=== PATIENT | female | born 2000 | race African-American/Black ===

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

== ENCOUNTER 2019-01-26 18:22 | Emergency (ER) | payer OTHER ==
[2019-01-26 18:29] VITALS: TEMP 99.4
[2019-01-26] MEDS ORDERED: SODIUM CHLORIDE 0.9% 1,000 ML IV STA (18:58)
[2019-01-26] MEDS ORDERED: ONDANSETRON 4 MG/2 ML VIAL IVP STA (18:58)
[2019-01-26 19:37] LABS: Basophils % (A) 0 %; Eosinophils # (A) 0.1 k/uL (0-0.7); Eosinophils % (A) 2 %; HCT 45.2 % (34.0-46.0); HGB 14.9 gm/dL (11.4-16.0); Lymphocytes # (A) 1.8 k/uL (1.0-4.8); Lymphocytes % (A) 27 %; MCH 31.1 pg (25.0-35.0); MCHC 32.9 g/dL (31.0-37.0); MCV 94.6 fL (80.0-100.0); Mean Platelet Volume 7.1; Monocytes # (A) 0.2 k/uL (0-1.0); Monocytes % (A) 3 %; Neutrophils # (A) 4.6 k/uL (1.3-7.7); Neutrophils % (A) 67 %; Platelet Count 275 k/uL (150-450); RBC 4.78 m/uL (3.80-5.40); RDW 14.1 % (11.5-15.5); WBC 6.8 k/uL (4.0-11.0)
[2019-01-26 19:40] LABS: Appearance,Urine Clear (Clear); Bilirubin,Urine Negative (Negative); Blood,Urine Trace (Negative); Color,Urine Yellow; Glucose,Urine (UA) Negative (Negative); Ketones,Urine Negative (Negative); Leukocyte Esterase,Urine Negative (Negative); Mucus,Urine Rare /hpf; Nitrite,Urine Negative (Negative); Protein,Urine 1+ (Negative); RBC,Urine 1 /hpf (0-5); Specific Gravity,Urine 1.022 (1.001-1.035); Squamous Epithelial Cell,Urine 7 /hpf (0-4); Urobilinogen,Urine <2.0 mg/dL (<2.0); WBC,Urine 1 /hpf (0-5)
[2019-01-26 19:47] LABS: ALT 25 U/L (9-52); AST 24 U/L (14-36); Albumin 5.2 g/dL (3.5-5.0); Alkaline Phosphatase 70 U/L (38-126); Amylase 76 U/L (30-110); Anion Gap 12 mmol/L; Blood Urea Nitrogen 13 mg/dL (7-17); Calcium 10.8 mg/dL (8.4-10.2); Carbon Dioxide 22 mmol/L (22-30); Chloride 105 mmol/L (98-107); Glucose 92 mg/dL (74-99); Lipase 35 U/L (23-300); Potassium 3.8 mmol/L (3.5-5.1); Sodium 139 mmol/L (137-145); Total Bilirubin 1.7 mg/dL (0.2-1.3); Total Protein 8.4 g/dL (6.3-8.2)
--- NOTE | 2019-01-26 20:00 | US ---
EXAMINATION TYPE: US gallbladder DATE OF EXAM: 01/26/2019 COMPARISON: NONE CLINICAL HISTORY: Pain. Pain and vomiting x 2 months. EXAM MEASUREMENTS: Liver Length: 13.5 cm Gallbladder Wall: 0.2 cm CBD: 0.4 cm Right Kidney: 9.9 x 4.6 x 5.4 cm Pancreas: wnl Liver: wnl Gallbladder: wnl Evidence for sonographic Marquez's sign: No CBD: wnl Right Kidney: wnl IMPRESSION: Negative exam. No gallstones or dilated ducts.
[2019-01-26] MEDS ORDERED: KETOROLAC 30 MG/ML 1 ML VIAL IVP STA (20:07)
--- NOTE | 2019-01-26 20:33 | CT ---
EXAMINATION TYPE: CT abdomen pelvis w con DATE OF EXAM: 01/26/2019 COMPARISON: 09/24/2009 HISTORY: Abdominal pain and vomiting. CT DLP: 316.2 mGycm Automated exposure control for dose reduction was used. TECHNIQUE: Helical acquisition of images was performed from the lung bases through the pelvis. CONTRAST: Performed without Oral Contrast and with IV Contrast, patient injected with 100ml mL of Isovue 300. FINDINGS: Lung bases are clear. There is no pleural effusion. Heart size is normal. There is no pericardial eff usion. Liver spleen pancreas gallbladder appear normal. Bile ducts are not dilated. There is no adren al mass. Kidneys show satisfactory contrast opacification. There is no hydronephrosis. Bladder disten ds smoothly. Uterus is anteverted. There is no free fluid in the pelvis. There is no inguinal hernia. There is no ascites. There is no sign of free air. Appendix is not seen. There is no sign of a thickened appendix . There is no evidence of mesenteric edema. The bony structures appear normal. Exam is limited by mot ion. IMPRESSION: NEGATIVE CT SCAN ABDOMEN AND PELVIS.
--- NOTE | 2019-01-26 21:10 | ED ---
Abdominal Pain HPI - General Chief Complaint: Abdominal Pain Stated Complaint: abd pain, weight loss Time Seen by Provider: 01/26/19 18:30 Source: patient, family Mode of arrival: ambulatory Limitations: no limitations - History of Present Illness Initial Comments: Patient is a 18-year-old female who presents to the emergency department with complaint of nausea and vomiting. The symptoms have been going on for the past several months. She also has associated abdominal discomfort. She has been seen by a GI specialist. She had an EGD and colonoscopy performed. There were no acute findings. The GI surgeon is sending her for a CT of her abdomen and pelvis and a gallbaldder ultrasound on . She does have an appointment with them on February 01. She is not being currently treated with any medications. She became significantly worse today which made her come to the emergency room. She admits that it is a cramping sensation located in the periumbilical region and up to the right upper quadrant. Pain is made worse with food intake. She has had anorexia over the past several months and it has caused her to lose a significant amount of weight. She denies hematemesis. Denies any constipation, diarrhea, melanotic stools or hematochezia. No family history of Crohn's or colitis. She denies any fevers or chills. No chest pain or shortness of breath. Denies any abnormal vaginal bleeding or discharge. There are no other alleviating, precipitating or modifying factors - Related Data Home Medications Medication Instructions Recorded Confirmed Ibuprofen [Motrin Ib] 400 mg PO Q6H PRN 01/26/19 01/26/19 Previous Rx's Medication Instructions Recorded Ondansetron Odt [Zofran Odt] 4 mg PO Q8HR PRN #10 tab 01/26/19 Allergies Allergy/AdvReac Type Severity Reaction Status Date / Time No Known Allergies Allergy Verified 01/26/19 19:39 Review of Systems ROS Statement: Those systems with pertinent positive or pertinent negative responses have been documented in the HPI. ROS Other: All systems not noted in ROS Statement are negative. Past Medical History Past Medical History: No Reported History Additional Past Medical History / Comment(s): CHANGE IN BOWEL HABITS. LOSING WEIGHT. NO APPETITE. N/V History of Any Multi-Drug Resistant Organisms: MRSA Date of last positivie culture/infection: 2010 MDRO Source:: left leg Past Surgical History: Breast Surgery Additional Past Surgical History / Comment(s): LT BREAST LUMPECTOMY-BENIGN Past Anesthesia/Blood Transfusion Reactions: No Reported Reaction Past Psychological History: No Psychological Hx Reported Smoking Status: Never smoker Past Alcohol Use History: None Reported Past Drug Use History: None Reported - Past Family History Brother(s) Family Medical History: Cancer General Exam Limitations: no limitations General appearance: alert, in no apparent distress Head exam: Present: atraumatic, normocephalic, normal inspection Eye exam: Present: normal appearance, PERRL, EOMI. Absent: scleral icterus, con junctival injection, periorbital swelling ENT exam: Present: normal exam, mucous membranes moist Neck exam: Present: normal inspection. Absent: tenderness, meningismus, lymphadenopathy Respiratory exam: Present: normal lung sounds bilaterally. Absent: respiratory distress, wheezes, rales, rhonchi, stridor Cardiovascular Exam: Present: regular rate, normal rhythm, normal heart sounds. Absent: systolic murmur, diastolic murmur, rubs, gallop, clicks GI/Abdominal exam: Present: soft, tenderness, normal bowel sounds, other (The patient has mild tenderness to palpation of the right upper quadrant.). Absent: distended, guarding, rebound, rigid Extremities exam: Present: normal inspection, full ROM, normal capillary refill. Absent: tenderness, pedal edema, joint swelling, calf tenderness Back exam: Present: normal inspection Neurological exam: Present: alert, oriented X3, CN II-XII intact Psychiatric exam: Present: normal affect, normal mood Skin exam: Present: warm, dry, intact, normal color. Absent: rash Course Vital Signs 01/26/19 01/26/19 18:26 21:00 Temperature 99.4 F Pulse Rate 111 H 94 Respiratory 18 16 Rate Blood Pressure 149/94 128/78 O2 Sat by Pulse 98 Oximetry Medical Decision Making - Medical Decision Making The patient was placed into room 19. We did obtain IV access. She was given 4 mg of Zofran. She was also given 15 mg of Toradol. I did recommend laboratory studies. I also recommended an ultrasound the patient's gallbladder. I did discuss performing a CT of the patient's abdomen and pelvis with the patient and her family at bedside. They did opt for the CAT scan. I did inform them of the radiation exposure risks. They did understanding continued to agree with performing the CT. Upon return of the results I did discuss them with patient. I did discuss diagnosis, differential diagnosis treatment options. At this time the patient will be discharged home with a prescription for Zofran. She is to take the medications as directed. She is to follow-up with her GI doctor at her scheduled appointment on february. If the patient has any new or worsening symptoms, she should return to the emergency room. The patient agreed and was discharged home in stable condition. - Differential Diagnosis gastroenteritis, anorexia, biliary dyskinesia, yester paresis - Lab Data Result diagrams: 01/26/19 17:24 01/26/19 17:24 Lab Results 01/26/19 01/26/19 01/26/19 Range/Units 17:24 17:24 17:24 WBC 6.8 (4.0-11.0) k/uL RBC 4.78 (3.80-5.40) m/uL Hgb 14.9 (11.4-16.0) gm/dL Hct 45.2 (34.0-46.0) % MCV 94.6 (80.0-100.0) fL MCH 31.1 (25.0-35.0) pg MCHC 32.9 (31.0-37.0) g/dL RDW 14.1 (11.5-15.5) % Plt Count 275 (150-450) k/uL Neutrophils % 67 % Lymphocytes % 27 % Monocytes % 3 % Eosinophils % 2 % Basophils % 0 % Neutrophils # 4.6 (1.3-7.7) k/uL Lymphocytes # 1.8 (1.0-4.8) k/uL Monocytes # 0.2 (0-1.0) k/uL Eosinophils # 0.1 (0-0.7) k/uL Basophils # 0.0 (0-0.2) k/uL Sodium 139 (137-145) mmol/L Potassium 3.8 (3.5-5.1) mmol/L Chloride 105 (98-107) mmol/L Carbon Dioxide 22 (22-30) mmol/L Anion Gap 12 mmol/L BUN 13 (7-17) mg/dL Creatinine 0.64 (0.52-1.04) mg/dL Est GFR (CKD-EPI)AfAm >90 (>60 ml/min/1.73 sqM) Est GFR (CKD-EPI)NonAf >90 (>60 ml/min/1.73 sqM) Glucose 92 (74-99) mg/dL Calcium 10.8 H (8.4-10.2) mg/dL Total Bilirubin 1.7 H (0.2-1.3) mg/dL AST 24 (14-36) U/L ALT 25 (9-52) U/L Alkaline Phosphatase 70 (38-126) U/L Total Protein 8.4 H (6.3-8.2) g/dL Albumin 5.2 H (3.5-5.0) g/dL Amylase 76 (30-110) U/L Lipase 35 (23-300) U/L TSH 1.410 (0.465-4.680) mIU/L Urine Color Urine Appearance (Clear) Urine pH (5.0-8.0) Ur Specific Rawlings (1.001-1.035) Urine Protein (Negative) Urine Glucose (UA) (Negative) Urine Ketones (Negative) Urine Blood (Negative) Urine Nitrite (Negative) Urine Bilirubin (Negative) Urine Urobilinogen (<2.0) mg/dL Ur Leukocyte Esterase (Negative) Urine RBC (0-5) /hpf Urine WBC (0-5) /hpf Ur Squamous Epith Cells (0-4) /hpf Urine Mucus (None) /hpf Urine HCG, Qual Not Detected (Not Detectd) 01/26/19 Range/Units 17:24 WBC (4.0-11.0) k/uL RBC (3.80-5.40) m/uL Hgb (11.4-16.0) gm/dL Hct (34.0-46.0) % MCV (80.0-100.0) fL MCH (25.0-35.0) pg MCHC (31.0-37.0) g/dL RDW (11.5-15.5) % Plt Count (150-450) k/uL Neutrophils % % Lymphocytes % % Monocytes % % Eosinophils % % Basophils % % Neutrophils # (1.3-7.7) k/uL Lymphocytes # (1.0-4.8) k/uL Monocytes # (0-1.0) k/uL Eosinophils # (0-0.7) k/uL Basophils # (0-0.2) k/uL Sodium (137-145) mmol/L Potassium (3.5-5.1) mmol/L Chloride (98-107) mmol/L Carbon Dioxide (22-30) mmol/L Anion Gap mmol/L BUN (7-17) mg/dL Creatinine (0.52-1.04) mg/dL Est GFR (CKD-EPI)AfAm (>60 ml/min/1.73 sqM) Est GFR (CKD-EPI)NonAf (>60 ml/min/1.73 sqM) Glucose (74-99) mg/dL Calcium (8.4-10.2) mg/dL Total Bilirubin (0.2-1.3) mg/dL AST (14-36) U/L ALT (9-52) U/L Alkaline Phosphatase (38-126) U/L Total Protein (6.3-8.2) g/dL Albumin (3.5-5.0) g/dL Amylase (30-110) U/L Lipase (23-300) U/L TSH (0.465-4.680) mIU/L Urine Color Yellow Urine Appearance Clear (Clear) Urine pH 6.0 (5.0-8.0) Ur Specific Rawlings 1.022 (1.001-1.035) Urine Protein 1+ H (Negative) Urine Glucose (UA) Negative (Negative) Urine Ketones Negative (Negative) Urine Blood Trace H (Negative) Urine Nitrite Negative (Negative) Urine Bilirubin Negative (Negative) Urine Urobilinogen <2.0 (<2.0) mg/dL Ur Leukocyte Esterase Negative (Negative) Urine RBC 1 (0-5) /hpf Urine WBC 1 (0-5) /hpf Ur Squamous Epith Cells 7 H (0-4) /hpf Urine Mucus Rare H (None) /hpf Urine HCG, Qual (Not Detectd) - Radiology Data Radiology results: report reviewed CT abdomen and pelvis demonstrates no acute findings. Ultrasound of the patient 's gallbladder demonstrates no acute findings Disposition Clinical Impression: Vomiting, Abdominal pain Disposition: HOME SELF-CARE Condition: Good Instructions (If sedation given, give patient instructions): Abdominal Pain (ED) Additional Instructions: Please follow-up with your GI specialist for further evaluation. Keep your appointment for February 01. If you have any new or worsening symptoms please return to the emergency room. Prescriptions: Ondansetron Odt [Zofran Odt] 4 mg PO Q8HR PRN #10 tab PRN Reason: Nausea Is patient prescribed a controlled substance at d/c from ED?: No Referrals: None,Stated [Primary Care Provider] - 1-2 days Time of Disposition: 21:10
[2019-01-26 22:06] VITALS: BP 128/78; PULSE 94; RESP 16
== END 2019-01-26 21:45 | disposition home or self-care (01) ==
LOC: EC 18:22
DX: R10.11 Right upper quadrant pain (principal); R10.13 Epigastric pain; R11.2 Nausea with vomiting, unspecified; Z86.14 Personal history of Methicillin resistant Staphylococcus aureus infection
CPT/HCPCS: 36415; 80053; 84443; 82150; 83690; 85025; 81001; 81025; 76705; 74177; 99284; 96374; 96375; 96361 ×2; J2405; J1885; Q9967

== ENCOUNTER 2019-09-11 13:47 | Inpatient (IN) | payer OTHER ==
[2019-09-11] MEDS ORDERED: KETOROLAC 30 MG/ML 1 ML VIAL IVP STA (14:15)
[2019-09-11] MEDS ORDERED: PANTOPRAZOLE 40 MG/10 ML VIAL IVP STA (14:15)
[2019-09-11] MEDS ORDERED: SODIUM CHLORIDE 0.9% 1,000 ML IV STA (14:15)
[2019-09-11 14:48] LABS: Basophils % (A) 1 %; Eosinophils # (A) 0.1 k/uL (0-0.7); Eosinophils % (A) 2 %; HCT 40.5 % (34.0-46.0); HGB 13.7 gm/dL (11.4-16.0); Lymphocytes # (A) 1.5 k/uL (1.0-4.8); Lymphocytes % (A) 27 %; MCH 32.5 pg (25.0-35.0); MCHC 33.8 g/dL (31.0-37.0); MCV 96.1 fL (80.0-100.0); Mean Platelet Volume 6.3; Monocytes # (A) 0.2 k/uL (0-1.0); Monocytes % (A) 4 %; Neutrophils # (A) 3.6 k/uL (1.3-7.7); Neutrophils % (A) 64 %; Platelet Count 267 k/uL (150-450); RBC 4.22 m/uL (3.80-5.40); RDW 12.2 % (11.5-15.5); WBC 5.6 k/uL (4.0-11.0)
[2019-09-11 14:53] LABS: Appearance,Urine Clear (Clear); Bilirubin,Urine Negative (Negative); Blood,Urine Negative (Negative); Color,Urine Yellow; Glucose,Urine (UA) Negative (Negative); Ketones,Urine Negative (Negative); Leukocyte Esterase,Urine Negative (Negative); Nitrite,Urine Negative (Negative); Protein,Urine Negative (Negative); Specific Gravity,Urine 1.012 (1.001-1.035); Urobilinogen,Urine <2.0 mg/dL (<2.0)
[2019-09-11 15:11] LABS: ALT 23 U/L (9-52); AST 38 U/L (14-36); African American GFR (CKD) >90 (>60 ml/min/1.73 sqM); Albumin 4.8 g/dL (3.5-5.0); Alkaline Phosphatase 66 U/L (38-126); Amylase 236 U/L (30-110); Anion Gap 10 mmol/L; Blood Urea Nitrogen 12 mg/dL (7-17); Calcium 9.7 mg/dL (8.4-10.2); Carbon Dioxide 27 mmol/L (22-30); Chloride 101 mmol/L (98-107); Glucose 98 mg/dL (74-99); Potassium 3.4 mmol/L (3.5-5.1); Sodium 138 mmol/L (137-145); Total Bilirubin 1.1 mg/dL (0.2-1.3); Total Protein 8.1 g/dL (6.3-8.2)
--- NOTE | 2019-09-11 15:25 | XR ---
EXAMINATION TYPE: XR KUB DATE OF EXAM: 09/11/2019 COMPARISON: 08/07/2018 HISTORY: Abdominal pain TECHNIQUE: 2 views upright FINDINGS: There is a thoracolumbar levoscoliosis. Bowel gas pattern is normal. There is no sign of in testinal obstruction or pneumoperitoneum. Fecal pattern is normal. Lung bases are clear. There are no pathologic calcifications over the kidneys. IMPRESSION: Nonacute abdomen. No change.
--- NOTE | 2019-09-11 16:28 | ED ---
Abdominal Pain HPI - General Source: patient Mode of arrival: ambulatory Limitations: no limitations <Poly Tomas - Last Filed: 09/11/19 17:05> <Marisel Bolaños - Last Filed: 09/14/19 01:40> - General Chief Complaint: Abdominal Pain Stated Complaint: Abd pain Time Seen by Provider: 09/11/19 13:54 - History of Present Illness Initial Comments: Patient is a 18-year-old female presenting to emergency permit complaints of severe abdominal pain that started today. Patient states 3 days ago she did vomit a small amount of blood and has been nauseous since. Patient states abdominal pain just started today and she is still nauseous. Patient has had no more vomiting episodes. Patient denies fever, chills, diarrhea, chest pain, shortness of breath. Patient states she has a history of "stomach issues" but that she's never vomited blood. Patient does admit to drinking occasionally, her last alcoholic beverages were about a week ago. Patient denies any other drug use. Patient states she has not taken anything for her pain today. Patient denies urinary complaints or vaginal discharge. Patient has no other complaints at this time. Upon arrival to the ER, vital signs are stable, afebrile. (Poly Tomas) - Related Data Home Medications Medication Instructions Recorded Confirmed No Known Home Medications 09/11/19 09/11/19 Allergies Allergy/AdvReac Type Severity Reaction Status Date / Time No Known Allergies Allergy Verified 09/11/19 17:17 Review of Systems ROS Other: All systems not noted in ROS Statement are negative. <Poly Tomas - Last Filed: 09/11/19 17:05> ROS Other: All systems not noted in ROS Statement are negative. <Marisel Bolaños - Last Filed: 09/14/19 01:40> ROS Statement: Those systems with pertinent positive or pertinent negative responses have been documented in the HPI. Past Medical History Past Medical History: No Reported History Additional Past Medical History / Comment(s): CHANGE IN BOWEL HABITS. LOSING WEIGHT. NO APPETITE. N/V History of Any Multi-Drug Resistant Organisms: MRSA Date of last positivie culture/infection: 2010 MDRO Source:: left leg Past Surgical History: Breast Surgery Additional Past Surgical History / Comment(s): LT BREAST LUMPECTOMY-BENIGN Past Anesthesia/Blood Transfusion Reactions: No Reported Reaction Past Psychological History: No Psychological Hx Reported Smoking Status: Never smoker Past Alcohol Use History: Occasional Past Drug Use History: None Reported - Past Family History Brother(s) Family Medical History: Cancer <Poly Tomas - Last Filed: 09/11/19 17:05> General Exam Limitations: no limitations <Poly Tomas - Last Filed: 09/11/19 17:05> - General Exam Comments Initial Comments: GENERAL: Well-appearing, well-nourished and in no acute distress, but does appear uncomfortable. HEAD: Atraumatic, normocephalic. EYES: Pupils equal round and reactive to light, extraocular movements intact, sclera anicteric, conjunctiva are normal. ENT: TMs normal, nares patent, oropharynx clear without exudates. Moist mucous membranes. NECK: Normal range of motion, supple without lymphadenopathy or JVD. LUNGS: Breath sounds clear to auscultation bilaterally and equal. No wheezes rales or rhonchi. HEART: Regular rate and rhythm without murmurs, rubs or gallops. ABDOMEN: Tenderness to palpation epigastric, left and right upper quadrant. Some generalized lower abdominal tenderness. Soft, normoactive bowel sounds. No guarding, no rebound. No masses appreciated. : Deferred EXTREMITIES: Normal range of motion, no pitting or edema. No clubbing or cyanosis. NEUROLOGICAL: Normal speech, normal gait. PSYCH: Normal mood, normal affect. SKIN: Warm, Dry, normal turgor, no rashes or lesions noted. (Poly Tomas) Course Vital Signs 09/11/19 09/11/19 09/11/19 13:50 15:30 18:15 Temperature 98 F 98.4 F Pulse Rate 90 70 81 Respiratory 18 16 18 Rate Blood Pressure 151/97 129/93 157/99 O2 Sat by Pulse 100 100 99 Oximetry Medical Decision Making - Lab Data Result diagrams: 09/11/19 14:23 09/11/19 14:23 <Poly Tomas - Last Filed: 09/11/19 17:05> - Lab Data Result diagrams: 09/13/19 07:13 09/13/19 07:13 <Marisel Bolaños - Last Filed: 09/14/19 01:40> - Medical Decision Making Patient is a 18-year-old female presenting with upper abdominal pain that started today. Patient did have an episode of hematemesis 3 days ago. Patient has been nausea did since then. No more episodes of vomiting. Vital signs are stable upon arrival, afebrile. Patient has epigastric as well as left and right-sided upper abdominal pain. Lab work reveals pancreatitis with lipase at almost 2000. UA is normal. KUB and abdominal ultrasound is also normal. Patient was given fluids, Zofran, Toradol with only minor relief of symptoms. Patient does admit to being occasional drinker however the last drink was p artially one week ago. Given patient's first onset of pancreatitis and intractable pain, patient will be admitted. Patient will continue with pain medicines and fluids and will consult GI. Patient accepted by Dr. Merrill. Case discussed with Dr. Bolaños who agrees with plan of care. (Poly Tomas) I was available for consultation in the emergency department. The history and physical exam were done by the midlevel provider. I was consulted for this patients care. I reviewed the case with the midlevel provider and based on their presentation of the patient, I agree with the assessment, medical decision making and plan of care as documented. Chart was dictated using [employer] dictation software. Attempts were made to correct any dictation errors however some typographical errors may persist. (Marisel Bolaños) - Lab Data Lab Results 09/11/19 09/11/19 09/11/19 Range/Units 14:23 14:23 14:23 WBC 5.6 (4.0-11.0) k/uL RBC 4.22 (3.80-5.40) m/uL Hgb 13.7 (11.4-16.0) gm/dL Hct 40.5 (34.0-46.0) % MCV 96.1 (80.0-100.0) fL MCH 32.5 (25.0-35.0) pg MCHC 33.8 (31.0-37.0) g/dL RDW 12.2 (11.5-15.5) % Plt Count 267 (150-450) k/uL Neutrophils % 64 % Lymphocytes % 27 % Monocytes % 4 % Eosinophils % 2 % Basophils % 1 % Neutrophils # 3.6 (1.3-7.7) k/uL Lymphocytes # 1.5 (1.0-4.8) k/uL Monocytes # 0.2 (0-1.0) k/uL Eosinophils # 0.1 (0-0.7) k/uL Basophils # 0.0 (0-0.2) k/uL Sodium 138 (137-145) mmol/L Potassium 3.4 L (3.5-5.1) mmol/L Chloride 101 (98-107) mmol/L Carbon Dioxide 27 (22-30) mmol/L Anion Gap 10 mmol/L BUN 12 (7-17) mg/dL Creatinine 0.68 (0.52-1.04) mg/dL Est GFR (CKD-EPI)AfAm >90 (>60 ml/min/1.73 sqM) Est GFR (CKD-EPI)NonAf >90 (>60 ml/min/1.73 sqM) Glucose 98 (74-99) mg/dL Calcium 9.7 (8.4-10.2) mg/dL Total Bilirubin 1.1 (0.2-1.3) mg/dL AST 38 H (14-36) U/L ALT 23 (9-52) U/L Alkaline Phosphatase 66 (38-126) U/L Total Protein 8.1 (6.3-8.2) g/dL Albumin 4.8 (3.5-5.0) g/dL Amylase 236 H (30-110) U/L Lipase 1915 H (23-300) U/L Urine Color Yellow Urine Appearance Clear (Clear) Urine pH 7.0 (5.0-8.0) Ur Specific Bob White 1.012 (1.001-1.035) Urine Protein Negative (Negative) Urine Glucose (UA) Negative (Negative) Urine Ketones Negative (Negative) Urine Blood Negative (Negative) Urine Nitrite Negative (Negative) Urine Bilirubin Negative (Negative) Urine Urobilinogen <2.0 (<2.0) mg/dL Ur Leukocyte Esterase Negative (Negative) Urine HCG, Qual (Not Detectd) Urine Opiates Screen (NotDetected) Ur Oxycodone Screen (NotDetected) Urine Methadone Screen (NotDetected) Ur Propoxyphene Screen (NotDetected) Ur Barbiturates Screen (NotDetected) U Tricyclic Antidepress (NotDetected) Ur Phencyclidine Scrn (NotDetected) Ur Amphetamines Screen (NotDetected) U Methamphetamines Scrn (NotDetected) U Benzodiazepines Scrn (NotDetected) Urine Cocaine Screen (NotDetected) U Marijuana (THC) Screen (NotDetected) 09/11/19 09/11/19 Range/Units 14:23 14:23 WBC (4.0-11.0) k/uL RBC (3.80-5.40) m/uL Hgb (11.4-16.0) gm/dL Hct (34.0-46.0) % MCV (80.0-100.0) fL MCH (25.0-35.0) pg MCHC (31.0-37.0) g/dL RDW (11.5-15.5) % Plt Count (150-450) k/uL Neutrophils % % Lymphocytes % % Monocytes % % Eosinophils % % Basophils % % Neutrophils # (1.3-7.7) k/uL Lymphocytes # (1.0-4.8) k/uL Monocytes # (0-1.0) k/uL Eosinophils # (0-0.7) k/uL Basophils # (0-0.2) k/uL Sodium (137-145) mmol/L Potassium (3.5-5.1) mmol/L Chloride (98-107) mmol/L Carbon Dioxide (22-30) mmol/L Anion Gap mmol/L BUN (7-17) mg/dL Creatinine (0.52-1.04) mg/dL Est GFR (CKD-EPI)AfAm (>60 ml/min/1.73 sqM) Est GFR (CKD-EPI)NonAf (>60 ml/min/1.73 sqM) Glucose (74-99) mg/dL Calcium (8.4-10.2) mg/dL Total Bilirubin (0.2-1.3) mg/dL AST (14-36) U/L ALT (9-52) U/L Alkaline Phosphatase (38-126) U/L Total Protein (6.3-8.2) g/dL Albumin (3.5-5.0) g/dL Amylase (30-110) U/L Lipase (23-300) U/L Urine Color Urine Appearance (Clear) Urine pH (5.0-8.0) Ur Specific Bob White (1.001-1.035) Urine Protein (Negative) Urine Glucose (UA) (Negative) Urine Ketones (Negative) Urine Blood (Negative) Urine Nitrite (Negative) Urine Bilirubin (Negative) Urine Urobilinogen (<2.0) mg/dL Ur Leukocyte Esterase (Negative) Urine HCG, Qual Not Detected (Not Detectd) Urine Opiates Screen Not Detected (NotDetected) Ur Oxycodone Screen Not Detected (NotDetected) Urine Methadone Screen Not Detected (NotDetected) Ur Propoxyphene Screen Not Detected (NotDetected) Ur Barbiturates Screen Not Detected (NotDetected) U Tricyclic Antidepress Not Detected (NotDetected) Ur Phencyclidine Scrn Not Detected (NotDetected) Ur Amphetamines Screen Not Detected (NotDetected) U Methamphetamines Scrn Not Detected (NotDetected) U Benzodiazepines Scrn Not Detected (NotDetected) Urine Cocaine Screen Detected H (NotDetected) U Marijuana (THC) Screen Detected H (NotDetected) Disposition Decision Date: 09/11/19 Decision Time: 17:08 <Poly Tomas - Last Filed: 09/11/19 17:05> <Marisel Bolaños - Last Filed: 09/14/19 01:40> Clinical Impression: Pancreatitis Disposition: ADMITTED IP TO THIS [facility] Condition: Stable
--- NOTE | 2019-09-11 16:48 | US ---
EXAMINATION TYPE: US abdomen limited DATE OF EXAM: 09/11/2019 COMPARISON: CT & US 2019 CLINICAL HISTORY: RUQ, pancreatitis. EXAM MEASUREMENTS: Liver Length: 14.5 cm Gallbladder Wall: 0.2 cm CBD: 0.3 cm Right Kidney: 9.6 x 4.7 x 6.2 cm Pancreas: visualized portions wnl Liver: wnl Gallbladder: No stones seen Evidence for sonographic Marquez's sign: No CBD: wnl Right Kidney: No hydronephrosis or masses seen IMPRESSION: Normal right upper quadrant abdominal sonogram. No gallstones or dilated ducts.
[2019-09-11] MEDS ORDERED: ACETAMINOPHEN TAB 325 MG TAB PO PRN (17:00)
[2019-09-11] MEDS ORDERED: NALOXONE 0.4 MG/ML 1 ML VIAL IV PRN (17:00)
[2019-09-11] MEDS: SODIUM CHLORIDE 0.9% 1,000 ML IV SCH (17:51)
[2019-09-11] MEDS: MORPHINE SULFATE 4 MG/ML SYRINGE IV PRN ×2 (17:53→22:30)
[2019-09-11 18:45] VITALS: BMI 23.1
[2019-09-11] MEDS: traMADol 50 MG TAB PO PRN (20:22)
--- NOTE | 2019-09-11 21:55 | P.HPIM ---
History of Present Illness H&P Date: 09/11/19 Chief Complaint: Abdominal pain Patient is a 18-year-old female without significant past medical history except for possible IBS and also history of left breast lumpectomy-benign came to ER with complaints of severe abdominal pain worsening for the past 1 week. Abdominal pain is mainly in the epigastric region. Denied any radiation to the back. Patient didn't Patient felt nauseous and had an episode of blood in the vomit 2 days ago. Patient has been having decreased appetite and losing weight recently. Patient has been having stomach issues with diarrhea and constipation but no history of vomiting. Denied any complaints of chest pain or shortness of breath. No fever no chills. No dysuria or hematuria. No recent illnesses. No recent travel. Patient does drink occasionally. Denied any drug use. Lipase level 1915 and amylase 236 KUB x-ray showed no acute abdomen. US ABDOMEN SHOWED NORMAL RIGHT UPPER QUADRANT SONOGRAM. NO GALLSTONES OR DILATED DUCTS. Review of Systems Constitutional: Patient denies any fever or chills . No generalized weakness or weight loss. Abdomen: Does have abdominal pain. Episode of vomiting and nausea. No diarrhea.. Cardiovascular: Patient denies any chest pain or short of breath no palpitations. Respiratory: patient denied any cough is from production. No shortness of b reath Neurologic: Patient denied any numbness or tingling headache. Musculoskeletal: Patient denies any complaints of joint swelling or deformity. Skin: Negative Psychiatric: Negative Endocrine: No heat or cold intolerance. No recent weight gain. Genitourinary: No dysuria or hematuria. All other 14 point ROS negative except the above Past Medical History Past Medical History: No Reported History Additional Past Medical History / Comment(s): CHANGE IN BOWEL HABITS fluctuated from constipation to loose ? IBS. LOSING WEIGHT. NO APPETITE. N/V History of Any Multi-Drug Resistant Organisms: MRSA Date of last positivie culture/infection: 2010 MDRO Source:: left leg Past Surgical History: Breast Surgery Additional Past Surgical History / Comment(s): LT BREAST LUMPECTOMY-BENIGN Past Anesthesia/Blood Transfusion Reactions: No Reported Reaction Past Psychological History: No Psychological Hx Reported Smoking Status: Never smoker Past Alcohol Use History: Occasional Past Drug Use History: None Reported - Past Family History Brother(s) Family Medical History: Cancer Father Additional Family Medical History / Comment(s): heart and kidney failure. dad on dialysis. HTN Mother Additional Family Medical History / Comment(s): HTN Medications and Allergies Home Medications Medication Instructions Recorded Confirmed Type No Known Home Medications 09/11/19 09/11/19 History Allergies Allergy/AdvReac Type Severity Reaction Status Date / Time No Known Allergies Allergy Verified 09/11/19 17:17 Physical Exam Vitals: Vital Signs Temp Pulse Pulse Resp BP BP Pulse Ox 09/11/19 19:05 98.4 F 74 18 161/103 100 09/11/19 18:15 81 18 157/99 99 09/11/19 15:30 98.4 F 70 16 129/93 100 09/11/19 13:50 98 F 90 18 151/97 100 Intake and Output 09/11/19 09/11/19 09/11/19 06:59 14:59 22:59 Other: Weight 60.328 kg PHYSICAL EXAMINATION: Patient is lying in the bed comfortably, no acute distress, awake alert and oriented.. HEENT: Normocephalic. Neck is supple. Pupils reactive. Nostrils clear. Oral cavity is moist. Ears reveal no drainage. Neck reveals no JVD, carotid bruits, or thyromegaly. CHEST EXAMINATION: Trachea is central. Symmetrical expansion. Lung mckenna clear to auscultation and percussion. CARDIAC: Normal S1, S2 with no gallops. No murmurs ABDOMEN: Soft. Mild Epigastric tenderness. Bowel sounds normal. No organome alvin. No abdominal bruits. Extremities: reveal no edema. No clubbing or cyanosis Neurologically awake, alert, oriented x3 with well-coordinated movements. No focal deficits noted Skin: No rash or skin lesions. Psychiatric: Coperative. Nonsuicidal Musculoskeletal: No joint swelling or deformity. Normal range of motion. Results CBC & Chem 7: 09/11/19 14:23 09/11/19 14:23 Labs: Abnormal Lab Results - Last 24 Hours (Table) 09/11/19 Range/Units 14:23 Potassium 3.4 L (3.5-5.1) mmol/L AST 38 H (14-36) U/L Amylase 236 H (30-110) U/L Lipase 1915 H (23-300) U/L Thrombosis Risk Factor Assmnt - DVT/VTE Prophylaxis DVT/VTE Prophylaxis: Pharmacologic Prophylaxis ordered - Choose All That Apply Each Factor Represents 1 point: Hx of IBD Other Risk Factors: No Other congenital or acquired thrombophilia - If yes, enter type in comment: No Thrombosis Risk Factor Assessment Total Risk Factor Score: 1 Thrombosis Risk Factor Assessment Level: Low Risk Assessment and Plan Assessment: Acute pancreatitis with elevated lipase and amylase level. No history of alcoho abuse. No gallstones noted in the abdominal sonogram. Lipid panel was ordered. Patient is having abdominal symptoms including diarrhea or constipation for about a year and also complains of weight loss. Gastroenterology service was consulted for further evaluation. Plan: Patient will be continued on IV hydration and pain management with morphine. Follow-up lipase level tomorrow. Exact etiology for acute peritonitis is not definitive at this time. Follow-up for triglyceride level. Gastroenterology was consulted. Further recommendations based on the clinical course. Time with Patient: Greater than 30
[2019-09-11] MEDS ORDERED: POTASSIUM CHLORIDE 20 MEQ in WATER FOR INJECTION 1 100ML.BAG IVPB STA (21:58)
[2019-09-11] MEDS: ONDANSETRON 4 MG/2 ML VIAL IVP PRN (22:28)
[2019-09-11 22:42] LABS: Cocaine Screen,Urine Detected (NotDetected); Opiate Screen,Urine Not Detected (NotDetected); Phencyclidine Screen,Urine Not Detected (NotDetected); Urn Cannabinoid Scrn Detected (NotDetected)
[2019-09-11 22:43] LABS: Amphetamine Screen,Urine Not Detected (NotDetected); Barbiturate Screen,Urine Not Detected (NotDetected); Benzodiazepines Screen,Urine Not Detected (NotDetected); Methadone Screen, Urine Not Detected (NotDetected); Oxycodone Screen, Urine Not Detected (NotDetected); Tricyclic Antidepressant,Urine Not Detected (NotDetected)
[2019-09-12] MEDS: traMADol 50 MG TAB PO PRN ×2 (03:06→09:31)
[2019-09-12] MEDS: ONDANSETRON 4 MG/2 ML VIAL IVP PRN (07:03)
[2019-09-12] MEDS: MORPHINE SULFATE 4 MG/ML SYRINGE IV PRN ×4 (07:06→20:54)
[2019-09-12] MEDS: SODIUM CHLORIDE 0.9% 1,000 ML IV SCH (07:08)
[2019-09-12] MEDS: FAMOTIDINE 20 MG TAB PO SCH ×2 (08:23→20:03)
[2019-09-12] MEDS ORDERED: diphenhydrAMINE 25 MG CAP PO STA (10:12)
[2019-09-12] MEDS: LACTATED RINGERS 1,000 ML IV SCH ×2 (11:58→20:02)
--- NOTE | 2019-09-12 12:02 | P.CONS ---
History of Present Illness - Reason for Consult Consult date: 09/12/19 Pancreatitis Requesting physician: Ganga Merrill - Chief Complaint Abdominal pain - History of Present Illness 18-year-old female with no significant past medical history who presented to the hospital due to worsening abdominal pain over the past week. She reports abd ominal pain in the epigastric region above her belly button described as both sharp and aching in quality. The pain was constant prior to presentation and is currently waxing and waning in intensity. She reports associated nausea and multiple episodes of emesis and did notice some blood streaking with some of her emesis. No prior episodes of similar pain. She denies any sick contacts, herbal supplementations, new medications or other inciting events. No family history of pancreatic disease. She reports occasional use of Motrin approximately 1 200 mg Motrin 3 times per week. She denies any regular use of alcohol or binge drinking. On presentation to the hospital she was found to have a markedly elevated lipase at 1913 with an amylase of 236, WBC 5.6, hemoglobin 13.7, platelet count 267,000, total bilirubin 1.1, alkaline phosphatase 66, AST 38 and ALT 23 with an ultrasound of the abdomen which was normal. Currently she is seen lying in bed reporting some improvement in the pain and tolerating liquid diet. No further nausea or vomiting reported. Review of Systems REVIEW OF SYSTEMS: CONSTITUTIONAL: Denies any fevers, chills, weight change or fatigue. CARDIOVASCULAR: Denies any chest pain, palpitations high or low blood pressures RESPIRATORY: Denies any shortness of breath, hemoptysis or cough. GENITOURINARY: No dysuria or hematuria. MUSCULOSKELETAL: No weakness reported. SKIN: Denies any new rashes or lesions, jaundice or pallor. PSYCHIATRIC: Denies any depression or anxiety. NEUROLOGY: Denies headache, denies any new focal deficits. EARS/NOSE/THROAT: No recent hearing change, congestion, nasal discharge or sore throat. EYES: No pain in eyes, discharge or change in vision. GASTROINTESTINAL: As per HPI. Past Medical History Past Medical History: No Reported History Additional Past Medical History / Comment(s): CHANGE IN BOWEL HABITS fluctuated from constipation to loose ? IBS. LOSING WEIGHT. NO APPETITE. N/V History of Any Multi-Drug Resistant Organisms: MRSA Year Discovered:: 2010 MDRO Source:: left leg Past Surgical History: Breast Surgery Additional Past Surgical History / Comment(s): LT BREAST LUMPECTOMY-BENIGN Past Anesthesia/Blood Transfusion Reactions: No Reported Reaction Past Psychological History: No Psychological Hx Reported Smoking Status: Never smoker Past Alcohol Use History: Occasional Past Drug Use History: None Reported - Past Family History Brother(s) Family Medical History: Cancer Father Additional Family Medical History / Comment(s): heart and kidney failure. dad on dialysis. HTN Mother Additional Family Medical History / Comment(s): HTN Medications and Allergies Home Medications Medication Instructions Recorded Confirmed Type No Known Home Medications 09/11/19 09/11/19 History Allergies Allergy/AdvReac Type Severity Reaction Status Date / Time No Known Allergies Allergy Verified 09/11/19 17:17 Physical Exam Vitals: Vital Signs Temp Pulse Pulse Resp BP BP BP 09/12/19 08:25 98.7 F 76 18 136/77 09/12/19 00:40 97.9 F 72 18 134/93 09/11/19 19:05 98.4 F 74 18 161/103 09/11/19 18:15 81 18 157/99 09/11/19 15:30 98.4 F 70 16 129/93 09/11/19 13:50 98 F 90 18 151/97 Pulse Ox 09/12/19 08:25 97 09/12/19 00:40 100 09/11/19 19:05 100 09/11/19 18:15 99 09/11/19 15:30 100 09/11/19 13:50 100 Intake and Output 09/11/19 09/12/19 09/12/19 22:59 06:59 14:59 Intake Total 250 1600 Balance 250 1600 Intake: Intake, IV Titration 1100 Amount Potassium Chloride 20 meq 100 In Water For Injection 1 100ml.bag @ 50 mls/hr IVPB ONCE STA Rx#: [id number] Sodium Chloride 0.9% 1, 1000 000 ml @ 75 mls/hr IV . [id number] [facility] Rx#:[id number] Oral 250 500 Other: # Voids 1 2 On physical examination, patient appears comfortable in no apparent distress. HEAD: Normocephalic, atraumatic. EYES: No scleral icterus. No conjunctival injection. MOUTH: No lesions, tongue midline. NECK: Trachea midline, no gross abnormalities. CHEST: Clear to auscultation with no wheezing or rhonchi appreciated. HEART: Regular rate and rhythm. ABDOMEN: Soft, mildly tender to palpation. Bowel sounds are positive. No organomegaly. No guarding or rigidity. EXTREMITIES: No pedal edema. SKIN: No rashes, no jaundice. NEUROLOGIC: Alert and oriented x3. No focal deficits. Results CBC & Chem 7: 09/11/19 14:23 09/12/19 06:55 Labs: Abnormal Lab Results - Last 24 Hours (Table) 09/11/19 09/11/19 09/12/19 Range/Units 14:23 14:23 06:55 Potassium 3.4 L (3.5-5.1) mmol/L AST 38 H (14-36) U/L HDL Cholesterol 99 H (40-60) mg/dL Amylase 236 H (30-110) U/L Lipase 1915 H 1986 H (23-300) U/L Urine Cocaine Screen Detected H (NotDetected) U Marijuana (THC) Screen Detected H (NotDetected) US - abdomen: report reviewed (Ultrasound of the abdomen no gallstones or CBD dilation noted.) Assessment and Plan (1) Pancreatitis Narrative/Plan: 18-year-old female who presented due to abdominal pain, nausea and vomiting. Patient found to have markedly elevated lipase. Currently receiving treatment for acute uncomplicated pancreatitis. Denies any significant alcohol use and no evidence of gallstones on ultrasound of the abdomen with and normal CBD and biliary tree and liver enzymes significant for a total bili of 1.1, alkaline phosphatase 66, AST 38 and ALT 23. Current Visit: Yes Status: Acute Code(s): K85.90 - ACUTE PANCREATITIS WITHOUT NECROSIS OR INFECTION, UNSP SNOMED Code(s): 99935860 Plan: Supportive care Clear liquid diet We'll discontinue normal saline and start lactated Ringer at 125 mL/h Continue pain control Will order RAFAEL and IgG4 level Continue to monitor her symptomatically Ultrasound of the abdomen reviewed Thank you for allowing us to participate in the care of the patient we will continue to follow
--- NOTE | 2019-09-12 23:50 | P.PN ---
Subjective Progress Note Date: 09/12/19 Principal diagnosis: Acute pancreatitis Patient is a 18-year-old female without significant past medical history except for possible IBS and also history of left breast lumpectomy-benign came to ER with complaints of severe abdominal pain worsening for the past 1 week. Abdominal pain is mainly in the epigastric region. Denied any radiation to the back. Patient didn't Patient felt nauseous and had an episode of blood in the vomit 2 days ago. Patient has been having decreased appetite and losing weight recently. Patient has been having stomach issues with diarrhea and constipation but no history of vomiting. Denied any complaints of chest pain or shortness of breath. No fever no chills. No dysuria or hematuria. No recent illnesses. No recent travel. Patient does drink occasionally. Denied any drug use. Lipase level 1915 and amylase 236 KUB x-ray showed no acute abdomen. US ABDOMEN SHOWED NORMAL RIGHT UPPER QUADRANT SONOGRAM. NO GALLSTONES OR DILATED DUCTS. 09/12/2019 Patient is still having epigastric abdominal pain. Slightly improved compared to yesterday. Tolerating liquid diet. Otherwise lipase level is still elevated. UDS is positive for marijuana and cocaine. Triglyceride level is 85. RAFAEL and IgG4 level was ordered. Patient was seen by gastroenterology. Continue the current management at this time. Current on pain management with morphine. Patient has been afebrile. No nausea vomiting. No diarrhea. No chest pain or shortness of breath. Current medications reviewed. Objective - Vital Signs Vital signs: Vital Signs Temp 98 F 09/12/19 23:24 Pulse 80 09/12/19 23:24 Resp 18 09/12/19 23:24 BP 134/85 09/12/19 23:24 Pulse Ox 99 09/12/19 23:24 Intake & Output 09/12/19 09/12/19 09/13/19 06:59 18:59 06:59 Intake Total 1850 1520 1550 Balance 1850 1520 1550 Intake: Intake, IV Titration 1100 1000 Amount Lactated Ringers 1,000 ml 1000 @ 125 mls/hr IV .Q8H [facility] Rx#:[id number] Potassium Chloride 20 meq 100 In Water For Injection 1 100ml.bag @ 50 mls/hr IVPB ONCE STA Rx#: [id number] Sodium Chloride 0.9% 1, 1000 000 ml @ 75 mls/hr IV . [id number] [facility] Rx#:[id number] Oral 750 1520 550 Other: # Voids 2 1 3 - Exam PHYSICAL EXAMINATION: Patient is lying in the bed comfortably, no acute distress, awake alert and oriented.. HEENT: Normocephalic. Neck is supple. Pupils reactive. Nostrils clear. Oral cavity is moist. Ears reveal no drainage. Neck reveals no JVD, carotid bruits, or thyromegaly. CHEST EXAMINATION: Trachea is central. Symmetrical expansion. Lung mckenna clear to auscultation and percussion. CARDIAC: Normal S1, S2 with no gallops. No murmurs ABDOMEN: Soft. Mild epigastric tenderness. Bowel sounds normal. No organomegaly. No abdominal bruits. Extremities: reveal no edema. No clubbing or cyanosis Neurologically awake, alert, oriented x3 with well-coordinated movements. No focal deficits noted Skin: No rash or skin lesions. Psychiatric: Coperative. Nonsuicidal Musculoskeletal: No joint swelling or deformity. Normal range of motion. - Labs CBC & Chem 7: 09/11/19 14:23 09/12/19 06:55 Labs: Abnormal Lab Results - Last 24 Hours (Table) 09/12/19 Range/Units 06:55 HDL Cholesterol 99 H (40-60) mg/dL Lipase 1986 H (23-300) U/L Assessment and Plan Assessment: Acute pancreatitis with elevated lipase and amylase level. UDS positive for marijuana and cocaine. No history of alcoho abuse. No gallstones noted in the abdominal sonogram. Triglyceride level is not elevated at 85.. Patient is having abdominal symptoms including diarrhea or constipation for about a year and also complains of weight loss. Gastroenterology service was consulted for further evaluation. Plan: Patient will be continued on IV hydration and pain management with morphine. Acute pancreatitis could be related to cocaine and marijuana use.. G astroenterology is following.. Further recommendations based on the clinical course. Time with Patient: Greater than 30
[2019-09-13] MEDS: ONDANSETRON 4 MG/2 ML VIAL IVP PRN ×2 (00:45→14:24)
[2019-09-13] MEDS: MORPHINE SULFATE 4 MG/ML SYRINGE IV PRN ×4 (02:37→18:15)
[2019-09-13] MEDS: LACTATED RINGERS 1,000 ML IV SCH ×2 (03:24→09:15)
[2019-09-13 07:53] LABS: African American GFR (CKD) >90 (>60 ml/min/1.73 sqM); Blood Urea Nitrogen 3 mg/dL (7-17); Carbon Dioxide 24 mmol/L (22-30); Chloride 106 mmol/L (98-107); Glucose 87 mg/dL (74-99)
[2019-09-13 07:54] LABS: Basophils % (A) 1 %; Eosinophils # (A) 0.2 k/uL (0-0.7); Eosinophils % (A) 4 %; HCT 32.8 % (34.0-46.0); HGB 10.9 gm/dL (11.4-16.0); Lymphocytes # (A) 1.6 k/uL (1.0-4.8); Lymphocytes % (A) 38 %; MCH 32.8 pg (25.0-35.0); MCHC 33.4 g/dL (31.0-37.0); MCV 98.2 fL (80.0-100.0); Mean Platelet Volume 6.2; Monocytes # (A) 0.2 k/uL (0-1.0); Monocytes % (A) 5 %; Neutrophils % (A) 49 %; Platelet Count 207 k/uL (150-450); RBC 3.34 m/uL (3.80-5.40); RDW 12.2 % (11.5-15.5); WBC 4.2 k/uL (4.0-11.0)
[2019-09-13] MEDS: FAMOTIDINE 20 MG TAB PO SCH ×2 (08:02→21:50)
[2019-09-13 08:07] LABS: Anion Gap 8 mmol/L; Sodium 138 mmol/L (137-145)
[2019-09-13 08:08] LABS: Potassium 3.5 mmol/L (3.5-5.1)
[2019-09-13 12:41] LABS: IgG Subclass 4 51.8 mg/dL (3.0-175.0)
[2019-09-13 22:13] VITALS: RESP 16
--- NOTE | 2019-09-13 23:45 | P.PN ---
Subjective Progress Note Date: 09/13/19 Principal diagnosis: Acute pancreatitis Patient is a 18-year-old female without significant past medical history except for possible IBS and also history of left breast lumpectomy-benign came to ER with complaints of severe abdominal pain worsening for the past 1 week. Abdominal pain is mainly in the epigastric region. Denied any radiation to the back. Patient didn't Patient felt nauseous and had an episode of blood in the vomit 2 days ago. Patient has been having decreased appetite and losing weight recently. Patient has been having stomach issues with diarrhea and constipation but no history of vomiting. Denied any complaints of chest pain or shortness of breath. No fever no chills. No dysuria or hematuria. No recent illnesses. No recent travel. Patient does drink occasionally. Denied any drug use. Lipase level 1915 and amylase 236 KUB x-ray showed no acute abdomen. US ABDOMEN SHOWED NORMAL RIGHT UPPER QUADRANT SONOGRAM. NO GALLSTONES OR DILATED DUCTS. 09/12/2019 Patient is still having epigastric abdominal pain. Slightly improved compared to yesterday. Tolerating liquid diet. Otherwise lipase level is still elevated. UDS is positive for marijuana and cocaine. Triglyceride level is 85. RAFAEL and IgG4 level was ordered. Patient was seen by gastroenterology. Continue the current management at this time. Current on pain management with morphine. Patient has been afebrile. No nausea vomiting. No diarrhea. No chest pain or shortness of breath. 09/13/2019 Patient is able to tolerate liquid diet. Abdominal pain is improving. Advance diet to soft diet and follow closely. Patient has been afebrile. Laboratory data reviewed. Patient is still requiring morphine. Continue the current management and anticipate discharge in next 24 hours with morphine improvement. Denied any chest pain or shortness of breath. No nausea vomiting or diarrhea. Discussed with the family at bedside Current medications reviewed. Objective - Vital Signs Vital signs: Vital Signs Temp 98.1 F 09/13/19 08:10 Pulse 76 09/13/19 08:10 Resp 18 09/13/19 08:10 BP 153/93 09/13/19 08:10 Pulse Ox 98 09/13/19 08:10 Intake & Output 09/12/19 09/13/19 09/13/19 18:59 06:59 18:59 Intake Total 1520 3000 Balance 1520 3000 Intake: Intake, IV Titration 2000 Amount Lactated Ringers 1,000 ml 2000 @ 125 mls/hr IV .Q8H [facility] Rx#:[id number] Oral 1520 1000 Other: # Voids 1 2 1 - Exam PHYSICAL EXAMINATION: Patient is lying in the bed comfortably, no acute distress, awake alert and oriented.. HEENT: Normocephalic. Neck is supple. Pupils reactive. Nostrils clear. Oral cavity is moist. Ears reveal no drainage. Neck reveals no JVD, carotid bruits, or thyromegaly. CHEST EXAMINATION: Trachea is central. Symmetrical expansion. Lung mckenna clear to auscultation and percussion. CARDIAC: Normal S1, S2 with no gallops. No murmurs ABDOMEN: Soft. Mild epigastric tenderness. Bowel sounds normal. No organomegaly. No abdominal bruits. Extremities: reveal no edema. No clubbing or cyanosis Neurologically awake, alert, oriented x3 with well-coordinated movements. No focal deficits noted Skin: No rash or skin lesions. Psychiatric: Coperative. Nonsuicidal Musculoskeletal: No joint swelling or deformity. Normal range of motion. - Labs CBC & Chem 7: 09/13/19 07:13 09/13/19 07:13 Labs: Abnormal Lab Results - Last 24 Hours (Table) 09/13/19 09/13/19 Range/Units 07:13 07:13 RBC 3.34 L (3.80-5.40) m/uL Hgb 10.9 L (11.4-16.0) gm/dL Hct 32.8 L (34.0-46.0) % BUN 3 L (7-17) mg/dL Assessment and Plan Assessment: Acute pancreatitis with elevated lipase and amylase level. UDS positive for marijuana and cocaine. No history of alcoho abuse. No gallstones noted in the abdominal sonogram. Triglyceride level is not elevated at 85.. Patient is having abdominal symptoms including diarrhea or constipation for about a year and also complains of weight loss. Gastroenterology service was consulted for further evaluation. Plan: Patient will be continued on IV hydration and pain management with morphine. Acute pancreatitis could be related to cocaine and marijuana use.. Gastroenterology is following.. Further recommendations based on the clinical course. Time with Patient: Greater than 30
[2019-09-14] MEDS: MORPHINE SULFATE 4 MG/ML SYRINGE IV PRN ×2 (00:17→09:49)
[2019-09-14] MEDS: LACTATED RINGERS 1,000 ML IV SCH ×2 (00:17→09:47)
[2019-09-14] MEDS: ONDANSETRON 4 MG/2 ML VIAL IVP PRN (01:13)
[2019-09-14] MEDS: FAMOTIDINE 20 MG TAB PO SCH (09:46)
--- NOTE | 2019-09-14 11:22 | P.PN ---
Subjective Progress Note Date: 09/13/19 Principal diagnosis: Pancreatitis Patient seen lying in bed. Diet advance today and patient has tolerated. Abdominal pain improving. Objective - Vital Signs Vital signs: Vital Signs Temp 98.2 F 09/13/19 21:15 Pulse 61 09/13/19 21:15 Resp 16 09/13/19 21:15 BP 152/85 09/13/19 21:15 Pulse Ox 98 09/13/19 21:15 Intake & Output 09/13/19 09/13/19 09/14/19 06:59 18:59 06:59 Intake Total 3000 Balance 3000 Intake: Intake, IV Titration 2000 Amount Lactated Ringers 1,000 ml 2000 @ 125 mls/hr IV .Q8H [facility] Rx#:[id number] Oral 1000 Other: # Voids 2 3 1 - Exam On physical examination, patient appears comfortable in no apparent distress. HEAD: Normocephalic, atraumatic. EYES: No scleral icterus. No conjunctival injection. MOUTH: No lesions, tongue midline. NECK: Trachea midline, no gross abnormalities. CHEST: Clear to auscultation with no wheezing or rhonchi appreciated. HEART: Regular rate and rhythm. ABDOMEN: Soft, obese. Bowel sounds are positive. No organomegaly. No guarding or rigidity. EXTREMITIES: No pedal edema. SKIN: No rashes, no jaundice. NEUROLOGIC: Alert and oriented x3. No focal deficits. - Labs CBC & Chem 7: 09/13/19 07:13 09/13/19 07:13 Labs: Abnormal Lab Results - Last 24 Hours (Table) 09/13/19 09/13/19 Range/Units 07:13 07:13 RBC 3.34 L (3.80-5.40) m/uL Hgb 10.9 L (11.4-16.0) gm/dL Hct 32.8 L (34.0-46.0) % BUN 3 L (7-17) mg/dL Assessment and Plan (1) Pancreatitis Narrative/Plan: 18-year-old female who presented due to abdominal pain, nausea and vomiting. Patient found to have markedly elevated lipase. Currently receiving treatment for acute uncomplicated pancreatitis. Denies any significant alcohol use and no evidence of gallstones on ultrasound of the abdomen with and normal CBD and biliary tree and liver enzymes significant for a total bili of 1.1, alkaline phosphatase 66, AST 38 and ALT 23. Overall patient continues to improve and tolerate diet. Current Visit: Yes Status: Acute Code(s): K85.90 - ACUTE PANCREATITIS WITHOUT NECROSIS OR INFECTION, UNSP SNOMED Code(s): 92697209 Plan: Supportive care Okay for diet as tolerated Continue pain control Will order RAFAEL and IgG4 within normal limits Continue to monitor her symptomatically Ultrasound of the abdomen reviewed Okay for discharge from gastroenterology when medically stable Thank you for allowing us to participate in the care of the patient, the GI service will stand by, please call us back with any questions or concerns
[2019-09-14 12:55] VITALS: BP 127/77; PULSE 72; TEMP 98.4
[2019-09-14 15:16] LABS: Amphetamine Screen,Urine Not Detected (NotDetected); Barbiturate Screen,Urine Not Detected (NotDetected); Benzodiazepines Screen,Urine Not Detected (NotDetected); Cocaine Screen,Urine Not Detected (NotDetected); Methadone Screen, Urine Not Detected (NotDetected); Opiate Screen,Urine Detected (NotDetected); Oxycodone Screen, Urine Not Detected (NotDetected); Phencyclidine Screen,Urine Not Detected (NotDetected); Tricyclic Antidepressant,Urine Not Detected (NotDetected); Urn Cannabinoid Scrn Detected (NotDetected)
== END 2019-09-14 15:42 | disposition home or self-care (01) | DRG 440 ==
LOC: EC 13:47 → 6PED 17:13
PROVIDERS: ADMIT Internal Medicine; ATTEND Internal Medicine
DX: K85.90 Acute pancreatitis without necrosis or infection, unspecified (principal); K58.0 Irritable bowel syndrome with diarrhea; K59.00 Constipation, unspecified; Z82.49 Family history of ischemic heart disease and other diseases of the circulatory system; Z84.1 Family history of disorders of kidney and ureter
CPT/HCPCS: 36415; 74018; 76705; 80048; 80053; 80061; 80306; 81003; 81025; 82150; 82787; 83690; 84132; 85025; 86038; 96361; 96374; 96375; 99285

== ENCOUNTER 2019-12-10 15:47 | Inpatient (IN) | payer MEDICAID, OTHER ==
[2019-12-10] MEDS ORDERED: MAG HYDROX/AL HYDROX/SIMETH 30 ML CUP PO PRN (15:54)
[2019-12-10] MEDS ORDERED: MAGNESIUM HYDROXIDE 2,400 MG/10 ML CUP PO PRN (15:54)
[2019-12-10] MEDS ORDERED: LORazepam 1 MG TAB PO PRN (16:00)
[2019-12-11] MEDS: THIAMINE 100 MG TAB PO SCH (08:33)
[2019-12-11 09:24] LABS: Cholesterol 205 mg/dL (<200); Triglycerides 77 mg/dL (<150)
[2019-12-11 09:32] LABS: LDL Cholesterol,Calculated 80 mg/dL (0-99)
[2019-12-11 09:36] LABS: HDL Cholesterol 110 mg/dL (40-60)
--- NOTE | 2019-12-11 16:40 | P.CONS ---
History of Present Illness - Reason for Consult Consult date: 12/11/19 - Chief Complaint Calcium channel alayna overdose - History of Present Illness 18-year-old male patient who was admitted to ICU for a to a toxic he should and calcium channel alayna overdose; patient was monitored in ICU for 24 hours and was transferred to psych inpatient once evaluated by psychiatry; patient remains on oral thiamine; currently not taking any medications and regular basis Review of Systems REVIEW OF SYSTEMS: CONSTITUTIONAL: No fever, no malaise, no fatigue. HEENT: No recent visual problems or hearing problems. Denied any sore throat. CARDIOVASCULAR: No chest pain, orthopnea, PND, no palpitations, no syncope. PULMONARY: No shortness of breath, no cough, no hemoptysis. GASTROINTESTINAL: No diarrhea, no nausea, no vomiting, no abdominal pain. NEUROLOGICAL: No headaches, no weakness, no numbness. HEMATOLOGICAL: Denies any bleeding or petechiae. GENITOURINARY: Denies any burning micturition, frequency, or urgency. MUSCULOSKELETAL/RHEUMATOLOGICAL: Denies any joint pain, swelling, or any muscle pain. ENDOCRINE: Denies any polyuria or polydipsia. The rest of the 14-point review of systems is negative. Past Medical History Past Medical History: No Reported History Additional Past Medical History / Comment(s): CHANGE IN BOWEL HABITS fluctuated from constipation to loose ? IBS. LOSING WEIGHT. NO APPETITE. N/V History of Any Multi-Drug Resistant Organisms: MRSA Year Discovered:: 2010 MDRO Source:: left leg Past Surgical History: Breast Surgery Additional Past Surgical History / Comment(s): LT BREAST LUMPECTOMY-BENIGN Past Anesthesia/Blood Transfusion Reactions: No Reported Reaction Past Psychological History: No Psychological Hx Reported Smoking Status: Never smoker Past Alcohol Use History: Occasional Past Drug Use History: None Reported - Past Family History Brother(s) Family Medical History: Cancer Father Additional Family Medical History / Comment(s): heart and kidney failure. dad on dialysis. HTN Mother Additional Family Medical History / Comment(s): HTN Medications and Allergies Home Medications Medication Instructions Recorded Confirmed Type Thiamine [Vitamin B-1] 100 mg PO BID-W/MEALS #60 tab 12/10/19 Rx Allergies Allergy/AdvReac Type Severity Reaction Status Date / Time No Known Allergies Allergy Verified 12/10/19 16:41 Physical Exam Vitals: Vital Signs Temp Pulse Resp BP Pulse Ox 12/11/19 09:22 98.9 F 12/11/19 06:37 99.2 F 94 16 137/79 12/11/19 06:30 99.2 F 94 16 137/79 12/10/19 16:23 98.0 F 118 H 18 133/93 100 Intake and Output 12/10/19 12/11/19 12/11/19 22:59 06:59 14:59 Other: Weight 82 kg - Constitutional General appearance: Present: average body habitus, cooperative, no acute distress - EENT Eyes: Present: anicteric sclerae, EOMI, PERRLA, normal appearance ENT: Present: hearing grossly normal, normal oropharynx Ears: bilateral: normal - Neck Neck: Present: normal ROM. Absent: lymphadenopathy, rigidity, thyromegaly Carotids: negative: bruit present Thyroid: bilateral: normal size, negative: enlarged, nodule - Respiratory Respiratory: bilateral: CTA, negative: rales, rhonchi, wheezing - Cardiovascular Rhythm: regular Heart sounds: normal: S1, S2 Abnormal Heart Sounds: Absent: systolic murmur, diastolic murmur - Gastrointestinal General gastrointestinal: Present: normal bowel sounds, soft. Absent: distended, organomegaly, tenderness - Genitourinary Genitourinary Comment(s): deferred - Integumentary Integumentary: Present: normal turgor. Absent: jaundiced, rash, ulcer - Neurologic Neurologic: Present: CNII-XII intact. Absent: focal deficits - Musculoskeletal Musculoskeletal: Present: gait normal, strength equal bilaterally - Psychiatric Psychiatric: Present: A&O x's 3, appropriate affect, intact judgment & insight Results Labs: Abnormal Lab Results - Last 24 Hours (Table) 12/11/19 Range/Units 08:20 Cholesterol 205 H (<200) mg/dL HDL Cholesterol 110 H (40-60) mg/dL Assessment and Plan Assessment: 1. Calcium channel alayna overdose; clinically stable; no further treatment required 2. Acute pancreatitis; with elevated amylase and lipase; resolved 3. Substance abuse; urine drug screen was positive for marijuana and cocaine; your management 4. DVT prophylaxis; early ambulation
[2019-12-11 19:13] LABS: Hemoglobin A1C 5.2 % (4.0-6.0)
[2019-12-12 06:53] VITALS: RESP 18
[2019-12-12] MEDS: THIAMINE 100 MG TAB PO SCH (09:30)
--- NOTE | 2019-12-12 16:17 | P.PN ---
Progress Note - Text Progress Note Date: 12/12/19 Clinical Problems: Suicide attempt, alcohol intoxication, alcohol use disorder moderate, rule out depressive disorder Interim history: I reviewed the medical record and interviewed the patient. She was without complaint or concern of it than wishing to be discharge. She denied feeling depressed or having thoughts of or suicide. She attributed the suicide attempt to the use of alcohol and agrees with her boyfriend's observation that her behavior changes when she drinks. She denies alcohol withdrawal symptoms. Mental status exam: Presented as a casually groomed young Ethiopian female who was pleasant on approach. She made eye contact and attended to the interview. She had a bright facial expression. Her speech was spontaneous, logical and goal directed. Her thinking was abstract. She denied suicidal or homicidal ideation. She denied such psychotic symptoms as hallucinations, paranoia thought insertion, ideas reference etc. Assessment: She is much improved from admission has no signs or symptoms of alcohol withdrawal. Plan: Continue current treatment plan. She would benefit from outpatient mental health treatment.
[2019-12-13] MEDS: THIAMINE 100 MG TAB PO SCH (10:15)
--- NOTE | 2019-12-13 16:28 | PN ---
PROGRESS NOTE DATE OF SERVICE: 12/13/2019 CHIEF COMPLAINT: The patient was admitted in transfer from ICU, where she was admitted for an overdose of blood pressure medications in a suicide effort and a serum alcohol level of 358. INTERVAL HISTORY: The patient has been doing fair. She had a quiet evening last night. She has been attending groups. For most of the groups she appears to be fairly well engaged. On the other hand, she also can be observed as being withdrawn, having low energy, isolating, and being concrete in her thinking. She slept fairly well last night. Today she has been up. She comes out in the day area. She will interact with others. She has been responding to staff, making statements that the event that brought her to the hospital was completely out of the blue. She reports no significant feelings of depression or thoughts of suicide. It is noteworthy that when I asked her if she would have anticipated some event like this if we went back to December 04, she stated that she would not have predicted this in any way. The more we talked, she was able to acknowledge that she has had on and off problems with depression. She acknowledges that she has not had the best of insight as to issues about depression or that she might need some help in dealing with some of her emotions. She was able to acknowledge that one issue that may impact her is feeling that her mother can be over-controlling. We had a family meeting with the patient's mother, father and the patient. Both parents felt quite strongly that the patient should be able to be discharged as soon as possible. They believe that she would be stable at home and that there would be low likelihood of any similar event happening in the future. They also seemed to have at least some insight into the idea that an event like this is unpredictable and something that could occur. The family noted that one issue for the patient is that she tends to be impatient; she wants things happening right now. She gets frustrated when she cannot control basic things in her life. Between the patient and the family, they indicated that she likely drinks alcohol twice a week, possibly more, and that when she drinks she drinks a half a pint at a time. They noted that since she has been in the hospital and they have visited, they have not seen any indications that she may have thoughts of harm to self or others. In the family meeting the family was very supportive of the idea of her getting involved in individual therapy. The patient for her part said that she knew that she needed some individual therapy and possibly group therapy to help address some of her emotional issues. Stress issues the family was able to identify included that the patient has been regularly assisting her grandmother, who has been living in her own apartment. The grandmother has dementia and that has been a stressful situation for the patient to deal with the cognitive difficulties the grandmother has. The family noted that grandmother will be moving into the family home soon, as she is not able to take care of herself. An additional stress issue is father having heart problems and being on dialysis. A lot of support issues fall on the patient in regard to care for father. 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 Some of that seems to reflect what the patient experiences in her family, particularly with her grandmother. The family did indicate that there are no weapons in the house that could add to danger. Also, medications are secured. MENTAL STATUS EXAMINATION: The patient had some restlessness. She gave fair eye contact. She answered questions appropriately. Her thoughts were clear, coherent and goal-directed. Her affect showed some constriction. Her mood presented as superficially bright and positive, though also she had tearful periods and some appearance of anxiety throughout the family interview. She appeared to be moderately distressed. There was no indication of thought disorder. Cognition was clear. ASSESSMENT: I will continue the current diagnosis and treatment plan. The patient continues off psychotropic medications. I shared with the patient and family that I would defer discharge until at least tomorrow. The patient needs time to process some of the family issues. Patient for her part recognized that she can tend to close off feelings and may not be aware of struggles she is having. In addition, we had an extensive discussion regarding alcohol as a major risk for the patient. I indicated that twice a week drinking at a half a pint per time is a significant amount of alcohol, particularly given the stress issues the patient has been dealing with. Also the presentation of her coming in to the hospital with a blood alcohol level over 350 but not showing signs of significant intoxication is a serious concern regarding alcohol tolerance. This also suggests that she may drink at a more regular basis and more significant amount than she might realize. We also discussed alcohol issues in regard to her being a female and having low body weight. I discussed further that the CBD oil that she uses for IBS to increase appetite may be a significant risk as well regarding psychological issues and depression. I indicated that there are no valid studies that would support the use of CBD oil, particularly in the face of ongoing issues with anxiety, depression or stress. The patient has been followed by a tour bus driver, though that person is no longer available. The patient intends to get set up with another tour bus driver upon discharge. At this point I anticipate discharging the patient tomorrow. OPAL / IBRAHIMAN: [id number] /
[2019-12-14 07:13] VITALS: BP 117/65; PULSE 114; TEMP 98.8
[2019-12-14] MEDS: THIAMINE 100 MG TAB PO SCH (09:20)
--- NOTE | 2019-12-14 11:35 | DS ---
DISCHARGE SUMMARY DATE OF SERVICE: 12/14/2019 DATE OF ADMISSION: 12/10/2019 DATE OF DISCHARGE: 12/14/2019 ADMISSION AND DISCHARGE DIAGNOSES: 1. Alcohol withdrawal. 2. Alcohol intoxication. 3. Suicide attempt by overdose. 4. Rule out depressive disorder. HISTORY OF PRESENTING ILLNESS: The patient is a 18-year-old female. She has not had a prior psychiatric hospitalization. She has not been on any prescribed psychotropic medications. She has had problems with depression and stress issues. She ended up taking approximately 10 amlodipine pills and some Depakote which were her grandmother's medications. On admission, she had a blood alcohol level of 358. She stated that she has had episodes of binge drinking. She talked about emotional stress relating to family issues, which includes living at home with her parents with her father having medical problems, she watches over him. He has heart issues and is on dialysis. In addition, she spends several days in a week watching out for her grandmother who lives on her own and has dementia. 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 She acknowledges on and off problems with depression. She tended to minimize any significant alcohol use. She acknowledges some use of marijuana, though she was vague on specifics. She was admitted for further evaluation. PAST MEDICAL HISTORY, REVIEW OF SYSTEMS, AND PHYSICAL EXAM: .As per medical consultation of Dr. Johnson. COURSE OF HOSPITALIZATION: Patient was admitted for comprehensive medical, psychiatric and psychosocial evaluation. Will engage the patient in individual and group therapeutic activities. The patient was not started on any psychotropic medications. She tended to show fairly good mood throughout her time on the unit. She did show ups and downs in her mood. She could be fairly animated, interactive and at times talkative. She did have periods; however, where she would appear more withdrawn and down, she tended to minimize any problems she was having. On the other hand, she could acknowledge that there were likely family stress issues including in her relationship with her mother who she indicated could be quite controlling. She feels that in many ways her home situation is not supportive for her. It is noted that there were interactions on the unit between staff in the patient's mother and there were situations where the mother appeared to be quite demanding of staff. She was insistent on the patient being discharged. She apparently got into a disagreement with staff over the fact that she was not allowed to have a visit with her daughter on Friday, though there are no visiting hours on that day. It is noted that we had a family meeting on the day prior to discharge with the patient, her mother and father. I refer the reader to extensive notes of my progress note of 12/13/2019 for details. Two issues that came up included one that the patient probably drinks on a more regular basis than is acknowledged. She was able to say that she drinks twice a week half a pint at a time. Her parents were able to confirm that is at least the amount that she drinks. Along with that, the idea that she did not appear significantly intoxicated in spite of having the blood alcohol level of over 350 was a clear indication of high tolerance to alcohol. The other major issue that came up is that the patient had very limited insight about the situation of her overdose. She was not able to recognize any clear precipitants and she was not able to link it to things that had been going on over the last weeks or longer. One of the focuses in the family meeting was the danger of such an occurrence happening again, especially given that she showed little awareness about the situation. At the family meeting, both the parents and the patient were quite insistent on the idea that the patient was stable to return home. The parents believe they could provide good support for the patient to steer her clear of any such events in the future. Patient for her part indicated that she was focused on getting help and was accepting of getting involved in individual psychotherapy. She also said that she would do group therapy or any other recommended therapies as needed. She was able to engage in discharge planning. CONDITION AT DISCHARGE: Patient was stable. Her mood was improved. She denied any thoughts of harm to self or others. She showed some improvement in insight regarding her overdose. RECOMMENDATIONS AND FOLLOWUP: The patient is discharged home. No psychotropic medications are prescribed at this time. She is referred to professional counseling services. Please see discharge note for details of her followup appointment. MMODL / IJN: [id number] /
== END 2019-12-14 12:18 | disposition home or self-care (01) | DRG 881 ==
LOC: 3MHU 16:11
PROVIDERS: ADMIT Psychiatry & Neurology Psychiatry; ATTEND Psychiatry & Neurology Psychiatry
DX: F32.9 Major depressive disorder, single episode, unspecified (principal); K85.90 Acute pancreatitis without necrosis or infection, unspecified; F10.239 Alcohol dependence with withdrawal, unspecified; F10.229 Alcohol dependence with intoxication, unspecified; T46.1X1A Poisoning by calcium-channel blockers, accidental (unintentional), initial encounter; Y90.8 Blood alcohol level of 240 mg/100 ml or more; Z82.49 Family history of ischemic heart disease and other diseases of the circulatory system
CPT/HCPCS: 80061; 83036

== ENCOUNTER 2020-05-15 16:25 | Emergency (ER) | payer OTHER ==
[2020-05-15 16:33] VITALS: BP 126/67; PULSE 89; RESP 18; TEMP 98.1
[2020-05-15] MEDS ORDERED: KETOROLAC 60 MG/2 ML VIAL IM STA (16:59)
--- NOTE | 2020-05-15 17:03 | ED ---
ENT HPI - General Chief complaint: Dental/Oral Stated complaint: head numbness,headache,mouth infection Time Seen by Provider: 05/15/20 16:39 Source: patient Mode of arrival: ambulatory Limitations: no limitations - History of Present Illness Initial comments: Patient is a 19-year-old female presenting to the emergency Department with complaints of a lower lip irritation as well as a headache that has been going on for 4-5 weeks. Patient has braces and states they have been unable to contact her creative resource manager. She states there is an area of skin that has been getting caught underneath her braces and now has become a large area which is giving her pain and discomfort. She states the stress of this is been causing her to get a headache. She also feels like the pain as being referred to the right side of her face. Patient denies any recent fever or chills. He denies any nausea or vomiting. She has no further complaints at this time. Upon arrival to the ER, her vital signs are stable. - Related Data Previous Rx's Medication Instructions Recorded Amoxicillin 500 mg PO BID 5 Days #10 capsule 05/15/20 Allergies Allergy/AdvReac Type Severity Reaction Status Date / Time No Known Allergies Allergy Verified 05/15/20 16:33 Review of Systems ROS Statement: Those systems with pertinent positive or pertinent negative responses have been documented in the HPI. ROS Other: All systems not noted in ROS Statement are negative. Past Medical History Past Medical History: No Reported History Additional Past Medical History / Comment(s): CHANGE IN BOWEL HABITS fluctuated from constipation to loose ? IBS. LOSING WEIGHT. NO APPETITE. N/V History of Any Multi-Drug Resistant Organisms: MRSA Date of last positivie culture/infection: 2010 MDRO Source:: left leg Past Surgical History: Breast Surgery Additional Past Surgical History / Comment(s): LT BREAST LUMPECTOMY-BENIGN Past Anesthesia/Blood Transfusion Reactions: No Reported Reaction Past Psychological History: Depression Smoking Status: Never smoker Past Alcohol Use History: None Reported Past Drug Use History: None Reported - Past Family History Brother(s) Family Medical History: Cancer Father Additional Family Medical History / Comment(s): heart and kidney failure. dad on dialysis. HTN Mother Additional Family Medical History / Comment(s): HTN General Exam - General Exam Comments Initial Comments: GENERAL: Well-appearing, well-nourished and in no acute distress, but appears uncomfortable. HEAD: Atraumatic, normocephalic. EYES: Pupils equal round and reactive to light, extraocular movements intact, sclera anicteric, conjunctiva are normal. ENT: TMs normal, nares patent, oropharynx clear without exudates. Moist mucous membranes. Patient has an enlarged skin growth on the inside of her lower lip, right side. This does not appear to be an abscess. NECK: Normal range of motion, supple without lymphadenopathy or JVD. LUNGS: Breath sounds clear to auscultation bilaterally and equal. No wheezes rales or rhonchi. HEART: Regular rate and rhythm without murmurs, rubs or gallops. ABDOMEN: Soft, nontender, normoactive bowel sounds. No guarding, no rebound. No masses appreciated. : Deferred EXTREMITIES: Normal range of motion, no pitting or edema. No clubbing or cyanosis. NEUROLOGICAL: Cranial nerves II through XII grossly intact. Normal speech, normal gait. PSYCH: Normal mood, normal affect. SKIN: Warm, Dry, normal turgor, no rashes or lesions noted. Limitations: no limitations Course Vital Signs 05/15/20 16:28 Temperature 98.1 F Pulse Rate 89 Respiratory 18 Rate Blood Pressure 126/67 O2 Sat by Pulse 100 Oximetry Medical Decision Making - Medical Decision Making Patient is a 19-year-old female here for a small skin growth on the inside portion of her lower lip, right sided it is getting irritated by her braces. She states she has been unable to contact her creative resource manager. She states his pain has been going on for 4-5 weeks. It is been giving her a headache and also pain being referred to the right side of her face. Her exam does not show any other acute findings, her neuro exam is normal. I discussed with patient that she needs to follow up with her creative resource manager or an oral surgeon. I did give her a referral to her oral surgeon. I will also give her a shot of Toradol before discharge. The mother is here with the patient and was insistent on starting the patient antibiotics for possible abscess formation. I will start patient on amoxicillin for possible abscess. Patient patient's mother is in agreement with this plan of care. She is stable for discharge. Return parameters were discussed with them and they both verbalized understanding. Case discussed with Dr. Romo. Disposition Clinical Impression: Sore of lower lip, Headache Disposition: HOME SELF-CARE Condition: Stable Instructions (If sedation given, give patient instructions): Ibuprofen (By mouth) Additional Instructions: Please return to the Emergency Department if symptoms worsen or any other concerns. Follow-up with oral surgeon as discussed. Continue to try to contact creative resource manager. Take antibiotic as prescribed. Recommend Motrin or Aleve for discomfort. Prescriptions: Amoxicillin 500 mg PO BID 5 Days #10 capsule Is patient prescribed a controlled substance at d/c from ED?: No Referrals: Denia Escalante MD [Primary Care Provider] - 1-2 days Wong Bettencourt DDS [STAFF PHYSICIAN] - 1-2 days
== END 2020-05-15 17:21 | disposition home or self-care (01) ==
LOC: EC 16:25
DX: K13.0 Diseases of lips (principal); R51 Headache
CPT/HCPCS: 99283; 96372; J1885

== ENCOUNTER 2020-07-02 15:01 | Inpatient (IN) | payer OTHER ==
[2020-07-02] MEDS ORDERED: HYDROmorphone 0.5 MG/0.5 ML SYRINGE IVP STA (15:50)
[2020-07-02] MEDS ORDERED: SODIUM CHLORIDE 0.9% 2,000 ML IV STA (15:50)
[2020-07-02 16:33] LABS: Basophils % (A) 1 %; Eosinophils # (A) 0.1 k/uL (0-0.7); Eosinophils % (A) 1 %; HCT 44.7 % (34.0-46.0); HGB 14.4 gm/dL (11.4-16.0); Lymphocytes # (A) 1.2 k/uL (1.0-4.8); Lymphocytes % (A) 21 %; MCH 31.4 pg (25.0-35.0); MCHC 32.3 g/dL (31.0-37.0); MCV 97.3 fL (80.0-100.0); Mean Platelet Volume 7.8; Monocytes # (A) 0.2 k/uL (0-1.0); Monocytes % (A) 4 %; Neutrophils # (A) 3.9 k/uL (1.3-7.7); Neutrophils % (A) 71 %; Platelet Count 181 k/uL (150-450); RDW 12.9 % (11.5-15.5); WBC 5.5 k/uL (4.0-11.0)
[2020-07-02] MEDS ORDERED: ONDANSETRON 4 MG/2 ML VIAL IVP STA (16:35)
[2020-07-02 16:43] LABS: Appearance,Urine Cloudy (Clear); Bacteria,Urine Rare /hpf; Bilirubin,Urine 1+ (Negative); Blood,Urine Small (Negative); Color,Urine Yellow; Glucose,Urine (UA) Negative (Negative); Hyaline Casts,Urine 3 /lpf (0-2); Ketones,Urine 2+ (Negative); Leukocyte Esterase,Urine Negative (Negative); Mucus,Urine Many /hpf; Nitrite,Urine Negative (Negative); PH, Urine 6.5 (5.0-8.0); Protein,Urine 3+ (Negative); RBC,Urine 2 /hpf (0-5); Specific Gravity,Urine 1.033 (1.001-1.035); Squamous Epithelial Cell,Urine 10 /hpf (0-4); WBC,Urine 3 /hpf (0-5)
--- NOTE | 2020-07-02 16:48 | ED ---
General Adult HPI - General Chief complaint: Abdominal Pain Stated complaint: Chest Pain Time Seen by Provider: 07/02/20 15:22 Source: patient, RN notes reviewed Mode of arrival: ambulatory Limitations: no limitations - History of Present Illness Initial comments: 19-year-old female presents to the emergency room for multiple complaints. Patient's main complaint is upper abdominal pain. Patient reports that she has had epigastric abdominal pain for the past few days. Reports that today it worsened. Reports that this is associated with nausea and vomiting. Denies lower abdominal pain. Patient does have a history of pancreatitis. States this feels similar. States it radiates to her chest as it did previously.Patient has no other complaints at this time including shortness of breath, headache, or visual changes. - Related Data Previous Rx's Medication Instructions Recorded Amoxicillin 500 mg PO BID 5 Days #10 capsule 05/15/20 Allergies Allergy/AdvReac Type Severity Reaction Status Date / Time No Known Allergies Allergy Verified 07/02/20 15:12 Review of Systems ROS Statement: Those systems with pertinent positive or pertinent negative responses have been documented in the HPI. ROS Other: All systems not noted in ROS Statement are negative. Past Medical History Past Medical History: No Reported History Additional Past Medical History / Comment(s): CHANGE IN BOWEL HABITS IBS. LOSING WEIGHT. NO APPETITE. N/V History of Any Multi-Drug Resistant Organisms: MRSA Date of last positivie culture/infection: 2010 MDRO Source:: left leg Past Surgical History: Breast Surgery Additional Past Surgical History / Comment(s): LT BREAST LUMPECTOMY-BENIGN Past Anesthesia/Blood Transfusion Reactions: No Reported Reaction Past Psychological History: Depression Past Alcohol Use History: None Reported Past Drug Use History: None Reported - Past Family History Brother(s) Family Medical History: Cancer Father Additional Family Medical History / Comment(s): heart and kidney failure. dad on dialysis. HTN Mother Additional Family Medical History / Comment(s): HTN General Exam Limitations: no limitations General appearance: alert, in no apparent distress Head exam: Present: atraumatic, normocephalic, normal inspection Eye exam: Present: normal appearance, PERRL, EOMI. Absent: scleral icterus, conjunctival injection, periorbital swelling ENT exam: Present: normal exam, mucous membranes moist Neck exam: Present: normal inspection. Absent: tenderness, meningismus, lymphadenopathy Respiratory exam: Present: normal lung sounds bilaterally. Absent: respiratory distress, wheezes, rales, rhonchi, stridor Cardiovascular Exam: Present: regular rate, normal rhythm, normal heart sounds. Absent: systolic murmur, diastolic murmur, rubs, gallop, clicks GI/Abdominal exam: Present: soft, tenderness (Tenderness noted to generalized upper abdomen.), normal bowel sounds. Absent: distended, guarding, rebound, rigid Course Vital Signs 07/02/20 07/02/20 15:08 16:33 Temperature 97.4 F L Pulse Rate 117 H 109 H Respiratory 18 16 Rate Blood Pressure 158/114 154/109 O2 Sat by Pulse 98 97 Oximetry EKG Findings - EKG Comments: EKG Findings:: Sinus tachycardia, ventricular rate 115, WI interval 152, QTC 437 Medical Decision Making - Medical Decision Making Patient presents to the emergency room with upper abdominal pain and nausea vomiting. History of pancreatitis. Patient does admit to drinking at least half applied 3 times per week. Patient is tachycardic here in the emergency room. CBC unremarkable. However CMP does show mild transaminitis. Amylase and lipase are elevated. 2+ ketones in the urine, patient given fluids. Ultrasound pending. Patient will be nothing by mouth and started on fluids. She will see GI well in the hospital. - Lab Data Result diagrams: 07/02/20 16:14 07/02/20 16:14 Lab Results 07/02/20 07/02/20 07/02/20 Range/Units 16:14 16:14 16:14 WBC 5.5 (4.0-11.0) k/uL RBC 4.60 (3.80-5.40) m/uL Hgb 14.4 (11.4-16.0) gm/dL Hct 44.7 (34.0-46.0) % MCV 97.3 (80.0-100.0) fL MCH 31.4 (25.0-35.0) pg MCHC 32.3 (31.0-37.0) g/dL RDW 12.9 (11.5-15.5) % Plt Count 181 (150-450) k/uL Neutrophils % 71 % Lymphocytes % 21 % Monocytes % 4 % Eosinophils % 1 % Basophils % 1 % Neutrophils # 3.9 (1.3-7.7) k/uL Lymphocytes # 1.2 (1.0-4.8) k/uL Monocytes # 0.2 (0-1.0) k/uL Eosinophils # 0.1 (0-0.7) k/uL Basophils # 0.0 (0-0.2) k/uL Sodium (137-145) mmol/L Potassium (3.5-5.1) mmol/L Chloride (98-107) mmol/L Carbon Dioxide (22-30) mmol/L Anion Gap mmol/L BUN (7-17) mg/dL Creatinine (0.52-1.04) mg/dL Est GFR (CKD-EPI)AfAm (>60 ml/min/1.73 sqM) Est GFR (CKD-EPI)NonAf (>60 ml/min/1.73 sqM) Glucose (74-99) mg/dL Plasma Lactic Acid Abdoulaye (0.7-2.0) mmol/L Calcium (8.4-10.2) mg/dL Total Bilirubin (0.2-1.3) mg/dL AST (14-36) U/L ALT (4-34) U/L Alkaline Phosphatase (38-126) U/L Total Protein (6.3-8.2) g/dL Albumin (3.5-5.0) g/dL Amylase (30-110) U/L Lipase (23-300) U/L Urine Color Yellow Urine Appearance Cloudy H (Clear) Urine pH 6.5 (5.0-8.0) Ur Specific [place] 1.033 (1.001-1.035) Urine Protein 3+ H (Negative) Urine Glucose (UA) Negative (Negative) Urine Ketones 2+ H (Negative) Urine Blood Small H (Negative) Urine Nitrite Negative (Negative) Urine Bilirubin 1+ H (Negative) Urine Urobilinogen 3.0 (<2.0) mg/dL Ur Leukocyte Esterase Negative (Negative) Urine RBC 2 (0-5) /hpf Urine WBC 3 (0-5) /hpf Ur Squamous Epith Cells 10 H (0-4) /hpf Urine Bacteria Rare H (None) /hpf Hyaline Casts 3 H (0-2) /lpf Urine Mucus Many H (None) /hpf Urine HCG, Qual Not Detected (Not Detectd) 07/02/20 07/02/20 Range/Units 16:14 16:14 WBC (4.0-11.0) k/uL RBC (3.80-5.40) m/uL Hgb (11.4-16.0) gm/dL Hct (34.0-46.0) % MCV (80.0-100.0) fL MCH (25.0-35.0) pg MCHC (31.0-37.0) g/dL RDW (11.5-15.5) % Plt Count (150-450) k/uL Neutrophils % % Lymphocytes % % Monocytes % % Eosinophils % % Basophils % % Neutrophils # (1.3-7.7) k/uL Lymphocytes # (1.0-4.8) k/uL Monocytes # (0-1.0) k/uL Eosinophils # (0-0.7) k/uL Basophils # (0-0.2) k/uL Sodium 136 L (137-145) mmol/L Potassium 3.4 L (3.5-5.1) mmol/L Chloride 96 L (98-107) mmol/L Carbon Dioxide 27 (22-30) mmol/L Anion Gap 13 mmol/L BUN 14 (7-17) mg/dL Creatinine 0.59 (0.52-1.04) mg/dL Est GFR (CKD-EPI)AfAm >90 (>60 ml/min/1.73 sqM) Est GFR (CKD-EPI)NonAf >90 (>60 ml/min/1.73 sqM) Glucose 95 (74-99) mg/dL Plasma Lactic Acid Abdoulaye 1.3 (0.7-2.0) mmol/L Calcium 10.3 H (8.4-10.2) mg/dL Total Bilirubin 1.2 (0.2-1.3) mg/dL AST 76 H (14-36) U/L ALT 22 (4-34) U/L Alkaline Phosphatase 93 (38-126) U/L Total Protein 8.4 H (6.3-8.2) g/dL Albumin 5.3 H (3.5-5.0) g/dL Amylase 341 H* (30-110) U/L Lipase 3490 H (23-300) U/L Urine Color Urine Appearance (Clear) Urine pH (5.0-8.0) Ur Specific [place] (1.001-1.035) Urine Protein (Negative) Urine Glucose (UA) (Negative) Urine Ketones (Negative) Urine Blood (Negative) Urine Nitrite (Negative) Urine Bilirubin (Negative) Urine Urobilinogen (<2.0) mg/dL Ur Leukocyte Esterase (Negative) Urine RBC (0-5) /hpf Urine WBC (0-5) /hpf Ur Squamous Epith Cells (0-4) /hpf Urine Bacteria (None) /hpf Hyaline Casts (0-2) /lpf Urine Mucus (None) /hpf Urine HCG, Qual (Not Detectd) Disposition Clinical Impression: Abdominal pain, Pancreatitis Disposition: ADMITTED IP TO THIS HOSP Is patient prescribed a controlled substance at d/c from ED?: No Referrals: Denia Escalante MD [Primary Care Provider] - 1-2 days Time of Disposition: 17:25
[2020-07-02 16:49] LABS: ALT 22 U/L (4-34); AST 76 U/L (14-36); African American GFR (CKD) >90 (>60 ml/min/1.73 sqM); Albumin 5.3 g/dL (3.5-5.0); Alkaline Phosphatase 93 U/L (38-126); Anion Gap 13 mmol/L; Blood Urea Nitrogen 14 mg/dL (7-17); Calcium 10.3 mg/dL (8.4-10.2); Carbon Dioxide 27 mmol/L (22-30); Chloride 96 mmol/L (98-107); Glucose 95 mg/dL (74-99); Non-African American GFR(CKD) >90 (>60 ml/min/1.73 sqM); Potassium 3.4 mmol/L (3.5-5.1); Sodium 136 mmol/L (137-145); Total Bilirubin 1.2 mg/dL (0.2-1.3); Total Protein 8.4 g/dL (6.3-8.2)
[2020-07-02 17:02] LABS: Amylase 341 U/L (30-110)
--- NOTE | 2020-07-02 17:05 | XR ---
EXAMINATION TYPE: XR chest 2V DATE OF EXAM: 07/02/2020 COMPARISON: 03/17/2018 HISTORY: 19-year-old female with a pain TECHNIQUE: PA and lateral views FINDINGS: The cardiomediastinal silhouette, aorta, and pulmonary vasculature are within normal limits. Lungs an d pleural spaces are clear. S-shaped scoliosis. IMPRESSION: No acute cardiopulmonary process. S-shaped scoliosis.
[2020-07-02] MEDS ORDERED: NALOXONE 0.4 MG/ML 1 ML VIAL IV PRN (17:22)
--- NOTE | 2020-07-02 17:39 | US ---
EXAMINATION TYPE: US gallbladder DATE OF EXAM: 07/02/2020 COMPARISON: 09/11/2019 CLINICAL HISTORY: 19 year-old female with Pain. Vomiting. TECHNIQUE: Multiple sonographic images of the right upper quadrant are obtained. FINDINGS: EXAM MEASUREMENTS: Liver Length: 17.8 cm Gallbladder Wall: 0.2 cm CBD: 0.3 cm Right Kidney: 9.5 x 5.0 x 5.2 cm Pancreas: Main pancreatic duct = 1.8 mm. Liver: Echogenic. Coarse. Upper limits of normal in size. These changes appear somewhat new from 09/11/2019. Gallbladder: Mildly hydropic but without any abnormal wall thickening. No surrounding fluid or shado wing calculi. Evidence for sonographic Marquez's sign: neg CBD: wnl Right Kidney: No hydronephrosis. IMPRESSION: 1. Now echogenic and coarsened appearance to the liver with borderline hepatomegaly, new from 09/11/20 19. Correlate for possible hepatitis, fatty infiltration, or nonspecific hepatocellular disease. 2. The gallbladder is mildly hydropic but without any ancillary imaging findings of acute cholecystit is. Findings probably related to fasting state.
[2020-07-02] MEDS ORDERED: TEMAZEPAM 15 MG CAP PO PRN (18:16)
[2020-07-02] MEDS ORDERED: LORazepam 2 MG/ML INJ IV PRN ×3 (18:16)
[2020-07-02] MEDS ORDERED: THIAMINE 100 MG/ML 2 ML VIAL IM STA (18:16)
[2020-07-02] MEDS: KETOROLAC 15 MG/ML 1 ML VIAL IVP PRN ×2 (18:29→23:53)
[2020-07-02] MEDS: HYDROmorphone 0.5 MG/0.5 ML SYRINGE IVP PRN ×2 (19:31→22:29)
[2020-07-02] MEDS: SODIUM CHLORIDE 0.9% 1,000 ML IV SCH (19:32)
[2020-07-02 19:50] LABS: Amphetamine Screen,Urine Not Detected (NotDetected); Barbiturate Screen,Urine Not Detected (NotDetected); Benzodiazepines Screen,Urine Not Detected (NotDetected); Cocaine Screen,Urine Not Detected (NotDetected); Methadone Screen, Urine Not Detected (NotDetected); Opiate Screen,Urine Detected (NotDetected); Oxycodone Screen, Urine Not Detected (NotDetected); Phencyclidine Screen,Urine Not Detected (NotDetected); Tricyclic Antidepressant,Urine Not Detected (NotDetected); Urn Cannabinoid Scrn Detected (NotDetected)
[2020-07-02] MEDS: HEPARIN SODIUM,PORCINE 5,000 UNIT/ML 1 ML VIAL SQ SCH (22:29)
[2020-07-02] MEDS: PANTOPRAZOLE 40 MG/10 ML VIAL IVP SCH (22:29)
[2020-07-03] MEDS: HYDROmorphone 0.5 MG/0.5 ML SYRINGE IVP PRN ×6 (01:26→21:16)
[2020-07-03] MEDS: SODIUM CHLORIDE 0.9% 1,000 ML IV SCH ×3 (01:30→18:07)
--- NOTE | 2020-07-03 02:04 | HP ---
HISTORY AND PHYSICAL DATE OF SERVICE: 07/02/2020 CHIEF COMPLAINT: Abdominal pain. HISTORY OF PRESENT ILLNESS: This 19-year-old woman with a past medical history of multiple medical problems including IBS, history of MRSA, history of depression, being followed by Dr. Denia Escalante in the outpatient setting is complaining of significant abdominal pain. The pain was mostly situated in the left upper quadrant and mostly left lower quadrant and epigastrium also for the past few days. Patient also has some nausea, and vomiting also. The patient does have history of pancreatitis previously and the patient came to [facility] admitted for further evaluation. Patient apparently was binge drinking, according to her significant amount of alcohol has been taken. Sodium is 136, potassium 3.4, amylase of 341, lipase at 3490 and a gallbladder ultrasound showed mildly hydropic and coarsened appearance of the liver with hepatomegaly. No chest pain. No palpitations. No fever. PAST MEDICAL HISTORY: History of MRSA, history of IBS, history of depression. MEDICATIONS: Medications prior to admission include home medications are amoxicillin. ALLERGIES: Unknown. FAMILY HISTORY: History of cancer in the family, heart failure, history of chronic renal failure. SOCIAL HISTORY: The patient works as a [employer]. History of THC. No history of smoking. REVIEW OF SYSTEMS: ENT: No diminished hearing or diminished vision. CARDIOVASCULAR SYSTEM: No angina. RESPIRATORY SYSTEM: As mentioned earlier. GI: As mentioned earlier. : No dysuria. NERVOUS SYSTEM: No numbness or weakness. ALLERGY/IMMUNOLOGY: No asthma or hayfever. MUSCULOSKELETAL: As mentioned earlier. HEMATOLOGY: No history of anemia. ENDOCRINE: No history of diabetes mellitus or hypothyroidism. CONSTITUTIONAL: As mentioned earlier. DERMATOLOGY: Negative. RHEUMATOLOGY: Negative. PSYCHIATRY: As mentioned earlier. PHYSICAL EXAMINATION: The patient is alert and oriented x3. Pulse 117, blood pressure 158/114, respiration 18, temperature 97.4, pulse ox 98% on room air. HEENT: Conjunctivae normal. Oral mucosa moist. NECK: No jugular venous distention. No carotid bruit. No lymph node enlargement. CARDIOVASCULAR: S1, S2 muffled. No S3, no S4. RESPIRATORY: Breath sounds diminished at the bases. No rhonchi. No crackles. ABDOMEN: Soft. Mild diffuse tenderness in the epigastrium. No mass palpable. LEGS: No edema, no swelling. NERVOUS SYSTEM: Higher functions as mentioned earlier. Moves all 4 limbs. No focal motor or sensory deficits. LYMPHATICS: No lymphadenopathy of the neck, axillae or groin. SKIN: No ulcer, rash or bleeding. JOINTS: No active deforming arthropathy. LABS: Labs are at this time shows WBC 5.5, hemoglobin 14.4, sodium 136, potassium 3.4. Other labs are noted. ASSESSMENT: 1. Severe acute pancreatitis secondary to EtOH. 2. Possible alcoholic withdrawal syndrome. 3. Hyponatremia. 4. Hypokalemia. 5. Ketonuria. 6. History of irritable bowel syndrome. 7. History of methicillin-resistant Staphylococcus aureus. 8. History of left breast lumpectomy. 9. History of depression. 10.FULL CODE. RECOMMENDATIONS AND DISCUSSION: This 19-year-old woman who presented with multiple complex medical issues, we will monitor the patient closely. Continue the current medications and symptomatic treatment. Otherwise at this time I would recommend to monitor the amylase and lipase closely. I would also recommend a CT scan of the abdomen and pelvis to complete the workup. Otherwise, the most likely etiology of pancreatitis is alcohol induced, but otherwise we will also rule out gallbladder disease. I would recommend symptomatic treatment of the pain, CIWA protocol, repeat labs. Prognosis guarded because of multiple complex medical issues. Further recommendations to follow A copy of dictation forwarded to Dr. Denia Escalante, who is the primary physician. MMBENJIL / IBRAHIMAN: [id number] / MTDD
[2020-07-03] MEDS: ONDANSETRON 4 MG/2 ML VIAL IVP PRN ×3 (03:08→23:23)
[2020-07-03] MEDS: HEPARIN SODIUM,PORCINE 5,000 UNIT/ML 1 ML VIAL SQ SCH ×2 (06:55→21:17)
[2020-07-03] MEDS: PANTOPRAZOLE 40 MG/10 ML VIAL IVP SCH ×2 (06:55→21:16)
[2020-07-03] MEDS: KETOROLAC 15 MG/ML 1 ML VIAL IVP PRN ×3 (07:03→21:18)
[2020-07-03 11:07] VITALS: BMI 21.9
[2020-07-03] MEDS: THIAMINE 100 MG TAB PO SCH (11:16)
[2020-07-03] MEDS: MULTIVITAMINS, THERA 1 EACH TAB PO SCH (11:16)
[2020-07-03] MEDS: FOLIC ACID 1 MG TAB PO SCH (11:16)
[2020-07-03 12:00] LABS: Basophils # (A) 0.1 k/uL (0-0.2); Basophils % (A) 1 %; Eosinophils # (A) 0.2 k/uL (0-0.7); Eosinophils % (A) 4 %; HCT 38.9 % (34.0-46.0); HGB 12.4 gm/dL (11.4-16.0); Lymphocytes # (A) 1.3 k/uL (1.0-4.8); Lymphocytes % (A) 26 %; MCHC 31.8 g/dL (31.0-37.0); MCV 100.7 fL (80.0-100.0); Mean Platelet Volume 8.4; Monocytes # (A) 0.3 k/uL (0-1.0); Monocytes % (A) 5 %; Neutrophils # (A) 3.2 k/uL (1.3-7.7); Neutrophils % (A) 62 %; Platelet Count 142 k/uL (150-450); RBC 3.86 m/uL (3.80-5.40); RDW 12.8 % (11.5-15.5); WBC 5.2 k/uL (4.0-11.0)
[2020-07-03 12:12] LABS: ALT 19 U/L (4-34); AST 49 U/L (14-36); African American GFR (CKD) >90 (>60 ml/min/1.73 sqM); Albumin 4.5 g/dL (3.5-5.0); Alkaline Phosphatase 85 U/L (38-126); Amylase 209 U/L (30-110); Anion Gap 13 mmol/L; Blood Urea Nitrogen 5 mg/dL (7-17); Carbon Dioxide 22 mmol/L (22-30); Chloride 100 mmol/L (98-107); Cholesterol 199 mg/dL (<200); Glucose 81 mg/dL (74-99); Non-African American GFR(CKD) >90 (>60 ml/min/1.73 sqM); Potassium 3.2 mmol/L (3.5-5.1); Sodium 135 mmol/L (137-145); Total Bilirubin 1.4 mg/dL (0.2-1.3); Total Protein 7.4 g/dL (6.3-8.2); Triglycerides 130 mg/dL (<150)
[2020-07-03 12:19] LABS: LDL Cholesterol,Calculated 62 mg/dL (0-99)
[2020-07-03 12:21] LABS: HDL Cholesterol 111 mg/dL (40-60)
[2020-07-03] MEDS ORDERED: POTASSIUM CHLORIDE ER 20 MEQ TAB.ER PO STA (12:32)
--- NOTE | 2020-07-03 20:52 | P.PN ---
Subjective Progress Note Date: 07/03/20 Principal diagnosis: This is a 19-year-old female who was recently admitted with significant abdominal pain and is being closely monitored. Patient was also found to have elevated lipase and amylase levels with possible pancreatitis. Patient has been apparently binge drinking over the last few days. Patient is maintained on CIWA protocol. GI consulted and following. Lipase 1395 and amylase 209 level trending down and will trial clear liquid diet and advance as tolerated. Will repeat am labs. Potassium is low today and currently being replaced. Patient continues to have abdominal discomfort although states is improving. No reports of chest pain, shortness of breath, or palpitations. Patient is afebrile. No reports of nausea or vomiting. Objective - Vital Signs Vital signs: Vital Signs Temp 98.5 F 07/03/20 07:00 Pulse 85 07/03/20 07:00 Resp 18 07/03/20 07:00 BP 168/123 07/03/20 07:00 Pulse Ox 99 07/03/20 07:00 Intake & Output 07/02/20 07/03/20 07/03/20 18:59 06:59 18:59 Intake Total 1315 Balance 1315 Weight 59.874 kg 59.874 kg 59.874 kg Intake: Intake, IV Titration 1315 Amount Sodium Chloride 0.9% 1, 1315 000 ml @ 130 mls/hr IV . Q7H42M [facility] Rx#:[id number] Oral 0 Other: # Voids 1 - Exam Gen: This is a 19-year-old awake, alert and oriented 3, well-developed, well- nourished. Temp is 98.5F, pulse is 85, respirations are 18, blood pressure is 156/119 and awaiting a repeat, pulse ox is 99% on room air. HEENT: Head is atraumatic, normocephalic. Pupils equal, round. Sclerae is anicteric. NECK: Supple. No JVD. No lymphadenopathy. No thyromegaly. LUNGS: Clear to auscultation. No wheezes or rhonchi. No intercostal retractions. HEART: S1, S2 are muffled with no murmurs or gallops noted. ABDOMEN: Soft. Mild tenderness noted upon palpation. Bowel sounds are present. No masses. EXTREMITIES: No pedal edema. No calf tenderness. NEUROLOGICAL: Patient is awake, alert and oriented x3. Cranial nerves 2 through 12 are grossly intact. - Labs CBC & Chem 7: 07/03/20 11:24 07/03/20 11:24 Labs: Abnormal Lab Results - Last 24 Hours (Table) 07/02/20 07/02/20 07/02/20 Range/Units 16:14 16:14 16:14 MCV (80.0-100.0) fL Plt Count (150-450) k/uL Sodium 136 L (137-145) mmol/L Potassium 3.4 L (3.5-5.1) mmol/L Chloride 96 L (98-107) mmol/L BUN (7-17) mg/dL Creatinine (0.52-1.04) mg/dL Calcium 10.3 H (8.4-10.2) mg/dL Total Bilirubin (0.2-1.3) mg/dL AST 76 H (14-36) U/L Total Protein 8.4 H (6.3-8.2) g/dL Albumin 5.3 H (3.5-5.0) g/dL HDL Cholesterol (40-60) mg/dL Amylase 341 H* (30-110) U/L Lipase 3490 H (23-300) U/L Urine Appearance Cloudy H (Clear) Urine Protein 3+ H (Negative) Urine Ketones 2+ H (Negative) Urine Blood Small H (Negative) Urine Bilirubin 1+ H (Negative) Ur Squamous Epith Cells 10 H (0-4) /hpf Urine Bacteria Rare H (None) /hpf Hyaline Casts 3 H (0-2) /lpf Urine Mucus Many H (None) /hpf Urine Opiates Screen Detected H (NotDetected) U Marijuana (THC) Screen Detected H (NotDetected) 07/03/20 07/03/20 Range/Units 11:24 11:24 MCV 100.7 H (80.0-100.0) fL Plt Count 142 L (150-450) k/uL Sodium 135 L (137-145) mmol/L Potassium 3.2 L (3.5-5.1) mmol/L Chloride (98-107) mmol/L BUN 5 L (7-17) mg/dL Creatinine 0.42 L (0.52-1.04) mg/dL Calcium 8.0 L (8.4-10.2) mg/dL Total Bilirubin 1.4 H (0.2-1.3) mg/dL AST 49 H (14-36) U/L Total Protein (6.3-8.2) g/dL Albumin (3.5-5.0) g/dL HDL Cholesterol 111 H (40-60) mg/dL Amylase 209 H (30-110) U/L Lipase 1395 H (23-300) U/L Urine Appearance (Clear) Urine Protein (Negative) Urine Ketones (Negative) Urine Blood (Negative) Urine Bilirubin (Negative) Ur Squamous Epith Cells (0-4) /hpf Urine Bacteria (None) /hpf Hyaline Casts (0-2) /lpf Urine Mucus (None) /hpf Urine Opiates Screen (NotDetected) U Marijuana (THC) Screen (NotDetected) Assessment and Plan Assessment: Severe Acute pancreatitis secondary to EtOH Possible alcoholic withdrawal syndrome Hyponatremia Hypokalemia ketonuria history of irritable bowel syndrome History of MRSA History of left breast lumpectomy history of depression Full code Recommendations and discussion: Recommend continue current medications, management, and symptomatic treatment. GI following. Will repeat and monitor a.m. labs closely. Patient is maintained on CIWA protocol and will continue at this time. Patient will be initiated on clear liquid diet and monitor for tolerance and is to advance as tolerated. Further recommendations to follow. Possible discharge in 24-48 hours.
--- NOTE | 2020-07-04 00:32 | CONS ---
CONSULTATION DATE OF DICTATION: July 03, 2020 REASON FOR CONSULTATION: Acute recurrent pancreatitis. HISTORY OF PRESENT ILLNESS: The patient is a 19-year-old pleasant female admitted to the hospital because of acute onset of severe epigastric pain and left upper quadrant abdominal pain for the last 4 days duration. The pain continued to progressively get worse associated with nausea and vomiting, and hence came into the emergency room and subsequently was noted to have elevated amylase and lipase consistent with acute pancreatitis. She had a similar episode in September of 2019. She has history of heavy alcohol abuse and drinks about a fifth on a daily basis. This morning she is feeling somewhat better. Abdominal pain has slightly improved. PAST MEDICAL HISTORY: Significant for IBS, history of anxiety, depression, prior history of pancreatitis in September of 2019. MEDICATIONS AT HOME: Probiotic. ALLERGIES: None. SOCIAL HISTORY: Alcohol use as mentioned above. She drinks about a fifth a day. No smoking. PAST SURGICAL HISTORY: Left breast lumpectomy. FAMILY HISTORY: Brother had some kind of cancer. Father had end-stage renal disease on hemodialysis and mother had hypertension. REVIEW OF SYSTEMS: CARDIOPULMONARY: No chest pain. No shortness of breath. GENITOURINARY: No dysuria or hematuria. MUSCULOSKELETAL: Unremarkable. SKIN: Unremarkable. ENDOCRINE: Unremarkable. PSYCHIATRIC: History of anxiety, depression. NEUROLOGY: Unremarkable. ENT/VISION: Unremarkable. CONSTITUTIONAL: No recent weight loss. No fever, chills, night sweats. GI: As mentioned above. PHYSICAL EXAMINATION: She appears comfortable, in no apparent distress. VITAL SIGNS: Stable. Blood pressure 156/119, pulse rate 84, temperature 99.4. HEENT EXAMINATION: Unremarkable. Conjunctivae pink. Sclerae anicteric. Oral cavity, no lesions. NECK: No JVD or lymph node enlargement. CHEST: Clear to auscultation. HEART: Regular rate and rhythm. ABDOMEN: Soft. Mild tenderness in the epigastric area, in the right upper quadrant area and left upper quadrant area. Bowel sounds are positive. No organomegaly. EXTREMITIES: No pedal edema. NEURO: She is alert and oriented x3. No focal deficits. LABS: Labs from yesterday WBC 5.5, hemoglobin 14.4, platelets normal. Basic metabolic panel is within normal limits. BUN and creatinine have normal at 14 and 0.59. Sodium 134, potassium 3.4. Amylase 341, lipase 3490. Today amylase is down to 209 and lipase is down to 1395. AST 49, ALT is 19, T bilirubin 1.4, alkaline phosphatase is 85. She did have an ultrasound of the gallbladder done that showed evidence of fatty liver, no gallstones noted and normal CBD. IMPRESSION: 1. Acute recurrent pancreatitis, most likely related to alcohol abuse. She presents with abdominal pain associated with nausea, vomiting, and elevated amylase and lipase. Had a similar episode in September of 2019 and at that time was advised to quit drinking, which she has not done. Currently has moderate to heavy drinking for several years. She did have ultrasound of the gallbladder done that did not show any gallstones, but there was evidence of hepatic steatosis. 2. History of anxiety, depression. RECOMMENDATIONS: 1. Clear liquid diet. 2. Symptomatic and supportive care. 3. Aggressive IV hydration. 4. Abstinence from alcohol. 5. Repeat labs in the morning and will follow with you closely. Thank you for this consultation. MMODL / IJN: [id number] /
[2020-07-04] MEDS: SODIUM CHLORIDE 0.9% 1,000 ML IV SCH ×3 (01:31→16:53)
[2020-07-04] MEDS: HYDROmorphone 0.5 MG/0.5 ML SYRINGE IVP PRN ×5 (01:35→19:58)
[2020-07-04] MEDS: KETOROLAC 15 MG/ML 1 ML VIAL IVP PRN ×4 (04:18→22:29)
[2020-07-04] MEDS: HEPARIN SODIUM,PORCINE 5,000 UNIT/ML 1 ML VIAL SQ SCH ×2 (08:02→19:58)
[2020-07-04] MEDS: THIAMINE 100 MG TAB PO SCH (08:03)
[2020-07-04] MEDS: FOLIC ACID 1 MG TAB PO SCH (08:03)
[2020-07-04] MEDS: MULTIVITAMINS, THERA 1 EACH TAB PO SCH (08:03)
[2020-07-04] MEDS: PANTOPRAZOLE 40 MG/10 ML VIAL IVP SCH ×2 (08:03→19:59)
[2020-07-04 08:52] LABS: Basophils % (A) 1 %; Eosinophils # (A) 0.2 k/uL (0-0.7); Eosinophils % (A) 5 %; HCT 37.3 % (34.0-46.0); Lymphocytes # (A) 1.9 k/uL (1.0-4.8); Lymphocytes % (A) 50 %; MCH 32.1 pg (25.0-35.0); MCHC 32.1 g/dL (31.0-37.0); MCV 100.1 fL (80.0-100.0); Mean Platelet Volume 8.3; Monocytes # (A) 0.2 k/uL (0-1.0); Monocytes % (A) 4 %; Neutrophils # (A) 1.4 k/uL (1.3-7.7); Neutrophils % (A) 38 %; Platelet Count 147 k/uL (150-450); RBC 3.72 m/uL (3.80-5.40); RDW 12.7 % (11.5-15.5); WBC 3.8 k/uL (4.0-11.0)
[2020-07-04 09:18] LABS: ALT 24 U/L (4-34); AST 73 U/L (14-36); African American GFR (CKD) >90 (>60 ml/min/1.73 sqM); Albumin 3.9 g/dL (3.5-5.0); Alkaline Phosphatase 97 U/L (38-126); Amylase 97 U/L (30-110); Anion Gap 12 mmol/L; Blood Urea Nitrogen 2 mg/dL (7-17); Calcium 7.8 mg/dL (8.4-10.2); Carbon Dioxide 22 mmol/L (22-30); Chloride 102 mmol/L (98-107); Glucose 89 mg/dL (74-99); Non-African American GFR(CKD) >90 (>60 ml/min/1.73 sqM); Potassium 3.3 mmol/L (3.5-5.1); Sodium 136 mmol/L (137-145); Total Bilirubin 0.9 mg/dL (0.2-1.3); Total Protein 6.5 g/dL (6.3-8.2)
[2020-07-04] MEDS ORDERED: POTASSIUM CHLORIDE ER 20 MEQ TAB.ER PO STA (09:34)
[2020-07-04] MEDS: ONDANSETRON 4 MG/2 ML VIAL IVP PRN ×2 (12:33→22:29)
[2020-07-04 12:51] LABS: IgG Subclass 3 43.6 mg/dL (11.0-85.0); IgG Subclass 4 45.8 mg/dL (3.0-175.0)
--- NOTE | 2020-07-04 14:37 | P.PN ---
Subjective Progress Note Date: 07/04/20 Principal diagnosis: This is a 19-year-old female who was recently admitted with significant abdominal pain and is being closely monitored. Patient was also found to have elevated lipase and amylase levels with possible pancreatitis. Patient has been apparently binge drinking over the last few days. Patient is maintained on CIWA protocol. GI consulted and following. Lipase 1395 and amylase 209 level trending down and will trial clear liquid diet and advance as tolerated. Will repeat am labs. Potassium is low today and currently being replaced. Patient continues to have abdominal discomfort although states is improving. No reports of chest pain, shortness of breath, or palpitations. Patient is afebrile. No reports of nausea or vomiting. 07/04/2020 Patient is seen and evaluated and follow-up and continues to have some abdominal discomfort but states the pain medications have helped. Patient tolerated full liquids for breakfast and will advance slowly as tolerated. GI following recommending outpatient follow-up. Patient continues to be maintained on CIWA protocol and will be monitored closely for any signs of withdrawal. Patient had some increasing abdominal discomfort along with nausea and vomiting and will continue with diet at full liquids and monitor closely. Lipase is trending down and is currently 591 and amylase is 97. Potassium slightly low at 3.3 and will be replaced. Will repeat a.m. labs. Patient states she is passing gas although has not had any bowel movements at this time. Will continue to monitor closely. Review of systems: Constitutional: No reports of fatigue, fever, or chills Cardiovascular: No reports of chest pain or palpitations Respiratory: No reports of shortness of breath or cough GI: Reports intermittent nausea and vomiting, no reports of diarrhea : No reports of dysuria or retention Neurovascular: No reports of weakness or numbness All medications have been reviewed Objective - Vital Signs Vital signs: Vital Signs Temp 98.0 F 07/04/20 07:00 Pulse 75 07/04/20 07:00 Resp 18 07/04/20 07:00 BP 139/95 07/04/20 07:00 Pulse Ox 100 07/04/20 07:00 Intake & Output 07/03/20 07/04/20 07/04/20 18:59 06:59 18:59 Intake Total 1040 Balance 1040 Weight 59.874 kg Intake: IV 1040 Sodium Chloride 0.9% 1, 1040 000 ml @ 130 mls/hr IV . Q7H42M [facility] Rx#:[id number] Other: # Voids 3 1 - Exam Gen: This is a 19-year-old awake, alert and oriented 3, well-developed, well- nourished. Temp is 98.0F, pulse is 75, respirations are 18, blood pressure is 139/95, pulse ox is 100% on room air. HEENT: Head is atraumatic, normocephalic. Pupils equal, round. Sclerae is anicteric. NECK: Supple. No JVD. No lymphadenopathy. No thyromegaly. LUNGS: Clear to auscultation. No wheezes or rhonchi. No intercostal retractions. HEART: S1, S2 are muffled with no murmurs or gallops noted. ABDOMEN: Soft. Mild tenderness noted upon palpation in the left and right upper quadrant. Bowel sounds are present. No masses. EXTREMITIES: No pedal edema. No calf tenderness. NEUROLOGICAL: Patient is awake, alert and oriented x3. Cranial nerves 2 through 12 are grossly intact. - Labs CBC & Chem 7: 07/04/20 08:10 07/04/20 08:10 Labs: Abnormal Lab Results - Last 24 Hours (Table) 07/04/20 07/04/20 Range/Units 08:10 08:10 WBC 3.8 L (4.0-11.0) k/uL RBC 3.72 L (3.80-5.40) m/uL MCV 100.1 H (80.0-100.0) fL Plt Count 147 L (150-450) k/uL Sodium 136 L (137-145) mmol/L Potassium 3.3 L (3.5-5.1) mmol/L BUN 2 L (7-17) mg/dL Creatinine 0.40 L (0.52-1.04) mg/dL Calcium 7.8 L (8.4-10.2) mg/dL AST 73 H (14-36) U/L Lipase 591 H (23-300) U/L Assessment and Plan Assessment: Severe Acute pancreatitis secondary to EtOH Possible alcoholic withdrawal syndrome Hyponatremia Hypokalemia ketonuria history of irritable bowel syndrome History of MRSA History of left breast lumpectomy history of depression Full code Recommendations and discussion: Recommend continue current medications, management, and symptomatic treatment. GI following. Will repeat and monitor a.m. labs closely. Patient is maintained on CIWA protocol and will continue at this time. Will decrease diet to full liquids and monitor for tolerance and is to advance as tolerated as patient was having some intermittent nausea and vomiting. Further recommendations to follow. Possible discharge in 24-48 hours.
[2020-07-04 16:16] VITALS: RESP 16
--- NOTE | 2020-07-04 16:37 | P.PN ---
Subjective Progress Note Date: 07/04/20 Principal diagnosis: pancreatitis Patient seen and examined sitting up in bed. She appears comfortable and in no acute distress. She states no acute changes through the night. Still complaints of mild to moderate abdominal tenderness mostly in the left upper quadrant. She denies any nausea or vomiting. She denies any bowel movements since she has been admitted to the hospital, also not producing any flatus. She is tolerated a clear liquid diet, and has been upgraded to a regular diet for lunch. She is still requiring IV Dilaudid every 3 hours for her pain. Objective - Vital Signs Vital signs: Vital Signs Temp 98.5 F 07/04/20 00:40 Pulse 78 07/04/20 00:40 Resp 13 07/04/20 00:40 BP 149/105 07/04/20 00:40 Pulse Ox 100 07/04/20 00:40 Intake & Output 07/03/20 07/04/20 07/04/20 18:59 06:59 18:59 Weight 59.874 kg Other: # Voids 3 1 - Exam General appearance: The patient is alert, oriented, in no acute distress. HET: Head is normocephalic and atraumatic. Sclera is nonicteric. Neck: Supple without lymphadenopathy. Trachea midline. Heart: S1 S2. Regular rate and rhythm. Lungs: No crackles or wheezes are heard. Abdomen: Soft, mild epigastric and left upper quadrant tenderness, nondistended with bowel sounds. No guarding or rigidity. Extremities: Normal skin color and turgor. No cyanosis, rash, ulceration, cl ubbing, or edema. Radial and pedal pulses are 2/4 bilaterally. Neurological: No focal deficits. Alert and oriented 3. - Labs CBC & Chem 7: 07/04/20 08:10 07/03/20 11:24 Labs: Abnormal Lab Results - Last 24 Hours (Table) 07/03/20 07/03/20 07/04/20 Range/Units 11:24 11:24 08:10 WBC 3.8 L (4.0-11.0) k/uL RBC 3.72 L (3.80-5.40) m/uL MCV 100.7 H 100.1 H (80.0-100.0) fL Plt Count 142 L 147 L (150-450) k/uL Sodium 135 L (137-145) mmol/L Potassium 3.2 L (3.5-5.1) mmol/L BUN 5 L (7-17) mg/dL Creatinine 0.42 L (0.52-1.04) mg/dL Calcium 8.0 L (8.4-10.2) mg/dL Total Bilirubin 1.4 H (0.2-1.3) mg/dL AST 49 H (14-36) U/L HDL Cholesterol 111 H (40-60) mg/dL Amylase 209 H (30-110) U/L Lipase 1395 H (23-300) U/L Assessment and Plan Plan: Supportive care Continue with IV hydration Advance to regular diet 18 he had IgG labs pending Daily amylase, lipase, CMP Encourage patient to ambulate in hallways Judicial use of narcotics Thank you for this consultation allowing us to take part and plan of care your patient during her hospital stay The impression and plan of care has been dictated as directed. Dr. Pascual Parsons I performed a history and examination of this patient, discussed the same with the dictator. I agree with the dictator's note ,documented as a scribe. Any additional findings or plans will be noted.
[2020-07-04] MEDS ORDERED: PANTOPRAZOLE 40 MG TABLET PO SCH (21:00)
[2020-07-05] MEDS: HYDROmorphone 0.5 MG/0.5 ML SYRINGE IVP PRN ×2 (01:32→08:24)
[2020-07-05] MEDS: SODIUM CHLORIDE 0.9% 1,000 ML IV SCH ×2 (02:49→08:16)
[2020-07-05] MEDS: KETOROLAC 15 MG/ML 1 ML VIAL IVP PRN (04:45)
[2020-07-05 07:57] VITALS: BP 136/98; PULSE 74; TEMP 98.6
[2020-07-05] MEDS: THIAMINE 100 MG TAB PO SCH (08:17)
[2020-07-05] MEDS: HEPARIN SODIUM,PORCINE 5,000 UNIT/ML 1 ML VIAL SQ SCH ×2 (08:17→08:27)
[2020-07-05] MEDS: PANTOPRAZOLE 40 MG/10 ML VIAL IVP SCH (08:17)
[2020-07-05] MEDS: MULTIVITAMINS, THERA 1 EACH TAB PO SCH (08:17)
[2020-07-05] MEDS: FOLIC ACID 1 MG TAB PO SCH (08:17)
[2020-07-05 11:33] LABS: ALT 20 U/L (4-34); AST 49 U/L (14-36); African American GFR (CKD) >90 (>60 ml/min/1.73 sqM); Albumin 3.6 g/dL (3.5-5.0); Alkaline Phosphatase 80 U/L (38-126); Amylase 54 U/L (30-110); Anion Gap 7 mmol/L; Basophils % (A) 1 %; Blood Urea Nitrogen <2 mg/dL (7-17); Calcium 8.3 mg/dL (8.4-10.2); Carbon Dioxide 25 mmol/L (22-30); Chloride 103 mmol/L (98-107); Eosinophils # (A) 0.1 k/uL (0-0.7); Eosinophils % (A) 2 %; Glucose 99 mg/dL (74-99); HCT 41.6 % (34.0-46.0); HGB 13.3 gm/dL (11.4-16.0); Lymphocytes # (A) 1.4 k/uL (1.0-4.8); Lymphocytes % (A) 38 %; MCH 31.6 pg (25.0-35.0); MCV 98.6 fL (80.0-100.0); Mean Platelet Volume 8.4; Monocytes # (A) 0.2 k/uL (0-1.0); Monocytes % (A) 6 %; Neutrophils # (A) 1.9 k/uL (1.3-7.7); Neutrophils % (A) 51 %; Non-African American GFR(CKD) >90 (>60 ml/min/1.73 sqM); Platelet Count 157 k/uL (150-450); Potassium 3.5 mmol/L (3.5-5.1); RBC 4.21 m/uL (3.80-5.40); RDW 12.7 % (11.5-15.5); Sodium 135 mmol/L (137-145); Total Bilirubin 0.6 mg/dL (0.2-1.3); Total Protein 6.2 g/dL (6.3-8.2); WBC 3.6 k/uL (4.0-11.0)
--- NOTE | 2020-07-05 20:02 | PN ---
PROGRESS NOTE DATE OF DICTATION: 07/05/2020 Patient is a 19-year-old pleasant [place] female admitted to the hospital with acute recurrent pancreatitis. She is feeling much better today. She had a low-fat diet and mild epigastric pain, but overall she is feeling much better. PHYSICAL EXAMINATION: She appears comfortable. No apparent distress. Vital signs are stable. Blood pressure is 136/98, pulse rate 74, temperature 98.6. HEENT examination unremarkable. Conjunctivae pink. Sclerae anicteric. Oral cavity no lesions. NECK: No JVD or lymph node enlargement. CHEST: Clear to auscultation. HEART: Regular rate and rhythm. ABDOMEN: Soft. There is mild tenderness in the epigastric area. Bowel sounds are positive. No organomegaly. EXTREMITIES: No pedal edema. NEUROLOGIC: Alert and oriented x3. No focal deficits. LABS: Labs from today show WBC 3.6, hemoglobin 13.3, platelets normal. Basic metabolic panel is within normal limits. Amylase 54. Lipase is 468. IMPRESSION: 1. Acute recurrent pancreatitis, this being the second episode, most likely secondary to alcohol abuse. She is feeling much better. Lipase is down to 468. 2. History of alcohol abuse. RECOMMENDATIONS: 1. Continue with low-fat diet. 2. Pain medications as needed. 3. She can be discharged home today with outpatient followup in 2 weeks. 4. Abstinence from alcohol was discussed with the patient. Thank you for this consultation. OPAL / RANJAN: [id number] /
--- NOTE | 2020-07-06 08:42 | P.DS ---
Providers Date of admission: 07/02/20 17:32 Expected date of discharge: 07/05/20 Attending physician: Pato Johnson Consults: 07/02/20 17:22 Consult Physician Routine Consulting Provider: Rajeev Mchugh Consult Reason/Comments: pancreatitis Do you want consulting provider notified?: Yes Primary care physician: Denia Escalante [facility] Course: Final diagnosis Severe Acute pancreatitis secondary to EtOH Possible alcoholic withdrawal syndrome Hyponatremia Hypokalemia ketonuria history of irritable bowel syndrome History of MRSA History of left breast lumpectomy history of depression Full code Discharge disposition Patient is being discharged in a stable condition with guarded prognosis to home. Patient will follow-up with Dr. Escalante in the outpatient setting upon discharge. Patient will also follow-up with GI nurse practitioner Yudy Morales in 2-3 weeks. Total time taken is greater than 35 minutes. History of present illness This is a 19-year-old female who was recently admitted with significant abdominal pain and was being closely monitored. Patient was also found to have elevated lipase and amylase with possible pancreatitis. Patient was seen and ev aluated by GI recommending outpatient follow-up. Patient has also been binge drinking and has a known history of alcohol abuse and was maintained on CIWA protocol. Patient continued to have abdominal discomfort and was maintained on Protonix along with pain medications. Patient's diet was slowly advanced and tolerated and instructed to continue with a low fiber diet and advance slowly as tolerated over the next few days. Patient also instructed to continue to avoid alcohol intake. Patient's lipase and amylase levels improved and was provided a prescription for repeat BMP along with amylase and lipase to monitor electrolytes. Patient states she continues to have some mild abdominal discomfort although has improved since admission and patient would really like to go home today. Currently no reports of chest pain, shortness of breath, or palpitations. Patient is afebrile. No reports of nausea or vomiting and patient is tolerating diet. Patient will be discharged home today. On exam vital signs are stable. Temp is 98.6F, pulse is 74, respirations are 16, blood pressure is 136/98, oxygen saturation is 100% on room air. Cardio S1, S2 are muffled. Respiratory system shows diminished breath sounds at the bases with no wheezing or rhonchi noted. Abdomen is soft and nontender. Nervous system shows no focal deficits. Please refer to medication reconciliation sheet for a list of medications. Patient Condition at Discharge: Stable Plan - Discharge Summary Discharge Rx Participant: No New Discharge Prescriptions: New Folic Acid 1 mg PO DAILY@1200 30 Days #30 tab Multivitamins, Thera [Multivitamin (formulary)] 1 each PO DAILY@1200 30 Days #30 tab Pantoprazole Sodium [Protonix] 40 mg PO DAILY #30 tablet. Thiamine [Vitamin B-1] 100 mg PO DAILY@1200 30 Days #30 tab HYDROcodone/APAP 5-325MG [[place] 5-325] 1 tab PO Q6HR PRN 3 Days #12 tab PRN Reason: Pain Continue L.acidoph,Paracasei, B.lactis [Probiotic] 1 tab PO DAILY Discharge Medication List L.acidoph,Paracasei, B.lactis [Probiotic] 1 tab PO DAILY 07/02/20 [History] Folic Acid 1 mg PO DAILY@1200 30 Days #30 tab 07/04/20 [Rx] Multivitamins, Thera [Multivitamin (formulary)] 1 each PO DAILY@1200 30 Days #30 tab 07/04/20 [Rx] Pantoprazole Sodium [Protonix] 40 mg PO DAILY #30 tablet. 07/04/20 [Rx] Thiamine [Vitamin B-1] 100 mg PO DAILY@1200 30 Days #30 tab 07/04/20 [Rx] HYDROcodone/APAP 5-325MG [[place] 5-325] 1 tab PO Q6HR PRN 3 Days #12 tab 07/05/20 [Rx] Follow up Appointment(s)/Referral(s): Denia Escalante MD [Primary Care Provider] - 07/07/20 1:30 pm Yudy Morales NPC [Nurse Practitioner] - 07/26/20 2:00 pm (with Nurys) Ambulatory/Diagnostic Orders: Basic Metabolic Panel [LAB.AMB] Time Frame: 2 Days, Location: None Selected Lipase [LAB.AMB] Time Frame: 2 Days, Location: None Selected Patient Instructions/Handouts: Pancreatitis (DC), Abuse of Alcohol (DC) Activity/Diet/Wound Care/Special Instructions: If tolerates lunch Activity Limited until follow-up Continue current diet and advance slowly as tolerated Follow-up with primary care provider upon discharge Follow-up with GI in the outpatient setting in 2-3 weeks Continue to avoid alcohol intake Repeat labs in 2-3 days Discharge Disposition: HOME SELF-CARE
== END 2020-07-05 13:41 | disposition home or self-care (01) | DRG 439 ==
LOC: EC 15:01 → 4SSUR 17:32
PROVIDERS: ADMIT Hospitalist; ATTEND Hospitalist
DX: K85.20 Alcohol induced acute pancreatitis without necrosis or infection (principal); E87.1 Hypo-osmolality and hyponatremia; F10.239 Alcohol dependence with withdrawal, unspecified; K82.1 Hydrops of gallbladder; K86.0 Alcohol-induced chronic pancreatitis; R16.0 Hepatomegaly, not elsewhere classified; K76.0 Fatty (change of) liver, not elsewhere classified; E87.6 Hypokalemia; F32.9 Major depressive disorder, single episode, unspecified; F41.9 Anxiety disorder, unspecified; K58.9 Irritable bowel syndrome, unspecified; R82.4 Acetonuria; Z86.14 Personal history of Methicillin resistant Staphylococcus aureus infection; Z98.890 Other specified postprocedural states; Z80.9 Family history of malignant neoplasm, unspecified; Z82.49 Family history of ischemic heart disease and other diseases of the circulatory system; Z84.1 Family history of disorders of kidney and ureter
CPT/HCPCS: 36415; 71046; 76705; 80053; 80061; 80306; 81001; 81025; 82150; 82787; 83605; 83690; 85025; 86038; 93005; 96361; 96374; 96375; 96376; 99285

== ENCOUNTER 2020-11-11 10:24 | Observation (INO) | payer OTHER ==
[2020-11-11] MEDS ORDERED: KETOROLAC 15 MG/ML 1 ML VIAL IM STA (10:50)
[2020-11-11] MEDS ORDERED: KETOROLAC 15 MG/ML 1 ML VIAL IVP STA (10:52)
[2020-11-11] MEDS ORDERED: hydrALAZINE HCL 20 MG/ML 1 ML VIAL IVP STA ×2 (10:56→14:56)
--- NOTE | 2020-11-11 10:56 | ED ---
General Adult HPI - General Chief complaint: Chest Pain Stated complaint: facial & finger numbness/chest pain Time Seen by Provider: 11/11/20 10:30 Source: patient, RN notes reviewed, old records reviewed Mode of arrival: ambulatory Limitations: no limitations - History of Present Illness Initial comments: This is a 19-year-old female who presents emergency Department with chest pain that's on the right side of her chest that sharp in nature only last for a couple of seconds when it comes on and she states she can reproduce with certain movements. Patient denies any shortness of breath or difficulty breathing. Patient also complains of some numbness to the right side of her face and fingers however she states she can feel everything normally he just feels different like it's fallen asleep. Patient has no weakness. Patient states all the symptoms been ongoing for at least 2 days. Patient states she went to another hospital had CAT scans of her chest and lab work and she was told everything was fine she was given some Pepcid which she did not take. Patient has not followed up with her primary medical care doctor. Patient denies any fever chills or cough per patient denies any constant chest pain or pressure. Patient denies any shortness of breath. Patient states currently sitting or without moving she does not have any chest pain. - Related Data Home Medications Medication Instructions Recorded Confirmed Famotidine 20 mg PO DIRECTED 11/11/20 11/11/20 Allergies Allergy/AdvReac Type Severity Reaction Status Date / Time No Known Allergies Allergy Verified 11/11/20 12:34 Review of Systems ROS Statement: Those systems with pertinent positive or pertinent negative responses have been documented in the HPI. ROS Other: All systems not noted in ROS Statement are negative. Past Medical History Past Medical History: No Reported History Additional Past Medical History / Comment(s): CHANGE IN BOWEL HABITS IBS. LOSING WEIGHT. NO APPETITE. N/V History of Any Multi-Drug Resistant Organisms: MRSA Date of last positivie culture/infection: 2010 MDRO Source:: left leg Past Surgical History: Breast Surgery Additional Past Surgical History / Comment(s): LT BREAST LUMPECTOMY-BENIGN Past Anesthesia/Blood Transfusion Reactions: No Reported Reaction Past Psychological History: Depression Smoking Status: Never smoker Past Alcohol Use History: Heavy Past Drug Use History: Marijuana - Past Family History Brother(s) Family Medical History: Cancer Father Additional Family Medical History / Comment(s): heart and kidney failure. dad on dialysis. HTN Mother Additional Family Medical History / Comment(s): HTN General Exam - General Exam Comments Initial Comments: GENERAL: Patient is well-developed and well-nourished. Patient is nontoxic and well- hydrated and is in no acute distress. ENT: Neck is soft and supple. No significant lymphadenopathy is noted. Oropharynx is clear. Moist mucous membranes. Neck has full range of motion without eliciting any pain. EYES: The sclera were anicteric and conjunctiva were pink and moist. Extraocular movements were intact and pupils were equal round and reactive to light. Eyelids were unremarkable. PULMONARY: Unlabored respirations. Good breath sounds bilaterally. No audible rales rhonchi or wheezing was noted. CARDIOVASCULAR: There is a regular rate and rhythm without any murmurs gallops or rubs. ABDOMEN: Soft and nontender with normal bowel sounds. SKIN: Skin is clear with no lesions or rashes and otherwise unremarkable. NEUROLOGIC: Patient is alert and oriented x3. Cranial nerves II through XII are grossly int act. Motor and sensory are also intact. Normal speech, volume and content. Symmetrical smile. I cannot find any neurologic deficit. MUSCULOSKELETAL: Normal extremities with adequate strength and full range of motion. LYMPHATICS: No significant lymphadenopathy is noted PSYCHIATRIC: Normal psychiatric evaluation. Limitations: no limitations Course Vital Signs 11/11/20 11/11/20 11/11/20 10:28 10:44 11:15 Temperature 98.8 F 99.2 F Pulse Rate 118 H 112 H 113 H Respiratory 18 18 18 Rate Blood Pressure 155/99 148/112 143/111 O2 Sat by Pulse 96 98 99 Oximetry 11/11/20 11/11/20 11:30 12:22 Temperature Pulse Rate 101 H 114 H Respiratory 16 16 Rate Blood Pressure 137/83 138/90 O2 Sat by Pulse 98 99 Oximetry Medical Decision Making - Medical Decision Making EKG shows normal sinus rhythm at 90 bpm ME interval is 172 QRS is 104 QT interval 358 QTC is 457. Patient's EKG shows no ST segment elevation or depression. CTA of the chest shows no PE. I gave the patient hydralazine 10 mg to bring her blood pressure down and about her blood pressure down nicely. I spoke with Dr. Sr she agreed to admit the patient admitted the patient and consult cardiology and pulmonology. - Lab Data Result diagrams: 11/11/20 11:05 11/11/20 11:05 Lab Results 11/11/20 11/11/20 11/11/20 Range/Units 11:05 11:05 11:05 WBC 6.4 (4.0-11.0) k/uL RBC 3.74 L (3.80-5.40) m/uL Hgb 12.3 (11.4-16.0) gm/dL Hct 36.1 (34.0-46.0) % MCV 96.7 (80.0-100.0) fL MCH 33.0 (25.0-35.0) pg MCHC 34.1 (31.0-37.0) g/dL RDW 12.7 (11.5-15.5) % Plt Count 209 (150-450) k/uL MPV 7.2 Neutrophils % 60 % Lymphocytes % 30 % Monocytes % 5 % Eosinophils % 2 % Basophils % 1 % Neutrophils # 3.9 (1.3-7.7) k/uL Lymphocytes # 1.9 (1.0-4.8) k/uL Monocytes # 0.3 (0-1.0) k/uL Eosinophils # 0.1 (0-0.7) k/uL Basophils # 0.1 (0-0.2) k/uL PT 11.4 (9.0-12.0) sec INR 1.1 (<1.2) APTT 25.0 (22.0-30.0) sec D-Dimer 5.75 H (<0.60) mg/L FEU Sodium (137-145) mmol/L Potassium (3.5-5.1) mmol/L Chloride (98-107) mmol/L Carbon Dioxide (22-30) mmol/L Anion Gap mmol/L BUN (7-17) mg/dL Creatinine (0.52-1.04) mg/dL Est GFR (CKD-EPI)AfAm (>60 ml/min/1.73 sqM) Est GFR (CKD-EPI)NonAf (>60 ml/min/1.73 sqM) Glucose (74-99) mg/dL Calcium (8.4-10.2) mg/dL Magnesium (1.6-2.3) mg/dL Total Bilirubin (0.2-1.3) mg/dL AST (14-36) U/L ALT (4-34) U/L Alkaline Phosphatase (38-126) U/L Troponin I (0.000-0.034) ng/mL Total Protein (6.3-8.2) g/dL Albumin (3.5-5.0) g/dL Urine Opiates Screen Detected H (NotDetected) Ur Oxycodone Screen Not Detected (NotDetected) Urine Methadone Screen Not Detected (NotDetected) Ur Propoxyphene Screen Not Detected (NotDetected) Ur Barbiturates Screen Not Detected (NotDetected) U Tricyclic Antidepress Not Detected (NotDetected) Ur Phencyclidine Scrn Not Detected (NotDetected) Ur Amphetamines Screen Not Detected (NotDetected) U Methamphetamines Scrn Not Detected (NotDetected) U Benzodiazepines Scrn Not Detected (NotDetected) Urine Cocaine Screen Not Detected (NotDetected) U Marijuana (THC) Screen Detected H (NotDetected) 11/11/20 11/11/20 Range/Units 11:05 11:05 WBC (4.0-11.0) k/uL RBC (3.80-5.40) m/uL Hgb (11.4-16.0) gm/dL Hct (34.0-46.0) % MCV (80.0-100.0) fL MCH (25.0-35.0) pg MCHC (31.0-37.0) g/dL RDW (11.5-15.5) % Plt Count (150-450) k/uL MPV Neutrophils % % Lymphocytes % % Monocytes % % Eosinophils % % Basophils % % Neutrophils # (1.3-7.7) k/uL Lymphocytes # (1.0-4.8) k/uL Monocytes # (0-1.0) k/uL Eosinophils # (0-0.7) k/uL Basophils # (0-0.2) k/uL PT (9.0-12.0) sec INR (<1.2) APTT (22.0-30.0) sec D-Dimer (<0.60) mg/L FEU Sodium 138 (137-145) mmol/L Potassium 2.9 L (3.5-5.1) mmol/L Chloride 95 L (98-107) mmol/L Carbon Dioxide 34 H (22-30) mmol/L Anion Gap 9 mmol/L BUN 2 L (7-17) mg/dL Creatinine 0.54 (0.52-1.04) mg/dL Est GFR (CKD-EPI)AfAm >90 (>60 ml/min/1.73 sqM) Est GFR (CKD-EPI)NonAf >90 (>60 ml/min/1.73 sqM) Glucose 127 H (74-99) mg/dL Calcium 10.1 (8.4-10.2) mg/dL Magnesium 1.6 (1.6-2.3) mg/dL Total Bilirubin 0.7 (0.2-1.3) mg/dL AST 31 (14-36) U/L ALT 17 (4-34) U/L Alkaline Phosphatase 60 (38-126) U/L Troponin I <0.012 (0.000-0.034) ng/mL Total Protein 7.5 (6.3-8.2) g/dL Albumin 4.4 (3.5-5.0) g/dL Urine Opiates Screen (NotDetected) Ur Oxycodone Screen (NotDetected) Urine Methadone Screen (NotDetected) Ur Propoxyphene Screen (NotDetected) Ur Barbiturates Screen (NotDetected) U Tricyclic Antidepress (NotDetected) Ur Phencyclidine Scrn (NotDetected) Ur Amphetamines Screen (NotDetected) U Methamphetamines Scrn (NotDetected) U Benzodiazepines Scrn (NotDetected) Urine Cocaine Screen (NotDetected) U Marijuana (THC) Screen (NotDetected) Disposition Clinical Impression: Hypertensive urgency, Tachycardia, Chest pain Disposition: ADMITTED IP TO [facility] Referrals: Denia Escalante MD [Primary Care Provider] - 1-2 days Time of Disposition: 15:00
--- NOTE | 2020-11-11 11:17 | XR ---
EXAMINATION TYPE: XR chest 2V DATE OF EXAM: 11/11/2020 COMPARISON: NONE TECHNIQUE: PA and lateral views submitted. HISTORY: Chest pain FINDINGS: The lungs are clear and there is no pneumothorax, pleural effusion, or focal pneumonia. IMPRESSION: 1. No acute process.
[2020-11-11 11:20] LABS: Basophils # (A) 0.1 k/uL (0-0.2); Basophils % (A) 1 %; Eosinophils # (A) 0.1 k/uL (0-0.7); Eosinophils % (A) 2 %; HCT 36.1 % (34.0-46.0); HGB 12.3 gm/dL (11.4-16.0); Lymphocytes # (A) 1.9 k/uL (1.0-4.8); Lymphocytes % (A) 30 %; MCHC 34.1 g/dL (31.0-37.0); MCV 96.7 fL (80.0-100.0); Mean Platelet Volume 7.2; Monocytes # (A) 0.3 k/uL (0-1.0); Monocytes % (A) 5 %; Neutrophils # (A) 3.9 k/uL (1.3-7.7); Neutrophils % (A) 60 %; Platelet Count 209 k/uL (150-450); RBC 3.74 m/uL (3.80-5.40); RDW 12.7 % (11.5-15.5); WBC 6.4 k/uL (4.0-11.0)
[2020-11-11 11:38] LABS: ALT 17 U/L (4-34); AST 31 U/L (14-36); African American GFR (CKD) >90 (>60 ml/min/1.73 sqM); Albumin 4.4 g/dL (3.5-5.0); Alkaline Phosphatase 60 U/L (38-126); Anion Gap 9 mmol/L; Blood Urea Nitrogen 2 mg/dL (7-17); Calcium 10.1 mg/dL (8.4-10.2); Carbon Dioxide 34 mmol/L (22-30); Chloride 95 mmol/L (98-107); Glucose 127 mg/dL (74-99); Magnesium 1.6 mg/dL (1.6-2.3); Non-African American GFR(CKD) >90 (>60 ml/min/1.73 sqM); Potassium 2.9 mmol/L (3.5-5.1); Sodium 138 mmol/L (137-145); Total Bilirubin 0.7 mg/dL (0.2-1.3); Total Protein 7.5 g/dL (6.3-8.2)
[2020-11-11 11:39] LABS: Amphetamine Screen,Urine Not Detected (NotDetected); Barbiturate Screen,Urine Not Detected (NotDetected); Benzodiazepines Screen,Urine Not Detected (NotDetected); Cocaine Screen,Urine Not Detected (NotDetected); Methadone Screen, Urine Not Detected (NotDetected); Opiate Screen,Urine Detected (NotDetected); Oxycodone Screen, Urine Not Detected (NotDetected); Phencyclidine Screen,Urine Not Detected (NotDetected); Tricyclic Antidepressant,Urine Not Detected (NotDetected); Urn Cannabinoid Scrn Detected (NotDetected)
[2020-11-11 11:46] LABS: INR 1.1 (<1.2); Prothrombin Time 11.4 sec (9.0-12.0)
[2020-11-11 12:19] LABS: D-Dimer 5.75 mg/L FEU (<0.60)
[2020-11-11] MEDS ORDERED: ONDANSETRON 4 MG/2 ML VIAL IVP STA (13:35)
--- NOTE | 2020-11-11 14:25 | CT ---
EXAMINATION TYPE: CT chest angio for PE DATE OF EXAM: 11/11/2020 COMPARISON: None HISTORY: Shortness of breath and chest pain CT DLP: 219.7 mGycm Automated exposure control for dose reduction was used. CONTRAST: Performed with IV Contrast, patient injected with 100 mL of Isovue 370. There are 3-D post processed images. The lungs are clear of consolidation. There is no pleural effusion. There is no pericardial effusion. Heart size is normal. There is no mediastinal adenopathy. There is normal enhancement of the thoracic aorta. There is no aneurysm or dissection. There is mary ann l contrast opacification of the pulmonary arteries. There are no filling defects. There are no hilar masses. Thoracic spine is intact. There is no compression fracture. There is mild thoracic dextroscoliosis an d thoracolumbar levoscoliosis. IMPRESSION: No evidence of pulmonary embolism. Negative exam.
[2020-11-11] MEDS ORDERED: POTASSIUM CHLORIDE ER 20 MEQ TAB.ER PO STA ×2 (14:39→18:17)
[2020-11-11] MEDS ORDERED: NITROGLYCERIN SL TABS 0.4 MG TAB SUBLINGUAL PRN (15:00)
--- NOTE | 2020-11-11 19:06 | CT ---
EXAMINATION TYPE: CT brain wo con DATE OF EXAM: 11/11/2020 COMPARISON: 04/30/2016 HISTORY: Head tingling CT DLP: 1070.4 mGycm Automated exposure control for dose reduction was used. Ventricles have normal size. There is no mass effect nor midline shift. There is no sign of intracran ial hemorrhage. Calvarium is intact. There is no evidence of cerebral edema. The skull base is intact . There is normal aeration of the mastoid sinuses. Impression new graft normal unenhanced head CT scan. No change.
[2020-11-11] MEDS ORDERED: POTASSIUM CHLORIDE ER 20 MEQ TAB.ER PO SCH (21:00)
--- NOTE | 2020-11-11 22:08 | P.HPIM ---
History of Present Illness H&P Date: 11/11/20 Chief Complaint: Right side chest pain Ms. Tarango is a 19-year-old female with significant past medical history of IBS, MRSA, depression, alcohol abuse, who follows with Dr. Kofi Samuels, renal patient setting coming to the hospital with a chief complaint of chest pain. Patient states that she has right-sided chest pain that is sharp in nature which last for couple of seconds and that it is reproducible with certain movements. Patient denies having any difficulty in breathing, no cough. She denies having any fevers chills or rigors. Patient denies having any swelling of her lower extremities. She denies having any recent travel. No recent surgeries. She also states that she has some numbness on the right side of her face along with some tingling sensation in her fingers, she states that they feel like they are falling asleep. But on waking she feels better. 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 Patient was recently at [facility] and she had a CAT scan of the chest, she also had a CAT scan of the abdomen and pelvis for abdominal pain and was discharged home on Pepcid. Patient mentions about having history of alcohol usage in the past. She states that she drinks almost 1 pint and she has episodes of binge drinking. In the emergency patient had labs done showing an elevated D-dimer of 5.75 and hypokalemia with potassium of 2.9. Patient's UDS was positive for opiates and marijuana. She had troponins less than 0.012x3. Eventually patient had CT Karla of the chest that was negative for pulmonary embolism.So the patient was admitted to the hospital for further evaluation with pulmonary and cardiac consults. Review of Systems REVIEW OF SYSTEMS: CONSTITUTIONAL: No fever, no malaise, no fatigue. HEENT: No recent visual problems or hearing problems. Denied any sore throat. CARDIOVASCULAR: No chest pain, orthopnea, PND, no palpitations, no syncope. PULMONARY:no hemoptysis. GASTROINTESTINAL: No diarrhea, no nausea, no vomiting, no abdominal pain. NEUROLOGICAL: No headaches, no weakness, no numbness. HEMATOLOGICAL: Denies any bleeding or petechiae. GENITOURINARY: Denies any burning micturition, frequency, or urgency. MUSCULOSKELETAL/RHEUMATOLOGICAL: Denies any joint pain, swelling, or any muscle pain. ENDOCRINE: Denies any polyuria or polydipsia. The rest of the 14-point review of systems is negative. Past Medical History Past Medical History: No Reported History Additional Past Medical History / Comment(s): CHANGE IN BOWEL HABITS IBS. bloating symptoms. been following her own blood pressure and it has been high History of Any Multi-Drug Resistant Organisms: MRSA Date of last positivie culture/infection: 2010 MDRO Source:: left leg Past Surgical History: Breast Surgery Additional Past Surgical History / Comment(s): LT BREAST LUMPECTOMY-BENIGN Past Anesthesia/Blood Transfusion Reactions: No Reported Reaction Past Psychological History: Anxiety, Depression Additional Psychological History / Comment(s): past suicide attempt/ with pills 11/2018 Smoking Status: Never smoker Additional Past Alcohol Use History / Comment(s): binge drinking on weekends/ 11/04 pint Past Drug Use History: Marijuana - Past Family History Brother(s) Family Medical History: Cancer Father Family Medical History: Congestive Heart Failure (CHF), Diabetes Mellitus, Dialysis Additional Family Medical History / Comment(s): heart and kidney failure. dad on dialysis. HTN Mother Family Medical History: Diabetes Mellitus Additional Family Medical History / Comment(s): HTN Medications and Allergies Home Medications Medication Instructions Recorded Confirmed Type RX: Famotidine 20 mg PO DIRECTED 11/11/20 11/11/20 History Allergies Allergy/AdvReac Type Severity Reaction Status Date / Time No Known Allergies Allergy Verified 11/11/20 12:34 Physical Exam Vitals: Vital Signs Temp Pulse Pulse Resp BP BP Pulse Ox 11/11/20 17:36 132/91 11/11/20 15:46 98.6 F 101 H 155/93 98 11/11/20 15:00 100 18 139/86 99 11/11/20 12:22 114 H 16 138/90 99 11/11/20 11:30 101 H 16 137/83 98 11/11/20 11:15 113 H 18 143/111 99 11/11/20 10:44 99.2 F 112 H 18 148/112 98 11/11/20 10:28 98.8 F 118 H 18 155/99 96 Intake and Output 11/11/20 11/11/20 11/11/20 06:59 14:59 22:59 Other: Weight 58.967 kg 58.967 kg PHYSICAL EXAMINATION: GENERAL: The patient is alert and oriented X3, in any acute distress. Well developed, well nourished. HEENT: Pupils are round and equally reacting to light. EOMI. No scleral icterus. No conjunctival pallor. Normocephalic, atraumatic. No pharyngeal erythema. No thyromegaly. CARDIOVASCULAR: S1 and S2 present. No murmurs, rubs, or gallops. PULMONARY: Chest is clear to auscultation, no wheezing or crackles. ABDOMEN: Soft, nontender, nondistended, normoactive bowel sounds. No palpable organomegaly. MUSCULOSKELETAL: No joint swelling or deformity. EXTREMITIES: No cyanosis, clubbing, or pedal edema. NEUROLOGICAL: No facial droop, strength is 5 out of 5 in all 4 extremities. Normal reflexes. No focal neurological deficits. SKIN: No rash Results CBC & Chem 7: 11/11/20 11:05 11/11/20 11:05 Labs: Abnormal Lab Results - Last 24 Hours (Table) 11/11/20 11/11/20 11/11/20 Range/Units 11:05 11:05 11:05 RBC 3.74 L (3.80-5.40) m/uL D-Dimer 5.75 H (<0.60) mg/L FEU Potassium (3.5-5.1) mmol/L Chloride (98-107) mmol/L Carbon Dioxide (22-30) mmol/L BUN (7-17) mg/dL Glucose (74-99) mg/dL Urine Opiates Screen Detected H (NotDetected) U Marijuana (THC) Screen Detected H (NotDetected) 11/11/20 Range/Units 11:05 RBC (3.80-5.40) m/uL D-Dimer (<0.60) mg/L FEU Potassium 2.9 L (3.5-5.1) mmol/L Chloride 95 L (98-107) mmol/L Carbon Dioxide 34 H (22-30) mmol/L BUN 2 L (7-17) mg/dL Glucose 127 H (74-99) mg/dL Urine Opiates Screen (NotDetected) U Marijuana (THC) Screen (NotDetected) Thrombosis Risk Factor Assmnt - Choose All That Apply Any of the Below Risk Factors Present?: No Other Risk Factors: No Other congenital or acquired thrombophilia - If yes, enter type in comment: No Thrombosis Risk Factor Assessment Level: Very Low Risk Assessment and Plan Assessment: ASSESSMENT Right-sided chest pain-most likely musculoskeletal Hypokalemia Elevated D-dimer Right facial numbness and right extremity tingling History of pancreatitis History of alcohol use GERD Irritable bowel syndrome History of MRSA Past history of suicidal attempt Marijuana use PLAN: Patient had CT Karla of the chest that was negative for PE. As the patient complains of right-sided facial numbness and right extremity tingling, will obtain a CT of the head. Replace potassium. Consulted pulmonary and cardiology. As the patient has psychiatric history, psychiatric services have been consulted. Patient will be monitored and further recommendations to follow depending on the progress of the patient.
[2020-11-11] MEDS: MAGNESIUM SULFATE-D5W PMX 1 GM in DEXTROSE/WATER 1 100ML.BAG IVPB SCH (22:56)
[2020-11-12] MEDS: MAGNESIUM SULFATE-D5W PMX 1 GM in DEXTROSE/WATER 1 100ML.BAG IVPB SCH (01:02)
[2020-11-12 04:33] VITALS: RESP 17
[2020-11-12 04:35] VITALS: BP 150/98; PULSE 91; TEMP 97.6
[2020-11-12] MEDS ORDERED: PANTOPRAZOLE 40 MG TABLET PO SCH (07:30)
--- NOTE | 2020-11-12 22:21 | P.DS ---
Providers Date of admission: 11/11/20 15:00 Expected date of discharge: 11/12/20 Attending physician: Sridevi Gan Consults: 11/11/20 15:00 Consult Physician Urgent Consulting Provider: [facility] Consult Reason/Comments: Hypertensive urgency, chest pain Do you want consulting provider notified?: Yes Consult Physician Urgent Consulting Provider: Anna Hampton Consult Reason/Comments: Chest pain, elevated d-dimer Do you want consulting provider notified?: Yes 11/11/20 18:50 Consult Physician Routine Consulting Provider: Jack Ryder Consult Reason/Comments: depression Do you want consulting provider notified?: Yes Primary care physician: [facility] Course: Ms. Tarango is a 19-year-old female with significant past medical history of IBS, MRSA, depression, alcohol abuse, who follows with Dr. Kofi Escalante, renal patient setting coming to the hospital with a chief complaint of chest pain. Patient states that she has right-sided chest pain that is sharp in nature which last for couple of seconds and that it is reproducible with certain movements. Patient denies having any difficulty in breathing, no cough. She denies having any fevers chills or rigors. Patient denies having any swelling of her lower extremities. She denies having any recent travel. No recent surgeries. She also states that she has some numbness on the right side of her face along with some tingling sensation in her fingers, she states that they feel like they are falling asleep. But on waking she feels better. 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 Patient was recently at [facility] and she had a CAT scan of the chest, she also had a CAT scan of the abdomen and pelvis for abdominal pain and was discharged home on Pepcid. Patient mentions about having history of alcohol usage in the past. She states that she drinks almost 1 pint and she has episodes of binge drinking. In the emergency patient had labs done showing an elevated D-dimer of 5.75 and hypokalemia with potassium of 2.9. Patient's UDS was positive for opiates and marijuana. She had troponins less than 0.012x3. Eventually patient had CT Karla of the chest that was negative for pulmonary embolism.So the patient was admitted to the hospital for further evaluation with pulmonary and cardiac consults. Later that night patient left AGAINST MEDICAL ADVICE. DISCHARGE DIAGNOSIS Right-sided chest pain-most likely musculoskeletal Hypokalemia Elevated D-dimer Right facial numbness and right extremity tingling History of pancreatitis History of alcohol use GERD Irritable bowel syndrome History of MRSA Past history of suicidal attempt Marijuana use Patient Condition at Discharge: Serious Plan - Discharge Summary Discharge Rx Participant: Yes New Discharge Prescriptions: No Action Famotidine 20 mg PO DIRECTED Discharge Medication List Famotidine 20 mg PO DIRECTED 11/11/20 [History] Follow up Appointment(s)/Referral(s): Denia Escalante MD [Primary Care Provider] - 1-2 days Discharge Disposition: Left Against Medical Advice
== END 2020-11-12 05:00 | disposition left against medical advice (07) ==
LOC: EC 10:24 → 1SOBS 15:00
PROVIDERS: ADMIT Internal Medicine; ATTEND Internal Medicine
DX: I16.0 Hypertensive urgency (principal); R79.1 Abnormal coagulation profile; Z53.29 Procedure and treatment not carried out because of patient's decision for other reasons; F32.9 Major depressive disorder, single episode, unspecified; K58.9 Irritable bowel syndrome, unspecified; Z86.14 Personal history of Methicillin resistant Staphylococcus aureus infection; F10.10 Alcohol abuse, uncomplicated; E87.6 Hypokalemia; K21.9 Gastro-esophageal reflux disease without esophagitis; R20.0 Anesthesia of skin; R20.2 Paresthesia of skin; Z87.19 Personal history of other diseases of the digestive system; Z91.5 Personal history of self-harm; Z83.3 Family history of diabetes mellitus; F41.9 Anxiety disorder, unspecified; Z82.49 Family history of ischemic heart disease and other diseases of the circulatory system
CPT/HCPCS: 96365; 96366 ×2; 96375; 99285; 36415; 93005; 85379; 80053; 84443; 83735; 84484; 85025; 85610; 85730; 81025; 80306; 71046; 70450; 71275; G0378 ×2; J0360; J2405; J3475 ×2; J1885; Q9967

== ENCOUNTER 2021-04-23 14:22 | Emergency (ER) | payer OTHER ==
[2021-04-23] MEDS ORDERED: PANTOPRAZOLE 40 MG/10 ML VIAL IVP STA (16:49)
[2021-04-23] MEDS ORDERED: ONDANSETRON 4 MG/2 ML VIAL IVP STA (16:49)
[2021-04-23] MEDS ORDERED: MORPHINE SULFATE 4 MG/ML SYRINGE IV STA (16:49)
[2021-04-23] MEDS ORDERED: SODIUM CHLORIDE 0.9% 1,000 ML IV STA (16:49)
--- NOTE | 2021-04-23 16:52 | ED ---
Abdominal Pain HPI - General Chief Complaint: Abdominal Pain Stated Complaint: abdominal pain Time Seen by Provider: 04/23/21 16:33 Source: patient Mode of arrival: ambulatory Limitations: no limitations - History of Present Illness Initial Comments: 20-year-old female with history of pancreatitis presents to the emergency department with chief complaint of abdominal pain. States the pain started about 2 days ago in her periumbilical region and is radiating to the left side of the abdomen. States there is also some pain in the epigastric region as well. States this feels like her typical pancreatitis. Pain is not postprandial. States last time she drank alcohol was about 4 days ago. She also reports history of constipation and states her last bowel moment was about 7 days ago. She denies any nausea vomiting or diarrhea. Denies any hematuria, hematochezia or melena. Denies any fevers or chills. Denies concern for . Denies any vaginal or urinary symptoms. Denies abdominal surgical history. Patient reports she was discharged early this morning from another emergency department for the same chief complaint and they had a CT obtained which showed no acute findings. - Related Data Home Medications Medication Instructions Recorded Confirmed Famotidine 20 mg PO DIRECTED 11/11/20 11/11/20 Allergies Allergy/AdvReac Type Severity Reaction Status Date / Time No Known Allergies Allergy Verified 04/23/21 14:57 Review of Systems ROS Statement: Those systems with pertinent positive or pertinent negative responses have been documented in the HPI. ROS Other: All systems not noted in ROS Statement are negative. Past Medical History Past Medical History: No Reported History Additional Past Medical History / Comment(s): CHANGE IN BOWEL HABITS IBS. bloating symptoms. been following her own blood pressure and it has been high History of Any Multi-Drug Resistant Organisms: MRSA Date of last positivie culture/infection: 2010 MDRO Source:: left leg Past Surgical History: Breast Surgery Additional Past Surgical History / Comment(s): LT BREAST LUMPECTOMY-BENIGN Past Anesthesia/Blood Transfusion Reactions: No Reported Reaction Past Psychological History: Anxiety, Depression Smoking Status: Never smoker Past Alcohol Use History: Occasional Past Drug Use History: Marijuana - Past Family History Brother(s) Family Medical History: Cancer Father Family Medical History: Congestive Heart Failure (CHF), Diabetes Mellitus, Dialysis Additional Family Medical History / Comment(s): heart and kidney failure. dad on dialysis. HTN Mother Family Medical History: Diabetes Mellitus Additional Family Medical History / Comment(s): HTN General Exam Limitations: no limitations General appearance: alert, in no apparent distress Head exam: Present: atraumatic, normocephalic, normal inspection Eye exam: Present: normal appearance, PERRL, EOMI Pupils: Present: normal accommodation ENT exam: Present: normal exam, normal oropharynx, mucous membranes moist Neck exam: Present: normal inspection, full ROM. Absent: tenderness, lymphadenopathy Respiratory exam: Present: normal lung sounds bilaterally. Absent: respiratory distress, wheezes, rales, rhonchi, stridor Cardiovascular Exam: Present: regular rate, normal rhythm, normal heart sounds GI/Abdominal exam: Present: soft, tenderness (Periumbilical left upper quadrant epigastric tenderness), normal bowel sounds. Absent: distended, guarding Extremities exam: Present: normal inspection, full ROM, normal capillary refill. Absent: tenderness, pedal edema, joint swelling Back exam: Present: normal inspection, full ROM, CVA tenderness (L). Absent: tenderness, CVA tenderness (R) Neurological exam: Present: alert, oriented X3 Psychiatric exam: Present: normal affect, normal mood Skin exam: Present: warm, dry, intact, normal color Course Vital Signs 04/23/21 14:55 Temperature 98.7 F Pulse Rate 90 Respiratory 18 Rate Blood Pressure 142/97 O2 Sat by Pulse 98 Oximetry Medical Decision Making - Medical Decision Making 20-year-old female with history of pancreatitis presents to the emergency department with chief complaint of abdominal pain. On physical examination, epigastric and left-sided abdominal tenderness. CBC is unremarkable. CMP reveals mild elevation of lipase of 327. KUB shows no acute findings. Patient has not had a bowel movement about 6 days. We'll give magnesium citrate. Eyes are to be a high fiber diet. Advised to follow with the primary care physician. I did offer CT imaging, she declined. Return parameters were thoroughly discussed with patient and mother understanding ago. Case discussed with Dr. Santiago. - Lab Data Result diagrams: 04/23/21 16:52 04/23/21 16:52 Lab Results 04/23/21 04/23/21 04/23/21 Range/Units 16:52 16:52 16:52 WBC 4.6 (3.8-10.6) k/uL RBC 4.08 (3.80-5.40) m/uL Hgb 13.3 (11.4-16.0) gm/dL Hct 38.4 (34.0-46.0) % MCV 94.1 (80.0-100.0) fL MCH 32.6 (25.0-35.0) pg MCHC 34.6 (31.0-37.0) g/dL RDW 13.0 (11.5-15.5) % Plt Count 287 (150-450) k/uL MPV 7.2 Neutrophils % 64 % Lymphocytes % 28 % Monocytes % 5 % Eosinophils % 1 % Basophils % 0 % Neutrophils # 2.9 (1.3-7.7) k/uL Lymphocytes # 1.3 (1.0-4.8) k/uL Monocytes # 0.2 (0-1.0) k/uL Eosinophils # 0.1 (0-0.7) k/uL Basophils # 0.0 (0-0.2) k/uL Sodium (137-145) mmol/L Potassium (3.5-5.1) mmol/L Chloride (98-107) mmol/L Carbon Dioxide (22-30) mmol/L Anion Gap mmol/L BUN (7-17) mg/dL Creatinine (0.52-1.04) mg/dL Est GFR (CKD-EPI)AfAm (>60 ml/min/1.73 sqM) Est GFR (CKD-EPI)NonAf (>60 ml/min/1.73 sqM) Glucose (74-99) mg/dL Calcium (8.4-10.2) mg/dL Total Bilirubin (0.2-1.3) mg/dL AST (14-36) U/L ALT (4-34) U/L Alkaline Phosphatase (38-126) U/L Total Protein (6.3-8.2) g/dL Albumin (3.5-5.0) g/dL Amylase (30-110) U/L Lipase (23-300) U/L Urine Color Yellow Urine Appearance Clear (Clear) Urine pH 6.0 (5.0-8.0) Ur Specific [place] 1.021 (1.001-1.035) Urine Protein Negative (Negative) Urine Glucose (UA) Negative (Negative) Urine Ketones 2+ H (Negative) Urine Blood Negative (Negative) Urine Nitrite Negative (Negative) Urine Bilirubin Negative (Negative) Urine Urobilinogen 2.0 (<2.0) mg/dL Ur Leukocyte Esterase Negative (Negative) Urine HCG, Qual Not Detected (Not Detectd) 04/23/21 Range/Units 16:52 WBC (3.8-10.6) k/uL RBC (3.80-5.40) m/uL Hgb (11.4-16.0) gm/dL Hct (34.0-46.0) % MCV (80.0-100.0) fL MCH (25.0-35.0) pg MCHC (31.0-37.0) g/dL RDW (11.5-15.5) % Plt Count (150-450) k/uL MPV Neutrophils % % Lymphocytes % % Monocytes % % Eosinophils % % Basophils % % Neutrophils # (1.3-7.7) k/uL Lymphocytes # (1.0-4.8) k/uL Monocytes # (0-1.0) k/uL Eosinophils # (0-0.7) k/uL Basophils # (0-0.2) k/uL Sodium 136 L (137-145) mmol/L Potassium 3.5 (3.5-5.1) mmol/L Chloride 100 (98-107) mmol/L Carbon Dioxide 23 (22-30) mmol/L Anion Gap 13 mmol/L BUN 7 (7-17) mg/dL Creatinine 0.50 L (0.52-1.04) mg/dL Est GFR (CKD-EPI)AfAm >90 (>60 ml/min/1.73 sqM) Est GFR (CKD-EPI)NonAf >90 (>60 ml/min/1.73 sqM) Glucose 83 (74-99) mg/dL Calcium 9.9 (8.4-10.2) mg/dL Total Bilirubin 1.1 (0.2-1.3) mg/dL AST 37 H (14-36) U/L ALT 27 (4-34) U/L Alkaline Phosphatase 86 (38-126) U/L Total Protein 8.3 H (6.3-8.2) g/dL Albumin 5.2 H (3.5-5.0) g/dL Amylase 98 (30-110) U/L Lipase 327 H (23-300) U/L Urine Color Urine Appearance (Clear) Urine pH (5.0-8.0) Ur Specific [place] (1.001-1.035) Urine Protein (Negative) Urine Glucose (UA) (Negative) Urine Ketones (Negative) Urine Blood (Negative) Urine Nitrite (Negative) Urine Bilirubin (Negative) Urine Urobilinogen (<2.0) mg/dL Ur Leukocyte Esterase (Negative) Urine HCG, Qual (Not Detectd) Disposition Clinical Impression: Constipation, Abdominal pain Disposition: HOME SELF-CARE Condition: Stable Instructions (If sedation given, give patient instructions): Abdominal Pain (ED), Constipation (DC), High Fiber Diet (ED) Additional Instructions: Follow with her primary care physician. Return to emergency department if symptoms worsen. Is patient prescribed a controlled substance at d/c from ED?: No Referrals: Denia Escalante MD [Primary Care Provider] - 1-2 days Time of Disposition: 18:44
[2021-04-23 17:34] LABS: Basophils % (A) 0 %; Eosinophils # (A) 0.1 k/uL (0-0.7); Eosinophils % (A) 1 %; HCT 38.4 % (34.0-46.0); HGB 13.3 gm/dL (11.4-16.0); Lymphocytes # (A) 1.3 k/uL (1.0-4.8); Lymphocytes % (A) 28 %; MCH 32.6 pg (25.0-35.0); MCHC 34.6 g/dL (31.0-37.0); MCV 94.1 fL (80.0-100.0); Mean Platelet Volume 7.2; Monocytes # (A) 0.2 k/uL (0-1.0); Monocytes % (A) 5 %; Neutrophils # (A) 2.9 k/uL (1.3-7.7); Neutrophils % (A) 64 %; Platelet Count 287 k/uL (150-450); RBC 4.08 m/uL (3.80-5.40); WBC 4.6 k/uL (3.8-10.6)
[2021-04-23 17:37] LABS: Appearance,Urine Clear (Clear); Bilirubin,Urine Negative (Negative); Blood,Urine Negative (Negative); Color,Urine Yellow; Glucose,Urine (UA) Negative (Negative); Ketones,Urine 2+ (Negative); Leukocyte Esterase,Urine Negative (Negative); Nitrite,Urine Negative (Negative); Protein,Urine Negative (Negative); Specific Gravity,Urine 1.021 (1.001-1.035)
[2021-04-23 17:44] LABS: ALT 27 U/L (4-34); AST 37 U/L (14-36); African American GFR (CKD) >90 (>60 ml/min/1.73 sqM); Albumin 5.2 g/dL (3.5-5.0); Alkaline Phosphatase 86 U/L (38-126); Amylase 98 U/L (30-110); Anion Gap 13 mmol/L; Blood Urea Nitrogen 7 mg/dL (7-17); Calcium 9.9 mg/dL (8.4-10.2); Carbon Dioxide 23 mmol/L (22-30); Chloride 100 mmol/L (98-107); Glucose 83 mg/dL (74-99); Lipase 327 U/L (23-300); Non-African American GFR(CKD) >90 (>60 ml/min/1.73 sqM); Potassium 3.5 mmol/L (3.5-5.1); Sodium 136 mmol/L (137-145); Total Bilirubin 1.1 mg/dL (0.2-1.3); Total Protein 8.3 g/dL (6.3-8.2)
--- NOTE | 2021-04-23 18:03 | XR ---
EXAMINATION TYPE: XR KUB DATE OF EXAM: 04/23/2021 COMPARISON: 09/11/2019 HISTORY: Abdominal pain TECHNIQUE: Single view FINDINGS: There is no sign of intestinal obstruction or pneumoperitoneum. Fecal pattern is normal. Bisi ng bases are clear. There are no pathologic calcifications. IMPRESSION: Nonacute abdomen. Mild thoracolumbar levoscoliosis. No change.
[2021-04-23] MEDS ORDERED: MAGNESIUM CITRATE 296 ML BOTTLE PO ONE (18:41)
[2021-04-23 19:09] VITALS: BP 138/88; PULSE 82; RESP 16; TEMP 98.2
== END 2021-04-23 19:08 | disposition home or self-care (01) ==
LOC: EC 14:22
DX: K59.00 Constipation, unspecified (principal); R10.13 Epigastric pain; R10.33 Periumbilical pain; F32.9 Major depressive disorder, single episode, unspecified; F41.9 Anxiety disorder, unspecified; F12.90 Cannabis use, unspecified, uncomplicated; Z87.19 Personal history of other diseases of the digestive system
CPT/HCPCS: 36415; 80053; 82150; 83690; 85025; 81003; 81025; 74018; 99284; 96374; 96375 ×2; 96361; J2270; J2405; C9113

== ENCOUNTER 2021-06-02 15:41 | Emergency (ER) | payer OTHER ==
[2021-06-02 15:49] VITALS: TEMP 98
--- NOTE | 2021-06-02 16:34 | ED ---
General Adult HPI - General Chief complaint: Abdominal Pain Stated complaint: Abd Pain, Chest Pain Time Seen by Provider: 06/02/21 15:50 Source: patient Mode of arrival: ambulatory Limitations: no limitations - History of Present Illness Initial comments: 20-year-old female past nuchal history of pancreatitis, intermittent alcohol use who presents emergency department with reported epigastric pain. Patient states the pain started last night after she ate spicy foods. States she began having some epigastric pain which radiated to her back. She denies nausea or vomiting. She was taking Aleve for her pain without improvement. Admits to dark colored urine. Denies dysuria or hematuria. No abnormal vaginal bleeding or discharge. Normally gets a menstrual cycle every 2 months. Denies diarrhea, black or bloody stools. Admits to some constipation. States she hasn't had a bowel movement in over one week which usually happens to her. Denies concern for . No concern for sexually transmitted infections. She states she has not had any alcohol intake in a long time. Also admits some left-sided flank pain. No shortness of breath. No fevers or chills. Does not take any prescribed medications at this time. No other alleviating, Perceptin or modifying factors - Related Data Previous Rx's Medication Instructions Recorded HYDROcodone/APAP 5-325MG [[place] 5] 1 each PO Q6HR PRN #12 tab 06/02/21 Allergies Allergy/AdvReac Type Severity Reaction Status Date / Time No Known Allergies Allergy Verified 06/02/21 17:47 Review of Systems ROS Statement: Those systems with pertinent positive or pertinent negative responses have been documented in the HPI. ROS Other: All systems not noted in ROS Statement are negative. Past Medical History Past Medical History: No Reported History Additional Past Medical History / Comment(s): CHANGE IN BOWEL HABITS IBS. bloating symptoms. been following her own blood pressure and it has been high History of Any Multi-Drug Resistant Organisms: MRSA Date of last positivie culture/infection: 2010 MDRO Source:: left leg Past Surgical History: Breast Surgery Additional Past Surgical History / Comment(s): LT BREAST LUMPECTOMY-BENIGN Past Anesthesia/Blood Transfusion Reactions: No Reported Reaction Past Psychological History: Anxiety, Depression Smoking Status: Never smoker Past Alcohol Use History: Occasional Past Drug Use History: Marijuana - Past Family History Brother(s) Family Medical History: Cancer Father Family Medical History: Congestive Heart Failure (CHF), Diabetes Mellitus, Dialysis Additional Family Medical History / Comment(s): heart and kidney failure. dad on dialysis. HTN Mother Family Medical History: Diabetes Mellitus Additional Family Medical History / Comment(s): HTN General Exam Limitations: no limitations Course Vital Signs 06/02/21 06/02/21 06/02/21 15:46 18:19 19:00 Temperature 98.0 F Pulse Rate 89 78 71 Respiratory 19 20 22 Rate Blood Pressure 155/106 158/99 147/98 O2 Sat by Pulse 97 98 98 Oximetry 06/02/21 20:21 Temperature Pulse Rate 88 Respiratory 22 Rate Blood Pressure O2 Sat by Pulse 95 Oximetry Medical Decision Making - Medical Decision Making Upon arrival patient is placed into room 14. A thorough history and physical exam was performed. IV is established patient is given a liter bolus of normal saline. She is also given 40 mg Protonix and 4 mg of morphine. Laboratory studies are conducted. Results are reviewed and demonstrate a lipase of 715. KUB demonstrates a nonacute abdomen. Chest x-ray demonstrates no active cardiopulmonary disease. The patient is reevaluated and continues to have pain. She was given 1 mg of Dilaudid. Patient is an reevaluated again and has improvement in her pain. I did discuss diagnosis, differential and treatment options. At this time the patient will be discharged home with medications for pain control. Side effect profiles discuss with the patient. Instructed not to work or drive while taking the medications. She needs to follow-up with her primary care physician in 2-4 days. I recommended increased fluid intake. Return to the emergency room for any new or worsening symptoms. Patient was discharged home in stable condition - Lab Data Result diagrams: 06/02/21 16:29 06/02/21 16:29 Lab Results 06/02/21 06/02/21 06/02/21 Range/Units 16:29 16:29 16:29 WBC 5.3 (3.8-10.6) k/uL RBC 4.20 (3.80-5.40) m/uL Hgb 13.7 (11.4-16.0) gm/dL Hct 40.2 (34.0-46.0) % MCV 95.6 (80.0-100.0) fL MCH 32.6 (25.0-35.0) pg MCHC 34.1 (31.0-37.0) g/dL RDW 13.4 (11.5-15.5) % Plt Count 252 (150-450) k/uL MPV 7.9 Neutrophils % 74 % Lymphocytes % 20 % Monocytes % 4 % Eosinophils % 0 % Basophils % 0 % Neutrophils # 3.9 (1.3-7.7) k/uL Lymphocytes # 1.0 (1.0-4.8) k/uL Monocytes # 0.2 (0-1.0) k/uL Eosinophils # 0.0 (0-0.7) k/uL Basophils # 0.0 (0-0.2) k/uL Sodium (137-145) mmol/L Potassium (3.5-5.1) mmol/L Chloride (98-107) mmol/L Carbon Dioxide (22-30) mmol/L Anion Gap mmol/L BUN (7-17) mg/dL Creatinine (0.52-1.04) mg/dL Est GFR (CKD-EPI)AfAm (>60 ml/min/1.73 sqM) Est GFR (CKD-EPI)NonAf (>60 ml/min/1.73 sqM) Glucose (74-99) mg/dL Plasma Lactic Acid Abdoulaye (0.7-2.0) mmol/L Calcium (8.4-10.2) mg/dL Total Bilirubin (0.2-1.3) mg/dL AST (14-36) U/L ALT (4-34) U/L Alkaline Phosphatase (38-126) U/L Total Protein (6.3-8.2) g/dL Albumin (3.5-5.0) g/dL Amylase (30-110) U/L Lipase (23-300) U/L Urine Color Yellow Urine Appearance Clear (Clear) Urine pH 6.5 (5.0-8.0) Ur Specific [place] 1.017 (1.001-1.035) Urine Protein 1+ H (Negative) Urine Glucose (UA) Negative (Negative) Urine Ketones 2+ H (Negative) Urine Blood Negative (Negative) Urine Nitrite Negative (Negative) Urine Bilirubin Negative (Negative) Urine Urobilinogen <2.0 (<2.0) mg/dL Ur Leukocyte Esterase Negative (Negative) Urine RBC 2 (0-5) /hpf Urine WBC 1 (0-5) /hpf Ur Squamous Epith Cells <1 (0-4) /hpf Urine Mucus Rare H (None) /hpf Urine HCG, Qual Not Detected (Not Detectd) 06/02/21 06/02/21 Range/Units 16:29 16:29 WBC (3.8-10.6) k/uL RBC (3.80-5.40) m/uL Hgb (11.4-16.0) gm/dL Hct (34.0-46.0) % MCV (80.0-100.0) fL MCH (25.0-35.0) pg MCHC (31.0-37.0) g/dL RDW (11.5-15.5) % Plt Count (150-450) k/uL MPV Neutrophils % % Lymphocytes % % Monocytes % % Eosinophils % % Basophils % % Neutrophils # (1.3-7.7) k/uL Lymphocytes # (1.0-4.8) k/uL Monocytes # (0-1.0) k/uL Eosinophils # (0-0.7) k/uL Basophils # (0-0.2) k/uL Sodium 135 L (137-145) mmol/L Potassium 3.5 (3.5-5.1) mmol/L Chloride 94 L (98-107) mmol/L Carbon Dioxide 26 (22-30) mmol/L Anion Gap 15 mmol/L BUN 10 (7-17) mg/dL Creatinine 0.60 (0.52-1.04) mg/dL Est GFR (CKD-EPI)AfAm >90 (>60 ml/min/1.73 sqM) Est GFR (CKD-EPI)NonAf >90 (>60 ml/min/1.73 sqM) Glucose 115 H (74-99) mg/dL Plasma Lactic Acid Abdoulaye 0.9 (0.7-2.0) mmol/L Calcium 10.1 (8.4-10.2) mg/dL Total Bilirubin 1.9 H (0.2-1.3) mg/dL AST 37 H (14-36) U/L ALT 20 (4-34) U/L Alkaline Phosphatase 78 (38-126) U/L Total Protein 8.0 (6.3-8.2) g/dL Albumin 5.0 (3.5-5.0) g/dL Amylase 121 H (30-110) U/L Lipase 715 H (23-300) U/L Urine Color Urine Appearance (Clear) Urine pH (5.0-8.0) Ur Specific [place] (1.001-1.035) Urine Protein (Negative) Urine Glucose (UA) (Negative) Urine Ketones (Negative) Urine Blood (Negative) Urine Nitrite (Negative) Urine Bilirubin (Negative) Urine Urobilinogen (<2.0) mg/dL Ur Leukocyte Esterase (Negative) Urine RBC (0-5) /hpf Urine WBC (0-5) /hpf Ur Squamous Epith Cells (0-4) /hpf Urine Mucus (None) /hpf Urine HCG, Qual (Not Detectd) Disposition Clinical Impression: Pancreatitis, Abdominal pain Disposition: HOME SELF-CARE Condition: Stable Instructions (If sedation given, give patient instructions): Pancreatitis (ED) Additional Instructions: Increase fluid intake. Eat bland foods. Stay away from alcohol. Take the pain medications as directed. Return to the emergency room for any new or worsening symptoms Prescriptions: HYDROcodone/APAP 5-325MG [[place] 5] 1 each PO Q6HR PRN #12 tab PRN Reason: Pain Is patient prescribed a controlled substance at d/c from ED?: Yes When asked, does pt state using other controlled substances?: No If prescribed controlled substance>3 days was MAPS reviewed?: Prescribed <3 Days If opioid is for acute pain is fill amount 7 days or less?: Yes If Rx opioid, was Start Talking consent form obtained?: Yes Referrals: Denia Escalante MD [Primary Care Provider] - 1-2 days Time of Disposition: 19:48
[2021-06-02] MEDS: MORPHINE SULFATE 4 MG/ML SYRINGE IV STA (16:40)
[2021-06-02] MEDS: SODIUM CHLORIDE 0.9% 1,000 ML IV STA (16:41)
[2021-06-02] MEDS: PANTOPRAZOLE 40 MG/10 ML VIAL IVP STA (16:41)
[2021-06-02 16:45] LABS: Basophils % (A) 0 %; Eosinophils % (A) 0 %; HCT 40.2 % (34.0-46.0); HGB 13.7 gm/dL (11.4-16.0); Lymphocytes % (A) 20 %; MCH 32.6 pg (25.0-35.0); MCHC 34.1 g/dL (31.0-37.0); MCV 95.6 fL (80.0-100.0); Mean Platelet Volume 7.9; Monocytes # (A) 0.2 k/uL (0-1.0); Monocytes % (A) 4 %; Neutrophils # (A) 3.9 k/uL (1.3-7.7); Neutrophils % (A) 74 %; Platelet Count 252 k/uL (150-450); RDW 13.4 % (11.5-15.5); WBC 5.3 k/uL (3.8-10.6)
[2021-06-02 17:01] LABS: ALT 20 U/L (4-34); AST 37 U/L (14-36); African American GFR (CKD) >90 (>60 ml/min/1.73 sqM); Alkaline Phosphatase 78 U/L (38-126); Amylase 121 U/L (30-110); Anion Gap 15 mmol/L; Blood Urea Nitrogen 10 mg/dL (7-17); Calcium 10.1 mg/dL (8.4-10.2); Carbon Dioxide 26 mmol/L (22-30); Chloride 94 mmol/L (98-107); Glucose 115 mg/dL (74-99); Lipase 715 U/L (23-300); Non-African American GFR(CKD) >90 (>60 ml/min/1.73 sqM); Potassium 3.5 mmol/L (3.5-5.1); Sodium 135 mmol/L (137-145); Total Bilirubin 1.9 mg/dL (0.2-1.3)
[2021-06-02 18:00] LABS: Appearance,Urine Clear (Clear); Bilirubin,Urine Negative (Negative); Blood,Urine Negative (Negative); Color,Urine Yellow; Glucose,Urine (UA) Negative (Negative); Ketones,Urine 2+ (Negative); Leukocyte Esterase,Urine Negative (Negative); Mucus,Urine Rare /hpf; Nitrite,Urine Negative (Negative); PH, Urine 6.5 (5.0-8.0); Protein,Urine 1+ (Negative); RBC,Urine 2 /hpf (0-5); Specific Gravity,Urine 1.017 (1.001-1.035); Squamous Epithelial Cell,Urine <1 /hpf (0-4); Urobilinogen,Urine <2.0 mg/dL (<2.0); WBC,Urine 1 /hpf (0-5)
--- NOTE | 2021-06-02 19:05 | XR ---
EXAMINATION TYPE: XR chest 2V DATE OF EXAM: 06/02/2021 COMPARISON: 11/11/2020 HISTORY: Abdominal pain. Chest pain TECHNIQUE: FINDINGS: Heart and mediastinum are normal. Lungs are clear of infiltrate. There is mild thoracic dex troscoliosis. There is thoracolumbar levoscoliosis. There is no pleural effusion. IMPRESSION: No active cardiopulmonary disease. Scoliosis appears increased compared to old exam.
--- NOTE | 2021-06-02 19:06 | XR ---
EXAMINATION TYPE: XR KUB DATE OF EXAM: 06/02/2021 COMPARISON: 04/23/2021 HISTORY: Pain TECHNIQUE: 2 views upright FINDINGS: Bowel gas pattern is normal. There is no sign of intestinal obstruction or pneumoperitoneum . Fecal pattern is normal. There is thoracolumbar levoscoliosis. I see no definite calculi over the k idneys. There is no evidence of a mass. IMPRESSION: Nonacute abdomen. No adverse change.
[2021-06-02] MEDS: HYDROmorphone 1 MG/ML 1 ML SYRINGE IVP STA (19:11)
[2021-06-02 19:15] VITALS: BP 147/98; RESP 22
[2021-06-02 20:21] VITALS: PULSE 88
== END 2021-06-02 20:21 | disposition home or self-care (01) ==
LOC: EC 15:41
DX: K85.90 Acute pancreatitis without necrosis or infection, unspecified (principal); K59.00 Constipation, unspecified; R07.9 Chest pain, unspecified; F32.9 Major depressive disorder, single episode, unspecified; F41.9 Anxiety disorder, unspecified; F12.90 Cannabis use, unspecified, uncomplicated
CPT/HCPCS: 36415; 71046; 74018; 80053; 81001; 81025; 82150; 83605; 83690; 85025; 96361; 96374; 96375; 99285

== ENCOUNTER 2021-10-21 11:10 | Emergency (ER) | payer OTHER ==
[2021-10-21 11:52] VITALS: TEMP 97.4
[2021-10-21] MEDS ORDERED: ONDANSETRON ODT 4 MG TAB PO STA (12:43)
[2021-10-21] MEDS ORDERED: KETOROLAC 15 MG/ML 1 ML VIAL IM STA (12:43)
--- NOTE | 2021-10-21 12:53 | ED ---
General Adult HPI - General Chief complaint: Fall Stated complaint: Fall/facial injury Time Seen by Provider: 10/21/21 11:53 Source: patient, RN notes reviewed Mode of arrival: ambulatory - History of Present Illness Initial comments: 20-year-old female presents to the emergency department for evaluation of injuries sustained in a trip and fall yesterday. Patient complains of headache and nausea, pain and swelling to the left eye, neck and left shoulder discomfort, and left knee pain. Patient states these injuries were not significantly uncomfortable after they occurred yesterday, however however, upon awakening today she has significant discomfort and was very concerned with the assistance of her bruising around the left eye. Patient states she has not taken anything prior to arrival to treat her symptoms. States she is feeling slightly nauseous at this time. Does complain of a headache. Denied loss of consciousness at time of injury. Denies blurry vision, numbness, tingling, or weakness in the extremities; no chest pain, abdominal pain, back pain, or hip pain. - Related Data Home Medications Medication Instructions Recorded Confirmed FLUoxetine HCL [PROzac] 20 mg PO DAILY 10/21/21 10/21/21 Previous Rx's Medication Instructions Recorded Ibuprofen [Motrin] 600 mg PO Q8HR PRN #30 tab 10/21/21 Ondansetron Odt [Zofran Odt] 4 mg PO Q8HR PRN #10 tab 10/21/21 Allergies Allergy/AdvReac Type Severity Reaction Status Date / Time No Known Allergies Allergy Verified 10/21/21 11:52 Review of Systems ROS Statement: Those systems with pertinent positive or pertinent negative responses have been documented in the HPI. ROS Other: All systems not noted in ROS Statement are negative. Past Medical History Past Medical History: No Reported History Additional Past Medical History / Comment(s): CHANGE IN BOWEL HABITS IBS. bloating symptoms. been following her own blood pressure and it has been high History of Any Multi-Drug Resistant Organisms: MRSA Date of last positivie culture/infection: 2010 MDRO Source:: left leg Past Surgical History: Breast Surgery Additional Past Surgical History / Comment(s): LT BREAST LUMPECTOMY-BENIGN Past Anesthesia/Blood Transfusion Reactions: No Reported Reaction Past Psychological History: Anxiety, Depression Smoking Status: Never smoker Past Alcohol Use History: Occasional Past Drug Use History: Marijuana - Past Family History Brother(s) Family Medical History: Cancer Father Family Medical History: Congestive Heart Failure (CHF), Diabetes Mellitus, Dialysis Additional Family Medical History / Comment(s): heart and kidney failure. dad on dialysis. HTN Mother Family Medical History: Diabetes Mellitus Additional Family Medical History / Comment(s): HTN General Exam Limitations: no limitations General appearance: alert, in no apparent distress, other (Well-developed, well- nourished female in no acute distress. Initial temperature 97.4, pulse 74, respirations 18, blood pressure 127/88, pulse ox 98% on room air.) Head exam: Present: atraumatic, normocephalic Eye exam: Present: PERRL, EOMI, periorbital swelling (significant periorbital edema of the left eye), periorbital tenderness. Absent: normal appearance ENT exam: Present: normal exam, normal oropharynx, mucous membranes moist, TM's normal bilaterally Neck exam: Present: normal inspection, tenderness (Vertebral tenderness and paraspinal tenderness upon palpation of the cervical spine.). Absent: meningismus, lymphadenopathy Respiratory exam: Present: normal lung sounds bilaterally. Absent: respiratory distress, wheezes, rales, rhonchi, stridor Cardiovascular Exam: Present: regular rate, normal rhythm, normal heart sounds. Absent: systolic murmur, diastolic murmur, rubs, gallop, clicks GI/Abdominal exam: Present: soft, normal bowel sounds. Absent: distended, tenderness, guarding, rebound, rigid Left Knee exam: Present: tenderness, swelling (Mild left lateral knee pain and swelling), full knee extension. Absent: ecchymosis, deformity, crepitus, dislocation, pain/laxity with valgus, pain/laxity with varus Neurovascular tendon exam: Present: no vascular compromise. Absent: pulse deficit, abnormal cap refill, motor deficit, sensory deficit Neurological exam: Present: alert, oriented X3, CN II-XII intact Expanded Patient oriented to: Present: person, place, time Speech: Present: fluid speech Cranial nerves: EOM's Intact: Normal, Tongue Deviation: Normal, Facial Sensation: Normal Motor strength exam: RUE: 5, LUE: 5, RLE: 5, LLE: 5 Eye Response: (4) open spontaneously Motor Response: (6) obeys commands Verbal Response: (5) oriented Psychiatric exam: Present: normal affect, normal mood Skin exam: Present: warm, dry, intact. Absent: rash Course Vital Signs 10/21/21 11:48 Temperature 97.4 F L Pulse Rate 94 Respiratory 18 Rate Blood Pressure 127/88 O2 Sat by Pulse 98 Oximetry Medical Decision Making - Medical Decision Making This is a 20-year-old female who presents to the emergency department for evaluation of injuries sustained in a fall yesterday. Upon arrival, patient has obvious facial trauma including left periorbital swelling and contusion. She complains of ongoing headache and mild dizziness, though denies loss of consciousness at the time of injury. Patient has no focal neurological deficits. She does complain of cervical spine tenderness upon palpation therefore a CT of the brain, C-spine, and facial bones was obtained showing periorbital contusion with no fractures or intracranial process. In addition, patient complains of left shoulder and left knee pain. X-rays were obtained and are unremarkable. Patient was given Toradol for her discomfort with modest improvement. She will be discharged home to follow-up with her PCP for recheck. Was prescribed Motrin and Zofran. Encouraged to alternate ice and sore areas. Instructed to have someone stay with her for the next 24 hours. Discussed general concerns with head injuries therefore return parameters were discussed in detail. Patient verbalizes understanding and agrees with this plan. Work note was provided for today and tomorrow. This patient's care was discussed with my attending Dr. Santiago. - Radiology Data Radiology results: report reviewed, image reviewed X-ray of the left shoulder was obtained. Report was reviewed. Reviewed in its entirety. Impression per Dr. Marshall as no acute osseous pathology. X-ray of the left knee was obtained. Report was reviewed in its entirety. Impression per Dr. Marshall as no acute osseous pathology. Mild tricompartmental osteoarthritic changes. CT of the brain and C-spine was obtained. Report was reviewed in its entirety. Impression per Dr. Marshall is no acute intracranial process. Left periorbital edema. No evidence of cervical spine fracture. CT of the the facial bones was obtained. Report was reviewed in its entirety. Impression per Dr. Marshall is no evidence of acute fracture. Left periorbital edema. Paranasal sinus disease most common in the right maxillary sinus. Disposition Clinical Impression: Head injury, Periorbital contusion of left eye, Fall, Knee pain, left, Shoulder pain, left Disposition: HOME SELF-CARE Condition: Stable Instructions (If sedation given, give patient instructions): Head Injury (ED), Knee Pain (ED), Facial Contusion (ED) Additional Instructions: Rest. Take anti-inflammatory pain medication. May take Zofran if needed. Follow-up with your family doctor for a recheck in the next 1-2 days. Return to the emergency department with any new, worsening, or concerning symptoms as discussed. Prescriptions: Ibuprofen [Motrin] 600 mg PO Q8HR PRN #30 tab PRN Reason: Pain Ondansetron Odt [Zofran Odt] 4 mg PO Q8HR PRN #10 tab PRN Reason: Nausea Is patient prescribed a controlled substance at d/c from ED?: No Referrals: Abad Anne MD [Primary Care Provider] - 1-2 days Time of Disposition: 14:37
--- NOTE | 2021-10-21 13:50 | CT ---
EXAMINATION TYPE: CT facial bones wo con CT DLP: 747.9 mGycm, Automated exposure control for dose reduction was used. DATE OF EXAM: 10/21/2021 1:20 PM COMPARISON: None. CLINICAL INDICATION:Female, 20 years old with history of significant periorbital tenderness and edema ; PHH, headache, left orbital contusion, neck pain post fall TECHNIQUE: Multiple unenhanced axial CT images were obtained of the facial bones soft tissue and bone windows. Coronal, axial and sagittal reformatted images were also provided in soft tissue and bone windows and submitted for interpretation. FINDINGS: Mild left periorbital soft tissue edema/fat stranding. There is no evidence of fracture. Mu cosal thickening of the maxillary sinuses is present most pronounced on the right maxillary sinus. The orbital contents are unremarkable. The temporal-mandibular joints appear symmetric. IMPRESSION: 1. No evidence of acute fracture. 2. Left periorbital edema. 3. Paranasal sinus disease most some the right maxillary sinus.
--- NOTE | 2021-10-21 13:54 | CT ---
EXAMINATION TYPE: CT brain cspine wo con CT DLP: 16638 mGycm, Automated exposure control for dose reduction was used. DATE OF EXAM: 10/21/2021 1:20 PM COMPARISON: None.. CLINICAL INDICATION:Female, 20 years old with history of head trauma, c-spine tenderness s/p fall; PH H, headache, left orbital contusion, neck pain post fall TECHNIQUE: Brain: Multiple axial CT images of the brain were obtained without IV contrast. Cspine: Axial CT images from the skull base to the inferior aspect of T2 we obtained without intraven ous contrast. Coronal and sagittal reformatted images were also reviewed. FINDINGS: Brain: Extra-axial spaces: No abnormal extra-axial fluid collections. Ventricular system: Within normal limits Cerebral parenchyma: No acute intraparenchymal hemorrhage or mass effect. The gilbert-white junction is well differentiated. Cerebellum: Unremarkable. Mass effect: No evidence of midline shift. Intracranial vasculature: unremarkable Soft tissues: Mild left periorbital soft tissue edema/fat stranding. Calvarium/osseous structures: No depressed skull fracture. Paranasal sinuses and mastoid air cells: Right mucosal thickening of the maxillary sinus Visualized orbits: Orbital contents are intact. Cervical spine: Fracture: None. Osseous structures: Unremarkable Vertebral alignment: Within normal limits. Spinal canal/Neural Foramina: No evidence of significant spinal canal narrowing. No evidence of signi ficant neural foramina narrowing. Neck soft tissues: Prevertebral soft tissues are within normal limits. Other: The airway is patent. The lung apices are clear. IMPRESSION: 1. No acute intracranial process. 2. Left periorbital edema. 3. No evidence of cervical spine fracture. .
--- NOTE | 2021-10-21 13:56 | XR ---
EXAMINATION TYPE: XR shoulder complete LT DATE OF EXAM: 10/21/2021 1:24 PM INDICATION: Patient age:Female; 20 years old; Reason for study: shoulder pain s/p fall; PHH. COMPARISON:06/02/2021 TECHNIQUE: The left shoulder was examined in AP, internally rotated and axillary projections. FINDINGS: No evidence of acute osseous pathology, joint dislocation, or soft tissue swelling. The remaining por tions of the visualized chest are unremarkable. IMPRESSION: No acute osseous pathology.
--- NOTE | 2021-10-21 13:56 | XR ---
EXAMINATION TYPE: XR knee complete LT DATE OF EXAM: 10/21/2021 1:24 PM INDICATION: Patient age:Female; 20 years old; Reason for study: knee swelling s/p fall; PHH. COMPARISON: 03/09/2013 TECHNIQUE: The left knee was examined in 3 projections. FINDINGS: No evidence of any acute osseous pathology, joint space narrowing, soft tissue swelling, or joint effusion is noted. IMPRESSION: 1. No acute osseous pathology. 2. Mild tricompartmental osteoarthritic changes.
[2021-10-21 15:25] VITALS: BP 140/72; PULSE 78; RESP 16
== END 2021-10-21 15:23 | disposition home or self-care (01) ==
LOC: EC 11:10
DX: S00.12XA Contusion of left eyelid and periocular area, initial encounter (principal); S09.90XA Unspecified injury of head, initial encounter; M25.562 Pain in left knee; M25.512 Pain in left shoulder; F41.9 Anxiety disorder, unspecified; F32.A Depression, unspecified; F12.90 Cannabis use, unspecified, uncomplicated; W01.0XXA Fall on same level from slipping, tripping and stumbling without subsequent striking against object, initial encounter
CPT/HCPCS: 99284; 96372; 73030; 73562; 72125; 70486; 70450; J1885

== ENCOUNTER 2021-10-30 14:37 | Emergency (ER) | payer OTHER ==
[2021-10-30 15:27] VITALS: TEMP 99.1
[2021-10-30] MEDS ORDERED: ONDANSETRON 4 MG/2 ML VIAL IVP STA (17:38)
[2021-10-30] MEDS ORDERED: SODIUM CHLORIDE 0.9% 1,000 ML IV STA (17:38)
[2021-10-30] MEDS ORDERED: MORPHINE SULFATE 2 MG/ML SYRINGE IVP STA (17:38)
--- NOTE | 2021-10-30 17:55 | ED ---
Abdominal Pain HPI - General Chief Complaint: Abdominal Pain Stated Complaint: abd pain Time Seen by Provider: 10/30/21 17:25 Source: patient Mode of arrival: ambulatory - History of Present Illness Initial Comments: This 20-year-old female presents to the emergency department with abdominal pain that began this morning. Patient states last she was admitted to [facility] with pancreatitis. She states she was discharged Friday feeling well up until this morning when she woke up with this pain. She states she was discharged with tramadol for pain which has helped up until today. She states she took her tramadol at 6 AM, with little relief. She states the pain is in the upper middle of her stomach and radiates to her back. She states the pain is better leaning forward and worse lying backwards. She describes the pain as a dull ache. She states she did vomit once this morning. She states she has had pancreatitis 3-4 times in her past. Patient states she does drink alcohol but has not had a drink for at least one week. States she is constipated and hasn't had a bowel movement for a few days, but states she also has not been eating due to her pancreatitis. She denies shortness of breath, diarrhea, headache or chest pain. - Related Data Home Medications Medication Instructions Recorded Confirmed FLUoxetine HCL [PROzac] 20 mg PO DAILY 10/21/21 10/21/21 Previous Rx's Medication Instructions Recorded Ibuprofen [Motrin] 600 mg PO Q8HR PRN #30 tab 10/21/21 Ondansetron Odt [Zofran Odt] 4 mg PO Q8HR PRN #10 tab 10/21/21 Allergies Allergy/AdvReac Type Severity Reaction Status Date / Time No Known Allergies Allergy Verified 10/30/21 15:27 Review of Systems ROS Statement: Those systems with pertinent positive or pertinent negative responses have been documented in the HPI. ROS Other: All systems not noted in ROS Statement are negative. Past Medical History Past Medical History: No Reported History Additional Past Medical History / Comment(s): CHANGE IN BOWEL HABITS IBS. bloating symptoms. been following her own blood pressure and it has been high History of Any Multi-Drug Resistant Organisms: MRSA Date of last positivie culture/infection: 2010 MDRO Source:: left leg Past Surgical History: Breast Surgery Additional Past Surgical History / Comment(s): LT BREAST LUMPECTOMY-BENIGN Past Anesthesia/Blood Transfusion Reactions: No Reported Reaction Past Psychological History: Anxiety, Depression Smoking Status: Never smoker Past Alcohol Use History: Heavy Past Drug Use History: Marijuana - Past Family History Brother(s) Family Medical History: Cancer Father Family Medical History: Congestive Heart Failure (CHF), Diabetes Mellitus, Dialysis Additional Family Medical History / Comment(s): heart and kidney failure. dad on dialysis. HTN Mother Family Medical History: Diabetes Mellitus Additional Family Medical History / Comment(s): HTN General Exam General appearance: alert, in no apparent distress Head exam: Present: atraumatic, normocephalic, normal inspection Respiratory exam: Present: normal lung sounds bilaterally. Absent: respiratory distress, wheezes, rales, rhonchi, stridor Cardiovascular Exam: Present: regular rate, normal rhythm, normal heart sounds. Absent: systolic murmur, diastolic murmur, rubs, gallop, clicks GI/Abdominal exam: Present: soft, tenderness (Tender to palpation in epigastric region), normal bowel sounds. Absent: distended Neurological exam: Present: alert, oriented X3 Psychiatric exam: Present: normal affect, normal mood Skin exam: Present: warm, dry, intact, normal color. Absent: rash Course Vital Signs 10/30/21 15:23 Temperature 99.1 F Pulse Rate 101 H Respiratory 18 Rate Blood Pressure 144/104 O2 Sat by Pulse 99 Oximetry Medical Decision Making - Medical Decision Making This 20-year-old female presents to the emergency department with abdominal pain that began this morning. Patient states she was admitted to [facility] on and discharged on Friday with a diagnosis of pancreatitis. She states she has been taking tramadol for her pain which Gayle prescribed to her from [facility]. After her pain medication, fluids, antiemetics given today, patient states her pain has gotten better. Labs within normal limits. Patient being discharged home in stable condition. Given a bottle of magnesium citrate due to her feeling constipated due to her pain medication. Informed about clear liquid diet and slow intorduction to soft foods. Return precautions discussed. Informed to follow up with primary care provider or GI within next 48 hours. Work from [facility] from 10/25/2021 had an impression of acute pancreatitis. - Lab Data Result diagrams: 10/30/21 17:47 10/30/21 17:47 Lab Results 10/30/21 10/30/21 10/30/21 Range/Units 17:47 17:47 17:47 WBC 5.3 (3.8-10.6) k/uL RBC 3.84 (3.80-5.40) m/uL Hgb 12.4 (11.4-16.0) gm/dL Hct 37.8 (34.0-46.0) % MCV 98.4 (80.0-100.0) fL MCH 32.5 (25.0-35.0) pg MCHC 33.0 (31.0-37.0) g/dL RDW 14.1 (11.5-15.5) % Plt Count 224 (150-450) k/uL MPV 7.7 Neutrophils % 62 % Lymphocytes % 28 % Monocytes % 6 % Eosinophils % 2 % Basophils % 0 % Neutrophils # 3.2 (1.3-7.7) k/uL Lymphocytes # 1.5 (1.0-4.8) k/uL Monocytes # 0.3 (0-1.0) k/uL Eosinophils # 0.1 (0-0.7) k/uL Basophils # 0.0 (0-0.2) k/uL Sodium (137-145) mmol/L Potassium (3.5-5.1) mmol/L Chloride (98-107) mmol/L Carbon Dioxide (22-30) mmol/L Anion Gap mmol/L BUN (7-17) mg/dL Creatinine (0.52-1.04) mg/dL Est GFR (CKD-EPI)AfAm (>60 ml/min/1.73 sqM) Est GFR (CKD-EPI)NonAf (>60 ml/min/1.73 sqM) Glucose (74-99) mg/dL Plasma Lactic Acid Abdoulaye (0.7-2.0) mmol/L Calcium (8.4-10.2) mg/dL Total Bilirubin (0.2-1.3) mg/dL AST (14-36) U/L ALT (4-34) U/L Alkaline Phosphatase (38-126) U/L Total Protein (6.3-8.2) g/dL Albumin (3.5-5.0) g/dL Lipase (23-300) U/L Urine Color Yellow Urine Appearance Clear (Clear) Urine pH 7.0 (5.0-8.0) Ur Specific [place] 1.012 (1.001-1.035) Urine Protein Negative (Negative) Urine Glucose (UA) Negative (Negative) Urine Ketones Negative (Negative) Urine Blood Negative (Negative) Urine Nitrite Negative (Negative) Urine Bilirubin Negative (Negative) Urine Urobilinogen 4.0 (<2.0) mg/dL Ur Leukocyte Esterase Negative (Negative) Urine HCG, Qual Not Detected (Not Detectd) Serum Alcohol mg/dL 10/30/21 10/30/21 Range/Units 17:47 17:47 WBC (3.8-10.6) k/uL RBC (3.80-5.40) m/uL Hgb (11.4-16.0) gm/dL Hct (34.0-46.0) % MCV (80.0-100.0) fL MCH (25.0-35.0) pg MCHC (31.0-37.0) g/dL RDW (11.5-15.5) % Plt Count (150-450) k/uL MPV Neutrophils % % Lymphocytes % % Monocytes % % Eosinophils % % Basophils % % Neutrophils # (1.3-7.7) k/uL Lymphocytes # (1.0-4.8) k/uL Monocytes # (0-1.0) k/uL Eosinophils # (0-0.7) k/uL Basophils # (0-0.2) k/uL Sodium 135 L (137-145) mmol/L Potassium 5.3 H (3.5-5.1) mmol/L Chloride 98 (98-107) mmol/L Carbon Dioxide 24 (22-30) mmol/L Anion Gap 13 mmol/L BUN 6 L (7-17) mg/dL Creatinine 0.61 (0.52-1.04) mg/dL Est GFR (CKD-EPI)AfAm >90 (>60 ml/min/1.73 sqM) Est GFR (CKD-EPI)NonAf >90 (>60 ml/min/1.73 sqM) Glucose 123 H (74-99) mg/dL Plasma Lactic Acid Abdoulaye 1.1 (0.7-2.0) mmol/L Calcium 9.8 (8.4-10.2) mg/dL Total Bilirubin 1.4 H (0.2-1.3) mg/dL AST 50 H (14-36) U/L ALT 22 (4-34) U/L Alkaline Phosphatase 87 (38-126) U/L Total Protein 8.9 H (6.3-8.2) g/dL Albumin 5.0 (3.5-5.0) g/dL Lipase 79 (23-300) U/L Urine Color Urine Appearance (Clear) Urine pH (5.0-8.0) Ur Specific [place] (1.001-1.035) Urine Protein (Negative) Urine Glucose (UA) (Negative) Urine Ketones (Negative) Urine Blood (Negative) Urine Nitrite (Negative) Urine Bilirubin (Negative) Urine Urobilinogen (<2.0) mg/dL Ur Leukocyte Esterase (Negative) Urine HCG, Qual (Not Detectd) Serum Alcohol <10 mg/dL Disposition Clinical Impression: Abdominal pain Disposition: HOME SELF-CARE Condition: Stable Instructions (If sedation given, give patient instructions): Abdominal Pain (ED) Additional Instructions: Return to emergency department if symptoms worsen. Follow up with primary care provider in next 48 hours. Is patient prescribed a controlled substance at d/c from ED?: No Referrals: Aime Lopez DO [Primary Care Provider] - 1-2 days Time of Disposition: 19:28
[2021-10-30 18:06] LABS: Basophils % (A) 0 %; Eosinophils # (A) 0.1 k/uL (0-0.7); Eosinophils % (A) 2 %; HCT 37.8 % (34.0-46.0); HGB 12.4 gm/dL (11.4-16.0); Lymphocytes # (A) 1.5 k/uL (1.0-4.8); Lymphocytes % (A) 28 %; MCH 32.5 pg (25.0-35.0); MCV 98.4 fL (80.0-100.0); Mean Platelet Volume 7.7; Monocytes # (A) 0.3 k/uL (0-1.0); Monocytes % (A) 6 %; Neutrophils # (A) 3.2 k/uL (1.3-7.7); Neutrophils % (A) 62 %; Platelet Count 224 k/uL (150-450); RBC 3.84 m/uL (3.80-5.40); RDW 14.1 % (11.5-15.5); WBC 5.3 k/uL (3.8-10.6)
[2021-10-30 18:25] LABS: ALT 22 U/L (4-34); AST 50 U/L (14-36); African American GFR (CKD) >90 (>60 ml/min/1.73 sqM); Alcohol <10 mg/dL; Alkaline Phosphatase 87 U/L (38-126); Anion Gap 13 mmol/L; Blood Urea Nitrogen 6 mg/dL (7-17); Calcium 9.8 mg/dL (8.4-10.2); Carbon Dioxide 24 mmol/L (22-30); Chloride 98 mmol/L (98-107); Glucose 123 mg/dL (74-99); Lipase 79 U/L (23-300); Non-African American GFR(CKD) >90 (>60 ml/min/1.73 sqM); Sodium 135 mmol/L (137-145); Total Bilirubin 1.4 mg/dL (0.2-1.3); Total Protein 8.9 g/dL (6.3-8.2)
[2021-10-30 18:26] LABS: Appearance,Urine Clear (Clear); Bilirubin,Urine Negative (Negative); Blood,Urine Negative (Negative); Color,Urine Yellow; Glucose,Urine (UA) Negative (Negative); Ketones,Urine Negative (Negative); Leukocyte Esterase,Urine Negative (Negative); Nitrite,Urine Negative (Negative); Protein,Urine Negative (Negative); Specific Gravity,Urine 1.012 (1.001-1.035)
[2021-10-30 18:42] LABS: Potassium 5.3 mmol/L (3.5-5.1)
[2021-10-30] MEDS ORDERED: MAGNESIUM CITRATE 296 ML BOTTLE PO ONE (19:28)
[2021-10-30] MEDS ORDERED: ACET/COD 300 MG/30 MG STARTER PACK 6 TAB BTL PO STA (19:36)
[2021-10-30 19:44] VITALS: BP 156/92; PULSE 72; RESP 16
== END 2021-10-30 19:44 | disposition home or self-care (01) ==
LOC: EC 14:37
DX: R10.13 Epigastric pain (principal); F41.9 Anxiety disorder, unspecified; F32.A Depression, unspecified; F12.90 Cannabis use, unspecified, uncomplicated; Z79.899 Other long term (current) drug therapy
CPT/HCPCS: 36415; 80053; 83605; 83690; 85025; 81003; 81025; 99284; 96374; 96375; 96361 ×2; G0480; J2405; J2270; 80320

== ENCOUNTER 2022-04-15 23:00 | Inpatient (IN) | payer OTHER ==
[2022-04-16 00:03] LABS: Basophils % (A) 0 %; Eosinophils % (A) 0 %; HCT 44.9 % (34.0-46.0); HGB 14.5 gm/dL (11.4-16.0); Lymphocytes % (A) 9 %; MCH 31.7 pg (25.0-35.0); MCHC 32.4 g/dL (31.0-37.0); Mean Platelet Volume 7.8; Monocytes # (A) 0.3 k/uL (0-1.0); Monocytes % (A) 2 %; Neutrophils # (A) 10.5 k/uL (1.3-7.7); Neutrophils % (A) 88 %; Platelet Count 207 k/uL (150-450); RBC 4.58 m/uL (3.80-5.40); WBC 11.9 k/uL (3.8-10.6)
[2022-04-16] MEDS ORDERED: ONDANSETRON 4 MG/2 ML VIAL IVP STA ×2 (00:08→03:29)
[2022-04-16] MEDS ORDERED: SODIUM CHLORIDE 0.9% 1,000 ML IV STA ×3 (00:08→00:56)
[2022-04-16] MEDS ORDERED: MORPHINE SULFATE 4 MG/ML SYRINGE IVP STA (00:08)
[2022-04-16 00:13] LABS: ALT 139 U/L (4-34); AST 364 U/L (14-36); African American GFR (CKD) >90 (>60 ml/min/1.73 sqM); Albumin 4.9 g/dL (3.5-5.0); Alkaline Phosphatase 151 U/L (38-126); Amylase 52 U/L (30-110); Anion Gap 18 mmol/L; Blood Urea Nitrogen 25 mg/dL (7-17); Calcium 9.1 mg/dL (8.4-10.2); Carbon Dioxide 26 mmol/L (22-30); Chloride 87 mmol/L (98-107); Glucose 142 mg/dL (74-99); Lipase 131 U/L (23-300); Non-African American GFR(CKD) 89 (>60 ml/min/1.73 sqM); Potassium 4.2 mmol/L (3.5-5.1); Sodium 131 mmol/L (137-145); Total Bilirubin 2.1 mg/dL (0.2-1.3); Total Protein 8.2 g/dL (6.3-8.2)
[2022-04-16 00:42] LABS: Amorphous Sediment,Urine Rare /hpf; Appearance,Urine Cloudy (Clear); Bilirubin,Urine 1+ (Negative); Blood,Urine Moderate (Negative); Color,Urine Yellow; Glucose,Urine (UA) Trace (Negative); Hyaline Casts,Urine 127 /lpf (0-2); Ketones,Urine 1+ (Negative); Leukocyte Esterase,Urine Negative (Negative); Mucus,Urine Many /hpf; Nitrite,Urine Negative (Negative); PH, Urine 5.5 (5.0-8.0); Protein,Urine 3+ (Negative); RBC,Urine 7 /hpf (0-5); Specific Gravity,Urine 1.033 (1.001-1.035); Squamous Epithelial Cell,Urine 1 /hpf (0-4); WBC,Urine 2 /hpf (0-5)
[2022-04-16] MEDS ORDERED: LORazepam 2 MG/ML INJ IV STA (00:56)
--- NOTE | 2022-04-16 01:20 | ED ---
General Adult HPI - General Chief complaint: Abdominal Pain Stated complaint: Abdominal Pain, Nausea, Vomiting Time Seen by Provider: 04/15/22 23:42 Source: patient, RN notes reviewed Mode of arrival: ambulatory Limitations: no limitations - History of Present Illness Initial comments: 21-year-old female presents to the emergency department for evaluation of left- sided abdominal pain that radiates to the left flank times one week. Patient states her symptoms have worsened over the past 2-3 days and never now accompanied by nausea and vomiting. Also complains of epigastric discomfort. Has taken Tylenol and Motrin with no improvement. Denies fever, chills, headache, dizziness, chest pain, shortness of breath, diarrhea, dysuria, and hematuria. - Related Data Home Medications Medication Instructions Recorded Confirmed FLUoxetine HCL [PROzac] 20 mg PO DAILY 10/21/21 10/21/21 Previous Rx's Medication Instructions Recorded Ibuprofen [Motrin] 600 mg PO Q8HR PRN #30 tab 10/21/21 Ondansetron Odt [Zofran Odt] 4 mg PO Q8HR PRN #10 tab 10/21/21 Allergies Allergy/AdvReac Type Severity Reaction Status Date / Time No Known Allergies Allergy Verified 04/15/22 23:11 Review of Systems ROS Statement: Those systems with pertinent positive or pertinent negative responses have been documented in the HPI. ROS Other: All systems not noted in ROS Statement are negative. Past Medical History Past Medical History: No Reported History Additional Past Medical History / Comment(s): CHANGE IN BOWEL HABITS IBS. bloating symptoms. been following her own blood pressure and it has been high History of Any Multi-Drug Resistant Organisms: MRSA Date of last positivie culture/infection: 2010 MDRO Source:: left leg Past Surgical History: Breast Surgery Additional Past Surgical History / Comment(s): LT BREAST LUMPECTOMY-BENIGN Past Anesthesia/Blood Transfusion Reactions: No Reported Reaction Past Psychological History: Anxiety, Depression Smoking Status: Never smoker Past Alcohol Use History: Heavy Past Drug Use History: Marijuana - Past Family History Brother(s) Family Medical History: Cancer Father Family Medical History: Congestive Heart Failure (CHF), Diabetes Mellitus, Dialysis Additional Family Medical History / Comment(s): heart and kidney failure. dad on dialysis. HTN Mother Family Medical History: Diabetes Mellitus Additional Family Medical History / Comment(s): HTN General Exam Limitations: no limitations General appearance: alert, in no apparent distress (Well-developed, well- nourished female in no acute distress. Initial temperature 97.0, recheck 99.7, pulse 154, recheck 120, respirations 16, blood pressure 147/97, pulse ox 97% on room air.) Eye exam: Present: normal appearance. Absent: scleral icterus, conjunctival injection, periorbital swelling, periorbital tenderness ENT exam: Present: normal exam, normal oropharynx, mucous membranes moist Neck exam: Present: normal inspection, full ROM. Absent: tenderness, mening ismus, lymphadenopathy Respiratory exam: Present: normal lung sounds bilaterally. Absent: respiratory distress, wheezes, rales, rhonchi, stridor, chest wall tenderness Cardiovascular Exam: Present: regular rate, normal rhythm, normal heart sounds. Absent: systolic murmur, diastolic murmur, rubs, gallop, clicks GI/Abdominal exam: Present: soft, tenderness (Suprapubic and Left lower quadrant tenderness upon palpation), normal bowel sounds. Absent: distended, guarding, rebound, rigid Extremities exam: Present: normal inspection, normal capillary refill. Absent: pedal edema Back exam: Present: CVA tenderness (L) Neurological exam: Present: alert, oriented X3, normal gait Psychiatric exam: Present: flat affect Skin exam: Present: warm, dry, intact, normal color. Absent: rash Course Vital Signs 04/15/22 04/16/22 23:08 01:11 Temperature 97.0 F L Pulse Rate 154 H 115 H Respiratory 16 16 Rate Blood Pressure 147/97 136/90 O2 Sat by Pulse 97 98 Oximetry - Reevaluation(s) Reevaluation #1: 04/16/22 01:30 Upon reassessment, patient is resting somewhat more comfortably. Heart rate has improved. Continues to rate her pain a 7 out of 10 in the left side of the abdomen. I did discuss with her her elevated liver enzymes. States she has never been told that this problem before. She does endorse binge drinking on the weekends. States it is not uncommon for her to consume a pint of alcohol over the course of the 12 hour period usually once a week or once every other week. Patient states she did attend a wedding on Friday in which she consumed alcohol in excess of her usual. 04/16/22 02:45 Discussed laboratory findings and CT results with patient. Suggested hospital admission and patient is agreeable with this plan of care. Medical Decision Making - Medical Decision Making This is a pleasant 21-year-old female with a past medical history of anxiety, depression, and IBS who presents to the emergency department for evaluation of epigastric and left-sided abdominal pain 1 week. Upon exam, patient is dry he aving and appears moderately uncomfortable. She has nonlocalized left-sided abdominal tenderness upon palpation. She is notably tachycardic, but afebrile. Laboratory studies were obtained showing several abnormal labs including a slightly elevated white blood cell count (11.9), hyponatremia (sodium 131), hypomagnesemia (magnesium 1.2), BUN 25, total bili 2.1, AST 364, ALT 139, and alk phos 151. CT of the abdomen and pelvis was obtained showing a fatty liver and mildly dilated gallbladder concerning for cholecystitis. Patient was given IV fluids, pain medication, and antiemetic with minimal improvement. Magnesium was replaced. Patient will be admitted to the hospital with consult to GI and surgery. Attending: Lazaro. - Lab Data Result diagrams: 04/15/22 23:52 04/15/22 23:52 Lab Results 04/15/22 04/15/22 04/15/22 Range/Units 23:52 23:52 23:55 WBC 11.9 H (3.8-10.6) k/uL RBC 4.58 (3.80-5.40) m/uL Hgb 14.5 (11.4-16.0) gm/dL Hct 44.9 (34.0-46.0) % MCV 98.0 (80.0-100.0) fL MCH 31.7 (25.0-35.0) pg MCHC 32.4 (31.0-37.0) g/dL RDW 13.0 (11.5-15.5) % Plt Count 207 (150-450) k/uL MPV 7.8 Neutrophils % 88 % Lymphocytes % 9 % Monocytes % 2 % Eosinophils % 0 % Basophils % 0 % Neutrophils # 10.5 H (1.3-7.7) k/uL Lymphocytes # 1.0 (1.0-4.8) k/uL Monocytes # 0.3 (0-1.0) k/uL Eosinophils # 0.0 (0-0.7) k/uL Basophils # 0.0 (0-0.2) k/uL Sodium 131 L (137-145) mmol/L Potassium 4.2 (3.5-5.1) mmol/L Chloride 87 L (98-107) mmol/L Carbon Dioxide 26 (22-30) mmol/L Anion Gap 18 mmol/L BUN 25 H (7-17) mg/dL Creatinine 0.92 (0.52-1.04) mg/dL Est GFR (CKD-EPI)AfAm >90 (>60 ml/min/1.73 sqM) Est GFR (CKD-EPI)NonAf 89 (>60 ml/min/1.73 sqM) Glucose 142 H (74-99) mg/dL Calcium 9.1 (8.4-10.2) mg/dL Phosphorus (2.5-4.5) mg/dL Magnesium (1.6-2.3) mg/dL Total Bilirubin 2.1 H (0.2-1.3) mg/dL AST 364 H (14-36) U/L ALT 139 H (4-34) U/L Alkaline Phosphatase 151 H (38-126) U/L Total Protein 8.2 (6.3-8.2) g/dL Albumin 4.9 (3.5-5.0) g/dL Amylase 52 (30-110) U/L Lipase 131 (23-300) U/L Urine Color Yellow Urine Appearance Cloudy H (Clear) Urine pH 5.5 (5.0-8.0) Ur Specific [place] 1.033 (1.001-1.035) Urine Protein 3+ H (Negative) Urine Glucose (UA) Trace H (Negative) Urine Ketones 1+ H (Negative) Urine Blood Moderate H (Negative) Urine Nitrite Negative (Negative) Urine Bilirubin 1+ H (Negative) Urine Urobilinogen 2.0 (<2.0) mg/dL Ur Leukocyte Esterase Negative (Negative) Urine RBC 7 H (0-5) /hpf Urine WBC 2 (0-5) /hpf Ur Squamous Epith Cells 1 (0-4) /hpf Amorphous Sediment Rare H (None) /hpf Hyaline Casts 127 H (0-2) /lpf Urine Mucus Many H (None) /hpf Urine HCG, Qual (Not Detectd) Serum Alcohol mg/dL 04/15/22 04/16/22 Range/Units 23:55 00:56 WBC (3.8-10.6) k/uL RBC (3.80-5.40) m/uL Hgb (11.4-16.0) gm/dL Hct (34.0-46.0) % MCV (80.0-100.0) fL MCH (25.0-35.0) pg MCHC (31.0-37.0) g/dL RDW (11.5-15.5) % Plt Count (150-450) k/uL MPV Neutrophils % % Lymphocytes % % Monocytes % % Eosinophils % % Basophils % % Neutrophils # (1.3-7.7) k/uL Lymphocytes # (1.0-4.8) k/uL Monocytes # (0-1.0) k/uL Eosinophils # (0-0.7) k/uL Basophils # (0-0.2) k/uL Sodium (137-145) mmol/L Potassium (3.5-5.1) mmol/L Chloride (98-107) mmol/L Carbon Dioxide (22-30) mmol/L Anion Gap mmol/L BUN (7-17) mg/dL Creatinine (0.52-1.04) mg/dL Est GFR (CKD-EPI)AfAm (>60 ml/min/1.73 sqM) Est GFR (CKD-EPI)NonAf (>60 ml/min/1.73 sqM) Glucose (74-99) mg/dL Calcium (8.4-10.2) mg/dL Phosphorus 2.8 (2.5-4.5) mg/dL Magnesium 1.2 L (1.6-2.3) mg/dL Total Bilirubin (0.2-1.3) mg/dL AST (14-36) U/L ALT (4-34) U/L Alkaline Phosphatase (38-126) U/L Total Protein (6.3-8.2) g/dL Albumin (3.5-5.0) g/dL Amylase (30-110) U/L Lipase (23-300) U/L Urine Color Urine Appearance (Clear) Urine pH (5.0-8.0) Ur Specific [place] (1.001-1.035) Urine Protein (Negative) Urine Glucose (UA) (Negative) Urine Ketones (Negative) Urine Blood (Negative) Urine Nitrite (Negative) Urine Bilirubin (Negative) Urine Urobilinogen (<2.0) mg/dL Ur Leukocyte Esterase (Negative) Urine RBC (0-5) /hpf Urine WBC (0-5) /hpf Ur Squamous Epith Cells (0-4) /hpf Amorphous Sediment (None) /hpf Hyaline Casts (0-2) /lpf Urine Mucus (None) /hpf Urine HCG, Qual Not Detected (Not Detectd) Serum Alcohol <10 mg/dL - EKG Data EKG shows normal: sinus rhythm Rate: tachycardia EKG Comments: Initial EKG obtained at 2321 shows sinus tachycardia, possible atrial flutter, with right ventricular hypertrophy. Ventricular rate 140, SD interval 137, QRS duration 88, QT/QTc to 92/373. Interpretation abnormal ECG. - Radiology Data Radiology results: report reviewed, image reviewed CT of the abdomen and pelvis with contrast was obtained. Report was reviewed in its entirety. Impression per Dr. Pandey is normal appendix. Fatty liver. Mildly dilated gallbladder suspicious for cholecystitis. Disposition Clinical Impression: Abdominal pain, Elevated liver enzymes, Hypomagnesemia, Cholecystitis, Dehydration Disposition: ADMITTED IP TO THIS [facility] Condition: Serious Referrals: Flower Darby [Primary Care Provider] - 1-2 days Decision Date: 04/16/22 Decision Time: 02:55
[2022-04-16 01:55] LABS: Alcohol <10 mg/dL; Magnesium 1.2 mg/dL (1.6-2.3); Phosphorus 2.8 mg/dL (2.5-4.5)
--- NOTE | 2022-04-16 01:58 | CT ---
EXAMINATION TYPE: CT abdomen pelvis w con DATE OF EXAM: 04/16/2022 COMPARISON: 09/24/2009 HISTORY: LLQ pain CT DLP: 486.6 mGycm Automated exposure control for dose reduction was used. CONTRAST: Performed with IV Contrast, patient injected with 100 mL of Isovue 300. Images obtained from the diaphragm to the floor of the pelvis with IV contrast. Lung bases are clear. No pleural effusion. There is diffuse fatty infiltration of the liver. Heart si ze is normal. No pericardial effusion. Liver shows no focal defect. Gallbladder is large and measures 11 cm in length. The diameter is 4.5 c m. Spleen stomach pancreas appear intact. The bile ducts are not dilated. There is no adrenal mass. Kidneys show satisfactory contrast opacification. There is no hydronephrosi s. Ureters are not dilated. Bladder distends smoothly. Uterus is anteverted. No free fluid in the pel vis. No pelvic mass. Appendix is posterior in the pelvis appears normal. There is no mesenteric edema . No ascites or free air. No sign of a bowel obstruction. No evidence of a pelvic mass. The lumbar vertebra have normal spacing. There is a thoracolumbar levoscoliosis. Posterior elements a re intact. Bony pelvis is intact. The hip joints are intact. No fracture seen. IMPRESSION: Normal appendix. Fatty liver. Mildly dilated gallbladder suspicious for cholecystitis.
[2022-04-16] MEDS ORDERED: KETOROLAC 15 MG/ML 1 ML VIAL IVP STA (02:17)
[2022-04-16] MEDS ORDERED: HYDROmorphone 0.5 MG/0.5 ML SYRINGE IVP STA (03:29)
[2022-04-16] MEDS ORDERED: KETOROLAC 15 MG/ML 1 ML VIAL IVP PRN (04:01)
[2022-04-16] MEDS ORDERED: NALOXONE 0.4 MG/ML 1 ML VIAL IV PRN (04:01)
[2022-04-16] MEDS: MAGNESIUM SULFATE-D5W PMX 1 GM in DEXTROSE/WATER 1 100ML.BAG IVPB SCH ×4 (04:09→14:17)
[2022-04-16] MEDS: MORPHINE SULFATE 4 MG/ML SYRINGE IV PRN ×4 (04:19→20:35)
[2022-04-16] MEDS: SODIUM CHLORIDE 0.9% 1,000 ML IV SCH ×4 (08:19→22:20)
--- NOTE | 2022-04-16 09:28 | US ---
EXAMINATION TYPE: US gallbladder DATE OF EXAM: 04/16/2022 COMPARISON: CT 04/16/2022 CLINICAL HISTORY: elevated liver enzymes, abdominal pain. pain EXAM MEASUREMENTS: Liver Length: 18.1 cm Gallbladder Wall: .2 cm upper limits CBD: 0.5 cm Right Kidney: 10.0 x 4.5 x 5.0 cm Pancreas: wnl in the visualized portions Liver: Echotexture somewhat coarse. Gallbladder: 10.3 cm in length, appears hydropic, suspect some artifact is present, difficult to exc lude some tumefactive sludge Evidence for sonographic Marquez's sign: no CBD: wnl Right Kidney: wnl Visualized abdominal aorta is nonaneurysmal IMPRESSION: Findings suggest hepatic steatosis, gallbladder appears hydropic with possible sludge as described, consider HIDA scan
[2022-04-16 10:54] LABS: INR 1.2 (<1.2); Prothrombin Time 12.5 sec (9.0-12.0)
[2022-04-16 10:58] LABS: ALT 114 U/L (4-34); AST 252 U/L (14-36); African American GFR (CKD) >90 (>60 ml/min/1.73 sqM); Albumin 3.9 g/dL (3.5-5.0); Alkaline Phosphatase 121 U/L (38-126); Anion Gap 8 mmol/L; Blood Urea Nitrogen 18 mg/dL (7-17); Carbon Dioxide 29 mmol/L (22-30); Chloride 94 mmol/L (98-107); Glucose 105 mg/dL (74-99); Lipase 176 U/L (23-300); Magnesium 2.5 mg/dL (1.6-2.3); Non-African American GFR(CKD) >90 (>60 ml/min/1.73 sqM); Potassium 3.3 mmol/L (3.5-5.1); Sodium 131 mmol/L (137-145); Total Bilirubin 2.3 mg/dL (0.2-1.3); Total Protein 6.9 g/dL (6.3-8.2)
--- NOTE | 2022-04-16 11:11 | P.CONS ---
History of Present Illness - Reason for Consult Consult date: 04/16/22 abdominal pain, elevated LFTS Requesting physician: Pato Johnson - Chief Complaint Abdominal pain - History of Present Illness This pleasant 21-year-old female who presented to the emergency department with complaints of abdominal pain and nausea and vomiting. States the pain started about 3 days ago and has been constant. She states that it is sharp and it is aching. It is mostly in the mid upper and left lower abdomen. Admitting labs show WBC 11.9 hemoglobin 14.5 platelet count 207,000 total bilirubin 2.1 AST 364 ALT 139 alkaline phosphatase 151 amylase 52 lipase 131. She had a CT of the abdomen and pelvis that showed a normal appendix. Fatty liver. Mildly dilated gallbladder suspicious for cholecystitis. The bile ducts are not dilated. She denies any previous known liver disease. She does state that she drinks frequently likely every weekend heavy at times. Review of Systems REVIEW OF SYSTEMS: CARDIOPULMONARY: No chest pain or shortness of breath. Gastrointestinal: Abdominal pain that is sharp and achy in the mid abdomen and left lower quadrant. Associated with nausea and vomiting. No hematemesis, coffee-ground emesis. No rectal bleeding, or melena. GENITOURINARY: No dysuria or hematuria. MUSCULOSKELETAL: Reports normal range of motion., Joint pain. SKIN: No rashes. No jaundice. ENDOCRINE: No chills, fevers. No excessive weight gain or loss. No polydipsia or polyuria. PSYCHIATRIC: Unremarkable. NEUROLOGY: No change in mental status. Denies dizziness, headache. ENT: Vision unremarkable. CONSTITUTIONAL: No recent weight loss. No fever, chills, night sweats. Past Medical History Past Medical History: No Reported History Additional Past Medical History / Comment(s): CHANGE IN BOWEL HABITS IBS. bloating symptoms. been following her own blood pressure and it has been high History of Any Multi-Drug Resistant Organisms: MRSA Year Discovered:: 2010 MDRO Source:: left leg Past Surgical History: Breast Surgery Additional Past Surgical History / Comment(s): LT BREAST LUMPECTOMY-BENIGN Past Anesthesia/Blood Transfusion Reactions: No Reported Reaction Past Psychological History: Anxiety, Depression Smoking Status: Never smoker Past Alcohol Use History: Heavy Past Drug Use History: Marijuana - Past Family History Brother(s) Family Medical History: Cancer Father Family Medical History: Congestive Heart Failure (CHF), Diabetes Mellitus, Dialysis Additional Family Medical History / Comment(s): heart and kidney failure. dad on dialysis. HTN Mother Family Medical History: Diabetes Mellitus Additional Family Medical History / Comment(s): HTN Medications and Allergies Home Medications Medication Instructions Recorded Confirmed Type No Known Home Medications 04/16/22 04/16/22 History Allergies Allergy/AdvReac Type Severity Reaction Status Date / Time No Known Allergies Allergy Verified 04/16/22 08:19 Physical Exam Vitals: Vital Signs Temp Pulse Resp BP Pulse Ox 04/16/22 08:20 101 H 18 131/85 97 04/16/22 06:20 98 15 142/101 97 04/16/22 01:11 115 H 16 136/90 98 04/15/22 23:08 97.0 F L 154 H 16 147/97 97 Intake and Output 04/15/22 04/16/22 04/16/22 22:59 06:59 14:59 Other: Weight 58.967 kg General appearance: The patient is alert, oriented, appears in no acute distress. HET: Head is normocephalic and atraumatic. Conjunctiva pink. Sclera anicteric. Neck: Supple without lymphadenopathy. Trachea midline. Heart: S1 S2. Regular rate and rhythm. Lungs: Clear to auscultation. Abdomen: Soft, mid abdominal tenderness, and tenderness along the left upper and lower quadrant. Nondistended with bowel sounds. No guarding or rigidity. Skin: No rashes. No jaundice. Extremities: Normal skin color and turgor. No pedal edema. Neurological: No focal deficits. Alert and oriented x3. Results CBC & Chem 7: 04/15/22 23:52 04/16/22 10:19 Labs: Abnormal Lab Results - Last 24 Hours (Table) 04/15/22 04/15/22 04/15/22 Range/Units 23:52 23:52 23:55 WBC 11.9 H (3.8-10.6) k/uL Neutrophils # 10.5 H (1.3-7.7) k/uL Sodium 131 L (137-145) mmol/L Chloride 87 L (98-107) mmol/L BUN 25 H (7-17) mg/dL Glucose 142 H (74-99) mg/dL Magnesium (1.6-2.3) mg/dL Total Bilirubin 2.1 H (0.2-1.3) mg/dL AST 364 H (14-36) U/L ALT 139 H (4-34) U/L Alkaline Phosphatase 151 H (38-126) U/L Urine Appearance Cloudy H (Clear) Urine Protein 3+ H (Negative) Urine Glucose (UA) Trace H (Negative) Urine Ketones 1+ H (Negative) Urine Blood Moderate H (Negative) Urine Bilirubin 1+ H (Negative) Urine RBC 7 H (0-5) /hpf Amorphous Sediment Rare H (None) /hpf Hyaline Casts 127 H (0-2) /lpf Urine Mucus Many H (None) /hpf 04/16/22 Range/Units 00:56 WBC (3.8-10.6) k/uL Neutrophils # (1.3-7.7) k/uL Sodium (137-145) mmol/L Chloride (98-107) mmol/L BUN (7-17) mg/dL Glucose (74-99) mg/dL Magnesium 1.2 L (1.6-2.3) mg/dL Total Bilirubin (0.2-1.3) mg/dL AST (14-36) U/L ALT (4-34) U/L Alkaline Phosphatase (38-126) U/L Urine Appearance (Clear) Urine Protein (Negative) Urine Glucose (UA) (Negative) Urine Ketones (Negative) Urine Blood (Negative) Urine Bilirubin (Negative) Urine RBC (0-5) /hpf Amorphous Sediment (None) /hpf Hyaline Casts (0-2) /lpf Urine Mucus (None) /hpf Comments: CT abdomen and pelvis with contrast: Normal appendix. Fatty liver. Mildly dilated gallbladder suspicious for cholecystitis. Liver shows no focal defect. Spleen stomach pancreas appear intact. Bile ducts are not dilated. Ultrasound of the gallbladder: Findings suggest hepatic steatosis, gallbladder appears hydropic with possible sludge as described, consider HIDA scan. CBD within normal limits 0.5 cm Assessment and Plan (1) Elevated liver enzymes Narrative/Plan: 21-year-old -[place] female who presented to the emergency department with complaints of abdominal pain associated with nausea and vomiting. Patient started 3 days ag patient has elevated LFTs. Total bilirubin 2.1 AST 364 ALT [address] abdomen and pelvis shows possible cholecystitis, with liver coarse echotexture consistent with fatty liver or hepatocellular disease. Patient does state that she drinks heavily every weekend. She has been admitted in the past with intoxication and looking back at previous labs she's had elevation in her total bilirubin as well as AST and ALT. Gallbladder ultrasound was ordered but does not show any cholelithiasis or CBD dilation. Findings suggest hepatic steatosis, gallbladder appears hydropic with possible sludge as described consider HIDA scan. 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 The patient is tentatively scheduled for cholecystectomy with Dr. Salamanca tomorrow Current Visit: Yes Status: Acute Code(s): R74.8 - ABNORMAL LEVELS OF OTHER SERUM ENZYMES SNOMED Code(s): 108305673 (2) Liver disease Narrative/Plan: The patient has history of heavy alcohol consumption especially on the weekends, she's been admitted in the past for alcohol intoxication. She's had prior elevated LFTs. Likely has some underlying hepatocellular disease related to alcohol abuse. Current Visit: Yes Status: Acute Code(s): K76.9 - LIVER DISEASE, UNSPECIFIED SNOMED Code(s): 387444478 (3) Abdominal pain Current Visit: Yes Status: Acute Code(s): R10.9 - UNSPECIFIED ABDOMINAL PAIN SNOMED Code(s): 91183241 Plan: 1. Continue symptomatic and supportive care 2. IV zosyn ordered 3. Gallbladder ultrasound ordered and reviewed 4. MRCP ordered 5. Daily CBC, CMP 6. Patient may have clear liquid diet 7. Continue with recommendations from general surgery 8. Further recommendations to follow Thank you for this consultation, we will continue to follow. Dr. Pascual Parsons I agree with the dictator's note, documented as a scribe by Teresita Rico.
[2022-04-16] MEDS ORDERED: LORazepam 2 MG/ML INJ IV PRN (11:53)
--- NOTE | 2022-04-16 12:25 | P.HPIM ---
History of Present Illness 21-year-old the pleasant female came in with complaints of a left-sided abdominal pain along with nausea vomiting although patient does have significant tenderness in the right upper abdomen patient had a CT of the abdomen which show ed cholecystitis. Patient had an ultrasound is which showed gallbladder polyp and to biliary sludge. Patient does have leukocytosis doesn't have any fever. Patient does have positive Marquez's sign and exam. Patient likely is elevated and I'll liver enzymes are elevated as well with prior bilirubin of 2.1. Common bile duct is not dilated. Patient is hyponatremic patient is presently receiving IV fluids at this time. Liver enzymes are coming down. REVIEW OF SYSTEMS: CONSTITUTIONAL: No fever, no malaise, no fatigue. HEENT: No recent visual problems or hearing problems. Denied any sore throat. CARDIOVASCULAR: No chest pain, orthopnea, PND, no palpitations, no syncope. PULMONARY: No shortness of breath, no cough, no hemoptysis. GASTROINTESTINAL: As mentioned in HPI NEUROLOGICAL: No headaches, no weakness, no numbness. HEMATOLOGICAL: Denies any bleeding or petechiae. GENITOURINARY: Denies any burning micturition, frequency, or urgency. MUSCULOSKELETAL/RHEUMATOLOGICAL: Denies any joint pain, swelling, or any muscle pain. ENDOCRINE: Denies any polyuria or polydipsia. The rest of the 14-point review of systems is negative. PHYSICAL EXAMINATION: GENERAL: The patient is alert and oriented x3, not in any acute distress. Well developed, well nourished. HEENT: Pupils are round and equally reacting to light. EOMI. No scleral icterus. No conjunctival pallor. Normocephalic, atraumatic. No pharyngeal erythema. No thyromegaly. CARDIOVASCULAR: S1 and S2 present. No murmurs, rubs, or gallops. PULMONARY: Chest is clear to auscultation, no wheezing or crackles. ABDOMEN: Soft but patient does have significant right upper quadrant tenderness Marquez's sign is positive bowel sounds are present.. MUSCULOSKELETAL: No joint swelling or deformity. EXTREMITIES: No cyanosis, clubbing, or pedal edema. NEUROLOGICAL: Gross neurological examination did not reveal any focal deficits. SKIN: No rashes. Assessment and plan -Acute cholecystitis: Patient is presently on Zosyn because of elevated liver enzymes patient cannot undergo cystectomy today we will repeat liver enzymes tomorrow if they're coming down patient probably under will undergo cholecystectomy at that time unfortunately we do not have any GI services available to evaluate for ERCP. -Hyponatremia hypervolemic hyponatremia patient will be continued on IV fluids and repeat basic volley profile again tomorrow -Episodes of anxiety secondary to cholecystitis will the give her as needed Ativan. -Natriuretic hypokalemia: Potassium was replaced DVT prophylaxis: Early ambulation Past Medical History Past Medical History: No Reported History Additional Past Medical History / Comment(s): CHANGE IN BOWEL HABITS IBS. bloating symptoms. been following her own blood pressure and it has been high History of Any Multi-Drug Resistant Organisms: MRSA Date of last positivie culture/infection: 2010 MDRO Source:: left leg Past Surgical History: Breast Surgery Additional Past Surgical History / Comment(s): LT BREAST LUMPECTOMY-BENIGN Past Anesthesia/Blood Transfusion Reactions: No Reported Reaction Past Psychological History: Anxiety, Depression Smoking Status: Never smoker Past Alcohol Use History: Heavy Past Drug Use History: Marijuana - Past Family History Brother(s) Family Medical History: Cancer Father Family Medical History: Congestive Heart Failure (CHF), Diabetes Mellitus, Dialysis Additional Family Medical History / Comment(s): heart and kidney failure. dad on dialysis. HTN Mother Family Medical History: Diabetes Mellitus Additional Family Medical History / Comment(s): HTN Medications and Allergies Home Medications Medication Instructions Recorded Confirmed Type No Known Home Medications 04/16/22 04/16/22 History Allergies Allergy/AdvReac Type Severity Reaction Status Date / Time No Known Allergies Allergy Verified 04/16/22 08:19 Physical Exam Vitals: Vital Signs Temp Pulse Resp BP Pulse Ox 04/16/22 08:20 101 H 18 131/85 97 04/16/22 06:20 98 15 142/101 97 04/16/22 01:11 115 H 16 136/90 98 04/15/22 23:08 97.0 F L 154 H 16 147/97 97 Intake and Output 04/15/22 04/16/22 04/16/22 22:59 06:59 14:59 Other: Weight 58.967 kg Results CBC & Chem 7: 04/15/22 23:52 04/16/22 10:19 Labs: Abnormal Lab Results - Last 24 Hours (Table) 04/15/22 04/15/22 04/15/22 Range/Units 23:52 23:52 23:55 WBC 11.9 H (3.8-10.6) k/uL Neutrophils # 10.5 H (1.3-7.7) k/uL PT (9.0-12.0) sec INR (<1.2) Sodium 131 L (137-145) mmol/L Potassium (3.5-5.1) mmol/L Chloride 87 L (98-107) mmol/L BUN 25 H (7-17) mg/dL Glucose 142 H (74-99) mg/dL Calcium (8.4-10.2) mg/dL Magnesium (1.6-2.3) mg/dL Total Bilirubin 2.1 H (0.2-1.3) mg/dL AST 364 H (14-36) U/L ALT 139 H (4-34) U/L Alkaline Phosphatase 151 H (38-126) U/L Urine Appearance Cloudy H (Clear) Urine Protein 3+ H (Negative) Urine Glucose (UA) Trace H (Negative) Urine Ketones 1+ H (Negative) Urine Blood Moderate H (Negative) Urine Bilirubin 1+ H (Negative) Urine RBC 7 H (0-5) /hpf Amorphous Sediment Rare H (None) /hpf Hyaline Casts 127 H (0-2) /lpf Urine Mucus Many H (None) /hpf 04/16/22 04/16/22 04/16/22 Range/Units 00:56 10:19 10:19 WBC (3.8-10.6) k/uL Neutrophils # (1.3-7.7) k/uL PT 12.5 H (9.0-12.0) sec INR 1.2 H (<1.2) Sodium 131 L (137-145) mmol/L Potassium 3.3 L (3.5-5.1) mmol/L Chloride 94 L (98-107) mmol/L BUN 18 H (7-17) mg/dL Glucose 105 H (74-99) mg/dL Calcium 8.0 L (8.4-10.2) mg/dL Magnesium 1.2 L 2.5 H (1.6-2.3) mg/dL Total Bilirubin 2.3 H (0.2-1.3) mg/dL AST 252 H (14-36) U/L ALT 114 H (4-34) U/L Alkaline Phosphatase (38-126) U/L Urine Appearance (Clear) Urine Protein (Negative) Urine Glucose (UA) (Negative) Urine Ketones (Negative) Urine Blood (Negative) Urine Bilirubin (Negative) Urine RBC (0-5) /hpf Amorphous Sediment (None) /hpf Hyaline Casts (0-2) /lpf Urine Mucus (None) /hpf
[2022-04-16] MEDS: PIPERACILLIN-TAZOBACTAM 3.375 GM in SODIUM CHLORIDE 0.9% 100 ML IVPB SCH ×3 (12:32→21:43)
[2022-04-16] MEDS: PANTOPRAZOLE 40 MG/10 ML VIAL IVP SCH (12:32)
--- NOTE | 2022-04-16 13:13 | P.GSCN ---
History of Present Illness Consult date: 04/16/22 Reason for Consult: Cholecystitis History of present illness: This a 19-year-old female who is admitted hospital complaints of right upper quadrant pain. Patient was found have evidence of hydropic gallbladder with tumefactive sludge within it. Patient has a history of alcohol abuse. Past Medical History Past Medical History: No Reported History Additional Past Medical History / Comment(s): CHANGE IN BOWEL HABITS IBS. bloating symptoms. been following her own blood pressure and it has been high History of Any Multi-Drug Resistant Organisms: MRSA Year Discovered:: 2010 MDRO Source:: left leg Past Surgical History: Breast Surgery Additional Past Surgical History / Comment(s): LT BREAST LUMPECTOMY-BENIGN Past Anesthesia/Blood Transfusion Reactions: No Reported Reaction Past Psychological History: Anxiety, Depression Smoking Status: Never smoker Past Alcohol Use History: Heavy Past Drug Use History: Marijuana - Past Family History Brother(s) Family Medical History: Cancer Father Family Medical History: Congestive Heart Failure (CHF), Diabetes Mellitus, Dialysis Additional Family Medical History / Comment(s): heart and kidney failure. dad on dialysis. HTN Mother Family Medical History: Diabetes Mellitus Additional Family Medical History / Comment(s): HTN Medications and Allergies Home Medications Medication Instructions Recorded Confirmed Type No Known Home Medications 04/16/22 04/16/22 History Allergies Allergy/AdvReac Type Severity Reaction Status Date / Time No Known Allergies Allergy Verified 04/16/22 08:19 Surgical - Exam Vital Signs Temp Pulse Resp BP Pulse Ox 97.0 F L 154 H 16 147/97 97 04/15/22 23:08 04/15/22 23:08 04/15/22 23:08 04/15/22 23:08 04/15/22 23:08 - General well developed, well nourished, no distress - Eyes PERRL - ENT normal pinna - Neck no masses - Respiratory normal expansion - Cardiovascular Rhythm: regular - Abdomen Mild upper quadrant tenderness Abdomen: soft Results - Labs 04/15/22 23:52 04/16/22 10:19 Abnormal Lab Results - Last 24 Hours (Table) 04/15/22 04/15/22 04/15/22 Range/Units 23:52 23:52 23:55 WBC 11.9 H (3.8-10.6) k/uL Neutrophils # 10.5 H (1.3-7.7) k/uL PT (9.0-12.0) sec INR (<1.2) Sodium 131 L (137-145) mmol/L Potassium (3.5-5.1) mmol/L Chloride 87 L (98-107) mmol/L BUN 25 H (7-17) mg/dL Glucose 142 H (74-99) mg/dL Calcium (8.4-10.2) mg/dL Magnesium (1.6-2.3) mg/dL Total Bilirubin 2.1 H (0.2-1.3) mg/dL AST 364 H (14-36) U/L ALT 139 H (4-34) U/L Alkaline Phosphatase 151 H (38-126) U/L Urine Appearance Cloudy H (Clear) Urine Protein 3+ H (Negative) Urine Glucose (UA) Trace H (Negative) Urine Ketones 1+ H (Negative) Urine Blood Moderate H (Negative) Urine Bilirubin 1+ H (Negative) Urine RBC 7 H (0-5) /hpf Amorphous Sediment Rare H (None) /hpf Hyaline Casts 127 H (0-2) /lpf Urine Mucus Many H (None) /hpf 04/16/22 04/16/22 04/16/22 Range/Units 00:56 10:19 10:19 WBC (3.8-10.6) k/uL Neutrophils # (1.3-7.7) k/uL PT 12.5 H (9.0-12.0) sec INR 1.2 H (<1.2) Sodium 131 L (137-145) mmol/L Potassium 3.3 L (3.5-5.1) mmol/L Chloride 94 L (98-107) mmol/L BUN 18 H (7-17) mg/dL Glucose 105 H (74-99) mg/dL Calcium 8.0 L (8.4-10.2) mg/dL Magnesium 1.2 L 2.5 H (1.6-2.3) mg/dL Total Bilirubin 2.3 H (0.2-1.3) mg/dL AST 252 H (14-36) U/L ALT 114 H (4-34) U/L Alkaline Phosphatase (38-126) U/L Urine Appearance (Clear) Urine Protein (Negative) Urine Glucose (UA) (Negative) Urine Ketones (Negative) Urine Blood (Negative) Urine Bilirubin (Negative) Urine RBC (0-5) /hpf Amorphous Sediment (None) /hpf Hyaline Casts (0-2) /lpf Urine Mucus (None) /hpf Diabetes panel 04/15/22 04/16/22 Range/Units 23:52 10:19 Sodium 131 L 131 L (137-145) mmol/L Potassium 4.2 3.3 L (3.5-5.1) mmol/L Chloride 87 L 94 L (98-107) mmol/L Carbon Dioxide 26 29 (22-30) mmol/L BUN 25 H 18 H (7-17) mg/dL Creatinine 0.92 0.80 (0.52-1.04) mg/dL Glucose 142 H 105 H (74-99) mg/dL Calcium 9.1 8.0 L (8.4-10.2) mg/dL AST 364 H 252 H (14-36) U/L ALT 139 H 114 H (4-34) U/L Alkaline Phosphatase 151 H 121 (38-126) U/L Total Protein 8.2 6.9 (6.3-8.2) g/dL Albumin 4.9 3.9 (3.5-5.0) g/dL Calcium panel 04/15/22 04/16/22 04/16/22 Range/Units 23:52 00:56 10:19 Calcium 9.1 8.0 L (8.4-10.2) mg/dL Phosphorus 2.8 (2.5-4.5) mg/dL Albumin 4.9 3.9 (3.5-5.0) g/dL Pituitary panel 04/15/22 04/16/22 Range/Units 23:52 10:19 Sodium 131 L 131 L (137-145) mmol/L Potassium 4.2 3.3 L (3.5-5.1) mmol/L Chloride 87 L 94 L (98-107) mmol/L Carbon Dioxide 26 29 (22-30) mmol/L BUN 25 H 18 H (7-17) mg/dL Creatinine 0.92 0.80 (0.52-1.04) mg/dL Glucose 142 H 105 H (74-99) mg/dL Calcium 9.1 8.0 L (8.4-10.2) mg/dL Adrenal panel 04/15/22 04/16/22 Range/Units 23:52 10:19 Sodium 131 L 131 L (137-145) mmol/L Potassium 4.2 3.3 L (3.5-5.1) mmol/L Chloride 87 L 94 L (98-107) mmol/L Carbon Dioxide 26 29 (22-30) mmol/L BUN 25 H 18 H (7-17) mg/dL Creatinine 0.92 0.80 (0.52-1.04) mg/dL Glucose 142 H 105 H (74-99) mg/dL Calcium 9.1 8.0 L (8.4-10.2) mg/dL Total Bilirubin 2.1 H 2.3 H (0.2-1.3) mg/dL AST 364 H 252 H (14-36) U/L ALT 139 H 114 H (4-34) U/L Alkaline Phosphatase 151 H 121 (38-126) U/L Total Protein 8.2 6.9 (6.3-8.2) g/dL Albumin 4.9 3.9 (3.5-5.0) g/dL Assessment and Plan Assessment: Hydropic gallbladder with tumefactive sludge consistent with chronic cholecystitis. Patient will undergo MRCP to evaluate biliary docks for stone..
[2022-04-16] MEDS: POTASSIUM CHLORIDE 10 MEQ in WATER FOR INJECTION 1 100ML.BAG IVPB SCH ×4 (14:17→20:30)
[2022-04-16 18:44] LABS: Hepatitis A Antibody IgM Nonreactive (Nonreactive); Hepatitis B Core IgM Nonreactive (Nonreactive); Hepatitis B Surface Antigen Nonreactive (Nonreactive); Hepatitis C IgG Antibody Nonreactive (Nonreactive)
[2022-04-17] MEDS: PIPERACILLIN-TAZOBACTAM 3.375 GM in SODIUM CHLORIDE 0.9% 100 ML IVPB SCH ×3 (05:26→20:29)
[2022-04-17 07:15] LABS: ALT 83 U/L (4-34); AST 142 U/L (14-36); African American GFR (CKD) >90 (>60 ml/min/1.73 sqM); Albumin 3.9 g/dL (3.5-5.0); Albumin/Globulin Ratio 1.4; Alkaline Phosphatase 100 U/L (38-126); Anion Gap 11 mmol/L; Blood Urea Nitrogen 7 mg/dL (7-17); Calcium 8.3 mg/dL (8.4-10.2); Carbon Dioxide 23 mmol/L (22-30); Chloride 99 mmol/L (98-107); Globulin 2.7 g/dL; Glucose 66 mg/dL (74-99); Magnesium 2.3 mg/dL (1.6-2.3); Non-African American GFR(CKD) >90 (>60 ml/min/1.73 sqM); Potassium 3.8 mmol/L (3.5-5.1); Sodium 133 mmol/L (137-145); Total Bilirubin 1.8 mg/dL (0.2-1.3); Total Protein 6.6 g/dL (6.3-8.2)
[2022-04-17] MEDS: PANTOPRAZOLE 40 MG/10 ML VIAL IVP SCH (08:43)
[2022-04-17 10:01] LABS: Basophils # (A) 0.01 X 10*3/uL (0.00-0.10); Basophils % (A) 0.2 %; Eosinophils # (A) 0.07 X 10*3/uL (0.04-0.35); Eosinophils % (A) 1.4 %; HCT 35.2 % (37.2-46.3); HGB 11.6 g/dL (12.0-15.0); Immature Grans, Automated 0.4 %; Lymphocytes # (A) 1.25 X 10*3/uL (0.90-5.00); Lymphocytes % (A) 25.6 %; MCH 31.8 pg (27.0-32.0); MCV 96.4 fL (80.0-97.0); Mean Platelet Volume 10.8 fL (9.5-12.2); Monocytes % (A) 6.1 %; NRBC Per 100 WBC 0 /100 WBCS (0.0-0.0); Neutrophils # (A) 3.23 X 10*3/uL (1.80-7.70); Neutrophils % (A) 66.3 %; Platelet Count 113 X 10*3/uL (140-440); RBC 3.65 X 10*6/uL (4.10-5.20); RDW 13.3 % (11.5-14.5); WBC 4.88 X 10*3/uL (4.50-10.00)
[2022-04-17] MEDS: SODIUM CHLORIDE 0.9% 1,000 ML IV SCH ×2 (10:55→20:23)
--- NOTE | 2022-04-17 11:06 | P.PN ---
Subjective Progress Note Date: 04/17/22 Principal diagnosis: Abdominal pain, elevated LFTs This is a placenta 21-year-old female who was seen as a follow-up. She has a past history of alcohol intoxication, alcohol abuse and pancreatitis. She presented with complaints of epigastric and left lower quadrant pain. On a dmission she had a CT of the abdomen that showed a normal appendix. Fatty liver mildly dilated gallbladder suspicious for cholecystitis of the gallbladder also showed hepatic state ptosis, hydropic gallbladder with possible sludge. MRCP was ordered however currently pending patient going down for exam. LFTs are trending down. Today WBC improved to 4.8 from 11.9 total bilirubin 1.8 AST 142 ALT 83 alkaline phosphatase 100. The patient has been afebrile. States abdominal pain has improved. No nausea or vomiting. Apparently Gen. surgery has canceled the [facility]C P to proceed with cholecystectomy. Objective - Vital Signs Vital signs: Vital Signs Temp 98.6 F 04/17/22 07:32 Pulse 79 04/17/22 07:32 Resp 18 04/17/22 07:32 BP 144/94 04/17/22 07:32 Pulse Ox 97 04/17/22 07:32 FiO2 Intake & Output 04/16/22 04/17/22 04/17/22 18:59 06:59 18:59 Other: Voiding Method Toilet # Voids 2 - Exam General appearance: The patient is alert, oriented, appears in no acute distress. HET: Head is normocephalic and atraumatic. Conjunctiva pink. Sclera anicteric. Neck: Supple without lymphadenopathy. Abdomen: Soft, mild epigastric tenderness, nondistended with bowel sounds. No guarding or rigidity. Extremities: Normal skin color and turgor. No pedal edema Skin: No rashes, no jaundice Neurological: No focal deficits. Alert and oriented x 3. - Labs CBC & Chem 7: 04/17/22 06:17 04/17/22 06:17 Labs: Abnormal Lab Results - Last 24 Hours (Table) 04/16/22 04/17/22 04/17/22 Range/Units 10:19 06:17 06:17 RBC 3.65 L (4.10-5.20) X 10*6/uL Hgb 11.6 L (12.0-15.0) g/dL Hct 35.2 L (37.2-46.3) % Plt Count 113 L (140-440) X 10*3/uL Sodium 131 L 133 L (137-145) mmol/L Potassium 3.3 L (3.5-5.1) mmol/L Chloride 94 L (98-107) mmol/L BUN 18 H (7-17) mg/dL Glucose 105 H 66 L (74-99) mg/dL Calcium 8.0 L 8.3 L (8.4-10.2) mg/dL Magnesium 2.5 H (1.6-2.3) mg/dL Total Bilirubin 2.3 H 1.8 H (0.2-1.3) mg/dL AST 252 H 142 H (14-36) U/L ALT 114 H 83 H (4-34) U/L Assessment and Plan (1) Elevated liver enzymes Narrative/Plan: 21-year-old -[place] female who presented to the emergency department with complaints of abdominal pain associated with nausea and vomiting. Patient started 3 days ag patient has elevated LFTs. Total bilirubin 2.1 AST 364 ALT [address] abdomen and pelvis shows possible cholecystitis, with liver coarse echotexture consistent with fatty liver or hepatocellular disease. Patient does state that she drinks heavily every weekend. She has been admitted in the past with intoxication and looking back at previous labs she's had elevation in her total bilirubin as well as AST and ALT. Gallbladder ultrasound was ordered but does not show any cholelithiasis or CBD dilation. Findings suggest hepatic steatosis, gallbladder appears hydropic with possible sludge as described consider HIDA scan. 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 The patient is tentatively scheduled for cholecystectomy with Dr. Salamanca tomorrow Liver enzymes improving. MRCP ordered by gastroenterology to evaluate for possible choledocholithiasis. The MRCP has not yet been performed, it is sched uled to be completed today. It has been canceled by the general surgeon Dr. Salamanca to proceed with cholecystectomy. Current Visit: Yes Status: Acute Code(s): R74.8 - ABNORMAL LEVELS OF OTHER SERUM ENZYMES SNOMED Code(s): 780139090 (2) Liver disease Narrative/Plan: The patient has history of heavy alcohol consumption especially on the weekends, she's been admitted in the past for alcohol intoxication. She's had prior elevated LFTs. Likely has some underlying hepatocellular disease related to alcohol abuse. Current Visit: Yes Status: Acute Code(s): K76.9 - LIVER DISEASE, UNSPECIFIED SNOMED Code(s): 662311075 (3) Abdominal pain Narrative/Plan: Gen. surgery following patient. MRCP was canceled by general surgery they are proceeding with cholecystectomy today. Current Visit: Yes Status: Acute Code(s): R10.9 - UNSPECIFIED ABDOMINAL PAIN SNOMED Code(s): 46354252 Plan: 1. Continue symptomatic and supportive care 2. IV zosyn ordered 3. Gallbladder ultrasound ordered and reviewed 4. MRCP ordered by gastroenterology, canceled by general surgeon Dr. Salamanca 5. Daily CBC, CMP 6. NPO 7. Patient is scheduled to undergo cholecystectomy today with Dr. Salamanca 8. Protonix for GI prophylaxis Thank you for this consultation, we will continue to follow. Dr. Pascual Parsons I agree with the dictator's note, documented as a scribe by Teresita GONZALEZ .
[2022-04-17] MEDS ORDERED: ONDANSETRON 4 MG/2 ML VIAL IVP ONE (12:00)
[2022-04-17] MEDS ORDERED: LACTATED RINGERS 1,000 ML IV ONE (12:04)
[2022-04-17] MEDS ORDERED: LIDOCAINE 1% (10MG/ML) FOR IV START INTRADERMA PRN (12:05)
[2022-04-17] MEDS ORDERED: DEXTROSE 50% SYRINGE 50 ML IVP ONE (12:10)
[2022-04-17 12:11] LABS: Glucose,Whole Blood 65 mg/dL (75-99)
[2022-04-17 12:33] LABS: Glucose,Whole Blood 159 mg/dL (75-99)
[2022-04-17] MEDS ORDERED: HEPARIN SODIUM,PORCINE/PF 5,000 UNIT/0.5 ML SYRINGE SQ ONE (12:36)
[2022-04-17] MEDS ORDERED: ROCURONIUM 10 MG/ML (5 ML VIAL) IV ONE (12:55)
[2022-04-17] MEDS ORDERED: MIDAZOLAM 2 MG/2 ML VIAL ONE (12:55)
[2022-04-17] MEDS ORDERED: LIDOCAINE 2% INJ 20 MG/ML (2 ML VIAL) ONE (12:55)
[2022-04-17] MEDS ORDERED: GLYCOPYRROLATE 0.2 MG/ML 2 ML VIAL ONE (12:55)
[2022-04-17] MEDS ORDERED: HYDROmorphone (PF) 1 MG/ML ONE (12:55)
[2022-04-17] MEDS ORDERED: fentaNYL (PF) 50 MCG/ML 2 ML AMP ONE (12:55)
[2022-04-17] MEDS ORDERED: PROPOFOL 10 MG/ML 20 ML VIAL IV ONE (12:55)
[2022-04-17] MEDS ORDERED: SUCCINYLCHOLINE CHLORIDE 100 MG/5 ML SYR IV ONE (12:55)
[2022-04-17] MEDS ORDERED: NEOSTIGMINE 1 MG/ML 10 ML VIAL ONE (12:55)
[2022-04-17] MEDS ORDERED: KETOROLAC 15 MG/ML 1 ML VIAL ONE (12:55)
[2022-04-17] MEDS ORDERED: BUPIVACAIN-EPI 0.25%-1:200,000 30 ML VIAL SQ ONE ×2 (12:58→13:21)
--- NOTE | 2022-04-17 13:51 | P.OP ---
Date of Procedure: 04/17/22 Preoperative Diagnosis: Cholecystitis Postoperative Diagnosis: Cholecystitis Procedure(s) Performed: Laparoscopic cholecystectomy Anesthesia: NERY Surgeon: Juanpablo Salamanca Estimated Blood Loss (ml): 5 Pathology: other (Gallbladder) Condition: stable Disposition: PACU Description of Procedure: The patient was placed on the operating table. The patient received a general endotracheal tube anesthesia. The patients abdomen was prepped and draped in the usual sterile fashion. Through an infraumbilical stab incision, the fascia of the anterior abdominal wall was grasped with a pair of Kochers and then the Veress needle was placed in the peritoneal cavity. Position of the Veress needle was confirmed with positive drop test. The abdomen was then insufflated. After adequate insufflation, the 10 mm trocar was placed in the peritoneal cavity. Following this the laparoscope was placed in the peritoneal cavity. The patient was placed in the head-up, right side up position and then a 5 mm trocar was placed in the right lateral and right subcostal position under direct visualization. A 8 mm trocar was placed in the epigastric position. The gallbladder was grasped in the fundus and infundibulum. Traction on the gallbladder was placed in the lateral and the cephalad positions. The triangle of Calot was visualized.. The cystic duct was bluntly dissected until the union of the cystic duct and common bile duct was seen. A critical view of safety was achieved. The cystic duct was then divided and sealed with the Harmonic scissors. A PDS Endoloop was then placed throughout the cystic duct stump. The cystic artery divided and sealed with the Harmonic scissors. The gallbladder was then removed from the liver bed using Harmonic scissors. The gallbladder was then extracted through the epigastric port site. Operative field was checked for any bleeding spots and Harmonic scissors was used to coagulate the liver bed. The abdomen was irrigated. The trocars were removed. The skin was closed using interrupted 3-0 Vicryl suture. Dermabond dressing were applied. The patient tolerated the procedure well.
[2022-04-17] MEDS: ONDANSETRON 4 MG/2 ML VIAL IVP PRN (13:55)
[2022-04-17] MEDS: HYDROmorphone 0.5 MG/0.5 ML SYRINGE IVP PRN ×4 (14:12→14:41)
[2022-04-17 14:13] LABS: Glucose,Whole Blood 83 mg/dL (75-99)
[2022-04-17] MEDS ORDERED: hydrALAZINE HCL 20 MG/ML 1 ML VIAL IVP ONE (14:31)
[2022-04-17] MEDS: LACTATED RINGERS 1,000 ML IV SCH (16:50)
--- NOTE | 2022-04-17 19:26 | P.PN ---
Subjective Progress Note Date: 04/17/22 21-year-old the clara female came in with complaints of a left-sided abdominal pain along with nausea vomiting although patient does have significant tenderness in the right upper abdomen patient had a CT of the abdomen which showed cholecystitis. Patient had an ultrasound is which showed gallbladder p olyp and to biliary sludge. Patient does have leukocytosis doesn't have any fever. Patient does have positive Marquez's sign and exam. Patient likely is elevated and I'll liver enzymes are elevated as well with prior bilirubin of 2.1. Common bile duct is not dilated. Patient is hyponatremic patient is presently receiving IV fluids at this time. Liver enzymes are coming down. 04/17/2022 Patient evaluated today pending cholecystectomy with Dr. Salamanca. MRCP has been cancalled by surgery. She reports no BM for a few days prior to admission, she also has not had appetite and has decreased oral intake prior to admission. Labs today showing hgb 11.6, sodium 133, potassium 3.8, BUN 7, creat 0.61. Blood sugar has been running low today due to NPO status. Expected to improve postsurgical. Liver enzymes are improving. Hepatitis panel is negative. She is afebrile, heart rate 101, blood pressure 131/85, 97% room air. Patient continues on IV zosyn. Review of Systems Constitutional: Denied any fatigue denied any fever. Cardio vascular: denied any chest pain, palpitations Gastrointestinal: denied any nausea, vomiting, diarrhea, reports no BM, mild abdominal pain. Pulmonary: Denied any shortness of breath cough Neurologic denied any new focal deficits All inpatient medications were reviewed and appropriate changes in these medications as dictated in the interval history and assessment and plan. PHYSICAL EXAMINATION: GENERAL: The patient is alert and oriented x3, not in any acute distress. Well developed, well nourished. HEENT: Pupils are round and equally reacting to light. EOMI. No scleral icterus. No conjunctival pallor. Normocephalic, atraumatic. No pharyngeal erythema. No thyromegaly. CARDIOVASCULAR: S1 and S2 present. No murmurs, rubs, or gallops. PULMONARY: Chest is clear to auscultation, no wheezing or crackles. ABDOMEN: Soft but patient does have significant right upper quadrant tenderness Marquez's sign is positive bowel sounds are present.. MUSCULOSKELETAL: No joint swelling or deformity. EXTREMITIES: No cyanosis, clubbing, or pedal edema. NEUROLOGICAL: Gross neurological examination did not reveal any focal deficits. SKIN: No rashes. Assessment and plan -Acute cholecystitis: Liver enzymes are improving, MRCP has been cancelled by surgery and patient will under laproscopic cholecystectomy today, continues on IV zosyn empirically. -Hyponatremia hypervolemic hyponatremia patient will be continued on IV fluids, sodium has improved will repeat labs again tomorrow -Episodes of anxiety secondary to cholecystitis will the give her as needed Ativan. -Natriuretic hypokalemia: Potassium was replaced DVT prophylaxis: Early ambulation GI prophylaxis: Protonix Full Code Discharge expected in the next 24 hours The impression and plan of care has been dictated by Alia Bustamante, Nurse Practitioner as directed. Dr. Artis MD I have performed a history and physical examination and medical decision making of this patient, discussed the same with the dictator, and agree with the dictators assessment and plan as written, documented as a scribe. Based on total visit time, I have performed more than 50% of this visit. Objective - Vital Signs Vital signs: Vital Signs Temp 98.2 F 04/17/22 13:50 Pulse 88 04/17/22 15:05 Resp 16 04/17/22 15:05 BP 151/78 04/17/22 15:05 Pulse Ox 98 04/17/22 15:05 FiO2 Intake & Output 04/16/22 04/17/22 04/17/22 18:59 06:59 18:59 Intake Total 1000 Output Total 10 Balance 990 Intake: IV 1000 Output: Estimated Blood Loss 10 Other: Voiding Method Toilet # Voids 2 - Labs CBC & Chem 7: 04/17/22 06:17 04/17/22 06:17 Labs: Abnormal Lab Results - Last 24 Hours (Table) 04/17/22 04/17/22 04/17/22 Range/Units 06:17 06:17 12:10 RBC 3.65 L (4.10-5.20) X 10*6/uL Hgb 11.6 L (12.0-15.0) g/dL Hct 35.2 L (37.2-46.3) % Plt Count 113 L (140-440) X 10*3/uL Sodium 133 L (137-145) mmol/L Glucose 66 L (74-99) mg/dL POC Glucose (mg/dL) 65 L (75-99) mg/dL Calcium 8.3 L (8.4-10.2) mg/dL Total Bilirubin 1.8 H (0.2-1.3) mg/dL AST 142 H (14-36) U/L ALT 83 H (4-34) U/L // Range/Units 12:31 RBC (4.10-5.20) X 10*6/uL Hgb (12.0-15.0) g/dL Hct (37.2-46.3) % Plt Count (140-440) X 10*3/uL Sodium (137-145) mmol/L Glucose (74-99) mg/dL POC Glucose (mg/dL) 159 H (75-99) mg/dL Calcium (8.4-10.2) mg/dL Total Bilirubin (0.2-1.3) mg/dL AST (14-36) U/L ALT (4-34) U/L Assessment and Plan Time with Patient: Less than 30
[2022-04-17] MEDS: MORPHINE SULFATE 4 MG/ML SYRINGE IV PRN (20:23)
[2022-04-17] MEDS: HYDROmorphone 1 MG/ML 1 ML SYRINGE IVP PRN (23:13)
[2022-04-17 23:39] LABS: Basophils % (A) 0 %; Eosinophils # (A) 0.1 k/uL (0-0.7); Eosinophils % (A) 1 %; HCT 29.4 % (34.0-46.0); Lymphocytes # (A) 1.6 k/uL (1.0-4.8); Lymphocytes % (A) 24 %; MCH 33.5 pg (25.0-35.0); MCHC 33.4 g/dL (31.0-37.0); MCV 100.4 fL (80.0-100.0); Mean Platelet Volume 8.8; Monocytes # (A) 0.2 k/uL (0-1.0); Monocytes % (A) 2 %; Neutrophils # (A) 4.5 k/uL (1.3-7.7); Neutrophils % (A) 70 %; Platelet Count 111 k/uL (150-450); RBC 2.93 m/uL (3.80-5.40); RDW 13.8 % (11.5-15.5); WBC 6.4 k/uL (3.8-10.6)
[2022-04-17 23:48] LABS: INR 1.2 (<1.2); Prothrombin Time 12.5 sec (9.0-12.0)
[2022-04-17 23:55] LABS: African American GFR (CKD) >90 (>60 ml/min/1.73 sqM); Anion Gap 6 mmol/L; Blood Urea Nitrogen 5 mg/dL (7-17); Calcium 7.7 mg/dL (8.4-10.2); Carbon Dioxide 25 mmol/L (22-30); Chloride 98 mmol/L (98-107); Glucose 97 mg/dL (74-99); Non-African American GFR(CKD) >90 (>60 ml/min/1.73 sqM); Potassium 3.9 mmol/L (3.5-5.1); Sodium 129 mmol/L (137-145)
[2022-04-18 00:25] LABS: HGB 9.8 gm/dL (11.4-16.0)
[2022-04-18] MEDS: ONDANSETRON 4 MG/2 ML VIAL IVP PRN ×3 (02:01→20:10)
[2022-04-18] MEDS: HYDROmorphone 1 MG/ML 1 ML SYRINGE IVP PRN ×4 (02:38→13:05)
[2022-04-18] MEDS: SODIUM CHLORIDE 0.9% 1,000 ML IV SCH ×2 (05:30→14:55)
[2022-04-18] MEDS: PIPERACILLIN-TAZOBACTAM 3.375 GM in SODIUM CHLORIDE 0.9% 100 ML IVPB SCH ×3 (05:31→21:44)
[2022-04-18] MEDS: PANTOPRAZOLE 40 MG/10 ML VIAL IVP SCH (07:06)
[2022-04-18 09:41] LABS: African American GFR (CKD) 142.5 (60.0-200.0); Albumin 3.3 g/dL (3.8-4.9); Albumin/Globulin Ratio 1.65 (1.60-3.17); Anion Gap 12.7 mmol/L (10.00-18.00); BUN/Creat Ratio 8.86 Ratio (12.00-20.00); Blood Urea Nitrogen 6.2 mg/dL (9.0-27.0); Calcium 7.8 mg/dL (8.7-10.3); Carbon Dioxide 22.3 mmol/L (20.0-27.5); Potassium 3.4 mmol/L (3.5-5.5); Total Bilirubin 1.1 mg/dL (0.30-1.20); Total Protein 5.3 g/dL (6.2-8.2)
[2022-04-18 10:37] LABS: Basophils # (A) 0.02 X 10*3/uL (0.00-0.10); Basophils % (A) 0.3 %; Eosinophils # (A) 0.04 X 10*3/uL (0.04-0.35); Eosinophils % (A) 0.6 %; HCT 25.5 % (37.2-46.3); HGB 8.3 g/dL (12.0-15.0); Immature Grans, Automated 0.4 %; Lymphocytes # (A) 1.15 X 10*3/uL (0.90-5.00); MCH 31.9 pg (27.0-32.0); MCHC 32.5 g/dL (32.0-37.0); MCV 98.1 fL (80.0-97.0); Mean Platelet Volume 11.3 fL (9.5-12.2); Monocytes # (A) 0.31 X 10*3/uL (0.20-1.00); Monocytes % (A) 4.3 %; NRBC Per 100 WBC 0 /100 WBCS (0.0-0.0); Neutrophils # (A) 5.64 X 10*3/uL (1.80-7.70); Neutrophils % (A) 78.4 %; Platelet Count 99 X 10*3/uL (140-440); RDW 13.2 % (11.5-14.5); WBC 7.19 X 10*3/uL (4.50-10.00)
[2022-04-18] MEDS ORDERED: Potassium Replacement Protocol 1 EACH MISC MISCELLANE PRN (11:09)
[2022-04-18] MEDS: POTASSIUM CHLORIDE 10 MEQ in WATER FOR INJECTION 1 100ML.BAG IVPB SCH ×4 (12:00→17:37)
--- NOTE | 2022-04-18 12:52 | P.PN ---
Subjective Progress Note Date: 04/18/22 Principal diagnosis: Abdominal pain, elevated LFTs This is a pleasant 21-year-old female who was seen as a follow-up. She has a past history of alcohol intoxication, alcohol abuse and pancreatitis. She presented with complaints of epigastric and left lower quadrant pain. On a dmission she had a CT of the abdomen that showed a normal appendix. Fatty liver mildly dilated gallbladder suspicious for cholecystitis of the gallbladder also showed hepatic steatosis, hydropic gallbladder with possible sludge. Yesterday she underwent cholecystitis. She is postop day #1. She states she has quite a bit of surgical pain, states the pain is same as prior to her surgery. She den ies any nausea or vomiting. She is tolerating a clear liquid diet. She is afebrile. WBC 7 hemoglobin 8.3 hematocrit 25 MCV 98.1 platelet count 99,000 total bilirubin 1.1 AST 144 AST 69 alk phos 93. Labs are consistent alcohol liver disease. Objective - Vital Signs Vital signs: Vital Signs Temp 97.9 F 04/18/22 07:54 Pulse 102 H 04/18/22 08:00 Resp 20 04/18/22 08:00 BP 126/86 04/18/22 07:54 Pulse Ox 97 04/18/22 07:54 FiO2 Intake & Output 04/17/22 04/18/22 04/18/22 18:59 06:59 18:59 Intake Total 1000 Output Total 10 Balance 990 Intake: IV 1000 Output: Estimated Blood Loss 10 Other: Voiding Method Toilet Toilet # Voids 3 0 # Bowel Movements 0 - Exam General appearance: The patient is alert, oriented, appears in no acute distress. HET: Head is normocephalic and atraumatic. Conjunctiva pink. Sclera anicteric. Neck: Supple without lymphadenopathy. Abdomen: Soft, diffuse tenderness, dressings intact, abdominal binder in place, nondistended with bowel sounds. No guarding or rigidity. Extremities: Normal skin color and turgor. No pedal edema Skin: No rashes, no jaundice Neurological: No focal deficits. Alert and oriented x 3. - Labs CBC & Chem 7: 04/18/22 04:20 04/18/22 04:20 Labs: Abnormal Lab Results - Last 24 Hours (Table) 06/15/22 06/15/22 06/15/22 Range/Units 12:31 23:00 23:00 RBC 2.93 L (3.80-5.40) m/uL Hgb 9.8 L D (11.4-16.0) gm/dL Hct 29.4 L (34.0-46.0) % MCV 100.4 H (80.0-100.0) fL Plt Count 111 L (150-450) k/uL Plt Count Comment PT 12.5 H (9.0-12.0) sec INR 1.2 H (<1.2) Sodium (137-145) mmol/L Potassium (3.5-5.5) mmol/L BUN (7-17) mg/dL BUN/Creatinine Ratio (12.00-20.00) Ratio Glucose (70-110) mg/dL POC Glucose (mg/dL) 159 H (75-99) mg/dL Calcium (8.4-10.2) mg/dL AST (13-35) U/L ALT (8-44) U/L Total Protein (6.2-8.2) g/dL Albumin (3.8-4.9) g/dL 04/17/22 04/18/22 04/18/22 Range/Units 23:00 04:20 04:20 RBC 2.60 L (3.80-5.40) m/uL Hgb 8.3 L (11.4-16.0) gm/dL Hct 25.5 L (34.0-46.0) % MCV 98.1 H (80.0-100.0) fL Plt Count 99 L (150-450) k/uL Plt Count Comment DECREASED A PT (9.0-12.0) sec INR (<1.2) Sodium 129 L 131 L (137-145) mmol/L Potassium 3.4 L (3.5-5.5) mmol/L BUN 5 L 6.2 L (7-17) mg/dL BUN/Creatinine Ratio 8.86 L (12.00-20.00) Ratio Glucose 135 H (70-110) mg/dL POC Glucose (mg/dL) (75-99) mg/dL Calcium 7.7 L 7.8 L (8.4-10.2) mg/dL AST 144 H (13-35) U/L ALT 69 H (8-44) U/L Total Protein 5.3 L (6.2-8.2) g/dL Albumin 3.3 L (3.8-4.9) g/dL Assessment and Plan (1) Elevated liver enzymes Narrative/Plan: 21-year-old -[place] female who presented to the emergency department with complaints of abdominal pain associated with nausea and vomiting. Patient started 3 days ag patient has elevated LFTs. Total bilirubin 2.1 AST 364 ALT [address] abdomen and pelvis shows possible cholecystitis, with liver coarse echotexture consistent with fatty liver or hepatocellular disease. Patient does state that she drinks heavily every weekend. She has been admitted in the past with intoxication and looking back at previous labs she's had elevation in her total bilirubin as well as AST and ALT. Gallbladder ultrasound was ordered but does not show any cholelithiasis or CBD dilation. Findings suggest hepatic steatosis, gallbladder appears hydropic with possible sludge as described consider HIDA scan. 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 Patient is postop day #1 for laparoscopic cholecystectomy. Liver enzymes improving. Current Visit: Yes Status: Acute Code(s): R74.8 - ABNORMAL LEVELS OF OTHER SERUM ENZYMES SNOMED Code(s): 313374258 (2) Liver disease Narrative/Plan: The patient has history of heavy alcohol consumption especially on the weekends, she's been admitted in the past for alcohol intoxication. She's had prior elevated LFTs. Likely has some underlying hepatocellular disease related to alcohol abuse. Labs continue to be consistent pattern with alcoholic liver disease. Current Visit: Yes Status: Acute Code(s): K76.9 - LIVER DISEASE, UNSPECIFIED SNOMED Code(s): 435312622 (3) Abdominal pain Narrative/Plan: Gen. surgery following patient. MRCP was canceled by general surgery they are p roceeding with cholecystectomy today. Patient is postop day #1 for laparoscopic cholecystectomy. General surgery following. Current Visit: Yes Status: Acute Code(s): R10.9 - UNSPECIFIED ABDOMINAL PAIN SNOMED Code(s): 69112214 (4) Thrombocytopenia Current Visit: Yes Status: Acute Code(s): D69.6 - THROMBOCYTOPENIA, UNSPECIFIED SNOMED Code(s): 914087305 Plan: 1. Continue symptomatic and supportive care 2. Protonix 40 mg daily GI prophylaxis 3. Diet per recommendations from general surgeon 4. Continue with recommendations from general surgery 5. Daily CBC, CMP 6. Discussed importance with patient of alcohol abstinence, concerns for underlying liver disease related to heavy alcohol use. Thank you for this consultation we'll continue to follow. Dr. Pascual Parsons I agree with the dictator's note, documented as a scribe by Teresita Rico.
[2022-04-18] MEDS: LACTATED RINGERS 1,000 ML IV SCH (13:01)
--- NOTE | 2022-04-18 14:11 | P.PN ---
Subjective Progress Note Date: 04/18/22 CHIEF COMPLAINT: Cholecystitis HISTORY OF PRESENT ILLNESS: Patient is status post laparoscopic cholecystectomy. Patient had bleeding at 2 of her incision sites. She required a clotting medication to be applied to one of the incision sites as well as compression dressing and abdominal binder was placed. Patient did have a drop in her hemoglobin from 9.8-8.3. Her admitting hemoglobin was 11.6. Patient had been having vomiting. Also reports abdominal pain. Did have a low-grade temp of 99. She has been mildly tachycardic. WBC 7.19 hemoglobin 8.3 pleural to 99 INR is 1.2 sodium 129 up to 131 potassium 3.4 creatinine 0.7 total bilirubin normalized at 1.10 AST 144 ALT 69 PHYSICAL EXAM: VITAL SIGNS: Reviewed. GENERAL: Well-developed in no acute distress. HEENT: No sclera icterus. Extraocular movements grossly intact. Moist buccal mucosa. Head is atraumatic, normocephalic. ABDOMEN: Soft. Nondistended. Diffuse tenderness. Tenderness at incision sites. Patient does have a hematoma at the incision site in the epigastric area as well as a larger hematoma at the incision site on the right side of the abdomen. The bleeding has resolved. There is some blood clots noted in both incision sites. NEUROLOGIC: Alert and oriented. Cranial nerves II through XII grossly intact. ASSESSMENT: 1. Cholecystitis status post laparoscopic cholecystectomy 2. Heavy alcohol use 3. Elevated liver enzymes 4. Possible underlying liver disease due to alcohol cirrhosis. Followed by GI service 5. Hyponatremia 6. Hematoma at to the incision sites 7. Hypokalemia PLAN: -Continue to monitor hematomas for any further bleeding at incision sites. Continue dressings to the incision site. Continue abdominal binder -Continue pain medication as needed -Potassium being replaced -Continue IV fluids -Continue antibiotics -Continue antiemetics -add [place] for pain -Encourage patient to ambulate Physician Toggle Press Folder And Feeder note has been reviewed by physician. Signing provider agrees with the documented findings, assessment, and plan of care. Objective - Vital Signs Vital signs: Vital Signs Temp 97.9 F 04/18/22 07:54 Pulse 102 H 04/18/22 08:00 Resp 20 04/18/22 08:00 BP 126/86 04/18/22 07:54 Pulse Ox 97 04/18/22 07:54 FiO2 Intake & Output 06/04/18/22 04/18/22 18:59 06:59 18:59 Intake Total 1000 Output Total 10 Balance 990 Intake: IV 1000 Output: Estimated Blood Loss 10 Other: Voiding Method Toilet Toilet # Voids 3 0 # Bowel Movements 0 - Labs CBC & Chem 7: 04/18/22 04:20 04/18/22 04:20 Labs: Abnormal Lab Results - Last 24 Hours (Table) 04/17/22 04/17/22 04/17/22 Range/Units 23:00 23:00 23:00 RBC 2.93 L (3.80-5.40) m/uL Hgb 9.8 L D (11.4-16.0) gm/dL Hct 29.4 L (34.0-46.0) % MCV 100.4 H (80.0-100.0) fL Plt Count 111 L (150-450) k/uL Plt Count Comment PT 12.5 H (9.0-12.0) sec INR 1.2 H (<1.2) Sodium 129 L (137-145) mmol/L Potassium (3.5-5.5) mmol/L BUN 5 L (7-17) mg/dL BUN/Creatinine Ratio (12.00-20.00) Ratio Glucose (70-110) mg/dL Calcium 7.7 L (8.4-10.2) mg/dL AST (13-35) U/L ALT (8-44) U/L Total Protein (6.2-8.2) g/dL Albumin (3.8-4.9) g/dL 04/18/22 04/18/22 Range/Units 04:20 04:20 RBC 2.60 L (3.80-5.40) m/uL Hgb 8.3 L (11.4-16.0) gm/dL Hct 25.5 L (34.0-46.0) % MCV 98.1 H (80.0-100.0) fL Plt Count 99 L (150-450) k/uL Plt Count Comment DECREASED A PT (9.0-12.0) sec INR (<1.2) Sodium 131 L (137-145) mmol/L Potassium 3.4 L (3.5-5.5) mmol/L BUN 6.2 L (7-17) mg/dL BUN/Creatinine Ratio 8.86 L (12.00-20.00) Ratio Glucose 135 H (70-110) mg/dL Calcium 7.8 L (8.4-10.2) mg/dL AST 144 H (13-35) U/L ALT 69 H (8-44) U/L Total Protein 5.3 L (6.2-8.2) g/dL Albumin 3.3 L (3.8-4.9) g/dL
--- NOTE | 2022-04-18 15:32 | P.PN ---
Subjective Progress Note Date: 04/18/22 21-year-old the clara female came in with complaints of a left-sided abdominal pain along with nausea vomiting although patient does have significant tenderness in the right upper abdomen patient had a CT of the abdomen which showed cholecystitis. Patient had an ultrasound is which showed gallbladder p olyp and to biliary sludge. Patient does have leukocytosis doesn't have any fever. Patient does have positive Marquez's sign and exam. Patient likely is elevated and I'll liver enzymes are elevated as well with prior bilirubin of 2.1. Common bile duct is not dilated. Patient is hyponatremic patient is presently receiving IV fluids at this time. Liver enzymes are coming down. 04/17/2022 Patient evaluated today pending cholecystectomy with Dr. Salamanca. MRCP has been cancalled by surgery. She reports no BM for a few days prior to admission, she also has not had appetite and has decreased oral intake prior to admission. Labs today showing hgb 11.6, sodium 133, potassium 3.8, BUN 7, creat 0.61. Blood sugar has been running low today due to NPO status. Expected to improve postsurgical. Liver enzymes are improving. Hepatitis panel is negative. She is afebrile, heart rate 101, blood pressure 131/85, 97% room air. Patient continues on IV zosyn. 04/18/2022 Patient is evaluated today postop day #1 laparoscopic cholecystectomy. Early this morning patient had ambulated to bathroom without assistance also disconnecting her IV tubing and nurse reports bleeding at 2 of her right lower quadrant incision sites afterwards. She did require a clotting medication to be applied to the incision sites and a compression dressing and abdominal binder was placed. Hemoglobin had dropped down to 8.3. Patient does report abdominal pain and has had 2 episodes of emesis throughout the evening and one early this morning. She is a low-grade temp of 99. Additional labs today show white count 7.19, hemoglobin 8.3, hematocrit 25.5, MCV 98.1, platelet count 99 which is decreased, sodium 131, potassium 3.4, blood glucose 135, calcium 7.8, liver enzymes showing AST 44, ALT 69, alk phos 93. She is T-max 99.1 overnight, heart rate 102, blood pressure 126/86, 97% room air. She has been advanced to clear liquid diet. Review of Systems Constitutional: Denied any fatigue denied any fever. Cardio vascular: denied any chest pain, palpitations Gastrointestinal: denied any nausea, vomiting, diarrhea, reports no BM, mild abdominal pain. Pulmonary: Denied any shortness of breath cough Neurologic denied any new focal deficits All inpatient medications were reviewed and appropriate changes in these medications as dictated in the interval history and assessment and plan. PHYSICAL EXAMINATION: GENERAL: The patient is alert and oriented x3, not in any acute distress. Well developed, well nourished. HEENT: Pupils are round and equally reacting to light. EOMI. No scleral icterus. No conjunctival pallor. Normocephalic, atraumatic. No pharyngeal erythema. No thyromegaly. CARDIOVASCULAR: S1 and S2 present. No murmurs, rubs, or gallops. PULMONARY: Chest is clear to auscultation, no wheezing or crackles. ABDOMEN: Soft but patient does have significant right upper quadrant tenderness Marquez's sign is positive bowel sounds are present.. MUSCULOSKELETAL: No joint swelling or deformity. EXTREMITIES: No cyanosis, clubbing, or pedal edema. NEUROLOGICAL: Gross neurological examination did not reveal any focal deficits. SKIN: No rashes. Assessment and plan -Acute cholecystitis postop day 1 laparoscopic cholecystectomy she continues on IV zosyn. Elevated liver enzymes being followed by GI services possibly underlying alcoholic liver cirrhosis -Mild sinus tachycardia most likely from pain and infection, also patient has been NPO, continue to monitor -Hyponatremia hypovolemic sodium today 129 continues on IV fluids, also component of SIADH from pain -Episodes of anxiety, she is receiving ativan as needed -Natriuretic hypokalemia: Potassium was replaced -Heavy alcohol use -Hematoma at incision site has been reinforced will repeat CBC tomorrow DVT prophylaxis: Early ambulation GI prophylaxis: Protonix Full Code The impression and plan of care has been dictated by Alia Bustamante Nurse Practitioner as directed. Dr. Artis MD I have performed a history and physical examination and medical decision making of this patient, discussed the same with the dictator, and agree with the dictators assessment and plan as written, documented as a scribe. Based on total visit time, I have performed more than 50% of this visit. Objective - Vital Signs Vital signs: Vital Signs Temp 97.9 F 04/18/22 07:54 Pulse 102 H 04/18/22 08:00 Resp 20 04/18/22 08:00 BP 126/86 04/18/22 07:54 Pulse Ox 97 04/18/22 07:54 FiO2 Intake & Output 04/17/22 04/18/22 04/18/22 18:59 06:59 18:59 Intake Total 1000 Output Total 10 Balance 990 Intake: IV 1000 Output: Estimated Blood Loss 10 Other: Voiding Method Toilet Toilet # Voids 3 0 # Bowel Movements 0 - Labs CBC & Chem 7: 04/18/22 04:20 04/18/22 04:20 Labs: Abnormal Lab Results - Last 24 Hours (Table) 04/17/22 04/17/22 04/17/22 Range/Units 12:31 23:00 23:00 RBC 2.93 L (3.80-5.40) m/uL Hgb 9.8 L D (11.4-16.0) gm/dL Hct 29.4 L (34.0-46.0) % MCV 100.4 H (80.0-100.0) fL Plt Count 111 L (150-450) k/uL Plt Count Comment PT 12.5 H (9.0-12.0) sec INR 1.2 H (<1.2) Sodium (137-145) mmol/L Potassium (3.5-5.5) mmol/L BUN (7-17) mg/dL BUN/Creatinine Ratio (12.00-20.00) Ratio Glucose (70-110) mg/dL POC Glucose (mg/dL) 159 H (75-99) mg/dL Calcium (8.4-10.2) mg/dL AST (13-35) U/L ALT (8-44) U/L Total Protein (6.2-8.2) g/dL Albumin (3.8-4.9) g/dL 04/17/22 04/18/22 04/18/22 Range/Units 23:00 04:20 04:20 RBC 2.60 L (3.80-5.40) m/uL Hgb 8.3 L (11.4-16.0) gm/dL Hct 25.5 L (34.0-46.0) % MCV 98.1 H (80.0-100.0) fL Plt Count 99 L (150-450) k/uL Plt Count Comment DECREASED A PT (9.0-12.0) sec INR (<1.2) Sodium 129 L 131 L (137-145) mmol/L Potassium 3.4 L (3.5-5.5) mmol/L BUN 5 L 6.2 L (7-17) mg/dL BUN/Creatinine Ratio 8.86 L (12.00-20.00) Ratio Glucose 135 H (70-110) mg/dL POC Glucose (mg/dL) (75-99) mg/dL Calcium 7.7 L 7.8 L (8.4-10.2) mg/dL AST 144 H (13-35) U/L ALT 69 H (8-44) U/L Total Protein 5.3 L (6.2-8.2) g/dL Albumin 3.3 L (3.8-4.9) g/dL Assessment and Plan Time with Patient: Less than 30
[2022-04-18] MEDS: HYDROcodone/APAP 5-325MG 1 EACH TAB PO PRN (20:10)
[2022-04-19] MEDS: SODIUM CHLORIDE 0.9% 1,000 ML IV SCH ×3 (00:36→20:59)
[2022-04-19] MEDS: HYDROcodone/APAP 5-325MG 1 EACH TAB PO PRN ×5 (02:05→22:35)
[2022-04-19] MEDS: PIPERACILLIN-TAZOBACTAM 3.375 GM in SODIUM CHLORIDE 0.9% 100 ML IVPB SCH ×3 (06:23→21:01)
[2022-04-19] MEDS: PANTOPRAZOLE 40 MG/10 ML VIAL IVP SCH (09:04)
[2022-04-19 09:10] LABS: Basophils # (A) 0.02 X 10*3/uL (0.00-0.10); Basophils % (A) 0.4 %; Eosinophils # (A) 0.14 X 10*3/uL (0.04-0.35); Eosinophils % (A) 2.9 %; HCT 22.4 % (37.2-46.3); HGB 7.4 g/dL (12.0-15.0); Immature Grans, Automated 0.4 %; Lymphocytes % (A) 39.2 %; MCH 32.2 pg (27.0-32.0); MCV 97.4 fL (80.0-97.0); Monocytes # (A) 0.31 X 10*3/uL (0.20-1.00); Monocytes % (A) 6.4 %; NRBC Per 100 WBC 0 /100 WBCS (0.0-0.0); Neutrophils # (A) 2.46 X 10*3/uL (1.80-7.70); Neutrophils % (A) 50.7 %; Platelet Count 88 X 10*3/uL (140-440); RDW 12.9 % (11.5-14.5); WBC 4.85 X 10*3/uL (4.50-10.00)
[2022-04-19 09:16] LABS: Magnesium 1.8 mg/dL (1.5-2.4)
[2022-04-19] MEDS ORDERED: Magnesium Replacement Protocol 1 EACH MISC MISCELLANE PRN (09:18)
[2022-04-19 09:23] LABS: Anion Gap 11.6 mmol/L (10.00-18.00); BUN/Creat Ratio 3.17 Ratio (12.00-20.00); Blood Urea Nitrogen 1.9 mg/dL (9.0-27.0); Calcium 8.2 mg/dL (8.7-10.3); Carbon Dioxide 24.4 mmol/L (20.0-27.5); Non-African American GFR(CKD) 129.4 (60.0-200.0); Potassium 3.4 mmol/L (3.5-5.5)
[2022-04-19] MEDS ORDERED: POTASSIUM CHLORIDE ER 20 MEQ TAB.ER PO STA (09:55)
--- NOTE | 2022-04-19 10:00 | P.PN ---
Subjective Progress Note Date: 04/19/22 CHIEF COMPLAINT: Cholecystitis HISTORY OF PRESENT ILLNESS: Patient is status post laparoscopic cholecystectomy. Patient had hematoma was developed to incision sites. She's had no further bleeding at the incision sites. Her pain is better controlled. She is tolerating her clear liquid diet. She did have a low-grade temp 99.7. Some mild tachycardia and improved. She has been up and ambulating. She did have a bowel movement yesterday. WBC 4.85 hemoglobin is down from 8.3-7.4 platelets down from 99-88 sodium 135 potassium 3.4 creatinine 0.6 magnesium 1.8 Patient seen and examined with Dr. Salamanca PHYSICAL EXAM: VITAL SIGNS: Reviewed. GENERAL: Well-developed in no acute distress. HEENT: No sclera icterus. Extraocular movements grossly intact. Moist buccal mucosa. Head is atraumatic, normocephalic. ABDOMEN: Soft. Nondistended. Abdominal binder in place NEUROLOGIC: Alert and oriented. Cranial nerves II through XII grossly intact. ASSESSMENT: 1. Cholecystitis status post laparoscopic cholecystectomy 2. Heavy alcohol use 3. Elevated liver enzymes 4. Possible underlying liver disease due to alcohol cirrhosis. Followed by GI service 5. Hyponatremia improved 6. Hematoma at to the incision sites 7. Hypokalemia PLAN: -Patient can be discharge from surgical standpoint -Patient educated on the importance of alcohol cessation -Magnesium and potassium being replaced -Recommend follow-up CBC outpatient Physician Genetic Engineer note has been reviewed by physician. Signing provider agrees with the documented findings, assessment, and plan of care. Objective - Vital Signs Vital signs: Vital Signs Temp 98.8 F 04/19/22 08:00 Pulse 99 04/19/22 08:00 Resp 18 04/19/22 08:00 BP 114/71 04/19/22 08:00 Pulse Ox 100 04/19/22 08:00 FiO2 Intake & Output 04/18/22 04/19/22 04/19/22 18:59 06:59 18:59 Intake Total 591 Balance 591 Intake: Oral 591 Other: Voiding Method Toilet # Voids 3 4 - Labs CBC & Chem 7: 04/19/22 05:41 04/19/22 05:41 Labs: Abnormal Lab Results - Last 24 Hours (Table) 06/16/22 06/17/22 06/17/22 Range/Units 04:20 05:41 05:41 RBC 2.60 L 2.30 L (4.10-5.20) X 10*6/uL Hgb 8.3 L 7.4 L (12.0-15.0) g/dL Hct 25.5 L 22.4 L (37.2-46.3) % MCV 98.1 H 97.4 H (80.0-97.0) fL MCH 32.2 H (27.0-32.0) pg Plt Count 99 L 88 L (140-440) X 10*3/uL Plt Count Comment DECREASED A Potassium 3.4 L (3.5-5.5) mmol/L BUN 1.9 L (9.0-27.0) mg/dL BUN/Creatinine Ratio 3.17 L (12.00-20.00) Ratio Calcium 8.2 L (8.7-10.3) mg/dL
[2022-04-19] MEDS: MAGNESIUM SULFATE-D5W PMX 1 GM in DEXTROSE/WATER 1 100ML.BAG IVPB SCH ×2 (10:57→12:46)
[2022-04-19] MEDS: LACTATED RINGERS 1,000 ML IV SCH (12:48)
--- NOTE | 2022-04-19 13:04 | P.PN ---
Subjective Progress Note Date: 04/19/22 Principal diagnosis: Abdominal pain, elevated LFTs This is a pleasant 21-year-old female who was seen as a follow-up. She has a past history of alcohol intoxication, alcohol abuse and pancreatitis. She presented with complaints of epigastric and left lower quadrant pain. On a dmission she had a CT of the abdomen that showed a normal appendix. Fatty liver mildly dilated gallbladder suspicious for cholecystitis of the gallbladder also showed hepatic steatosis, hydropic gallbladder with possible sludge. She is postop day #2 for laparoscopic cholecystectomy. She states abdominal pain improved other than surgical discomfort. She has nausea but no vomiting. She is tolerating a clear liquid diet and will be advanced to low-fat diet. Patient apparently had significant bleeding from the incision site of the day of surgery. She did have a drop in her hemoglobin is 7.4. She is afebrile. She states she is not passing gas and no bowel movement. LFTs are currently pe nding. Objective - Vital Signs Vital signs: Vital Signs Temp 98.8 F 04/19/22 08:00 Pulse 99 04/19/22 08:00 Resp 18 04/19/22 08:00 BP 114/71 04/19/22 08:00 Pulse Ox 100 04/19/22 08:00 FiO2 Intake & Output 04/18/22 04/19/22 04/19/22 18:59 06:59 18:59 Intake Total 591 Balance 591 Intake: Oral 591 Other: Voiding Method Toilet # Voids 3 4 - Exam General appearance: The patient is alert, oriented, appears in no acute distress. HET: Head is normocephalic and atraumatic. Conjunctiva pink. Sclera anicteric. Neck: Supple without lymphadenopathy. Abdomen: Soft, diffuse tenderness, dressings intact, abdominal binder in place, nondistended with bowel sounds. No guarding or rigidity. Extremities: Normal skin color and turgor. No pedal edema Skin: No rashes, no jaundice Neurological: No focal deficits. Alert and oriented x 3. - Labs CBC & Chem 7: 04/19/22 05:41 04/19/22 05:41 Labs: Abnormal Lab Results - Last 24 Hours (Table) 04/18/22 04/19/22 04/19/22 Range/Units 04:20 05:41 05:41 RBC 2.60 L 2.30 L (4.10-5.20) X 10*6/uL Hgb 8.3 L 7.4 L (12.0-15.0) g/dL Hct 25.5 L 22.4 L (37.2-46.3) % MCV 98.1 H 97.4 H (80.0-97.0) fL MCH 32.2 H (27.0-32.0) pg Plt Count 99 L 88 L (140-440) X 10*3/uL Plt Count Comment DECREASED A Potassium 3.4 L (3.5-5.5) mmol/L BUN 1.9 L (9.0-27.0) mg/dL BUN/Creatinine Ratio 3.17 L (12.00-20.00) Ratio Calcium 8.2 L (8.7-10.3) mg/dL Assessment and Plan (1) Elevated liver enzymes Narrative/Plan: 21-year-old -[place] female who presented to the emergency department with complaints of abdominal pain associated with nausea and vomiting. Patient started 3 days ag patient has elevated LFTs. Total bilirubin 2.1 AST 364 ALT [address] abdomen and pelvis shows possible cholecystitis, with liver coarse echotexture consistent with fatty liver or hepatocellular disease. Patient does state that she drinks heavily every weekend. She has been admitted in the past with intoxication and looking back at previous labs she's had elevation in her total bilirubin as well as AST and ALT. Gallbladder ultrasound was ordered but does not show any cholelithiasis or CBD dilation. Findings suggest hepatic steatosis, gallbladder appears hydropic with possible sludge as described consider HIDA scan. 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 Patient is postop day #1 for laparoscopic cholecystectomy. Liver enzymes improving. Current Visit: Yes Status: Acute Code(s): R74.8 - ABNORMAL LEVELS OF OTHER SERUM ENZYMES SNOMED Code(s): 697006298 (2) Liver disease Narrative/Plan: The patient has history of heavy alcohol consumption especially on the weekends, she's been admitted in the past for alcohol intoxication. She's had prior elevated LFTs. Likely has some underlying hepatocellular disease related to a lcohol abuse. Labs continue to be consistent pattern with alcoholic liver disease. Current Visit: Yes Status: Acute Code(s): K76.9 - LIVER DISEASE, UNSPECIFIED SNOMED Code(s): 483781255 (3) Abdominal pain Narrative/Plan: Gen. surgery following patient. MRCP was canceled by general surgery they are proceeding with cholecystectomy today. Patient is postop day #1 for laparoscopic cholecystectomy. General surgery following. Current Visit: Yes Status: Acute Code(s): R10.9 - UNSPECIFIED ABDOMINAL PAIN SNOMED Code(s): 71896312 (4) Thrombocytopenia Current Visit: Yes Status: Acute Code(s): D69.6 - THROMBOCYTOPENIA, UNSPECIFIED SNOMED Code(s): 586240019 Plan: 1. Continue symptomatic and supportive care 2. Protonix 40 mg daily GI prophylaxis 3. Diet per recommendations from general surgeon 4. Continue with recommendations from general surgery 5. Daily CBC, CMP 6. Discussed importance with patient of alcohol abstinence, concerns for underlying liver disease related to heavy alcohol use. Thank you for this consultation, we will sign off at this time. Thank you for allowing us to participate in the care of the patient, the GI service will sign off, gastroenterology will not be available at the hospital this weekend and through next week. If further evaluation by gastroenterology is required the patient will need transfer as per the primary team's discretion. Dr. Pascual Parsons I agree with the dictator's note, documented as a scribe by Teresita Rico.
[2022-04-19] MEDS ORDERED: LACTULOSE 20 GM/30 ML CUP PO ONE (14:01)
--- NOTE | 2022-04-19 14:11 | P.PN ---
Subjective Progress Note Date: 04/19/22 21-year-old the clara female came in with complaints of a left-sided abdominal pain along with nausea vomiting although patient does have significant tenderness in the right upper abdomen patient had a CT of the abdomen which showed cholecystitis. Patient had an ultrasound is which showed gallbladder p olyp and to biliary sludge. Patient does have leukocytosis doesn't have any fever. Patient does have positive Marquez's sign and exam. Patient likely is elevated and I'll liver enzymes are elevated as well with prior bilirubin of 2.1. Common bile duct is not dilated. Patient is hyponatremic patient is presently receiving IV fluids at this time. Liver enzymes are coming down. 04/17/2022 Patient evaluated today pending cholecystectomy with Dr. Salamanca. MRCP has been cancalled by surgery. She reports no BM for a few days prior to admission, she also has not had appetite and has decreased oral intake prior to admission. Labs today showing hgb 11.6, sodium 133, potassium 3.8, BUN 7, creat 0.61. Blood sugar has been running low today due to NPO status. Expected to improve postsurgical. Liver enzymes are improving. Hepatitis panel is negative. She is afebrile, heart rate 101, blood pressure 131/85, 97% room air. Patient continues on IV zosyn. 04/18/2022 Patient is evaluated today postop day #1 laparoscopic cholecystectomy. Early this morning patient had ambulated to bathroom without assistance also disconnecting her IV tubing and nurse reports bleeding at 2 of her right lower quadrant incision sites afterwards. She did require a clotting medication to be applied to the incision sites and a compression dressing and abdominal binder was placed. Hemoglobin had dropped down to 8.3. Patient does report abdominal pain and has had 2 episodes of emesis throughout the evening and one early this morning. She is a low-grade temp of 99. Additional labs today show white count 7.19, hemoglobin 8.3, hematocrit 25.5, MCV 98.1, platelet count 99 which is decreased, sodium 131, potassium 3.4, blood glucose 135, calcium 7.8, liver enzymes showing AST 44, ALT 69, alk phos 93. She is T-max 99.1 overnight, heart rate 102, blood pressure 126/86, 97% room air. She has been advanced to clear liquid diet. 04/19/2022 Patient evaluated today sitting in bed with mom at the bedside. She has denied any further episodes of emesis however she is still nauseous. Patient has been on a clear liquid diet which has been advanced to low-fat. Should a bowel movement yesterday however none today and her bowel sounds are decreasing especially in the left lower quadrant. She is not passing much gas today. She is encouraged to increase her activity and will also order incentive spirometer and she did have low-grade fever T-max 99.7 throughout the night. Hemoglobin today 7.4 that has been no more episodes of bleeding from the right lower quadrant abdominal site. Platelet count is 88 today. Sodium 135, potassium 3.4, BUN 1.9, creatinine 0.6, calcium 8.2, magnesium 1.8. Blood pressure is 114/71. Patient will be monitored overnight with increase in diet and encouraged to ambulate. Review of Systems Constitutional: Denied any fatigue denied any fever. Cardio vascular: denied any chest pain, palpitations Gastrointestinal: denied any nausea, vomiting, diarrhea, reports no BM, mild abdominal pain. Pulmonary: Denied any shortness of breath cough Neurologic denied any new focal deficits All inpatient medications were reviewed and appropriate changes in these medications as dictated in the interval history and assessment and plan. PHYSICAL EXAMINATION: GENERAL: The patient is alert and oriented x3, not in any acute distress. Well developed, well nourished. HEENT: Pupils are round and equally reacting to light. EOMI. No scleral icterus. No conjunctival pallor. Normocephalic, atraumatic. No pharyngeal erythema. No thyromegaly. CARDIOVASCULAR: S1 and S2 present. No murmurs, rubs, or gallops. PULMONARY: Chest is clear to auscultation, no wheezing or crackles. ABDOMEN: distended abdomen with decreased bowel sounds LLQ. MUSCULOSKELETAL: No joint swelling or deformity. EXTREMITIES: No cyanosis, clubbing, or pedal edema. NEUROLOGICAL: Gross neurological examination did not reveal any focal deficits. SKIN: No rashes. Assessment and plan -Acute cholecystitis postop day 2 laparoscopic cholecystectomy she continues on IV zosyn. Elevated liver enzymes being followed by GI services possibly underlying alcoholic liver cirrhosis -Mild sinus tachycardia most likely from pain and infection, improved -Hyponatremia hypovolemic sodium is now 135 -Episodes of anxiety, she is receiving ativan as needed -Natriuretic hypokalemia: Potassium was replaced -Heavy alcohol use -Hematoma at incision site has been reinforced will repeat CBC tomorrow DVT prophylaxis: Early ambulation GI prophylaxis: Protonix Full Code Patient has been cleared by GI and surgical services. She has continued nausea and no BM today. Will give lactulose, and repeat CBC BMP in the morning. Encourage ambulation, encourage incentive spirometry. Discharge in the next 24 hours. The impression and plan of care has been dictated by Alia Bustamante, Nurse Practitioner as directed. Dr. Artis MD I have performed a history and physical examination and medical decision making of this patient, discussed the same with the dictator, and agree with the dictators assessment and plan as written, documented as a scribe. Based on total visit time, I have performed more than 50% of this visit. Objective - Vital Signs Vital signs: Vital Signs Temp 98.8 F 04/19/22 08:00 Pulse 99 04/19/22 08:00 Resp 18 04/19/22 08:00 BP 114/71 04/19/22 08:00 Pulse Ox 100 04/19/22 08:00 FiO2 Intake & Output 04/18/22 04/19/22 04/19/22 18:59 06:59 18:59 Intake Total 591 Balance 591 Intake: Oral 591 Other: Voiding Method Toilet # Voids 3 4 - Labs CBC & Chem 7: 04/19/22 05:41 04/19/22 05:41 Labs: Abnormal Lab Results - Last 24 Hours (Table) 04/19/22 04/19/22 Range/Units 05:41 05:41 RBC 2.30 L (4.10-5.20) X 10*6/uL Hgb 7.4 L (12.0-15.0) g/dL Hct 22.4 L (37.2-46.3) % MCV 97.4 H (80.0-97.0) fL MCH 32.2 H (27.0-32.0) pg Plt Count 88 L (140-440) X 10*3/uL Potassium 3.4 L (3.5-5.5) mmol/L BUN 1.9 L (9.0-27.0) mg/dL BUN/Creatinine Ratio 3.17 L (12.00-20.00) Ratio Calcium 8.2 L (8.7-10.3) mg/dL Assessment and Plan Time with Patient: Less than 30
[2022-04-19 14:47] LABS: Total Bilirubin 0.7 mg/dL (0.30-1.20)
--- NOTE | 2022-04-19 15:05 | CDI ---
Documentation Clarification Form Date: 04/19/2022 02:54:18 PM From: Sonali CollinsLUPILLO hercules, CCDS Admit Date: 04/16/2022 02:51:00 AM Patient Name: Jody Tarango Visit Number: [id number] Discharge Date: ATTENTION: The Clinical Documentation Specialists (CDI) and [facility] Coding Staff appreciate your assistance in clarifying documentation. Please respond to the clarification below the line at the bottom and electronically sign. The CDI & [facility] Coding staff will review the response and follow-up if needed. Please note: Queries are made part of the Legal Health Record. If you have any questions, please contact the author of this message via ITS. Dr. Juanpablo Salamanca: Hematoma(s) at the incision site is documented in the following Progress Notes: 04/18 and 04/19. Additional clarification is requested regarding the relationship, if any, that exists between the diagnosis and the procedure. Patients Admitting Diagnosis 04/16: Acute Cholecystitis. Post-Operative Diagnosis 04/17: Cholecystitis Procedure performed 04/17: Laparoscopic cholecystectomy History/Risk Factors per the 04/16 H/P: IBS, Hypertension, MRSA left leg 2011, Anxiety, Depression. Clinical Indicators: Presented to the ED on 04/16 with Abdominal Pain, Nausea, Vomiting. Admit with Abdominal Pain, Elevated Liver Enzymes, Hypomagnesemia, Cholecystitis, Dehydration LAB: 04/15 Hgb 14.5, Hct 44.9 04/17 Hgb 11.6, 9.8; Hct 35.2, 29.4 04/18 Hgb 8.3, Hct 25.5 04/19 Hgb 7.4, Hct 22.4 Treatment 04/16: IV Morphine 4 mg x1, IV Zofran 4 mg x1, IV Na Chl 1,000 mls @ 999 mls/hr q1H x2, IV Ativan 1 mg x1, IV Toradol 15 mg x1, IV Mag Sulfate 100 mls @ 100 mls/hr q1H. 04/18 Progress Note: Daily CBCs, monitoring for further bleeding at incision sites. What relationship, if any, exists between the diagnosis of [insert dx] and the procedure: [xx ] Hematoma at Incision Site(s) is a complication of surgical procedure [ ] Hematoma at Incision Site(s) is an expected outcome of the surgical procedure [ ] Hematoma at Incision Site(s) is related to patients co-morbid condition(s), please specify: and is not a complication of the procedure [ ] Other please specify: [ ] Unable to determine (Template Last Revised: January 2021) MTDD
--- NOTE | 2022-04-19 15:16 | CDI ---
Documentation Clarification Form Date: 04/19/2022 03:10:00 PM From: Sonali Collins CCS, CCDS Admit Date: 04/16/2022 02:51:00 AM Patient Name: Jody Tarango Visit Number: [id number] Discharge Date: ATTENTION: The Clinical Documentation Specialists (CDI) and [facility] Coding Staff appreciate your assistance in clarifying documentation. Please respond to the clarification below the line at the bottom and electronically sign. The CDI & [facility] Coding staff will review the response and follow-up if needed. Please note: Queries are made part of the Legal Health Record. If you have any questions, please contact the author of this message via ITS. Dr. Brigitte Wisdom: The patient is POD 2 status post Laparoscopic Cholecystectomy with the following Hemoglobin and Hematocrit values: LAB: 04/15 Hgb 14.5, Hct 44.9 04/17 Hgb 11.6, 9.8; Hct 35.2, 29.4 04/18 Hgb 8.3, Hct 25.5 04/19 Hgb 7.4, Hct 22.4 Patients Admitting Diagnosis 04/16: Acute Cholecystitis. Post-Operative Diagnosis 04/17: Cholecystitis Procedure performed 04/17: Laparoscopic cholecystectomy History/Risk Factors per the 04/16 H/P: IBS, Hypertension, MRSA left leg 2011, Anxiety, Depression. Clinical Indicators: Presented to the ED on 04/16 with Abdominal Pain, Nausea, Vomiting. Admit with Abdominal Pain, Elevated Liver Enzymes, Hypomagnesemia, Cholecystitis, Dehydration Treatment 04/16: IV Morphine 4 mg x1, IV Zofran 4 mg x1, IV Na Chl 1,000 mls @ 999 mls/hr q1H x2, IV Ativan 1 mg x1, IV Toradol 15 mg x1, IV Mag Sulfate 100 mls @ 100 mls/hr q1H. 04/18 Progress Note: Daily CBCs, monitoring for further bleeding at incision sites. Is there an additional diagnosis and/or clinical significance related to the above lab result/information: [ ] Acute blood loss anemia [ ] ABLA is a complication of the patient's procedure [ x ] ABLA is not a complication of the patient's procedure [ ] ABLA is related to the patient's co-morbid conditions, please specify: and is not a complication of the patient's procedure. [ ] Hemolytic anemia [ ] Drug induced anemia [ ] Anemia of chronic disease, please specify: [ ] Unable to determine [ ] Other, please specify (Template Last Revised: December 2020) MTDD
[2022-04-20] MEDS: HYDROcodone/APAP 5-325MG 1 EACH TAB PO PRN ×2 (05:47→10:44)
[2022-04-20] MEDS: PIPERACILLIN-TAZOBACTAM 3.375 GM in SODIUM CHLORIDE 0.9% 100 ML IVPB SCH ×2 (05:47→16:34)
[2022-04-20] MEDS: SODIUM CHLORIDE 0.9% 1,000 ML IV SCH (06:21)
[2022-04-20 07:42] VITALS: BP 117/64; PULSE 87; RESP 16; TEMP 98.6
[2022-04-20] MEDS: PANTOPRAZOLE 40 MG/10 ML VIAL IVP SCH (08:55)
[2022-04-20 11:50] LABS: African American GFR (CKD) 153.7 (60.0-200.0); Albumin 3.5 g/dL (3.8-4.9); Albumin/Globulin Ratio 1.71 (1.60-3.17); Anion Gap 8.8 mmol/L (10.00-18.00); BUN/Creat Ratio 2.75 Ratio (12.00-20.00); Blood Urea Nitrogen 1.5 mg/dL (9.0-27.0); Calcium 9.2 mg/dL (8.7-10.3); Magnesium 1.8 mg/dL (1.5-2.4); Non-African American GFR(CKD) 132.6 (60.0-200.0); Potassium 3.7 mmol/L (3.5-5.5); Total Bilirubin 0.4 mg/dL (0.30-1.20); Total Protein 5.5 g/dL (6.2-8.2)
[2022-04-20 12:23] LABS: Basophils # (A) 0.02 X 10*3/uL (0.00-0.10); Basophils % (A) 0.4 %; Eosinophils # (A) 0.09 X 10*3/uL (0.04-0.35); HCT 21.7 % (37.2-46.3); Immature Grans, Automated 0.9 %; Lymphocytes % (A) 42.5 %; MCH 31.7 pg (27.0-32.0); MCHC 32.3 g/dL (32.0-37.0); MCV 98.2 fL (80.0-97.0); Mean Platelet Volume 10.3 fL (9.5-12.2); Monocytes # (A) 0.33 X 10*3/uL (0.20-1.00); Monocytes % (A) 7.4 %; NRBC Per 100 WBC 0 /100 WBCS (0.0-0.0); Neutrophils # (A) 2.09 X 10*3/uL (1.80-7.70); Neutrophils % (A) 46.8 %; Platelet Count 123 X 10*3/uL (140-440); RBC 2.21 X 10*6/uL (4.10-5.20); RDW 13.4 % (11.5-14.5); WBC 4.47 X 10*3/uL (4.50-10.00)
--- NOTE | 2022-04-20 15:21 | P.DS ---
Providers Date of admission: 04/16/22 02:51 Attending physician: Pato Johnson Consults: 04/16/22 04:01 Consult Physician Routine Consulting Provider: Juanpablo Salamanca Consult Reason/Comments: Abdominal pain, acute Cholecystitis Do you want consulting provider notified?: Yes, Notify in am Consult Physician Routine Consulting Provider: Lesley Parsons Consult Reason/Comments: Abdominal pain, elevated liver enzymes Do you want consulting provider notified?: Yes, Notify in am Primary care physician: [facility] Course: Final Diagnosis -Acute cholecystitis postop day 3 laparoscopic cholecystectomy Elevated liver enzymes being followed by GI services possibly underlying alcoholic liver cirrhosis -Mild sinus tachycardia most likely from pain and infection, improved -Hyponatremia hypovolemic sodium is now 139 -Episodes of anxiety, she is receiving ativan as needed -Natriuretic hypokalemia: Potassium was replaced -Heavy alcohol use -Hematoma at incision site has been reinforced, no active bleeding, hgb stable at 7.0, managed by surgery -Anemia with hgb 7.0, she is macrocytic will recommend B12 and Folate studies outpatient' Full Code Discharge Diposition Patient is stable for discharge she has been cleared by surgery. She has bowel movements throughout the evening, and tolerated increase in diet today. She is afebrile. Abdomen is soft, tender at incision sites. She is wearing abdominal binder. Will recommend repeat CBC outpatient in 2 days. Follow up with primary care in 2-3 days and follow up with general surgery in 1 week. Hospital Course This is a 21-year-old female with history of heavy drinking, marijuana use, anxiety depression, left breast lumpectomy-benign, MRSA left leg in 2010 as well as change in bowel habits related to IBS and bloating symptoms. She presents to the hospital with concerns left-sided abdominal pain along with nausea and vomiting and has had tenderness in the right upper abdomen. Marquez sign is positive. Patient had a CT of the abdomen which showed cholecystitis and follow-up ultrasound showed polyp and biliary sludge. She does present WITH leukocytosis no fever. Liver enzymes are elevated AST 364, ALT 139, alk phos 15 1, total bilirubin 2.1. Amylase and lipase are within normal limits. Glucose is elevated at 142, she is hyponatremic at 131 and will be started on IV fluids and empiric antibiotic coverage with IV Zosyn. Consult has been placed to GI and surgical services. HIDA scan ordered and was discontinued as liver enzymes are trending down. Patient was taken for laparoscopic cholecystectomy on April [address] Salamanca. Postoperatively on the she developed bleeding at her right lower quadrant laparoscopic surgical site which needed to be reinforced and a clot dressing was applied. Her hemoglobin has dropped to 7 from 14.5 on admission. Has been stable the last 2 days. She does not require blood transfusion. No complaints of melena, no hematemesis with blood. She was started on clear liquid diet which she tolerated overnight however on April 19 she began vomiting after lunch on discharge was put on hold. She was given lactulose and had bowel movements of the evening and today she reports that her abdominal pain has improved, her nausea has subsided and she is tolerating full liquid diet. She will like to be discharged home today. Gallbladder pathology showing acalculous chronic cholecystitis. 04/20/2022 Today patient is evaluated with her mother at the bedside. She is on Prevacid for nausea vomiting she has had a bowel movement. She is using abdominal binder laparoscopic incision sites remain approximated with surrounding bruising. The RLQ incision site has what appears to be gauze which is mixed with blood clot form the incision site. This was asked to be evaluated by general surgery prior to discharge. She has positive bowel sounds. Her labs today show a white count of 4.47, hemoglobin 7.0, MCV 98.2, she is macrocytic we would recommend a vitamin B12 and folate level follow up outpatient. She may have underlying deficiency. Her platelet count has improved and is now 123. Her sodium was 139, potassium 3.7, BUN 1.5, creatinine 0.6. Cholecystectomy in the . Calcium is 9.2, magnesium 1.8, total bili 0.40, AST 39, ALT 41, alk phos 91, total protein 5.5. Hepatitis panels nonreactive. She has remained afebrile, heart rate 87, blood pressure 117/64, 100% room air. Patient is at the bedside, all questions were answered. She denies chest pain, shortness of breath, denies nausea or vomiting. Denies dizziness lightheadedness. Her lungs are clear, S1 2 auscultated, bowel sounds are normoactive. Focal neurological exam is negative. Please see medication reconciliation for a list of current medication. Thank you for allowing us to participate in the care of this patient. The impression and plan of care has been dictated by Alia Bustamante, Nurse Practitioner as directed. Dr. Artis MD I have performed a history and physical examination and medical decision making of this patient, discussed the same with the dictator, and agree with the dictators assessment and plan as written, documented as a scribe. Based on total visit time, I have performed more than 50% of this visit. Patient Condition at Discharge: Fair Plan - Discharge Summary Discharge Rx Participant: No New Discharge Prescriptions: New Pantoprazole Sodium [Protonix] 40 mg PO DAILY #30 tab Ondansetron [Zofran] 4 mg PO Q8HR PRN #6 tab PRN Reason: Nausea HYDROcodone/APAP 5-325MG [[place] 5-325] 1 tab PO Q6HR PRN 3 Days #12 tab PRN Reason: Pain Discharge Medication List HYDROcodone/APAP 5-325MG [[place] 5-325] 1 tab PO Q6HR PRN 3 Days #12 tab 04/19/22 [Rx] Ondansetron [Zofran] 4 mg PO Q8HR PRN #6 tab 04/19/22 [Rx] Pantoprazole Sodium [Protonix] 40 mg PO DAILY #30 tab 04/19/22 [Rx] Follow up Appointment(s)/Referral(s): Lesley Parsons MD [STAFF PHYSICIAN] - 1 Week [facility] [Primary Care Provider] - 1-2 days Juanpablo Salamanca MD [STAFF PHYSICIAN] - 1 Week Ambulatory/Diagnostic Orders: Complete Blood Count w/diff [LAB.AMB] Time Frame: 2 Days, Location: None Selected Comprehensive Metabolic Panel [LAB.AMB] Time Frame: 2 Days, Location: None Selected Patient Instructions/Handouts: Low Fat Diet (DC), At-Risk Alcohol Use (DC) Activity/Diet/Wound Care/Special Instructions: No driving while taking [place] No lifting over 10 pounds Shower daily. No soaking or tub baths for 2 weeks Very light activity until you are reevaluated at your follow up appointment with your surgeon Continue with total Alcohol Abstinence Repeat CBC and CMP outpatient in 2-3 days Discharge/Stand Alone Forms: AA Meetings Day, Outpatient Counseling, Inp Substance Abuse Facilities, Work/School Release / Restrict, Personal [place] Discharge Disposition: HOME SELF-CARE
--- NOTE | 2022-04-20 16:17 | P.PN ---
Subjective Progress Note Date: 04/20/22 CHIEF COMPLAINT: Cholecystitis HISTORY OF PRESENT ILLNESS: The patient is a 21-year-old status post ch olecystectomy. Patient reports that she has heavy alcohol use. She reports abdominal pain is improved. She is tolerating liquids. ROS: No reports of nausea and vomiting. No bowel movements. No fevers or chills. No new chest pain. No productive sputum PHYSICAL EXAM: VITAL SIGNS: Reviewed CONSTITUTIONAL: Well developed and in no acute distress. EYES: Conjuctivae without sclera icterus. Extraocular movements grossly intact. HEAD, EARS, NOSE, THROAT: Moist buccal mucosa. Head is atraumatic, normocephalic. Hears conversational speech. No nasal drainage. RESPIRATORY: Non-labored respirations and equal bilateral excursions. CARDIOVASCULAR: Palpable 2+ radial pulses. ABDOMEN: Bruising along the abdomen. Binder present. No active bleeding from incisions. MUSCULOSKELETAL: No gross deformity of the lower extremities noted. No clubbing. No cyanosis. SKIN: Good skin turgor. Well perfused. NEUROLOGIC: Cranial nerves II through XII grossly intact. No focal or lateralizing signs. PSYCH: Appropriate affect. Alert and oriented to person, place and time. CLINICAL LABS: Reviewed. Hemoglobin 7.0 with anemia. WBC 4.45. Platelets increased 88-123. LFTs trending downward, normal ASSESSMENT: 1. Cholecystitis status post cholecystectomy 2. Acute blood loss anemia following cholecystectomy 3. History of alcohol abuse disorder. PLAN: 1. Clinically, no signs of bleeding. 2. May advance diet 3. May shower 4. Stable for discharge from surgical standpoint when medically stable. Objective - Vital Signs Vital signs: Vital Signs Temp 98.6 F 04/20/22 07:42 Pulse 87 04/20/22 07:42 Resp 16 04/20/22 09:07 BP 117/64 04/20/22 07:42 Pulse Ox 100 04/20/22 07:42 FiO2 Intake & Output 04/19/22 04/20/22 04/20/22 18:59 06:59 18:59 Intake Total 1064 480 Balance 1064 480 Intake: Oral 1064 480 Other: Voiding Method Toilet Toilet # Voids 2 - Labs CBC & Chem 7: 04/20/22 06:51 04/20/22 06:51 Labs: Abnormal Lab Results - Last 24 Hours (Table) 04/19/22 Range/Units 05:41 AST 69 H (13-35) U/L ALT 50 H (8-44) U/L
[2022-04-20] MEDS: LACTATED RINGERS 1,000 ML IV SCH (16:34)
== END 2022-04-20 15:57 | disposition home or self-care (01) | DRG 418 ==
LOC: EC 23:00 → 3SCARD 04-16 02:51 → 5NMEDONC 04-16 11:58 → 6NMEDSUR 04-16 13:54
PROVIDERS: ADMIT Hospitalist; ATTEND Hospitalist
PROC: 0FT44ZZ Resection of Gallbladder, Percutaneous Endoscopic Approach (ICD-10-PCS; principal; 2022-04-17 12:25)
DX: K81.2 Acute cholecystitis with chronic cholecystitis (principal); D62 Acute posthemorrhagic anemia; E22.2 Syndrome of inappropriate secretion of antidiuretic hormone; K82.1 Hydrops of gallbladder; L76.22 Postprocedural hemorrhage of skin and subcutaneous tissue following other procedure; D69.6 Thrombocytopenia, unspecified; E83.42 Hypomagnesemia; E86.0 Dehydration; E86.1 Hypovolemia; E87.6 Hypokalemia; F06.4 Anxiety disorder due to known physiological condition; F10.10 Alcohol abuse, uncomplicated; E87.70 Fluid overload, unspecified; F32.A Depression, unspecified; K70.9 Alcoholic liver disease, unspecified; K76.0 Fatty (change of) liver, not elsewhere classified; Z82.49 Family history of ischemic heart disease and other diseases of the circulatory system; Z83.3 Family history of diabetes mellitus; Z86.14 Personal history of Methicillin resistant Staphylococcus aureus infection; Y83.8 Other surgical procedures as the cause of abnormal reaction of the patient, or of later complication, without mention of misadventure at the time of the procedure; R00.0 Tachycardia, unspecified; K58.9 Irritable bowel syndrome, unspecified; Z79.899 Other long term (current) drug therapy; Z79.1 Long term (current) use of non-steroidal anti-inflammatories (NSAID); Z84.1 Family history of disorders of kidney and ureter
CPT/HCPCS: 36415; 74177; 76705; 80048; 80053; 80074; 80320; 81001; 81025; 82150; 82247; 83690; 83735; 84100; 84450; 84460; 85025; 85610; 88304; 93005; 96361; 96365; 96366; 96368; 96375; 96376; 99285

== ENCOUNTER 2023-04-05 23:27 | Emergency (ER) | payer OTHER ==
[2023-04-06 01:15] LABS: Basophils % (A) 1 %; Eosinophils % (A) 1 %; HCT 38.8 % (34.0-46.0); HGB 12.9 gm/dL (11.4-16.0); Lymphocytes # (A) 2.3 k/uL (1.0-4.8); Lymphocytes % (A) 49 %; MCH 31.2 pg (25.0-35.0); MCHC 33.3 g/dL (31.0-37.0); MCV 93.6 fL (80.0-100.0); Mean Platelet Volume 7.9; Monocytes # (A) 0.3 k/uL (0-1.0); Monocytes % (A) 6 %; Neutrophils # (A) 1.9 k/uL (1.3-7.7); Neutrophils % (A) 41 %; Platelet Count 211 k/uL (150-450); RBC 4.15 m/uL (3.80-5.40); RDW 13.6 % (11.5-15.5); WBC 4.6 k/uL (3.8-10.6)
[2023-04-06 01:17] LABS: Appearance,Urine Clear (Clear); Bilirubin,Urine Negative (Negative); Blood,Urine Negative (Negative); Color,Urine Colorless; Glucose,Urine (UA) Negative (Negative); Ketones,Urine Negative (Negative); Leukocyte Esterase,Urine Negative (Negative); Nitrite,Urine Negative (Negative); Protein,Urine Negative (Negative); Specific Gravity,Urine 1.005 (1.001-1.035); Urobilinogen,Urine <2.0 mg/dL (<2.0)
[2023-04-06 01:37] LABS: ALT 53 U/L (4-34); African American GFR (CKD) >90 (>60 ml/min/1.73 sqM); Albumin 4.6 g/dL (3.5-5.0); Amylase 63 U/L (30-110); Anion Gap 14 mmol/L; Blood Urea Nitrogen 13 mg/dL (7-17); Calcium 8.9 mg/dL (8.4-10.2); Carbon Dioxide 26 mmol/L (22-30); Chloride 104 mmol/L (98-107); Glucose 88 mg/dL (74-99); Lipase <10 U/L (23-300); Non-African American GFR(CKD) >90 (>60 ml/min/1.73 sqM); Sodium 144 mmol/L (137-145); Total Bilirubin 0.5 mg/dL (0.2-1.3); Total Protein 7.7 g/dL (6.3-8.2)
[2023-04-06 01:39] LABS: AST 84 U/L (14-36); Alkaline Phosphatase 64 U/L (38-126); Potassium 4.1 mmol/L (3.5-5.1)
[2023-04-06] MEDS ORDERED: KETOROLAC 15 MG/ML 1 ML VIAL IVP STA (01:49)
[2023-04-06 06:29] LABS: C Reactive Protein <0.5 mg/dL (<1.0)
[2023-04-06 13:09] VITALS: BP 111/76; PULSE 88; RESP 17; TEMP 98.5
--- NOTE | 2023-04-06 13:20 | ED ---
Medical Decision Making - Medical Decision Making The patient was brought into the emergency department last evening and see by Dr. Spence. X-ray he will complete the initial encounter with history and physical examination. Patient had been brought in after he apparently called because she had been drinking alcohol was complaints of chest pain nausea vomiting. She was found have an alcohol level 313 mg/dL. She apparently had some thoughts of suicide last evening today with sobriety the present she was evaluated by the EPS service found not to be wrist herself or anyone else he will be discharged home with a safety plan and with her father. Outpatient referrals.Was pt. sent in by a medical professional or institution (, [facility], [employer], urgent care, hospital, or shelter...) When possible be specific @ -No Did you speak to anyone other than the patient for history (EMS, parent, family, police, friend...)? What history was obtained from this source @ -EPS nurse Did you review nursing and triage notes (agree or disagree)? Why? @ -I reviewed and agree with nursing and triage notes Were old charts reviewed (outside hosp., previous admission, EMS record, old EKG, old radiological studies, urgent care reports/EKG's, shelter records)? Report findings @ -No old charts were reviewed Differential Diagnosis (chest pain, altered mental status, abdominal pain women, abdominal pain men, vaginal bleeding, weakness, fever, dyspnea, syncope, hea dache, dizziness, GI bleed, back pain, seizure, CVA, palpatations, mental health, musculoskeletal)? @ -not applicable EKG interpreted by me (3pts min.). @ -Not done X-rays interpreted by me (1pt min.). @ -None done CT interpreted by me (1pt min.). @ -None done U/S interpreted by me (1pt. min.). @ -None done What testing was considered but not performed or refused? (CT, X-rays, U/S, labs)? Why? @ -None What meds were considered but not given or refused? Why? @ -None Did you discuss the management of the patient with other professionals (professionals i.e. , [facility], [employer], lab, RT, psych nurse, social services technician, welt maker, teacher, airfield services officer, clinical case manager)? Give summary @ -EPS nursing staff, Annalise Was smoking cessation discussed for >3mins.? @ -No Was critical care preformed (if so, how long)? @ -No Were there social determinants of health that impacted care today? How? (Homelessness, low income, unemployed, alcoholism, drug addiction, transportation, low edu. Level, literacy, decrease access to med. care, penitentiary, rehab)? @ -No Was there de-escalation of care discussed even if they declined (Discuss DNR or withdrawal of care, Hospice)? DNR status @ -No What co-morbidities impacted this encounter? (DM, HTN, Smoking, COPD, CAD, Ca ncer, CVA, ARF, Chemo, Hep., AIDS, mental health diagnosis, sleep apnea, morbid obesity)? @ -Fire history of psychiatric problems Was patient admitted / discharged? Hospital course, mention meds given and route, prescriptions, significant lab abnormalities, going to OR and other pertinent info. @ -Patient was discharged with a safety plan outpatient referral she'll be going home with her father Undiagnosed new problem with uncertain prognosis? @ -No Drug Therapy requiring intensive monitoring for toxicity (Heparin, Nitro, Insulin, Cardizem)? @ -No Were any procedures done? @ -No Diagnosis/symptom? @ -Acute alcohol intoxication, adjustment disorder Acute, or Chronic, or Acute on Chronic? @ -default Uncomplicated (without systemic symptoms) or Complicated (systemic symptoms)? @ -default Side effects of treatment? @ -No Exacerbation, Progression, or Severe Exacerbation? @ -No Poses a threat to life or bodily function? How? (Chest pain, USA, OR, pneumonia, PE, COPD, DKA, ARF, appy, cholecystitis, CVA, Diverticulitis, Homicidal, Suicidal, threat to staff... and all critical care pts) @ -No - Lab Data Result diagrams: 04/06/23 00:30 04/06/23 00:30 Lab Results 04/06/23 04/06/23 04/06/23 Range/Units 00:30 00:30 00:30 WBC 4.6 (3.8-10.6) k/uL RBC 4.15 (3.80-5.40) m/uL Hgb 12.9 (11.4-16.0) gm/dL Hct 38.8 (34.0-46.0) % MCV 93.6 (80.0-100.0) fL MCH 31.2 (25.0-35.0) pg MCHC 33.3 (31.0-37.0) g/dL RDW 13.6 (11.5-15.5) % Plt Count 211 (150-450) k/uL MPV 7.9 Neutrophils % 41 % Lymphocytes % 49 % Monocytes % 6 % Eosinophils % 1 % Basophils % 1 % Neutrophils # 1.9 (1.3-7.7) k/uL Lymphocytes # 2.3 (1.0-4.8) k/uL Monocytes # 0.3 (0-1.0) k/uL Eosinophils # 0.0 (0-0.7) k/uL Basophils # 0.0 (0-0.2) k/uL Sodium (137-145) mmol/L Potassium (3.5-5.1) mmol/L Chloride (98-107) mmol/L Carbon Dioxide (22-30) mmol/L Anion Gap mmol/L BUN (7-17) mg/dL Creatinine (0.52-1.04) mg/dL Est GFR (CKD-EPI)AfAm (>60 ml/min/1.73 sqM) Est GFR (CKD-EPI)NonAf (>60 ml/min/1.73 sqM) Glucose (74-99) mg/dL Calcium (8.4-10.2) mg/dL Total Bilirubin (0.2-1.3) mg/dL AST (14-36) U/L ALT (4-34) U/L Alkaline Phosphatase (38-126) U/L C-Reactive Protein (<1.0) mg/dL Total Protein (6.3-8.2) g/dL Albumin (3.5-5.0) g/dL Amylase (30-110) U/L Lipase (23-300) U/L Urine Color Colorless Urine Appearance Clear (Clear) Urine pH 6.0 (5.0-8.0) Ur Specific [place] 1.005 (1.001-1.035) Urine Protein Negative (Negative) Urine Glucose (UA) Negative (Negative) Urine Ketones Negative (Negative) Urine Blood Negative (Negative) Urine Nitrite Negative (Negative) Urine Bilirubin Negative (Negative) Urine Urobilinogen <2.0 (<2.0) mg/dL Ur Leukocyte Esterase Negative (Negative) Urine HCG, Qual Not Detected (Not Detectd) 04/06/23 Range/Units 00:30 WBC (3.8-10.6) k/uL RBC (3.80-5.40) m/uL Hgb (11.4-16.0) gm/dL Hct (34.0-46.0) % MCV (80.0-100.0) fL MCH (25.0-35.0) pg MCHC (31.0-37.0) g/dL RDW (11.5-15.5) % Plt Count (150-450) k/uL MPV Neutrophils % % Lymphocytes % % Monocytes % % Eosinophils % % Basophils % % Neutrophils # (1.3-7.7) k/uL Lymphocytes # (1.0-4.8) k/uL Monocytes # (0-1.0) k/uL Eosinophils # (0-0.7) k/uL Basophils # (0-0.2) k/uL Sodium 144 (137-145) mmol/L Potassium 4.1 (3.5-5.1) mmol/L Chloride 104 (98-107) mmol/L Carbon Dioxide 26 (22-30) mmol/L Anion Gap 14 mmol/L BUN 13 (7-17) mg/dL Creatinine 0.51 L (0.52-1.04) mg/dL Est GFR (CKD-EPI)AfAm >90 (>60 ml/min/1.73 sqM) Est GFR (CKD-EPI)NonAf >90 (>60 ml/min/1.73 sqM) Glucose 88 (74-99) mg/dL Calcium 8.9 (8.4-10.2) mg/dL Total Bilirubin 0.5 (0.2-1.3) mg/dL AST 84 H (14-36) U/L ALT 53 H (4-34) U/L Alkaline Phosphatase 64 (38-126) U/L C-Reactive Protein <0.5 (<1.0) mg/dL Total Protein 7.7 (6.3-8.2) g/dL Albumin 4.6 (3.5-5.0) g/dL Amylase 63 (30-110) U/L Lipase <10 L (23-300) U/L Urine Color Urine Appearance (Clear) Urine pH (5.0-8.0) Ur Specific [place] (1.001-1.035) Urine Protein (Negative) Urine Glucose (UA) (Negative) Urine Ketones (Negative) Urine Blood (Negative) Urine Nitrite (Negative) Urine Bilirubin (Negative) Urine Urobilinogen (<2.0) mg/dL Ur Leukocyte Esterase (Negative) Urine HCG, Qual (Not Detectd) Disposition Clinical Impression: Alcohol intoxication, Adjustment disorder Disposition: HOME SELF-CARE Condition: Good Instructions (If sedation given, give patient instructions): Mood Disorders (ED), Stress (ED), Alcohol Intoxication (ED), Abuse of Alcohol (ED) Is patient prescribed a controlled substance at d/c from ED?: No Referrals: None,Stated [Primary Care Provider] - 1-2 days Decision Date: 04/06/23 Decision Time: 13:19
== END 2023-04-06 13:24 | disposition home or self-care (01) ==
LOC: EC 23:27
DX: F10.129 Alcohol abuse with intoxication, unspecified (principal); F43.20 Adjustment disorder, unspecified
CPT/HCPCS: 82075; 36415; 80053; 82150; 83690; 85025; 86140; 81003; 81025; 99284; 96374; J1885

== ENCOUNTER 2023-04-07 16:38 | Observation (INO) | payer OTHER ==
[2023-04-07] MEDS ORDERED: ONDANSETRON 4 MG/2 ML VIAL IVP STA (18:50)
[2023-04-07] MEDS ORDERED: KETOROLAC 15 MG/ML 1 ML VIAL IVP STA (18:50)
[2023-04-07 19:17] LABS: Basophils % (A) 1 %; Eosinophils % (A) 1 %; HCT 41.1 % (34.0-46.0); HGB 13.4 gm/dL (11.4-16.0); Lymphocytes # (A) 1.8 k/uL (1.0-4.8); Lymphocytes % (A) 45 %; MCH 31.5 pg (25.0-35.0); MCHC 32.7 g/dL (31.0-37.0); MCV 96.4 fL (80.0-100.0); Mean Platelet Volume 7.8; Monocytes # (A) 0.1 k/uL (0-1.0); Monocytes % (A) 3 %; Neutrophils # (A) 1.9 k/uL (1.3-7.7); Neutrophils % (A) 48 %; Platelet Count 174 k/uL (150-450); RBC 4.26 m/uL (3.80-5.40); RDW 13.5 % (11.5-15.5)
[2023-04-07 19:18] LABS: Appearance,Urine Clear (Clear); Bilirubin,Urine Negative (Negative); Blood,Urine Negative (Negative); Color,Urine Colorless; Glucose,Urine (UA) Negative (Negative); Ketones,Urine Negative (Negative); Leukocyte Esterase,Urine Negative (Negative); Nitrite,Urine Negative (Negative); PH, Urine 5.5 (5.0-8.0); Protein,Urine Negative (Negative); Specific Gravity,Urine 1.004 (1.001-1.035); Urobilinogen,Urine <2.0 mg/dL (<2.0)
[2023-04-07 19:29] LABS: ALT 55 U/L (4-34); AST 78 U/L (14-36); African American GFR (CKD) >90 (>60 ml/min/1.73 sqM); Albumin 4.6 g/dL (3.5-5.0); Alkaline Phosphatase 86 U/L (38-126); Anion Gap 14 mmol/L; Blood Urea Nitrogen 15 mg/dL (7-17); Calcium 8.8 mg/dL (8.4-10.2); Carbon Dioxide 28 mmol/L (22-30); Chloride 103 mmol/L (98-107); Glucose 80 mg/dL (74-99); Lipase <10 U/L (23-300); Non-African American GFR(CKD) >90 (>60 ml/min/1.73 sqM); Potassium 3.9 mmol/L (3.5-5.1); Sodium 145 mmol/L (137-145); Total Bilirubin 0.3 mg/dL (0.2-1.3); Total Protein 7.3 g/dL (6.3-8.2)
[2023-04-07 20:11] LABS: Alcohol 454 mg/dL
[2023-04-07] MEDS ORDERED: ONDANSETRON 4 MG/2 ML VIAL IVP PRN (20:38)
[2023-04-07] MEDS ORDERED: NALOXONE 0.4 MG/ML 1 ML VIAL IV PRN (20:38)
--- NOTE | 2023-04-07 20:38 | ED ---
Psych HPI - General Chief Complaint: Psychiatric Symptoms Stated Complaint: ETOH depression Time Seen by Provider: 04/07/23 18:07 Source: patient Mode of arrival: ambulatory - History of Present Illness Initial Comments: 22-year-old female presents to the emergency room reporting depression. Reports to suicidal ideations. Drink a pint of alcohol today in an attempt to "drink herself to ". Patient has long-standing history of depression. Has been admitted to [facility]. States that she take psychiatric medications however does not see a counselor. Denies any other substance abuse. No concern for . No other alleviating, precipitating or modifying factors - Related Data Home Medications Medication Instructions Recorded Confirmed Triamcinolone 0.1% Paste [Oralone 1 applic MUCOUS MEM PC-TID 04/07/23 04/07/23 0.1% Paste] traZODone HCL 100 mg PO HS 04/07/23 04/07/23 Allergies Allergy/AdvReac Type Severity Reaction Status Date / Time hydromorphone [From Dilaudid] AdvReac Hallucinati Verified 04/07/23 20:09 ons Review of Systems ROS Statement: Those systems with pertinent positive or pertinent negative responses have been documented in the HPI. ROS Other: All systems not noted in ROS Statement are negative. Past Medical History Past Medical History: No Reported History Additional Past Medical History / Comment(s): CHANGE IN BOWEL HABITS IBS. bloating symptoms. been following her own blood pressure and it has been high History of Any Multi-Drug Resistant Organisms: None Reported, MRSA Date of last positivie culture/infection: 2010 MDRO Source:: left leg Past Surgical History: Breast Surgery Additional Past Surgical History / Comment(s): LT BREAST LUMPECTOMY-BENIGN Past Anesthesia/Blood Transfusion Reactions: No Reported Reaction Past Psychological History: Anxiety, Depression Smoking Status: Never smoker Past Alcohol Use History: Abuse, Daily, Heavy Past Drug Use History: Marijuana - Past Family History Brother(s) Family Medical History: Cancer Father Family Medical History: Congestive Heart Failure (CHF), Diabetes Mellitus, Dialysis Additional Family Medical History / Comment(s): heart and kidney failure. dad on dialysis. HTN Mother Family Medical History: Diabetes Mellitus Additional Family Medical History / Comment(s): HTN General Exam Limitations: no limitations General appearance: alert, in no apparent distress, appears intoxicated Head exam: Present: atraumatic, normocephalic, normal inspection Eye exam: Present: normal appearance, PERRL, EOMI. Absent: scleral icterus, conjunctival injection, periorbital swelling ENT exam: Present: normal exam, mucous membranes moist Neck exam: Present: normal inspection. Absent: tenderness, meningismus, lymphadenopathy Respiratory exam: Present: normal lung sounds bilaterally. Absent: respiratory distress, wheezes, rales, rhonchi, stridor Cardiovascular Exam: Present: regular rate, normal rhythm, normal heart sounds. Absent: systolic murmur, diastolic murmur, rubs, gallop, clicks GI/Abdominal exam: Present: soft, normal bowel sounds. Absent: distended, tenderness, guarding, rebound, rigid Extremities exam: Present: normal inspection, full ROM, normal capillary refill. Absent: tenderness, pedal edema, joint swelling, calf tenderness Back exam: Present: normal inspection Neurological exam: Present: alert, oriented X3, CN II-XII intact Psychiatric exam: Present: depressed Skin exam: Present: warm, dry, intact, normal color. Absent: rash Course Vital Signs 04/07/23 16:47 Temperature 97.7 F Pulse Rate 108 H Respiratory 18 Rate Blood Pressure 131/93 O2 Sat by Pulse 97 Oximetry Medical Decision Making - Medical Decision Making Was pt. sent in by a medical professional or institution ([facility], FINANCIAL INSTITUTION TREASURER, urgent care, hospital, or correction...) When possible be specific @ -No Did you speak to anyone other than the patient for history (EMS, parent, family, police, friend...)? What history was obtained from this source @ -No Did you review nursing and triage notes (agree or disagree)? Why? @ -I reviewed and agree with nursing and triage notes Were old charts reviewed (outside hosp., previous admission, EMS record, old EKG, old radiological studies, urgent care reports/EKG's, correction records)? Report findings @ -No old charts were reviewed Differential Diagnosis (chest pain, altered mental status, abdominal pain women, abdominal pain men, vaginal bleeding, weakness, fever, dyspnea, syncope, headache, dizziness, GI bleed, back pain, seizure, CVA, palpatations, mental health, musculoskeletal)? @ -Differential Mental Health Depression, anxiety, bipolar, psychosis, schizophrenia, borderline personality, situational depression, adjustment disorder, behavioral disorder, brain tumor, malingering, substance abuse, encephalopathy, medication reaction, dementia, hypothyroidism, degenerative neurologic disorder, lupus.... This is not meant to be all-inclusive list EKG interpreted by me (3pts min.). @ -Not done X-rays interpreted by me (1pt min.). @ -None done CT interpreted by me (1pt min.). @ -None done U/S interpreted by me (1pt. min.). @ -None done What testing was considered but not performed or refused? (CT, X-rays, U/S, labs)? Why? @ -None What meds were considered but not given or refused? Why? @ -None Did you discuss the management of the patient with other professionals (professionals i.e. , PA, FINANCIAL INSTITUTION TREASURER, lab, RT, psych nurse, social media community manager, final block press operator, teacher, upscale security officer, community case manager)? Give summary @ -I spoke with Dr. Fontanez who will admit the patient Was smoking cessation discussed for >3mins.? @ -No Was critical care preformed (if so, how long)? @ -No Were there social determinants of health that impacted care today? How? (Homelessness, low income, unemployed, alcoholism, drug addiction, transportation, low edu. Level, literacy, decrease access to med. care, senior care, rehab)? @ -Alcoholism which made patient depressed and landed her in the ER Was there de-escalation of care discussed even if they declined (Discuss DNR or withdrawal of care, Hospice)? DNR status @ -No What co-morbidities impacted this encounter? (DM, HTN, Smoking, COPD, CAD, Cancer, CVA, ARF, Chemo, Hep., AIDS, mental health diagnosis, sleep apnea, morbid obesity)? @ -Alcoholism, depression Was patient admitted / discharged? Hospital course, mention meds given and route, prescriptions, significant lab abnormalities, going to OR and other pertinent info. @ -Upon arrival patient was placed into room 7. A thorough history and physi rené exam was performed. Patient reports to abdominal pain which is chronic when she is heavily drinking. IV is established and she is given 4 mg of Zofran. Laboratory studies are conducted. Patient is significantly intoxicated and therefore will be admitted to the hospital. she will not be clinically sober until 3 PM tomorrow. Spoke with Dr. Fontanez who will admit the patient with psychiatry on consult Undiagnosed new problem with uncertain prognosis? @ -Yes Drug Therapy requiring intensive monitoring for toxicity (Heparin, Nitro, Insul in, Cardizem)? @ -No Were any procedures done? @ -No Diagnosis/symptom? @ -Acute depression, acute suicidal ideations, acute intoxication Acute, or Chronic, or Acute on Chronic? @ -Acute Uncomplicated (without systemic symptoms) or Complicated (systemic symptoms)? @ -Complicated Side effects of treatment? @ -No Exacerbation, Progression, or Severe Exacerbation? @ -No Poses a threat to life or bodily function? How? (Chest pain, USA, NC, pneumonia, PE, COPD, DKA, ARF, appy, cholecystitis, CVA, Diverticulitis, Homicidal, Suicidal, threat to staff... and all critical care pts) @ -Yes patient is actively suicidal - Lab Data Result diagrams: 04/07/23 19:02 04/07/23 19:02 Lab Results 04/07/23 04/07/23 04/07/23 Range/Units 19:02 19:02 19:13 WBC 4.0 (3.8-10.6) k/uL RBC 4.26 (3.80-5.40) m/uL Hgb 13.4 (11.4-16.0) gm/dL Hct 41.1 (34.0-46.0) % MCV 96.4 (80.0-100.0) fL MCH 31.5 (25.0-35.0) pg MCHC 32.7 (31.0-37.0) g/dL RDW 13.5 (11.5-15.5) % Plt Count 174 (150-450) k/uL MPV 7.8 Neutrophils % 48 % Lymphocytes % 45 % Monocytes % 3 % Eosinophils % 1 % Basophils % 1 % Neutrophils # 1.9 (1.3-7.7) k/uL Lymphocytes # 1.8 (1.0-4.8) k/uL Monocytes # 0.1 (0-1.0) k/uL Eosinophils # 0.0 (0-0.7) k/uL Basophils # 0.0 (0-0.2) k/uL Sodium 145 (137-145) mmol/L Potassium 3.9 (3.5-5.1) mmol/L Chloride 103 (98-107) mmol/L Carbon Dioxide 28 (22-30) mmol/L Anion Gap 14 mmol/L BUN 15 (7-17) mg/dL Creatinine 0.60 (0.52-1.04) mg/dL Est GFR (CKD-EPI)AfAm >90 (>60 ml/min/1.73 sqM) Est GFR (CKD-EPI)NonAf >90 (>60 ml/min/1.73 sqM) Glucose 80 (74-99) mg/dL Calcium 8.8 (8.4-10.2) mg/dL Total Bilirubin 0.3 (0.2-1.3) mg/dL AST 78 H (14-36) U/L ALT 55 H (4-34) U/L Alkaline Phosphatase 86 (38-126) U/L Total Protein 7.3 (6.3-8.2) g/dL Albumin 4.6 (3.5-5.0) g/dL Lipase <10 L (23-300) U/L Urine Color Colorless Urine Appearance Clear (Clear) Urine pH 5.5 (5.0-8.0) Ur Specific [place] 1.004 (1.001-1.035) Urine Protein Negative (Negative) Urine Glucose (UA) Negative (Negative) Urine Ketones Negative (Negative) Urine Blood Negative (Negative) Urine Nitrite Negative (Negative) Urine Bilirubin Negative (Negative) Urine Urobilinogen <2.0 (<2.0) mg/dL Ur Leukocyte Esterase Negative (Negative) Urine HCG, Qual (Not Detectd) Serum Alcohol 454 H* mg/dL 04/07/23 Range/Units 19:13 WBC (3.8-10.6) k/uL RBC (3.80-5.40) m/uL Hgb (11.4-16.0) gm/dL Hct (34.0-46.0) % MCV (80.0-100.0) fL MCH (25.0-35.0) pg MCHC (31.0-37.0) g/dL RDW (11.5-15.5) % Plt Count (150-450) k/uL MPV Neutrophils % % Lymphocytes % % Monocytes % % Eosinophils % % Basophils % % Neutrophils # (1.3-7.7) k/uL Lymphocytes # (1.0-4.8) k/uL Monocytes # (0-1.0) k/uL Eosinophils # (0-0.7) k/uL Basophils # (0-0.2) k/uL Sodium (137-145) mmol/L Potassium (3.5-5.1) mmol/L Chloride (98-107) mmol/L Carbon Dioxide (22-30) mmol/L Anion Gap mmol/L BUN (7-17) mg/dL Creatinine (0.52-1.04) mg/dL Est GFR (CKD-EPI)AfAm (>60 ml/min/1.73 sqM) Est GFR (CKD-EPI)NonAf (>60 ml/min/1.73 sqM) Glucose (74-99) mg/dL Calcium (8.4-10.2) mg/dL Total Bilirubin (0.2-1.3) mg/dL AST (14-36) U/L ALT (4-34) U/L Alkaline Phosphatase (38-126) U/L Total Protein (6.3-8.2) g/dL Albumin (3.5-5.0) g/dL Lipase (23-300) U/L Urine Color Urine Appearance (Clear) Urine pH (5.0-8.0) Ur Specific [place] (1.001-1.035) Urine Protein (Negative) Urine Glucose (UA) (Negative) Urine Ketones (Negative) Urine Blood (Negative) Urine Nitrite (Negative) Urine Bilirubin (Negative) Urine Urobilinogen (<2.0) mg/dL Ur Leukocyte Esterase (Negative) Urine HCG, Qual Not Detected (Not Detectd) Serum Alcohol mg/dL Disposition Clinical Impression: Alcohol intoxication, Depression, Suicidal ideations Disposition: ADMITTED IP TO THIS [facility] Condition: Stable Is patient prescribed a controlled substance at d/c from ED?: No Time of Disposition: 20:37 Decision to Admit Reason: Admit from EC Decision Date: 04/07/23 Decision Time: 20:37
[2023-04-07] MEDS ORDERED: THIAMINE 100 MG/ML 2 ML VIAL IM STA (20:42)
[2023-04-07] MEDS ORDERED: LORazepam 1 MG TAB PO PRN ×3 (20:42)
[2023-04-07] MEDS ORDERED: LORazepam 0.5 MG TAB PO PRN (20:42)
[2023-04-07] MEDS: SODIUM CHLORIDE 0.9% 1,000 ML IV SCH (21:08)
[2023-04-07] MEDS: PANTOPRAZOLE 40 MG/10 ML VIAL IV SCH (21:08)
--- NOTE | 2023-04-08 00:24 | P.HPIM ---
History of Present Illness H&P Date: 04/07/23 The patient is a 22-year-old female with a PMH of EtOH abuse who presents to the emergency room protocol intoxication depression and suicidal ideation. The patient states that she had been feeling down about herself and was drinking really heavily, as much as a pint of vodka 3-4 times a week. She reports that she has been drinking with binges over the past 5 years. She also reports a chronic abdominal pain which she attributes to her drinking, and states that it improves after abstinence. The patient reports that she is currently not suicidal and has no plans of harming herself. She denied experiencing chest discomfort or shortness of breath. She reports some nausea with episodes of vo miting earlier today without blood. She denied history of alcohol withdrawal or DTs. Also denied history of alcohol withdrawal seizures. Laboratory evaluation in the emergency room was remarkable for serum alcohol level CDLIV, AST 78, ALT 55, lipase less than 10. ED documentation reviewed and case discussed with ED provider. Review of systems: Pertinent positives and negatives as discussed in HPI, a complete review of systems was performed and all other systems are negative. Physical examination: Vital signs reviewed General: non toxic, no distress, appears at stated age, normal weight Derm: no unusual rashes/lesions, warm Head: atraumatic, normocephalic, symmetric Eyes: EOMI, no lid lag, anicteric sclera, pupils equal round reactive to light ENT: Nose and ears atraumatic Neck: No cervical lymphadenopathy, trachea midline, supple Mouth: no lip lesion, mucus membranes moist Cardiovascular: S1S2 reg, no murmur, positive dorsalis pedis pulse bilateral, no edema Lungs: CTA bilateral, no rhonchi, no rales, no accessory muscle use Abdominal: soft, minimal epigastric tenderness noted, no guarding Ext: muscle strength 5 out of 5 in all 4 extremities grossly, no gross muscle atrophy, no contractures, Neuro: CN II-XI grossly intact, no gross focal neuro deficits Psych: Alert, oriented, appropriate affect Assessment: Alcohol intoxication Abnormal LFTs Depression with history of suicidal ideation Imaging: None performed Data Review: Laboratory evaluation in the emergency room was remarkable for serum alcohol level CDLIV, AST 78, ALT 55, lipase less than 10. Plan: Psychiatry consulted The patient currently denying suicidal ideation Monitor LFTs Strongly advised on importance of cessation from alcohol use Initiate thiamine and multivitamin DVT prophylaxis: Lovenox subcu The patient is admitted with an anticipated less than 2 midnight stay for evaluation of EtOh CODE STATUS: Full Code Discussed with: Patient Anticipated discharge place: Home Past Medical History Past Medical History: No Reported History Additional Past Medical History / Comment(s): CHANGE IN BOWEL HABITS IBS. bloating symptoms. been following her own blood pressure and it has been high History of Any Multi-Drug Resistant Organisms: None Reported, MRSA Date of last positivie culture/infection: 2010 MDRO Source:: left leg Past Surgical History: Breast Surgery Additional Past Surgical History / Comment(s): LT BREAST LUMPECTOMY-BENIGN Past Anesthesia/Blood Transfusion Reactions: No Reported Reaction Past Psychological History: Anxiety, Depression Smoking Status: Never smoker Past Alcohol Use History: Abuse, Daily, Heavy Past Drug Use History: Marijuana - Past Family History Brother(s) Family Medical History: Cancer Father Family Medical History: Congestive Heart Failure (CHF), Diabetes Mellitus, Dialysis Additional Family Medical History / Comment(s): heart and kidney failure. dad on dialysis. HTN Mother Family Medical History: Diabetes Mellitus Additional Family Medical History / Comment(s): HTN Medications and Allergies Home Medications Medication Instructions Recorded Confirmed Type Triamcinolone 0.1% Paste [Oralone 1 applic MUCOUS MEM PC-TID 04/07/23 04/07/23 History 0.1% Paste] traZODone HCL 100 mg PO HS 04/07/23 04/07/23 History Allergies Allergy/AdvReac Type Severity Reaction Status Date / Time hydromorphone [From Dilaudid] AdvReac Hallucinati Verified 04/07/23 20:09 ons Physical Exam Vitals: Vital Signs Temp Pulse Resp BP Pulse Ox 04/07/23 16:47 97.7 F 108 H 18 131/93 97 Intake and Output 04/07/23 04/07/23 04/08/23 14:59 22:59 06:59 Other: Weight 63.503 kg Results CBC & Chem 7: 04/07/23 19:02 04/07/23 19:02 Labs: Abnormal Lab Results - Last 24 Hours (Table) 04/07/23 Range/Units 19:02 AST 78 H (14-36) U/L ALT 55 H (4-34) U/L Lipase <10 L (23-300) U/L Serum Alcohol 454 H* mg/dL
[2023-04-08] MEDS: SODIUM CHLORIDE 0.9% 1,000 ML IV SCH ×2 (03:40→11:54)
[2023-04-08] MEDS ORDERED: ENOXAPARIN 40 MG/0.4 ML SYRINGE SQ SCH (09:00)
[2023-04-08] MEDS ORDERED: THIAMINE 100 MG TAB PO SCH (09:00)
[2023-04-08] MEDS ORDERED: MULTIVITAMINS, THERA 1 EACH TAB PO SCH (09:00)
[2023-04-08] MEDS: PANTOPRAZOLE 40 MG/10 ML VIAL IV SCH (09:25)
[2023-04-08] MEDS ORDERED: ACETAMINOPHEN TAB 325 MG TAB PO PRN (10:12)
--- NOTE | 2023-04-08 13:37 | P.CN ---
Psychiatric Consult - . 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 She is single has no kids. REASON FOR REFERRAL: Psychiatry was consulted for depression and suicidal ideations. HISTORY OF PRESENT ILLNESS: The patient presented to the hospital yesterday to the ER complaining of depression and suicidal ideations. Patient is also reportedly drinking fairly heavily about a pint of alcohol a day and according to ER report wanted to "drink herself to ". Patient had elevated AST and ALT and also blood alcohol level was 454 on admission. Patient was seen lying in bed alongside her friend and also her mother and was agreeable to speak to commercial insurance underwriter today. Patient states that she has been feeling more depressed and suicidal lately. She claims that she has had chronic suicidal thoughts however these have been getting worse. She states that she did not have a specific plan however just wanted to "". She claims that she has been drinking heavily heavy lately about 3-4 times a week about half a pint of vodka. Claims that she is finding it hard to cut back on it and has been feeling more depressed and anxious. She states that she has been dealing with financial, relationship and also family stressors. She was fairly vague about them however states that her mother and her often "butt heads" and also claims that she feels like her life should've been further along now in her career however has not. States that she does have suicidal thoughts however no plan or intent. At this time patient denies any homical ideations, intent or plan. Patient denies any auditory, visual hallucinations and denies any paranoia or delusions. Patients admits to using etoh as noted above. States that she has been drinking about 2 or 3 years now and increasing her mouth. Claims that she does not have any current withdrawal symptoms however did state that she had visual hallucinations in the past when she stopped drinking. Denies any DUIs at this time. Denies any other recreational drug use or cigarettes. PAST PSYCHIATRIC HISTORY: Patient has a a history of depression and anxiety and alcohol abuse. She states that she was previously on Seroquel and also trazodone. She claims that her last psychiatric hospitalization was on the mental health unit in December 2019. Patient denies any psychiatric outpatient follow-up. She claims that she overdosed on pills about 2 or 3 years ago. Past Medical History: No Reported History Additional Past Medical History / Comment(s): CHANGE IN BOWEL HABITS IBS. bloating symptoms. been following her own blood pressure and it has been high History of Any Multi-Drug Resistant Organisms: None Reported, MRSA Date of last positivie culture/infection: 2010 MDRO Source:: left leg Past Surgical History: Breast Surgery Additional Past Surgical History / Comment(s): LT BREAST LUMPECTOMY-BENIGN Past Anesthesia/Blood Transfusion Reactions: No Reported Reaction Past Psychological History: Anxiety, Depression Smoking Status: Never smoker Past Alcohol Use History: Abuse, Daily, Heavy Past Drug Use History: Marijuana ALLERGIES: as per EMR. CHEMICAL DEPENDENCY HISTORY: as per HPI. FAMILY PSYCHIATRIC/SUBSTANCE USE HISTORY: Claims that both her sisters have depression. SOCIAL HISTORY: Patient was born and raised in [place] [facility] [place]. She claims that she completed high school, did 1 year of college. She states that she has never been to half-way or alf however is currently on probation due to a traffic violation. 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 MENTAL STATUS EXAM: General Appearance: Patient appears to be thin, stated age is mildly lethargic, pleasant, and cooperative. Patient appears to have fair hygiene and grooming wearing hospital gown with poor eye contact. Behavior: Patient is calmly lying in bed without any agitated behavior. nonchalant. Speech: Patient's speech is fluent and nonpressured. Monotone and concrete Mood/Affect: Patient reports their mood is "depressed and anxious", affect is congruent and constricted Suicidality/Homicidality: Patient denies having any suicidal or homicidal ideation intent or plan. Perceptions: Patient denies any visual hallucinations and denies any auditory hallucinations Though content/process: There is no evidence of any delusional thought content and thought process is linear and goal-directed. [place]. Poverty of content. Vague. Memory and concentration: AOX3, grossly intact for the purposes of this session. Can spell "WORLD" backwards Judgment and insight: poor IMPRESSIONS: Major depressive disorder, without psychotic features Alcohol use disorder, severe dependence currently in withdrawal PLAN: -At this time patient DOES meet criteria for inpatient psychiatric admission. -Would recommend the following medication changes/additions: Scheduled Librium 20 mg 3 times a day for treatment of alcohol withdrawal, plan to taper. Zoloft 25 mg daily for mood/anxiety, trazodone 50 mg daily at bedtime for mood/insomnia. -CIWA protocol with PRN Ativan for alcohol withdrawal. Continue to monitor vital signs. -Continue 1:1 sitter for safety until patient is admitted to the mental health unit. -Cannot leave AMA at this time. Patient will need a petition and certification if attempting to leave AMA. -When medically stable, patient is eligible for transfer to a psych bed when available. -Communicated plan to patient's nurse -Psychiatry will sign off at this time -Please contact with any questions. 04/08/23 13:31
--- NOTE | 2023-04-08 14:13 | P.PN ---
Subjective Progress Note Date: 04/08/23 Hospital Course: 22-year-old female with a PMH of EtOH abuse who presents to the emergency room protocol intoxication depression and suicidal ideation. Laboratory evaluation in the emergency room was remarkable for serum alcohol level 454, AST 78, ALT 55, lipase less than 10. Patient admitted for psychiatric evaluation as well as alcohol intoxication Subjective: Patient seen and examined bedside. No acute events overnight. Has mild epigastric abdominal pain, but denies any other complaints. Pertinent positives and negatives as discussed above, a complete review of systems was performed and all other systems are negative. Vitals Signs Reviewed. General: nontoxic, no distress, appears at stated age Derm: warm, dry Head: atraumatic, normocephalic, symmetric Eyes: EOMI, no lid lag, anicteric sclera Mouth: no lip lesion, mucus membranes moist Cardiovascular: S1S2 reg, no murmur Lungs: CTA bilateral, no rhonchi, no rales , no accessory muscle use Abdominal: soft, mildly tender to palpation in epigastric region, no guarding, no appreciable organomegaly Ext: no gross muscle atrophy, no edema, no contractures Neuro: CN II-XI grossly intact, no focal neuro deficits Psych: Alert, oriented, appropriate affect Data Reviewed Today: Pertinent Labs: No new labs Imaging: No new imaging Assessment and Plan: Active: Alcohol intoxication Alcohol dependence, impending withdrawal Suicidal ideation History of depression - On IV Ativan as needed per CIWA score -Thiamine 100 mg daily -Per tonics 40 mg IV daily -Continue normal saline 1 30 mL an hour -Psychiatry note reviewed, patient will likely require inpatient psychiatric admission -Bedside sitter -Librium, Zoloft, trazodone to be added per psychiatry DVT ppx: Lovenox Code status: Full code Anticipated discharge place: Likely inpatient psych Anticipated discharge time: Pending Clinical course Objective - Vital Signs Vital signs: Vital Signs Temp 98.8 F 04/08/23 11:40 Pulse 106 H 04/08/23 11:40 Resp 16 04/08/23 11:40 BP 113/74 04/08/23 11:40 Pulse Ox 99 04/08/23 11:40 FiO2 Intake & Output 04/07/23 04/08/23 04/08/23 18:59 06:59 18:59 Weight 63.503 kg - Labs CBC & Chem 7: 04/07/23 19:02 04/07/23 19:02 Labs: Abnormal Lab Results - Last 24 Hours (Table) 04/07/23 Range/Units 19:02 AST 78 H (14-36) U/L ALT 55 H (4-34) U/L Lipase <10 L (23-300) U/L Serum Alcohol 454 H* mg/dL
--- NOTE | 2023-04-08 15:17 | P.DS ---
Providers Date of admission: 04/07/23 20:38 Expected date of discharge: 04/08/23 Attending physician: Alvaro Fontanez MD Consults: 04/07/23 20:38 Consult Physician Urgent Consulting Provider: Jack Ryder Consult Reason/Comments: depression, suicidal ideation Do you want consulting provider notified?: Already Contacted Primary care physician: Stated None Hospital Course: Discharge Diagnosis: Alcohol intoxication Alcohol dependence, impending withdrawal Suicidal ideation History of depression Hospital Course: 22-year-old female with a PMH of EtOH abuse who presents to the emergency room protocol intoxication depression and suicidal ideation. Laboratory evaluation in the emergency room was remarkable for serum alcohol level 454, AST 78, ALT 55, lipase less than 10. Patient admitted for psychiatric evaluation as well as alcohol intoxication. Psychiatry saw the patient, patient appropriate for inpatient psych. Patient also started on Librium taper, Zoloft, and trazodone. Patient seen and examined at bedside. Vital signs reviewed and stable. General: nontoxic, no distress, appears at stated age Derm: warm, dry Head: atraumatic, normocephalic, symmetric Eyes: EOMI, no lid lag, anicteric sclera Mouth: no lip lesion, mucus membranes moist Cardiovascular: S1S2 reg, no murmur Lungs: CTA bilateral, no rhonchi, no rales , no accessory muscle use Abdominal: soft, nontender to palpation, no guarding, no appreciable organomegaly Ext: no gross muscle atrophy, no edema, no contractures Neuro: CN II-XI grossly intact, no focal neuro deficits Psych: Alert, oriented, appropriate affect A total of 33 minutes of time were spent preparing this complex discharge summary. Patient was discharged on 04/08/23 at 1512. Patient Condition at Discharge: Stable Plan - Discharge Summary New Discharge Prescriptions: New chlordiazePOXIDE HCl [Librium] 20 mg PO TID cap Thiamine [Vitamin B-1] 100 mg PO DAILY tab Sertraline [Zoloft] 25 mg PO DAILY tab traZODone HCL [Desyrel] 50 mg PO HS tab Multivitamins, Thera [Multivitamin (formulary)] 1 each PO DAILY tab Continue Triamcinolone 0.1% Paste [Oralone 0.1% Paste] 1 applic MUCOUS MEM PC-TID Discontinued traZODone HCL 100 mg PO HS Discharge Medication List Triamcinolone 0.1% Paste [Oralone 0.1% Paste] 1 applic MUCOUS MEM PC-TID 04/07/23 [History] Multivitamins, Thera [Multivitamin (formulary)] 1 each PO DAILY tab 04/08/23 [Rx] Sertraline [Zoloft] 25 mg PO DAILY tab 04/08/23 [Rx] Thiamine [Vitamin B-1] 100 mg PO DAILY tab 04/08/23 [Rx] chlordiazePOXIDE HCl [Librium] 20 mg PO TID cap 04/08/23 [Rx] traZODone HCL [Desyrel] 50 mg PO HS tab 04/08/23 [Rx] Follow up Appointment(s)/Referral(s): None,Stated [Primary Care Provider] - 1-2 days Patient Instructions/Handouts: Alcohol Intoxication (DC), Mood Disorders (DC) Discharge Disposition: TRANSFER TO PSYCH HOSP/UNIT
[2023-04-08 15:57] VITALS: TEMP 97.9
[2023-04-08 17:08] VITALS: BP 132/86; PULSE 99; RESP 16
[2023-04-08] MEDS ORDERED: traZODone HCL 50 MG TAB PO SCH (21:00)
[2023-04-09] MEDS ORDERED: SERTRALINE 25 MG TAB PO SCH (09:00)
== END 2023-04-08 17:28 ==
LOC: EC 16:38 → 5NMEDONC 20:38
PROVIDERS: ADMIT Internal Medicine; ATTEND Internal Medicine
DX: F10.229 Alcohol dependence with intoxication, unspecified (principal); R45.851 Suicidal ideations; F32.9 Major depressive disorder, single episode, unspecified; F41.9 Anxiety disorder, unspecified; K58.9 Irritable bowel syndrome, unspecified; Y90.8 Blood alcohol level of 240 mg/100 ml or more; Z63.8 Other specified problems related to primary support group; Z71.41 Alcohol abuse counseling and surveillance of alcoholic; Z88.5 Allergy status to narcotic agent; Z79.899 Other long term (current) drug therapy; Z81.8 Family history of other mental and behavioral disorders; Z82.49 Family history of ischemic heart disease and other diseases of the circulatory system; Z83.3 Family history of diabetes mellitus; Z84.1 Family history of disorders of kidney and ureter
CPT/HCPCS: 96376; 96361; 96372 ×2; 96374; 96375; 99284; 36415; 80053; 83690; 85025; 81003; 81025; 87635; G0378 ×2; G0480; J3411; J2405 ×2; J1650; J1885; C9113 ×2; 80320

== ENCOUNTER 2023-04-08 16:48 | Inpatient (IN) | payer MEDICAID, OTHER ==
[2023-04-08] MEDS ORDERED: LORazepam 1 MG TAB PO PRN ×2 (17:09)
[2023-04-08] MEDS ORDERED: MAGNESIUM HYDROXIDE 2,400 MG/10 ML CUP PO PRN (17:09)
[2023-04-08] MEDS ORDERED: IBUPROFEN 600 MG TAB PO PRN (17:09)
[2023-04-08] MEDS ORDERED: HALOPERIDOL LACTATE 5 MG/ML 1 ML VIAL IM PRN (17:09)
[2023-04-08] MEDS ORDERED: haloperidoL 5 MG TAB PO PRN (17:09)
[2023-04-08] MEDS ORDERED: MAG HYDROX/AL HYDROX/SIMETH 30 ML CUP PO PRN (17:09)
[2023-04-08] MEDS: traZODone HCL 50 MG TAB PO SCH (22:11)
--- NOTE | 2023-04-09 00:47 | P.CONS ---
History of Present Illness - Reason for Consult Consult date: 04/09/23 - History of Present Illness The patient is a 22-year-old female with a PMH of alcohol abuse who had initially presented to the emergency room under alcohol intoxication with complaints of depression and suicidal ideation. The patient was admitted to the medical service and subsequently transferred to the mental health unit following evaluation by psychiatry. The patient was ultimately seen and evaluated in the mental health unit with a public works technician present. The patient reports feeling at her baseline and denied any active complaints. She denied experiencing chest discomfort, shortness of breath, fever, chills, cough, nausea, vomiting, abdominal area. She wishes to quit alcohol and is excited about going to a detox facility. She denied substance or tobacco use. Review of systems: Pertinent positives and negatives as discussed in HPI, a complete review of systems was performed and all other systems are negative. Physical examination: General: non toxic, no distress, appears at stated age, normal weight Derm: no unusual rashes/lesions, no unusual ecchymoses, warm, dry Head: atraumatic, normocephalic, symmetric Eyes: EOMI, no lid lag, anicteric sclera ENT: Nose and ears atraumatic, no thrush, no pharyngeal erythema Neck: trachea midline, supple Mouth: no lip lesion, mucus membranes moist Cardiovascular: S1S2 reg, no murmur, no edema Lungs: CTA bilateral, no rhonchi, no rales , no accessory muscle use Abdominal: soft, nontender to palpation, no guarding Ext: no gross muscle atrophy, no contractures, Neuro: No gross focal neuro deficits noted Psych: Alert, oriented, appropriate affect Assessment: Alcohol abuse Depression with suicidal ideation Imaging: None performed Data Review: Laboratory evaluation was reviewed with serum alcohol level 454 on the prior admission, AST 78, and ALT 55. Plan: Strongly advised patient on importance of cessation from alcohol use Continue with Librium, thiamine, multivitamin Defer management of depression and suicidal ideation to the primary psychiatry service Thank you for allowing us to participate in the care of this patient. We will follow peripherally. Do not hesitate to contact us with questions. Someone can be reached from the [facility] hospitalist group at all hours of the day at [phone]. Past Medical History Past Medical History: No Reported History, Hypertension Additional Past Medical History / Comment(s): CHANGE IN BOWEL HABITS IBS. bloating symptoms. been following her own blood pressure and it has been high History of Any Multi-Drug Resistant Organisms: MRSA Year Discovered:: 2010 MDRO Source:: left leg Past Surgical History: Breast Surgery, Cholecystectomy Additional Past Surgical History / Comment(s): LT BREAST LUMPECTOMY-BENIGN Past Anesthesia/Blood Transfusion Reactions: No Reported Reaction Past Psychological History: Anxiety, Depression Additional Psychological History / Comment(s): past suicide attempt/ with pills 11/2018 Smoking Status: Never smoker Past Alcohol Use History: Abuse, Daily, Heavy Additional Past Alcohol Use History / Comment(s): binge drinking on weekends/ 11/04 pint. Binge drinks when not working 3-4 days a week and drinks at least a pint. Past Drug Use History: Marijuana Additional Drug Use History / Comment(s): Denies MJ use - Past Family History Brother(s) Family Medical History: Cancer Father Family Medical History: Congestive Heart Failure (CHF), Diabetes Mellitus, Dialysis Additional Family Medical History / Comment(s): heart and kidney failure. dad on dialysis. HTN Mother Family Medical History: Diabetes Mellitus Additional Family Medical History / Comment(s): HTN Medications and Allergies Home Medications Medication Instructions Recorded Confirmed Type Triamcinolone 0.1% Paste [Oralone 1 applic MUCOUS MEM PC-TID 04/07/23 04/08/23 History 0.1% Paste] Multivitamins, Thera [Multivitamin 1 each PO DAILY tab 04/08/23 04/08/23 Rx (formulary)] Sertraline [Zoloft] 25 mg PO DAILY tab 04/08/23 04/08/23 Rx Thiamine [Vitamin B-1] 100 mg PO DAILY tab 04/08/23 04/08/23 Rx chlordiazePOXIDE HCl [Librium] 20 mg PO TID cap 04/08/23 04/08/23 Rx traZODone HCL [Desyrel] 50 mg PO HS tab 04/08/23 04/08/23 Rx Allergies Allergy/AdvReac Type Severity Reaction Status Date / Time hydromorphone [From Dilaudid] AdvReac Hallucinati Verified 04/08/23 17:54 ons Physical Exam Vitals: Vital Signs Temp Pulse Resp BP Pulse Ox 04/08/23 18:16 99.3 F 96 16 159/97 97 Intake and Output 04/08/23 04/08/23 04/09/23 14:59 22:59 06:59 Other: Weight 63.049 kg
[2023-04-09] MEDS: MULTIVITAMINS, THERA 1 EACH TAB PO SCH (08:39)
[2023-04-09] MEDS: THIAMINE 100 MG TAB PO SCH (08:39)
[2023-04-09] MEDS: ACETAMINOPHEN TAB 325 MG TAB PO PRN (08:39)
[2023-04-09] MEDS ORDERED: SERTRALINE 25 MG TAB PO SCH (09:00)
--- NOTE | 2023-04-09 10:14 | P.HP ---
Psychiatric H&P - . 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 She is single has no kids. HISTORY OF PRESENT ILLNESS: Patient was seen yestereday by screen writer in the ER for psych evaluation and as per note "The patient presented to the hospital yesterday to the ER complaining of depression and suicidal ideations. Patient is also reportedly drinking fairly heavily about a pint of alcohol a day and according to ER report wanted to "drink herself to ". Patient had elevated AST and ALT and also blood alcohol level was 454 on admission. Patient was seen lying in bed alongside her friend and also her mother and was agreeable to speak to screen writer today. Patient states that she has been feeling more depressed and suicidal lately. She claims that she has had chronic suicidal thoughts however these have been getting worse. She states that she did not have a specific plan however just wanted to "". She claims that she has been drinking heavily heavy lately about 3-4 times a week about half a pint of vodka. Claims that she is finding it hard to cut back on it and has been feeling more depressed and anxious. She states that she has been dealing with financial, relationship and also family stressors. She was fairly vague about them however states that her mother and her often "butt heads" and also claims that she feels like her life should've been further along now in her career however has not. States that she does have suicidal thoughts however no plan or intent. At this time patient denies any homical ideations, intent or plan. Patient denies any auditory, visual hallucinations and denies any paranoia or delusions. Patients admits to using etoh as noted above. States that she has been drinking about 2 or 3 years now and increasing her mouth. Claims that she does not have any current withdrawal symptoms however did state that she had visual hallucinations in the past when she stopped drinking. Denies any DUIs at this time. Denies any other recreational drug use or cigarettes." patient was seen again today for psych assessment after being admitted. she signed voluntary yesterday to be on the unit. She was seen attending group today. Patient was fairly directable and cooperative during the interview. She claims that her mood and anxiety are mildly improved since yesterday. She is currently denying any withdrawal symptoms at this time, no tremors no seizures. She states that she was able to sleep better last night with the trazodone. Claims that her appetite is mildly improving. We spoke about starting naltrexone for cravings which she is okay with taking. She claims that she wants to try to stay sober. She is denying any auditory or visual hallucinations, denying any suicidal or homicidal ideations intent or plan. Patient has been making her medications and denying any side effects at this time. PAST PSYCHIATRIC HISTORY: Patient has a a history of depression and anxiety and alcohol abuse. She states that she was previously on Seroquel and also trazodone. She claims that her last psychiatric hospitalization was on the mental health unit in December 2019. Patient denies any psychiatric outpatient follow-up. She claims that she overdosed on pills about 2 or 3 years ago. Past Medical History: No Reported History Additional Past Medical History / Comment(s): CHANGE IN BOWEL HABITS IBS. bloating symptoms. been following her own blood pressure and it has been high History of Any Multi-Drug Resistant Organisms: None Reported, MRSA Date of last positivie culture/infection: 2010 MDRO Source:: left leg Past Surgical History: Breast Surgery Additional Past Surgical History / Comment(s): LT BREAST LUMPECTOMY-BENIGN Past Anesthesia/Blood Transfusion Reactions: No Reported Reaction Past Psychological History: Anxiety, Depression Smoking Status: Never smoker Past Alcohol Use History: Abuse, Daily, Heavy Past Drug Use History: Marijuana ALLERGIES: as per EMR. CHEMICAL DEPENDENCY HISTORY: as per HPI. FAMILY PSYCHIATRIC/SUBSTANCE USE HISTORY: Claims that both her sisters have depression. SOCIAL HISTORY: Patient was born and raised in [facility]. She claims that she completed high school, did 1 year of college. She states that she has never been to nursing home or [facility] however is currently on probation due to a traffic violation. 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 MENTAL STATUS EXAM: General Appearance: Patient appears to be thin, stated age is mildly lethargic, pleasant, and cooperative. Patient appears to have fair hygiene and grooming wearing hospital gown with poor eye contact. Behavior: Patient is calmly lying in bed without any agitated behavior. Speech: Patient's speech is fluent and nonpressured. Monotone and concrete Mood/Affect: Patient reports their mood is "a little better", affect is congr uent and constricted Suicidality/Homicidality: Patient denies having any suicidal or homicidal ideation intent or plan. Perceptions: Patient denies any visual hallucinations and denies any auditory hallucinations Though content/process: There is no evidence of any delusional thought content and thought process is linear and goal-directed. Kite. Poverty of content. Memory and concentration: AOX3, grossly intact for the purposes of this session. Can spell "WORLD" backwards Judgment and insight: poor, improving mildly IMPRESSIONS: Major depressive disorder, without psychotic features Alcohol use disorder, severe dependence currently in withdrawal STRENGTHS/WEAKNESSES: strength is that patient is resilient. Weakness is that patient has poor judgment and is impulsive INTELLECT: average PLAN: -Patient is admitted under voluntary status to MHU for stabilization of psychiatric symptoms and safety. Patient has signed adult voluntary form and medication consent and is placed in patient's chart. -Medications : continue Librium 20 mg 3 times a day for treatment of alcohol withdrawal, plan to taper starting tomorrow. increase Zoloft 50 mg daily for mood/anxiety, trazodone 50 mg daily at bedtime for mood/insomnia. added naltrexone 50 mg daily for etoh cravings. -Ativan and Haldol PRN for agitation/aggression -thiamine, MVM for etoh use -CIWA protocol with Ativan PRN for ETOH withdrawal -Patient was counselled on substance abuse and desired to cut back on use -Patient was informed of the risks, benefits and side effects of the medication and patient verbally consented to taking the medications. Patient signed med consent form and was placed in chart. -Internal Medicine consult to perform medical evaluation and physical. -NRT - not needed as patient does not smoke -SW on board for discharge planning. Encourage patient to participate in groups to work on coping skills. will attempt to speak with patient rehab option. 04/09/23 10:11 04/09/23 10:14
[2023-04-09] MEDS: NALTREXONE HCL 50 MG TAB PO SCH (10:48)
[2023-04-09] MEDS: traZODone HCL 50 MG TAB PO SCH (23:14)
[2023-04-09 23:56] VITALS: RESP 18; TEMP 97.7
[2023-04-10] MEDS ORDERED: SERTRALINE 50 MG TAB PO SCH (09:00)
[2023-04-10] MEDS: NALTREXONE HCL 50 MG TAB PO SCH (09:04)
[2023-04-10] MEDS: THIAMINE 100 MG TAB PO SCH (09:04)
[2023-04-10] MEDS: MULTIVITAMINS, THERA 1 EACH TAB PO SCH (09:04)
--- NOTE | 2023-04-10 09:53 | P.PN ---
Progress Note - Text Progress Note Date: 04/10/23 Interval History: Patient was seen sitting in on group this morning and was directable and agree able to speak with designer writer in the office. Patient appeared to be fairly pleasant today with designer writer. She claims that she is doing a bit better with regards to her mood. We spoke about potentially increasing her Zoloft that she was okay with. She states that she only slept about 4-5 hours last night and is used to being on a higher dose of trazodone. We decided on increasing her trazodone 200 mg that she is okay with. She claims that she has been trying to go to groups. She claims that she does not want to do inpatient rehab and prefers to do outpatient therapy and possibly AA meetings in the community. She claimed that the medications have been helping with her mood and anxiety. She claimed that she has been speaking with her family over the phone which they are supportive. She is denying any withdrawal symptoms at this time. At this time patient denies any suicidal or homical ideations, intent or plan. Patient denies any auditory, visual hallucinations and denies any paranoia or delusions. Patient denies any side effects from the medications and has been compliant with meds. Mental Status Exam: General Appearance: Patient appears to be thin, stated age is mildly lethargic, pleasant, and more cooperative. Patient appears to have fair hygiene and grooming wearing hospital gown with improving eye contact. Behavior: Patient is calmly lying in bed without any agitated behavior. Speech: Patient's speech is fluent and nonpressured. Mood/Affect: Patient reports their mood is "better", affect is congruent Suicidality/Homicidality: Patient denies having any suicidal or homicidal ideation intent or plan. Perceptions: Patient denies any visual hallucinations and denies any auditory hallucinations Though content/process: There is no evidence of any delusional thought content and thought process is linear and goal-directed. Memory and concentration: AOX3, grossly intact for the purposes of this session Judgment and insight: improving mildly IMPRESSIONS: Major depressive disorder, without psychotic features Alcohol use disorder, severe dependence currently in withdrawal PLAN: -Patient is admitted under voluntary status to MHU for stabilization of psychia tric symptoms and safety. Patient has signed adult voluntary form and medication consent and is placed in patient's chart. -Medications : decrease Librium 10 mg 3 times a day for treatment of alcohol withdrawal, plan to continue tapering. increase Zoloft 100 mg daily for mood/anxiety, increase trazodone 100 mg daily at bedtime for mood/insomnia, naltrexone 50 mg daily for etoh cravings. -Ativan and Haldol PRN for agitation/aggression -thiamine, MVM for etoh use -CIWA protocol with Ativan PRN for ETOH withdrawal -NRT - not needed as patient does not smoke -SW on board for discharge planning. Encourage patient to participate in groups to work on coping skills. Patient claims that she does not want to go to inpatient rehab and would prefer to do individual therapy at [facility] and also meetings. likely discharge tomorrow back home.
[2023-04-10] MEDS: ACETAMINOPHEN TAB 325 MG TAB PO PRN (15:33)
[2023-04-10] MEDS ORDERED: traZODone HCL 100 MG TAB PO SCH (21:00)
[2023-04-11] MEDS ORDERED: SERTRALINE 100 MG TAB PO SCH (09:00)
[2023-04-11] MEDS: NALTREXONE HCL 50 MG TAB PO SCH (09:24)
[2023-04-11] MEDS: MULTIVITAMINS, THERA 1 EACH TAB PO SCH (09:25)
[2023-04-11] MEDS: THIAMINE 100 MG TAB PO SCH (09:25)
[2023-04-11 09:26] VITALS: BP 117/79; PULSE 91
--- NOTE | 2023-04-11 10:43 | P.DS ---
Providers Date of admission: 04/08/23 17:32 Expected date of discharge: 04/11/23 Attending physician: Aime Amador MD Consults: 04/08/23 17:09 Consult Physician Routine Consulting Provider: [facility] Consult Reason/Comments: H&P and medical Do you want consulting provider notified?: Yes Primary care physician: Physician Nonstaff - Discharge Diagnosis(es) (1) Major depressive disorder without psychotic features Current Visit: Yes Status: Acute Priority: High (2) Alcohol use disorder, severe, dependence Current Visit: Yes Status: Acute Priority: High Hospital Course: Admission HPI: Admission note was completed by typewriters functional tester "This patient is a 22-year-old female, currently lives with her parents in a house, 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 She is single has no kids. Patient was seen yestereday by typewriters functional tester in the ER for psych evaluation and as per note "The patient presented to the hospital yesterday to the ER complaining of depression and suicidal ideations. Patient is also reportedly drinking fairly heavily about a pint of alcohol a day and according to ER report wanted to "drink herself to ". Patient had elevated AST and ALT and also blood alcohol level was 454 on admission. Patient was seen lying in bed alongside her friend and also her mother and was agreeable to speak to typewriters functional tester today. Patient states that she has been feeling more depressed and suicidal lately. She claims that she has had chronic suicidal thoughts however these have been getting worse. She states that she did not have a specific plan however just wanted to "". She claims that she has been drinking heavily heavy lately about 3-4 times a week about half a pint of vodka. Claims that she is finding it hard to cut back on it and has been feeling more depressed and anxious. She states that she has been dealing with financial, relationship and also family stressors. She was fairly vague about them however states that her mother and her often "butt heads" and also claims that she feels like her life should've been further along now in her career however has not. States that she does have suicidal thoughts however no plan or intent. At this time patient denies any homical ideations, intent or plan. Patient denies any auditory, visual hallucinations and denies any paranoia or delusions. Patients admits to using etoh as noted above. States that she has been drinking about 2 or 3 years now and increasing her mouth. Claims that she does not have any current withdrawal symptoms however did state that she had visual hallucinations in the past when she stopped drinking. Denies any DUIs at this time. Denies any other recreational drug use or cigarettes." patient was seen again today for psych assessment after being admitted. she signed voluntary yesterday to be on the unit. She was seen attending group today. Patient was fairly directable and cooperative during the interview. She claims that her mood and anxiety are mildly improved since yesterday. She is currently denying any withdrawal symptoms at this time, no tremors no seizures. She states that she was able to sleep better last night with the trazodone. Claims that her appetite is mildly improving. We spoke about starting naltrexone for cravings which she is okay with taking. She claims that she wants to try to stay sober. She is denying any auditory or visual hallucinations, denying any suicidal or homicidal ideations intent or plan. Patient has been making her medications and denying any side effects at this time." Hospital course: Upon admission to the unit patient was directable and agreeable to commence treatment and signed adult voluntary form. Patient got along well with other patients on the unit and followed unit protocol. Patient was compliant with the medications and denied any side effects throughout hospital course. Patient was started on ciwa protocol with prn ativan for etoh withdrawal and also on scheduled and tapering librium. patient was also started on Zoloft and increased to a dose of 100 mg daily for mood/anxiety, trazodone 100 mg daily at bedtime for mood/insomnia, naltrexone by mouth 50 mg daily for alcohol cravings. Patient spoke of her stressors and engaged in therapy both group and individual. Patient was also seen by medical team for history and physical exam. Throughout the course of the hospitalization patient gradually improved with regards to mood, anxiety, withdrawal symptoms and also cravings, sleep and became more future oriented with improved insight and judgment. On the day of discharge patient denied any suicidal or homicidal ideations intent or plan denied any auditory or visual hallucinations. Patient endorsed wanting to live for her health and her family. The patient denied any access to guns or weapons. Patient denied any paranoia and did not endorse any delusions. Patient does have a significant history of substance abuse and was counseled on abstaining from all substances including alcohol and marijuana. Patient was offered however declined inpatient substance-abuse rehab. Patient states that she would rather do outpatient substance use treatment and go to AA meetings and also therapy instead. Patient was also counseled on the medications and need for regular compliance and was encouraged to follow-up with their outpatient appointment for mental health and also for primary care. Prior to discharge a family meeting will be arranged by social worker delinquency prevention to answer any questions and ensure safety upon discharge. Mental status exam: General Appearance: Patient appears to be thin, stated age is alert, pleasant, and cooperative. Patient is in no acute distress and has improved hygiene and grooming Behavior: Patient is calmly seated without any agitated behavior. Pleasant Speech: Patient's speech is fluent and nonpressured. Mood/Affect: Patient reports their mood is "better", affect is congruent and euthymic. Suicidality/Homicidality: Patient denies having any suicidal or homicidal ideation intent or plan. Perceptions: Patient denies any auditory or visual hallucinations. Though content/process: There is no evidence of any delusional thought content and thought process is linear and goal-directed. more future oriented Memory and concentration: AOX3, grossly intact for the purposes of this session. Can spell "WORLD" backwards correctly. Judgment and insight: improved with guarded prognosis Impression: Major depressive disorder, severe without psychotic features Alcohol use disorder severe dependence Plan: -Continue with discharge today as patient has improved and stabilized psychiatrically and is not currently an imminent threat to herself and/or others. Patient will remain at chronically elevated risk for harm to self and/or others due to her impulsivity and substance abuse. -Continue medications: Will give 2 doses of 10 mg of Librium, one for tonight and one for tomorrow morning then discontinue for alcohol withdrawal. Naltrexone by mouth 50 mg daily for alcohol cravings, Zoloft 100 mg daily for mood/30, trazodone 100 mg daily at bedtime for mood/insomnia. -Patient was counseled on the need for medication compliance and appropriate follow-up at mental health and also primary care for medical issues. Patient verbalized understanding and agreed. -Social work to arrange for and conduct family meeting to ensure safety upon discharge and answer any questions/concerns. Social work also to arrange for patients follow up appointments for psychiatric care along with follow up with primary care provider. -Patient counseled on abstaining from recreational drugs and marijuana and alcohol. Was informed/educated on the adverse effects on their physical and mental health. Patient verbally agreed and understood. Patient was offered substance abuse treatment however declined at this time. -Patient was instructed to return to the hospital or seek immediate medical care if their psychiatric or medical symptoms do worsen or reoccur. Allergies Allergy/AdvReac Type Severity Reaction Status Date / Time hydromorphone [From Dilaudid] AdvReac Hallucinati Verified 04/08/23 17:54 ons Laboratory Results Estimated Ave Glu mg/dL 120 mg/dL 04/09/23 11:32 Hemoglobin A1c 5.8 % (<=6.0) 04/09/23 11:32 Triglycerides 103.00 mg/dL (0.00-149.00) 04/09/23 11:32 Cholesterol 160.00 mg/dL (0.00-200.00) 04/09/23 11:32 LDL Cholesterol, Calc 55.0 mg/dL (0.0-131.0) 04/09/23 11:32 VLDL Cholesterol, Calc 20.60 mg/dL (5.00-40.00) 04/09/23 11:32 HDL Cholesterol 84.40 mg/dL (40.00-60.00) H 04/09/23 11:32 Cholesterol/HDL Ratio 1.90 Ratio 04/09/23 11:32 TSH 0.499 mIU/L (0.465-4.680) 04/09/23 11:32 Vital Signs Temp 97.7 F 04/09/23 23:55 Pulse 91 04/11/23 09:25 Resp 18 04/09/23 23:55 BP 117/79 04/11/23 09:25 Pulse Ox 97 04/09/23 23:55 FiO2 Patient Condition at Discharge: Stable Plan - Discharge Summary Discharge Rx Participant: No New Discharge Prescriptions: New Naltrexone HCl [Revia] 50 mg PO DAILY 30 Days #30 tab traZODone HCL [Desyrel] 100 mg PO HS 30 Days #30 tab chlordiazePOXIDE HCl [Librium] 10 mg PO DAILY 2 Days #2 cap Acetaminophen Tab [Tylenol] 650 mg PO Q4HR PRN tab PRN Reason: Mild Pain (Scale 1 To 3) Sertraline [Zoloft] 100 mg PO DAILY 30 Days #30 tab Continue Multivitamins, Thera [Multivitamin (formulary)] 1 each PO DAILY 30 Days #30 tab Thiamine [Vitamin B-1] 100 mg PO DAILY 30 Days #30 tab Discontinued chlordiazePOXIDE HCl [Librium] 20 mg PO TID cap Sertraline [Zoloft] 25 mg PO DAILY tab Triamcinolone 0.1% Paste [Oralone 0.1% Paste] 1 applic MUCOUS MEM PC-TID traZODone HCL [Desyrel] 50 mg PO HS tab Discharge Medication List Acetaminophen Tab [Tylenol] 650 mg PO Q4HR PRN tab 04/11/23 [Rx] Multivitamins, Thera [Multivitamin (formulary)] 1 each PO DAILY 30 Days #30 tab 04/11/23 [Rx] Naltrexone HCl [Revia] 50 mg PO DAILY 30 Days #30 tab 04/11/23 [Rx] Sertraline [Zoloft] 100 mg PO DAILY 30 Days #30 tab 04/11/23 [Rx] Thiamine [Vitamin B-1] 100 mg PO DAILY 30 Days #30 tab 04/11/23 [Rx] chlordiazePOXIDE HCl [Librium] 10 mg PO DAILY 2 Days #2 cap 04/11/23 [Rx] traZODone HCL [Desyrel] 100 mg PO HS 30 Days #30 tab 04/11/23 [Rx] Follow up Appointment(s)/Referral(s): [facility] [Outside] - 1 Week [facility] [Outside] - 1 Week Patient Instructions/Handouts: Depression (DC), Abuse of Alcohol (DC), Suicide Prevention (DC) Activity/Diet/Wound Care/Special Instructions: Avoid the use of street drugs and alcohol. Take all medications as prescribed. When you are in need of refills on your medications, please contact your medical provider and/or outpatient psychiatrist to have this done. Please go to scheduled outpatient appointments for aftercare treatment. If symptoms return or become worse, call the crisis line at and/or go to the nearest emergency room for evaluation. Discharge/Stand Alone Forms: AA Meetings [place] Discharge Disposition: HOME SELF-CARE
== END 2023-04-11 14:38 | disposition home or self-care (01) | DRG 751 ==
LOC: 3MHU 17:32
PROVIDERS: ADMIT Psychiatry & Neurology Psychiatry; ATTEND Psychiatry & Neurology Psychiatry
DX: F32.2 Major depressive disorder, single episode, severe without psychotic features (principal); R45.851 Suicidal ideations; F10.239 Alcohol dependence with withdrawal, unspecified; F41.9 Anxiety disorder, unspecified; R03.0 Elevated blood-pressure reading, without diagnosis of hypertension; G47.00 Insomnia, unspecified; K58.9 Irritable bowel syndrome, unspecified; Z79.899 Other long term (current) drug therapy; Z65.3 Problems related to other legal circumstances; Z91.51 Personal history of suicidal behavior; Z86.14 Personal history of Methicillin resistant Staphylococcus aureus infection; Z71.51 Drug abuse counseling and surveillance of drug abuser; Z71.41 Alcohol abuse counseling and surveillance of alcoholic; Z88.5 Allergy status to narcotic agent; Z81.8 Family history of other mental and behavioral disorders
CPT/HCPCS: 80061; 83036; 84443

== ENCOUNTER 2024-05-11 17:14 | Emergency (ER) | payer OTHER ==
--- NOTE | 2024-05-11 18:23 | ED ---
General Adult HPI - General Source: patient, RN notes reviewed Mode of arrival: ambulatory Limitations: no limitations <Colette Cee - Last Filed: 05/11/24 23:47> <Juaquin Carroll - Last Filed: 05/12/24 03:48> - General Stated complaint: abd pain Time Seen by Provider: 05/11/24 18:22 - History of Present Illness Initial comments: 23-year-old female presents to the emergency department for evaluation of epigastric abdominal pain. Patient states that this started yesterday. Patient states it is significantly worse today. She does note a history of pancreatitis and had been drinking about a day prior to this. She states that this feels similar to prior episodes. She does admit to nausea and vomiting yesterday. (Colette Cee) - Related Data Previous Rx's Medication Instructions Recorded Acetaminophen Tab [Tylenol] 650 mg PO Q4HR PRN tab 04/11/23 Multivitamins, Thera [Multivitamin 1 each PO DAILY 30 Days #30 tab 04/11/23 (formulary)] Naltrexone HCl [Revia] 50 mg PO DAILY 30 Days #30 tab 04/11/23 Sertraline [Zoloft] 100 mg PO DAILY 30 Days #30 tab 04/11/23 Thiamine [Vitamin B-1] 100 mg PO DAILY 30 Days #30 tab 04/11/23 chlordiazePOXIDE HCl [Librium] 10 mg PO DAILY 2 Days #2 cap 04/11/23 traZODone HCL [Desyrel] 100 mg PO HS 30 Days #30 tab 04/11/23 Ibuprofen [Motrin] 600 mg PO Q8HR PRN #30 tab 05/12/24 Ondansetron Odt [Zofran Odt] 4 mg PO Q8HR PRN #10 tab 05/12/24 Allergies Allergy/AdvReac Type Severity Reaction Status Date / Time hydromorphone [From Dilaudid] AdvReac Hallucinati Verified 05/11/24 18:18 ons Review of Systems ROS Other: All systems not noted in ROS Statement are negative. <Colette Cee - Last Filed: 05/11/24 23:47> ROS Other: All systems not noted in ROS Statement are negative. <Juaquin Carroll - Last Filed: 05/12/24 03:48> ROS Statement: Those systems with pertinent positive or pertinent negative responses have been documented in the HPI. Past Medical History Past Medical History: No Reported History, Hypertension Additional Past Medical History / Comment(s): CHANGE IN BOWEL HABITS IBS. bloating symptoms. been following her own blood pressure and it has been high. acute pancreatits History of Any Multi-Drug Resistant Organisms: MRSA Date of last positivie culture/infection: 2010 MDRO Source:: left leg Past Surgical History: Breast Surgery, Cholecystectomy Additional Past Surgical History / Comment(s): LT BREAST LUMPECTOMY-BENIGN Past Anesthesia/Blood Transfusion Reactions: No Reported Reaction Past Psychological History: Anxiety, Depression Smoking Status: Never smoker Past Alcohol Use History: Abuse, Daily, Heavy Past Drug Use History: Marijuana - Past Family History Brother(s) Family Medical History: Cancer Father Family Medical History: Congestive Heart Failure (CHF), Diabetes Mellitus, Dialysis Additional Family Medical History / Comment(s): heart and kidney failure. dad on dialysis. HTN Mother Family Medical History: Diabetes Mellitus Additional Family Medical History / Comment(s): HTN <Colette Cee - Last Filed: 05/11/24 23:47> General Exam Limitations: no limitations General appearance: alert, in no apparent distress Head exam: Present: atraumatic, normocephalic, normal inspection Eye exam: Present: normal appearance, PERRL, EOMI. Absent: scleral icterus, conjunctival injection, periorbital swelling Respiratory exam: Present: normal lung sounds bilaterally. Absent: respiratory distress, wheezes, rales, rhonchi, stridor Cardiovascular Exam: Present: regular rate, normal rhythm, normal heart sounds. Absent: systolic murmur, diastolic murmur, rubs, gallop, clicks Extremities exam: Present: normal inspection, full ROM, normal capillary refill. Absent: tenderness, pedal edema, joint swelling, calf tenderness Neurological exam: Present: alert, oriented X3 Psychiatric exam: Present: normal affect, normal mood Skin exam: Present: warm, dry, intact, normal color. Absent: rash <Colette Cee - Last Filed: 05/11/24 23:47> - General Exam Comments Initial Comments: Visual Physical Exam Vital signs reviewed General: Well-appearing, nontoxic, no acute distress. Head: Normocephalic, atraumatic Eyes: PERRLA, EOMI ENT: Airway patent Chest: Nonlabored breathing Skin: No visual rash, normal skin tone Neuro: Alert and oriented 3 Musculoskeletal: No gross abnormalities (Colette Cee) Course Vital Signs 05/11/24 05/11/24 05/11/24 18:15 22:15 23:39 Temperature 98.0 F Pulse Rate 106 H 94 87 Respiratory 18 18 18 Rate Blood Pressure 147/97 153/100 149/108 O2 Sat by Pulse 98 98 99 Oximetry 05/12/24 01:35 Temperature 99.1 F Pulse Rate 83 Respiratory 15 Rate Blood Pressure 142/99 O2 Sat by Pulse 97 Oximetry Medical Decision Making - Lab Data Result diagrams: 05/11/24 18:22 05/11/24 18:22 <Colette Cee - Last Filed: 05/11/24 23:47> - Lab Data Result diagrams: 05/11/24 18:22 05/11/24 18:22 <Juaquin Carroll - Last Filed: 05/12/24 03:48> - Medical Decision Making Quick note preformed and electronically signed by ITALO Collins-C Was pt. sent in by a medical professional or institution ([facility], DROP WIRE BUILDER, urgent care, hospital, or long term...) When possible be specific @ -No Did you speak to anyone other than the patient for history (EMS, parent, family, police, friend...)? What history was obtained from this source @ -No Did you review nursing and triage notes (agree or disagree)? Why? @ -I reviewed and agree with nursing and triage notes Were old charts reviewed (outside hosp., previous admission, EMS record, old EKG, old radiological studies, urgent care reports/EKG's, long term records)? Report findings @ -No old charts were reviewed Differential Diagnosis (chest pain, altered mental status, abdominal pain women, abdominal pain men, vaginal bleeding, weakness, fever, dyspnea, syncope, headache, dizziness, GI bleed, back pain, seizure, CVA, palpatations, mental health, musculoskeletal)? @ -Differential Abdominal Pain Women: Appendicitis, Cholecystitis, diverticulosis, ischemic bowel, pancreatitis, hepatitis, UTI, gastroenteritis, AAA, incarcerated hernia, bowel obstruction, constipation, inflammatory bowel, hepatitis, peptic ulcer disease, splenic infarction, perforated viscus, vulvitis, ovarian torsion, PID, kidney stone, placenta abruption, this is not meant to be an all-inclusive list EKG interpreted by me (3pts min.). @ -EKG at 1835 shows sinus tachycardia rate 111, AZ 148, QRS 98, QTQTc [id number] X-rays interpreted by me (1pt min.). @ -None done CT interpreted by me (1pt min.). @ -None done U/S interpreted by me (1pt. min.). @ -None done What testing was considered but not performed or refused? (CT, X-rays, U/S, labs)? Why? @ -None What meds were considered but not given or refused? Why? @ -None Did you discuss the management of the patient with other professionals (professionals i.e. , PA, DROP WIRE BUILDER, lab, RT, psych nurse, web content & social media manager, destination imagination coordinator, teacher, correctional officer captain, block and case maker)? Give summary @ -No Was smoking cessation discussed for >3mins.? @ -No Was critical care preformed (if so, how long)? @ -No Were there social determinants of health that impacted care today? How? (Ramon elessness, low income, unemployed, alcoholism, drug addiction, transportation, low edu. Level, literacy, decrease access to med. care, halfway, rehab)? @ -No Was there de-escalation of care discussed even if they declined (Discuss DNR or withdrawal of care, Hospice)? DNR status @ -No What co-morbidities impacted this encounter? (DM, HTN, Smoking, COPD, CAD, Cancer, CVA, ARF, Chemo, Hep., AIDS, mental health diagnosis, sleep apnea, morbid obesity)? @ -None Was patient admitted / discharged? Hospital course, mention meds given and route, prescriptions, significant lab abnormalities, going to OR and other pertinent info. @ -Patient presented to the emergency department for evaluation of left-sided abdominal pain radiating to her back. Has a history of pancreatitis. She does report drinking 3 days ago. Labs obtained.CBC shows no significant leukocytosis; sodium 133, potassium 3.1. Patient was given 40 mg of K-Dur while in the emergency department. She does have elevated LFTs with AST of 152 and ALT of 108 she has had this in the past. Lipase within normal range at 296; UA shows 2+ protein, 2+ ketones likely related to decreased oral intake, urine hCG negative CT abdomen pelvis obtained which is pending at time of signout to Vitaliy Carroll PA-C. Undiagnosed new problem with uncertain prognosis? @ -No Drug Therapy requiring intensive monitoring for toxicity (Heparin, Nitro, Ins ulin, Cardizem)? @ -No Were any procedures done? @ -No Diagnosis/symptom? @ -Default Acute, or Chronic, or Acute on Chronic? @ -Default Uncomplicated (without systemic symptoms) or Complicated (systemic symptoms)? @ -Default Side effects of treatment? @ -No Exacerbation, Progression, or Severe Exacerbation? @ -No Poses a threat to life or bodily function? How? (Chest pain, [place], [place], pneumonia, PE, COPD, DKA, ARF, appy, cholecystitis, CVA, Diverticulitis, Homicidal, Suicidal, threat to staff... and all critical care pts) @ -No (Colette Cee) Discharge Patient signed out to me pending CT results 23-year-old female history of alcoholism and prior pancreatitis presents to the ED with 1 day history of epigastric abdominal pain associated nausea. Laboratory studies reviewed. CBC unremarkable. Chemistry panel does show some slight hypokalemia at 3.1. This was repleted. Also does show transaminitis with a AST of 152, ALT 108 consistent with alcoholism. Amylase 65, lipase 296. Urine shows no significant evidence of infection. CT abdomen pelvis revealed minimal peripancreatic fat stranding versus volume imaging mild bladder wall thickening versus partial distention. Patient discharged home in stable condition transfer ibuprofen and Zofran. Advise cessation of alcohol use. Advised clear liquid diet with gradual progression to bland diet over the next few days. Discussed return precautions with patient who verbalized agreement. (Juaquin Carroll) - Lab Data Lab Results 05/11/24 05/11/24 05/11/24 Range/Units 18:22 18:22 18:22 WBC 4.5 (3.8-10.6) k/uL RBC 4.53 (3.80-5.40) m/uL Hgb 13.8 (11.4-16.0) gm/dL Hct 42.2 (34.0-46.0) % MCV 93.0 (80.0-100.0) fL MCH 30.5 (25.0-35.0) pg MCHC 32.8 (31.0-37.0) g/dL RDW 14.1 (11.5-15.5) % Plt Count 251 (150-450) k/uL MPV 7.6 Neutrophils % 65 % Lymphocytes % 28 % Monocytes % 4 % Eosinophils % 1 % Basophils % 1 % Neutrophils # 2.9 (1.3-7.7) k/uL Lymphocytes # 1.3 (1.0-4.8) k/uL Monocytes # 0.2 (0-1.0) k/uL Eosinophils # 0.0 (0-0.7) k/uL Basophils # 0.0 (0-0.2) k/uL Sodium 133 L (137-145) mmol/L Potassium 3.1 L (3.5-5.1) mmol/L Chloride 94 L (98-107) mmol/L Carbon Dioxide 27 (22-30) mmol/L Anion Gap 12 mmol/L BUN 6 L (7-17) mg/dL Creatinine 0.57 (0.52-1.04) mg/dL Est GFR (CKD-EPI)AfAm >90 (>60 ml/min/1.73 sqM) Est GFR (CKD-EPI)NonAf >90 (>60 ml/min/1.73 sqM) Glucose 112 H (74-99) mg/dL Plasma Lactic Acid Abdoulaye (0.7-2.0) mmol/L Calcium 9.5 (8.4-10.2) mg/dL Magnesium (1.6-2.3) mg/dL Total Bilirubin 1.3 (0.2-1.3) mg/dL AST 152 H (14-36) U/L ALT 108 H (4-34) U/L Alkaline Phosphatase 96 (38-126) U/L Total Protein 8.0 (6.3-8.2) g/dL Albumin 5.0 (3.5-5.0) g/dL Amylase 65 (30-110) U/L Lipase 296 (23-300) U/L Urine Color Yellow Urine Appearance Cloudy H (Clear) Urine pH 6.5 (5.0-8.0) Ur Specific [place] 1.028 (1.001-1.035) Urine Protein 2+ H (Negative) Urine Glucose (UA) Negative (Negative) Urine Ketones 2+ H (Negative) Urine Blood Negative (Negative) Urine Nitrite Negative (Negative) Urine Bilirubin 1+ H (Negative) Urine Urobilinogen 3.0 (<2.0) mg/dL Ur Leukocyte Esterase Negative (Negative) Urine RBC 3 (0-5) /hpf Urine WBC 7 H (0-5) /hpf Ur Squamous Epith Cells 6 H (0-4) /hpf Urine Bacteria Rare H (None) /hpf Urine Mucus Few H (None) /hpf Urine HCG, Qual (Not Detectd) 05/11/24 05/11/24 05/11/24 Range/Units 18:22 18:22 21:44 WBC (3.8-10.6) k/uL RBC (3.80-5.40) m/uL Hgb (11.4-16.0) gm/dL Hct (34.0-46.0) % MCV (80.0-100.0) fL MCH (25.0-35.0) pg MCHC (31.0-37.0) g/dL RDW (11.5-15.5) % Plt Count (150-450) k/uL MPV Neutrophils % % Lymphocytes % % Monocytes % % Eosinophils % % Basophils % % Neutrophils # (1.3-7.7) k/uL Lymphocytes # (1.0-4.8) k/uL Monocytes # (0-1.0) k/uL Eosinophils # (0-0.7) k/uL Basophils # (0-0.2) k/uL Sodium (137-145) mmol/L Potassium (3.5-5.1) mmol/L Chloride (98-107) mmol/L Carbon Dioxide (22-30) mmol/L Anion Gap mmol/L BUN (7-17) mg/dL Creatinine (0.52-1.04) mg/dL Est GFR (CKD-EPI)AfAm (>60 ml/min/1.73 sqM) Est GFR (CKD-EPI)NonAf (>60 ml/min/1.73 sqM) Glucose (74-99) mg/dL Plasma Lactic Acid Abdoulaye 1.0 (0.7-2.0) mmol/L Calcium (8.4-10.2) mg/dL Magnesium 1.5 L (1.6-2.3) mg/dL Total Bilirubin (0.2-1.3) mg/dL AST (14-36) U/L ALT (4-34) U/L Alkaline Phosphatase (38-126) U/L Total Protein (6.3-8.2) g/dL Albumin (3.5-5.0) g/dL Amylase (30-110) U/L Lipase (23-300) U/L Urine Color Urine Appearance (Clear) Urine pH (5.0-8.0) Ur Specific [place] (1.001-1.035) Urine Protein (Negative) Urine Glucose (UA) (Negative) Urine Ketones (Negative) Urine Blood (Negative) Urine Nitrite (Negative) Urine Bilirubin (Negative) Urine Urobilinogen (<2.0) mg/dL Ur Leukocyte Esterase (Negative) Urine RBC (0-5) /hpf Urine WBC (0-5) /hpf Ur Squamous Epith Cells (0-4) /hpf Urine Bacteria (None) /hpf Urine Mucus (None) /hpf Urine HCG, Qual Not Detected (Not Detectd) Disposition <Colette Cee - Last Filed: 05/11/24 23:47> Is patient prescribed a controlled substance at d/c from ED?: No Time of Disposition: 03:48 <Juaquin Carroll - Last Filed: 05/12/24 03:48> Clinical Impression: Abdominal pain Disposition: HOME SELF-CARE Condition: Good Instructions (If sedation given, give patient instructions): Pancreatitis (ED), Alcohol Dependence (ED) Additional Instructions: Please return to the Emergency Department if symptoms worsen or any other concerns. Please follow-up with your primary care provider. Prescriptions: Ibuprofen [Motrin] 600 mg PO Q8HR PRN #30 tab PRN Reason: Pain Ondansetron Odt [Zofran Odt] 4 mg PO Q8HR PRN #10 tab PRN Reason: Nausea Referrals: Denia Escalante MD [Primary Care Provider] - 1-2 days
[2024-05-11 19:03] LABS: ALT 108 U/L (4-34); AST 152 U/L (14-36); African American GFR (CKD) >90 (>60 ml/min/1.73 sqM); Alkaline Phosphatase 96 U/L (38-126); Amylase 65 U/L (30-110); Anion Gap 12 mmol/L; Blood Urea Nitrogen 6 mg/dL (7-17); Calcium 9.5 mg/dL (8.4-10.2); Carbon Dioxide 27 mmol/L (22-30); Chloride 94 mmol/L (98-107); Glucose 112 mg/dL (74-99); Lipase 296 U/L (23-300); Non-African American GFR(CKD) >90 (>60 ml/min/1.73 sqM); Potassium 3.1 mmol/L (3.5-5.1); Sodium 133 mmol/L (137-145); Total Bilirubin 1.3 mg/dL (0.2-1.3)
[2024-05-11 19:30] LABS: Basophils % (A) 1 %; Eosinophils % (A) 1 %; HCT 42.2 % (34.0-46.0); HGB 13.8 gm/dL (11.4-16.0); Lymphocytes # (A) 1.3 k/uL (1.0-4.8); Lymphocytes % (A) 28 %; MCH 30.5 pg (25.0-35.0); MCHC 32.8 g/dL (31.0-37.0); Mean Platelet Volume 7.6; Monocytes # (A) 0.2 k/uL (0-1.0); Monocytes % (A) 4 %; Neutrophils # (A) 2.9 k/uL (1.3-7.7); Neutrophils % (A) 65 %; Platelet Count 251 k/uL (150-450); RBC 4.53 m/uL (3.80-5.40); RDW 14.1 % (11.5-15.5); WBC 4.5 k/uL (3.8-10.6)
[2024-05-11 19:35] LABS: Appearance,Urine Cloudy (Clear); Bacteria,Urine Rare /hpf; Bilirubin,Urine 1+ (Negative); Blood,Urine Negative (Negative); Color,Urine Yellow; Glucose,Urine (UA) Negative (Negative); Ketones,Urine 2+ (Negative); Leukocyte Esterase,Urine Negative (Negative); Mucus,Urine Few /hpf; Nitrite,Urine Negative (Negative); PH, Urine 6.5 (5.0-8.0); Protein,Urine 2+ (Negative); RBC,Urine 3 /hpf (0-5); Specific Gravity,Urine 1.028 (1.001-1.035); Squamous Epithelial Cell,Urine 6 /hpf (0-4); WBC,Urine 7 /hpf (0-5)
[2024-05-11] MEDS: POTASSIUM CHLORIDE ER 20 MEQ TAB.ER PO STA (20:12)
[2024-05-11] MEDS: MORPHINE SULFATE 4 MG/ML SYRINGE IVP STA (20:13)
[2024-05-11] MEDS: ONDANSETRON 4 MG/2 ML VIAL IVP STA ×2 (20:13→23:45)
[2024-05-11] MEDS: SODIUM CHLORIDE 0.9% 2,000 ML IV ONE (20:14)
[2024-05-11] MEDS: MORPHINE SULFATE 2 MG/ML SYRINGE IVP ONE (22:42)
[2024-05-12] MEDS: KETOROLAC 15 MG/ML 1 ML VIAL IVP STA (01:08)
[2024-05-12] MEDS: LORazepam 2 MG/ML INJ IV STA (01:09)
--- NOTE | 2024-05-12 03:11 | CT ---
EXAM: CT Abdomen and Pelvis With Intravenous Contrast CLINICAL HISTORY: ITS.REASON CT Reason: abd pain TECHNIQUE: Axial computed tomography images of the abdomen and pelvis with intravenous contrast. CTDI is 17.2 mGy and DLP is 1294.3 mGy-cm. This CT exam was performed using one or more of the following dose reduction techniques: automated exposure control, adjustment of the mA and/or kV according to patient size, and/or use of iterative reconstruction technique. COMPARISON: CT Abdomen Pelvis dated 12/10/2022 FINDINGS: Lung bases: Unremarkable. No mass. No consolidation. ABDOMEN: Liver: Hepatic steatosis. Gallbladder and bile ducts: Cholecystectomy. No ductal dilation. Pancreas: Query minimal peripancreatic fat stranding versus volume averaging. No ductal dilation. Spleen: Unremarkable. No splenomegaly. Adrenals: Unremarkable. No mass. Kidneys and ureters: Unremarkable. No solid mass. No hydronephrosis. Stomach and bowel: Unremarkable. No obstruction. No mucosal thickening. PELVIS: Appendix: Normal appendix. Bladder: Mild bladder wall thickening versus partial distention. Reproductive: Unremarkable as visualized. ABDOMEN and PELVIS: Intraperitoneal space: No discrete fluid collection. No free air. Bones/joints: Mild thoracolumbar scoliosis. No acute fracture. No dislocation. Soft tissues: Unremarkable. Vasculature: Unremarkable. No abdominal aortic aneurysm. Lymph nodes: Unremarkable. No enlarged lymph nodes. IMPRESSION: 1. Query minimal peripancreatic fat stranding versus volume averaging. Correlate for pancreatitis. 2. Mild bladder wall thickening versus partial distention. Correlate for cystitis. 3. Cholecystectomy.
[2024-05-12] MEDS ORDERED: POTASSIUM BICARBONATE/CIT AC 20 MEQ TABLET.EFF PO ONE (03:45)
[2024-05-12] MEDS: ONDANSETRON 4 MG ODT STARTER PACK 2 TAB BTL PO STA (03:57)
[2024-05-12] MEDS: IBUPROFEN 600 MG STARTER PACK 4 TAB BTL PO STA (03:57)
[2024-05-12 04:02] VITALS: BP 132/89; PULSE 81; RESP 18; TEMP 98.7
== END 2024-05-12 04:01 | disposition home or self-care (01) ==
LOC: EC 17:14
DX: R10.13 Epigastric pain (principal); Z88.8 Allergy status to other drugs, medicaments and biological substances; Z90.49 Acquired absence of other specified parts of digestive tract
CPT/HCPCS: 36415; 93005; 80053; 82150; 83605; 83690; 83735; 85025; 81001; 81025; 74177; 99285; 96374; 96375 ×3; 96376 ×2; 96361; J2270 ×2; J2405; Q9967

== ENCOUNTER 2024-05-13 16:56 | Emergency (ER) | payer OTHER ==
--- NOTE | 2024-05-13 17:52 | ED ---
Abdominal Pain HPI - General Chief Complaint: Abdominal Pain Stated Complaint: abd pain, hypertension, sent by PCP Time Seen by Provider: 05/13/24 17:36 Source: patient Mode of arrival: ambulatory Limitations: no limitations - History of Present Illness Initial Comments: This patient is a 23-year-old woman who presents to evaluation for left-sided abdominal pain. She indicates the upper portion of the abdomen and states that this feels identical to previous episode of pancreatitis brought she states by drinking. She states the pain is aching. She has had accompanying nausea and vomiting. She was seen here for same 2 days ago had some medication but states that the symptoms persisted. She went home and has not had any improvement. The patient has not noted fever or chills. No change in bowel movements. No change in urination. MD Complaint: abdominal pain -: days(s) Location: [facility] Radiation: none Migration to: no migration Severity: severe Quality: aching Consistency: constant Improves With: nothing Worsens With: nothing Associated Symptoms: nausea, vomiting - Related Data Home Medications Medication Instructions Recorded Confirmed FLUoxetine HCL [PROzac] 20 mg PO DIRECTED 05/13/24 05/13/24 traZODone HCL [Desyrel] 100 mg PO DIRECTED 05/13/24 05/13/24 Previous Rx's Medication Instructions Recorded Ibuprofen [Motrin] 600 mg PO Q8HR PRN #30 tab 05/12/24 Ondansetron Odt [Zofran Odt] 4 mg PO Q8HR PRN #10 tab 05/12/24 Dicyclomine [Bentyl] 20 mg PO QID #15 tablet 05/13/24 Ondansetron Odt [Zofran ODT] 4 mg PO Q8HR PRN #10 tab 05/13/24 Allergies Allergy/AdvReac Type Severity Reaction Status Date / Time hydromorphone [From Dilaudid] AdvReac Hallucinati Verified 05/13/24 19:53 ons Review of Systems ROS Statement: Those systems with pertinent positive or pertinent negative responses have been documented in the HPI. ROS Other: All systems not noted in ROS Statement are negative. Constitutional: Denies: fever, chills Respiratory: Denies: cough, dyspnea Cardiovascular: Denies: chest pain, palpitations Gastrointestinal: Reports: abdominal pain, nausea, vomiting. Denies: diarrhea, constipation, melena, hematochezia Genitourinary: Denies: dysuria, hematuria, abnormal menses Musculoskeletal: Denies: back pain Skin: Denies: rash Neurological: Denies: headache, weakness Past Medical History Past Medical History: No Reported History, Hypertension Additional Past Medical History / Comment(s): CHANGE IN BOWEL HABITS IBS. bloating symptoms. been following her own blood pressure and it has been high. acute pancreatits History of Any Multi-Drug Resistant Organisms: MRSA Date of last positivie culture/infection: 2010 MDRO Source:: left leg Past Surgical History: Breast Surgery, Cholecystectomy Additional Past Surgical History / Comment(s): LT BREAST LUMPECTOMY-BENIGN Past Anesthesia/Blood Transfusion Reactions: No Reported Reaction Past Psychological History: Anxiety, Depression Smoking Status: Never smoker Past Alcohol Use History: Abuse, Daily, Heavy Past Drug Use History: Marijuana - Past Family History Brother(s) Family Medical History: Cancer Father Family Medical History: Congestive Heart Failure (CHF), Diabetes Mellitus, Dialysis Additional Family Medical History / Comment(s): heart and kidney failure. dad on dialysis. HTN Mother Family Medical History: Diabetes Mellitus Additional Family Medical History / Comment(s): HTN General Exam Limitations: no limitations General appearance: alert, in no apparent distress Head exam: Present: atraumatic, normocephalic Eye exam: Present: normal appearance. Absent: scleral icterus, conjunctival injection ENT exam: Present: normal oropharynx Neck exam: Present: normal inspection Respiratory exam: Present: normal lung sounds bilaterally. Absent: respiratory distress, wheezes, rales, rhonchi, stridor, accessory muscle use Cardiovascular Exam: Present: regular rate, normal rhythm, normal heart sounds. Absent: systolic murmur, diastolic murmur, rubs, gallop GI/Abdominal exam: Present: soft. Absent: distended, tenderness, guarding, rebound, rigid, mass Extremities exam: Present: normal inspection, normal capillary refill. Absent: pedal edema, calf tenderness Back exam: Present: normal inspection. Absent: CVA tenderness (R), CVA tenderness (L) Neurological exam: Present: alert Skin exam: Present: warm, dry, intact, normal color. Absent: rash Course Vital Signs 05/13/24 05/13/24 05/13/24 17:15 20:23 21:07 Temperature 98.9 F Pulse Rate 118 H 87 Respiratory 16 18 18 Rate Blood Pressure 140/101 136/91 O2 Sat by Pulse 99 99 Oximetry 05/13/24 22:27 Temperature 98.2 F Pulse Rate 97 Respiratory 18 Rate Blood Pressure 138/91 O2 Sat by Pulse 98 Oximetry Medical Decision Making - Medical Decision Making Was pt. sent in by a medical professional or institution (, [facility], LEAD GENERATOR, urgent care, hospital, or custodial...) When possible be specific @ -[No] Did you speak to anyone other than the patient for history (EMS, parent, family, police, friend...)? What history was obtained from this source @ -[No] Did you review nursing and triage notes (agree or disagree)? Why? @ -[I reviewed and agree with nursing and triage notes] Were old charts reviewed (outside hosp., previous admission, EMS record, old EKG, old radiological studies, urgent care reports/EKG's, custodial records)? Report findings @ -[No old charts were reviewed] Differential Diagnosis (chest pain, altered mental status, abdominal pain women, abdominal pain men, vaginal bleeding, weakness, fever, dyspnea, syncope, headach e, dizziness, GI bleed, back pain, seizure, CVA, palpatations, mental health, musculoskeletal)? @ -[Differential Abdominal Pain Women: Appendicitis, Cholecystitis, diverticulosis, ischemic bowel, pancreatitis, hepatitis, UTI, gastroenteritis, AAA, incarcerated hernia, bowel obstruction, constipation, inflammatory bowel, hepatitis, peptic ulcer disease, splenic infarction, perforated viscus, vulvitis, ovarian torsion, PID, kidney stone, placenta abruption, this is not meant to be an all-inclusive list EKG interpreted by me (3pts min.). @ -[As above] X-rays interpreted by me (1pt min.). @ -[None done] CT interpreted by me (1pt min.). @ -[None done] U/S interpreted by me (1pt. min.). @ -[None done] What testing was considered but not performed or refused? (CT, X-rays, U/S, labs)? Why? @ -[None] What meds were considered but not given or refused? Why? @ -[None] Did you discuss the management of the patient with other professionals (professionals i.e. , PA, LEAD GENERATOR, lab, RT, psych nurse, social service worker, gas analyst, teacher, electrical engineering drafting officer, pillowcase cutter)? Give summary @ -[No] Was smoking cessation discussed for >3mins.? @ -[No] Was critical care preformed (if so, how long)? @ -[No] Were there social determinants of health that impacted care today? How? (Homelessness, low income, unemployed, alcoholism, drug addiction, transportation, low edu. Level, literacy, decrease access to med. care, fci, rehab)? @ -[No] Was there de-escalation of care discussed even if they declined (Discuss DNR or withdrawal of care, Hospice)? DNR status @ -[No] What co-morbidities impacted this encounter? (DM, HTN, Smoking, COPD, CAD, Cancer, CVA, ARF, Chemo, Hep., AIDS, mental health diagnosis, sleep apnea, morbid obesity)? @ -[Previous pancreatitis. Was patient admitted / discharged? Hospital course, mention meds given and route, prescriptions, significant lab abnormalities, going to OR and other pertinent info. @ -[Patient is a 23-year-old woman with history of previous episodes of pa ncreatitis. The patient seen and evaluated here. She is also treated for symptoms. Following treatment she is having moderate improvement and at this point appears stable to continue as outpatient. Discussed appropriate further care and follow-up as well as return parameters. She is advised to abstain from alcohol Undiagnosed new problem with uncertain prognosis? @ -[No] Drug Therapy requiring intensive monitoring for toxicity (Heparin, Nitro, Insulin, Cardizem)? @ -[No] Were any procedures done? @ -[No] Diagnosis/symptom? @ -[Acute abdominal pain Acute, or Chronic, or Acute on Chronic? @ -[Acute Uncomplicated (without systemic symptoms) or Complicated (systemic symptoms)? @ -[Uncomplicated Side effects of treatment? @ -[No] Exacerbation, Progression, or Severe Exacerbation? @ -[No] Poses a threat to life or bodily function? How? (Chest pain, [place], [place], pneumonia, PE, COPD, DKA, ARF, appy, cholecystitis, CVA, Diverticulitis, Homicidal, Suicidal, threat to staff... and all critical care pts) @ -[No] - Lab Data Result diagrams: 05/13/24 18:26 05/13/24 18:26 Lab Results 05/13/24 05/13/24 05/13/24 Range/Units 18:26 18:26 18:26 WBC 3.8 (3.8-10.6) k/uL RBC 4.61 (3.80-5.40) m/uL Hgb 14.0 (11.4-16.0) gm/dL Hct 43.2 (34.0-46.0) % MCV 93.7 (80.0-100.0) fL MCH 30.4 (25.0-35.0) pg MCHC 32.4 (31.0-37.0) g/dL RDW 13.9 (11.5-15.5) % Plt Count 195 (150-450) k/uL MPV 8.0 Neutrophils % 63 % Lymphocytes % 27 % Monocytes % 4 % Eosinophils % 1 % Basophils % 0 % Neutrophils # 2.4 (1.3-7.7) k/uL Lymphocytes # 1.0 (1.0-4.8) k/uL Monocytes # 0.1 (0-1.0) k/uL Eosinophils # 0.0 (0-0.7) k/uL Basophils # 0.0 (0-0.2) k/uL Sodium (137-145) mmol/L Potassium (3.5-5.1) mmol/L Chloride (98-107) mmol/L Carbon Dioxide (22-30) mmol/L Anion Gap mmol/L BUN (7-17) mg/dL Creatinine (0.52-1.04) mg/dL Est GFR (CKD-EPI)AfAm (>60 ml/min/1.73 sqM) Est GFR (CKD-EPI)NonAf (>60 ml/min/1.73 sqM) Glucose (74-99) mg/dL Plasma Lactic Acid Abdoulaye (0.7-2.0) mmol/L Calcium (8.4-10.2) mg/dL Total Bilirubin (0.2-1.3) mg/dL AST (14-36) U/L ALT (4-34) U/L Alkaline Phosphatase (38-126) U/L Total Protein (6.3-8.2) g/dL Albumin (3.5-5.0) g/dL Amylase (30-110) U/L Lipase (23-300) U/L Urine Color Yellow Urine Appearance Clear (Clear) Urine pH 6.0 (5.0-8.0) Ur Specific [place] 1.027 (1.001-1.035) Urine Protein 1+ H (Negative) Urine Glucose (UA) Negative (Negative) Urine Ketones 3+ H (Negative) Urine Blood Negative (Negative) Urine Nitrite Negative (Negative) Urine Bilirubin 1+ H (Negative) Urine Urobilinogen 2.0 (<2.0) mg/dL Ur Leukocyte Esterase Negative (Negative) Urine RBC 2 (0-5) /hpf Urine WBC 2 (0-5) /hpf Ur Squamous Epith Cells 6 H (0-4) /hpf Urine Mucus Few H (None) /hpf Urine HCG, Qual Not Detected (Not Detectd) 05/13/24 05/13/24 Range/Units 18:26 18:26 WBC (3.8-10.6) k/uL RBC (3.80-5.40) m/uL Hgb (11.4-16.0) gm/dL Hct (34.0-46.0) % MCV (80.0-100.0) fL MCH (25.0-35.0) pg MCHC (31.0-37.0) g/dL RDW (11.5-15.5) % Plt Count (150-450) k/uL MPV Neutrophils % % Lymphocytes % % Monocytes % % Eosinophils % % Basophils % % Neutrophils # (1.3-7.7) k/uL Lymphocytes # (1.0-4.8) k/uL Monocytes # (0-1.0) k/uL Eosinophils # (0-0.7) k/uL Basophils # (0-0.2) k/uL Sodium 136 L (137-145) mmol/L Potassium 4.8 (3.5-5.1) mmol/L Chloride 100 (98-107) mmol/L Carbon Dioxide 22 (22-30) mmol/L Anion Gap 14 mmol/L BUN 7 (7-17) mg/dL Creatinine 0.46 L (0.52-1.04) mg/dL Est GFR (CKD-EPI)AfAm >90 (>60 ml/min/1.73 sqM) Est GFR (CKD-EPI)NonAf >90 (>60 ml/min/1.73 sqM) Glucose 92 (74-99) mg/dL Plasma Lactic Acid Abdoulaye 1.1 (0.7-2.0) mmol/L Calcium 9.9 (8.4-10.2) mg/dL Total Bilirubin 1.2 (0.2-1.3) mg/dL AST 83 H (14-36) U/L ALT 77 H (4-34) U/L Alkaline Phosphatase 64 (38-126) U/L Total Protein 8.3 H (6.3-8.2) g/dL Albumin 5.1 H (3.5-5.0) g/dL Amylase 49 (30-110) U/L Lipase 64 (23-300) U/L Urine Color Urine Appearance (Clear) Urine pH (5.0-8.0) Ur Specific [place] (1.001-1.035) Urine Protein (Negative) Urine Glucose (UA) (Negative) Urine Ketones (Negative) Urine Blood (Negative) Urine Nitrite (Negative) Urine Bilirubin (Negative) Urine Urobilinogen (<2.0) mg/dL Ur Leukocyte Esterase (Negative) Urine RBC (0-5) /hpf Urine WBC (0-5) /hpf Ur Squamous Epith Cells (0-4) /hpf Urine Mucus (None) /hpf Urine HCG, Qual (Not Detectd) Disposition Clinical Impression: Abdominal pain Disposition: HOME SELF-CARE Condition: Fair Instructions (If sedation given, give patient instructions): Abdominal Pain (ED) Prescriptions: Dicyclomine [Bentyl] 20 mg PO QID #15 tablet Ondansetron Odt [Zofran ODT] 4 mg PO Q8HR PRN #10 tab PRN Reason: Nausea Is patient prescribed a controlled substance at d/c from ED?: No Referrals: Denia Escalante MD [Primary Care Provider] - 1-2 days
[2024-05-13] MEDS: SODIUM CHLORIDE 0.9% 1,000 ML IV STA (18:33)
[2024-05-13] MEDS: MORPHINE SULFATE 4 MG/ML SYRINGE IV STA ×2 (18:33→21:08)
[2024-05-13] MEDS: ONDANSETRON 4 MG/2 ML VIAL IVP STA (18:34)
[2024-05-13 18:40] LABS: Basophils % (A) 0 %; Eosinophils % (A) 1 %; HCT 43.2 % (34.0-46.0); Lymphocytes % (A) 27 %; MCH 30.4 pg (25.0-35.0); MCHC 32.4 g/dL (31.0-37.0); MCV 93.7 fL (80.0-100.0); Monocytes # (A) 0.1 k/uL (0-1.0); Monocytes % (A) 4 %; Neutrophils # (A) 2.4 k/uL (1.3-7.7); Neutrophils % (A) 63 %; Platelet Count 195 k/uL (150-450); RBC 4.61 m/uL (3.80-5.40); RDW 13.9 % (11.5-15.5); WBC 3.8 k/uL (3.8-10.6)
[2024-05-13 18:48] LABS: ALT 77 U/L (4-34); African American GFR (CKD) >90 (>60 ml/min/1.73 sqM); Amylase 49 U/L (30-110); Anion Gap 14 mmol/L; Blood Urea Nitrogen 7 mg/dL (7-17); Calcium 9.9 mg/dL (8.4-10.2); Carbon Dioxide 22 mmol/L (22-30); Chloride 100 mmol/L (98-107); Glucose 92 mg/dL (74-99); Lipase 64 U/L (23-300); Non-African American GFR(CKD) >90 (>60 ml/min/1.73 sqM); Sodium 136 mmol/L (137-145)
[2024-05-13 18:49] LABS: Albumin 5.1 g/dL (3.5-5.0); Potassium 4.8 mmol/L (3.5-5.1)
[2024-05-13 18:50] LABS: AST 83 U/L (14-36); Alkaline Phosphatase 64 U/L (38-126); Total Bilirubin 1.2 mg/dL (0.2-1.3); Total Protein 8.3 g/dL (6.3-8.2)
[2024-05-13 19:01] LABS: Appearance,Urine Clear (Clear); Bilirubin,Urine 1+ (Negative); Blood,Urine Negative (Negative); Color,Urine Yellow; Glucose,Urine (UA) Negative (Negative); Ketones,Urine 3+ (Negative); Leukocyte Esterase,Urine Negative (Negative); Mucus,Urine Few /hpf; Nitrite,Urine Negative (Negative); Protein,Urine 1+ (Negative); RBC,Urine 2 /hpf (0-5); Specific Gravity,Urine 1.027 (1.001-1.035); Squamous Epithelial Cell,Urine 6 /hpf (0-4); WBC,Urine 2 /hpf (0-5)
[2024-05-13 20:25] VITALS: RESP 18
[2024-05-13] MEDS: MAG HYDROX/AL HYDROX/SIMETH 30 ML, HYOSCYAMINE ELIXIR 10 ML, LIDOCAINE VISCOUS 2% 10 ML PO STA (20:26)
[2024-05-13] MEDS: DEXTROSE 5%-0.9% NACL 1,000 ML IV SCH (20:29)
[2024-05-13 22:29] VITALS: BP 138/91; PULSE 97; TEMP 98.2
== END 2024-05-13 22:29 | disposition home or self-care (01) ==
LOC: EC 16:56
DX: K85.90 Acute pancreatitis without necrosis or infection, unspecified (principal); R10.12 Left upper quadrant pain; Z88.5 Allergy status to narcotic agent; Z90.49 Acquired absence of other specified parts of digestive tract
CPT/HCPCS: 36415; 80053; 82150; 83605; 83690; 85025; 81001; 81025; 99284; 96374; 96375; 96376; 96361 ×3; J2270; J2405

== ENCOUNTER 2025-04-26 06:00 | Inpatient (IN) | payer OTHER ==
[2025-04-26] MEDS ORDERED: METHYLERGONOVINE 0.2 MG/ML 1 ML AMP IM PRN (06:26)
[2025-04-26] MEDS ORDERED: CARBOPROST TROMETHAMINE 250 MCG/ML 1 ML AMP IM PRN (06:26)
[2025-04-26] MEDS ORDERED: TRANEXAMIC 1,000 MG/100ML-NACL 1,000 MG in EMPTY BAG 1 BAG IV PRN (06:26)
[2025-04-26] MEDS ORDERED: OXYTOCIN 10 UNIT/ML 1 ML VIAL IM PRN (06:26)
[2025-04-26] MEDS ORDERED: miSOPROStoL 200 MCG TAB PO PRN (06:26)
[2025-04-26] MEDS ORDERED: TERBUTALINE 1 MG/ML VIAL SQ PRN (06:26)
[2025-04-26] MEDS ORDERED: miSOPROStoL 200 MCG TAB RECTAL PRN (06:26)
[2025-04-26 06:36] LABS: Glucose,Whole Blood 96 mg/dL (70-110)
[2025-04-26] MEDS: LACTATED RINGERS 1,000 ML IV SCH (06:42)
[2025-04-26] MEDS: AMPICILLIN 2,000 MG in SODIUM CHLORIDE 0.9% 100 ML IVPB STA (06:42)
[2025-04-26 06:48] LABS: Basophils # (A) 0.03 10*3/uL (0.00-0.10); Basophils % (A) 0.3 %; Eosinophils # (A) 0.09 10*3/uL (0.04-0.35); HCT 33.3 % (37.2-46.3); HGB 10.9 g/dL (12.0-15.0); Lymphocytes # (A) 2.88 10*3/uL (0.90-5.00); Lymphocytes % (A) 33.1 %; MCH 29.5 pg (27.0-32.0); MCHC 32.7 g/dL (32.0-37.0); Mean Platelet Volume 9.7 fL (9.5-12.2); Monocytes # (A) 0.71 10*3/uL (0.20-1.00); Monocytes % (A) 8.2 %; Neutrophils # (A) 4.88 10*3/uL (1.80-7.70); Neutrophils % (A) 56.2 %; Platelet Count 271 10*3/uL (140-440); RDW 13.6 % (11.5-14.5); WBC 8.69 10*3/uL (4.50-10.00)
[2025-04-26] MEDS: OXYTOCIN 30 UNITS/500 ML NS 30 UNIT in SALINE 1 500ML.BAG IV SCH (06:56)
--- NOTE | 2025-04-26 08:52 | P.HPOB ---
History of Present Illness H&P Date: 04/26/25 Chief Complaint: IOL for GDM Patient is a 24-year-old G1, P0 female at 380/7 weeks presenting for induction of labor due to gestational diabetes mellitus poorly controlled on insulin. [place] 05/10/2025 by LMP confirmed by 15 week ultrasound. She has received routine care. has been complicated by poorly controlled gestational diabetes mellitus, anxiety/depression. EFW 92% at 33 weeks. She reports good movement. Denies fever/chills, headache, visual changes, chest pain, dyspnea, vaginal bleeding, leakage of fluid. Pertinent labs: Blood type O+, antibody screen negative, GBS positive, rubella nonimmune, RPR nonreactive, HepBsAg negative, Hep C nonreactive, HIV negative, gonorrhea negative, chlamydia negative Review of Systems ROS reviewed. Pertinent positives and negatives discussed above, a complete review of systems was performed and all the other systems were negative. Past Medical History Past Medical History: No Reported History, Hypertension Additional Past Medical History / Comment(s): CHANGE IN BOWEL HABITS IBS. bloating symptoms. been following her own blood pressure and it has been high. acute pancreatits History of Any Multi-Drug Resistant Organisms: MRSA Date of last positivie culture/infection: 2010 MDRO Source:: left leg Past Surgical History: Breast Surgery, Cholecystectomy Additional Past Surgical History / Comment(s): LT BREAST LUMPECTOMY-BENIGN Past Anesthesia/Blood Transfusion Reactions: No Reported Reaction Past Psychological History: Anxiety, Depression Additional Psychological History / Comment(s): past suicide attempt/ with pills 11/2018 Smoking Status: Never smoker Past Alcohol Use History: None Reported Additional Past Alcohol Use History / Comment(s): binge drinking on weekends/ 2 pint. Binge drinks when not working 3-4 days a week and drinks at least a pint. Past Drug Use History: None Reported Additional Drug Use History / Comment(s): Denies MJ use - Past Family History Brother(s) Family Medical History: Cancer Father Family Medical History: Congestive Heart Failure (CHF), Diabetes Mellitus, Dialysis Additional Family Medical History / Comment(s): heart and kidney failure. dad on dialysis. HTN Mother Family Medical History: Diabetes Mellitus Additional Family Medical History / Comment(s): HTN Medications and Allergies Home Medications Medication Instructions Recorded Confirmed Type Insulin NPH Human Isophane 25 units SQ HS 04/26/25 04/26/25 History [NovoLIN N] Vit No.179/Iron/Folic 1 tab PO DAILY 04/26/25 04/26/25 History [ Tablet] Allergies Allergy/AdvReac Type Severity Reaction Status Date / Time No Known Allergies Allergy Verified 12/05/24 14:57 Exam Vital Signs Temp Pulse Resp BP Pulse Ox 04/26/25 06:14 98.0 F 90 14 137/86 98 Intake and Output 04/25/25 04/26/25 04/26/25 22:59 06:59 14:59 Other: Weight 94.801 kg Vital signs are stable. General: No acute distress. Alert and oriented. Lungs: Nonlabored breathing. Abdomen: Gravid and appropriate for gestational age. Cervical exam: /-3 per attending. AROM. Clear fluid. Extremities: Symmetric movement. Category 1 heart tones. Results Result Diagrams: 04/26/25 06:30 Abnormal Lab Results - Last 24 Hours (Table) 04/26/25 Range/Units 06:30 RBC 3.70 L (4.10-5.20) 10*6/uL Hgb 10.9 L (12.0-15.0) g/dL Hct 33.3 L (37.2-46.3) % Immature Gran # 0.10 H (0.00-0.04) 10*3/uL Assessment and Plan Assessment: Patient is a 24-year-old G1, P0 female at 380/7 weeks presenting for induction of labor due to poorly controlled gestational diabetes mellitus. (1) Encounter for induction of labor Current Visit: Yes Status: Acute Code(s): Z34.90 - ENCNTR FOR SUPRVSN OF NORMAL , UNSP, UNSP TRIMESTER SNOMED Code(s): 512178286 (2) Gestational diabetes mellitus (GDM) Current Visit: Yes Status: Acute Code(s): O24.419 - GESTATIONAL DIABETES MELLITUS IN , UNSP CONTROL SNOMED Code(s): 93641877 Plan: - Proceed with induction of labor today - Penicillin G for GBS - AccuCheks every 4 hours - Pitocin per protocol - Continuous EFM and tocometer - Analgesia with epidural per patient request - Anticipate spontaneous vaginal delivery
[2025-04-26] MEDS: PENICILLIN G POTASSIUM 2,500,000 UNIT in SODIUM CHLORIDE 0.9% 100 ML IVPB SCH (10:13)
[2025-04-26 10:17] LABS: Glucose,Whole Blood 124 mg/dL (70-110)
[2025-04-26] MEDS: NALBUPHINE 10 MG/ML (10 ML MDV) IV PRN (14:15)
[2025-04-26 14:23] LABS: Glucose,Whole Blood 88 mg/dL (70-110)
[2025-04-26] MEDS ORDERED: fentaNYL (PF) 50 MCG/ML 5 ML AMP ONE (15:57)
[2025-04-26] MEDS ORDERED: ROPIVACAINE 5 MG/ML 30 ML VIAL ONE (15:57)
[2025-04-26] MEDS ORDERED: SODIUM CHLORIDE 0.9% 250 ML BAG ONE (15:57)
[2025-04-26 18:15] LABS: Glucose,Whole Blood 74 mg/dL (70-110)
[2025-04-26] MEDS: ACETAMINOPHEN IV (For NPO) 1,000 MG in EMPTY BAG 1 BAG IVPB ONE (18:42)
[2025-04-26 21:52] LABS: Glucose,Whole Blood 96 mg/dL (70-110)
[2025-04-27] MEDS: LIDOCAINE 0.5% (PF) 5 MG/ML (50 ML SDV) SQ PRN (02:07)
[2025-04-27] MEDS ORDERED: ZOLPIDEM 5 MG TAB PO PRN (02:08)
[2025-04-27] MEDS ORDERED: HYDROCORTISONE 2.5% RECTAL CREAM 30 GM TUBE RECTAL PRN (02:08)
[2025-04-27] MEDS ORDERED: diphenhydrAMINE 25 MG CAP PO PRN (02:08)
[2025-04-27] MEDS ORDERED: diphenhydrAMINE 50 MG/ML 1 ML VIAL IVP PRN ×2 (02:08)
[2025-04-27] MEDS ORDERED: BENZOCAINE/MENTHOL SPRAY 1 GM/SPRAY AEROSOL TOPICAL PRN (02:08)
[2025-04-27] MEDS ORDERED: LANOLIN CREAM 1 GM TUBE TOPICAL PRN (02:08)
[2025-04-27] MEDS ORDERED: SIMETHICONE 80 MG CHEWABLE PO PRN (02:08)
[2025-04-27] MEDS ORDERED: diphenhydrAMINE 50 MG CAP PO PRN (02:08)
[2025-04-27] MEDS: IBUPROFEN 800 MG TAB PO SCH (02:20)
--- NOTE | 2025-04-27 02:25 | P.PROBDLV ---
Vaginal Delivery Note - . Vaginal Delivery Note: DATE OF SERVICE: 04/27/2025 PROCEDURE: Normal Vaginal Delivery ATTENDING: Dr. Tomasa Gibbs MD ESTIMATED BLOOD LOSS: 200 mL FINDINGS: VFI, Apgars 6/8. Weight 8 pounds and 5 ounces (3775 grams) PROCEDURE: Ms. Tarango is a 24 year old at 38 weeks presenting to labor and delivery for medical induction of labor for poorly controlled gestational diabetes on insulin. For further details, please review the admitting H&P. Pitocin was titrated per protocol and AROM was undertaken at 834 revealing clear amniotic fluid. The patient received epidural anesthesia per her request. The patient was completely dilated at 2318. She pushed effectively with category I to II FHTs. A viable female infant was delivered after one nuchal cord was reduced at 110. noted to be in left occiput posterior presentation. The was placed on the maternal abdomen and bulb suctioned. The infant was noted to be spontaneously crying. Cord was clamped and cut after a 30-second delay. The infant was handed off to the pediatric team. Placenta was delivered whole with gentle cord traction at 114. Oxytocin was started to facilitate uterine tone. Uterine fundus was found to be firm and below the umbilicus upon fundal massage. Thorough examination of the cervix, vagina, periurethral area, and perineum revealed a second degree perineal laceration. The perineum was infiltrated with lidocaine and repaired with 2-0 Vicryl in the usual fashion. The patient is stable and allowed to begin the bonding process.
[2025-04-27] MEDS: MEASLES-MUMPS-RUBELLA VACC/PF 0.5 ML VIAL SQ ONE (04:16)
[2025-04-27] MEDS: AMPICILLIN 1,000 MG in SODIUM CHLORIDE 0.9% 50 ML IVPB SCH (07:50)
[2025-04-27] MEDS: ACETAMINOPHEN TAB 500 MG TAB PO SCH (08:11)
[2025-04-27] MEDS: SENNOSIDES-DOCUSATE SODIUM 1 EACH TAB PO SCH (08:11)
[2025-04-28 06:54] LABS: Basophils # (A) 0.06 10*3/uL (0.00-0.10); Basophils % (A) 0.4 %; Eosinophils # (A) 0.12 10*3/uL (0.04-0.35); Eosinophils % (A) 0.9 %; HCT 29.7 % (37.2-46.3); HGB 9.7 g/dL (12.0-15.0); Lymphocytes # (A) 3.58 10*3/uL (0.90-5.00); Lymphocytes % (A) 26.5 %; MCH 30.4 pg (27.0-32.0); MCHC 32.7 g/dL (32.0-37.0); MCV 93.1 fL (80.0-97.0); Mean Platelet Volume 9.7 fL (9.5-12.2); Monocytes # (A) 0.71 10*3/uL (0.20-1.00); Monocytes % (A) 5.3 %; Neutrophils # (A) 8.97 10*3/uL (1.80-7.70); Neutrophils % (A) 66.4 %; Platelet Count 234 10*3/uL (140-440); RBC 3.19 10*6/uL (4.10-5.20); RDW 14.4 % (11.5-14.5); WBC 13.51 10*3/uL (4.50-10.00)
--- NOTE | 2025-04-28 09:17 | P.DS ---
Providers Date of admission: 04/26/25 06:06 Expected date of discharge: 04/28/25 Attending physician: Tomasa Gibbs MD Primary care physician: Stated None Hospital Course: 24 year old now PPD#1 s/p . The patient is doing well this morning and had no acute events overnight. She has no complaints this morning. She reports minimal lochia, passing flatus, voiding without difficulty, ambulating, and eating/drinking without nausea or vomiting. doing well at bedside, formula feeding. She denies chest pain, shortness of breathing, fevers, or chills overnight. She denies pain or swelling in the legs. res trictions are reviewed with the patient including pelvic rest for 6 weeks. The patient is encouraged to call the office if she experiences any heavy bleeding, foul-smelling discharge, breast complaints, or any if she has any other concerns. She will follow up in the office in 6 weeks for exam. All questions are answered. Patient Condition at Discharge: Good Plan - Discharge Summary New Discharge Prescriptions: New Docusate [Colace] 100 mg PO BID PRN #60 capsule PRN Reason: Constipation No Action Insulin NPH Human Isophane [NovoLIN N] 25 units SQ HS Vit No.179/Iron/Folic [ Tablet] 1 tab PO DAILY Discharge Medication List Insulin NPH Human Isophane [NovoLIN N] 25 units SQ HS 04/26/25 [History] Vit No.179/Iron/Folic [ Tablet] 1 tab PO DAILY 04/26/25 [History] Docusate [Colace] 100 mg PO BID PRN #60 capsule 04/28/25 [Rx] Follow up Appointment(s)/Referral(s): Tomasa Gibbs MD [STAFF PHYSICIAN] - 06/07/25 11:30 am Activity/Diet/Wound Care/Special Instructions: Instructions 1. Do not begin any exercise program for 3 weeks. 2. Do not resume sexual relations for 6 weeks or longer if uncomfortable. 3. You may take tub baths or showers at any time. 4. You may use tampons if desired after 6 weeks. 5. Keep any areas repaired with stitches clean and dry. 6. If you are not nursing, wear a good fitting, supportive bra during the day and limit fluid intake for at least 1 week to prevent breast engorgement. 7. Call the office, , within the next week to make appointment for your 6 week checkup if it has not already been made. 8. Report any of the following occurrences to the doctor promptly: a. Heavy, excessive bleeding b. Chills, fever c. Burning or frequency of urination d. Pain or redness and breasts if nursing e. Increasing pain or swelling of vulva (stitches). In addition to the above instructions, the following additional should be followed: 1. No heavy lifting or straining (exercising) until after 6 week checkup. 2. Keep abdominal incision clean and dry: You may wear a dressing if more comfortable. 3. Make office appointment for 2 weeks after delivery date. Discharge Disposition: HOME SELF-CARE
[2025-04-29 09:20] VITALS: RESP 16
[2025-04-29 16:37] VITALS: BP 117/67; PULSE 94; TEMP 98.7
== END 2025-04-29 22:15 | disposition home or self-care (01) | DRG 560 ==
LOC: 4FBP 06:06
PROVIDERS: ADMIT Obstetrics & Gynecology; ATTEND Obstetrics & Gynecology
PROC: 0KQM0ZZ Repair Perineum Muscle, Open Approach (ICD-10-PCS; principal; 2025-04-28)
PROC: 10907ZC Drainage of Amniotic Fluid, Therapeutic from Products of Conception, Via Natural or Artificial Opening (ICD-10-PCS; principal; 2025-04-28)
PROC: 10E0XZZ Delivery of Products of Conception, External Approach (ICD-10-PCS; principal; 2025-04-28)
PROC: 3E033VJ Introduction of Other Hormone into Peripheral Vein, Percutaneous Approach (ICD-10-PCS; principal; 2025-04-28)
DX: O24.424 Gestational diabetes mellitus in childbirth, insulin controlled (principal); K58.9 Irritable bowel syndrome, unspecified; O70.1 Second degree perineal laceration during delivery; Z37.0 Single live birth; Z3A.38 38 weeks gestation of pregnancy; Z91.51 Personal history of suicidal behavior; Z86.14 Personal history of Methicillin resistant Staphylococcus aureus infection
CPT/HCPCS: 83036; 84484; 85025; 86850; 86900; 86901; 90707